=== PATIENT | male | born 1970 | race Caucasian/White ===

== ENCOUNTER → 2020-01-05 15:07 | Outpatient (BNVA) | payer OTHER, SELFPAY | PROVIDERS: Visit Provider Internal Medicine Cardiovascular Disease | DX: Z76.89 Persons encountering health services in other specified circumstances (principal) ==

== ENCOUNTER → 2020-04-05 14:52 | Outpatient (BNVA) | payer OTHER, SELFPAY | PROVIDERS: Visit Provider Internal Medicine Cardiovascular Disease ==

== ENCOUNTER 2020-08-04 11:20 | Outpatient (REF) | payer OTHER, SELFPAY ==
[2020-08-04 12:35] LABS: MANUAL DIFF FLAG NO
[2020-08-04 12:43] LABS: Basophils Absolute Auto 0.1 X10*3/uL (0.0-0.2); Eosinophils Absolute Auto 0.5 X10*3/uL (0.0-0.4); Eosinophils Percent Auto 12.9 % (0-4); Hematocrit 32.2 % (42-52); Hemoglobin 10.8 g/dl (14.0-18.0); Lymphocytes Absolute Auto 1.6 X10*3/uL (1.2-4.9); Lymphocytes Percent Auto 39.2 % (20-40); Mean Corpuscular HGB Conc 33.5 g/dl (31.0-36.0); Mean Corpuscular Hemoglobin 34.2 pg (27.0-33.0); Mean Corpuscular Volume 101.9 fL (80-98); Mean Platelet Volume 11.3 fL (9.4-12.4); Monocytes Absolute Auto 0.3 X10*3/uL (0.1-1.2); Monocytes Percent Auto 8.4 % (2-11); Neutrophils Absolute Auto 1.5 X10*3/uL (2.0-8.3); Neutrophils Percent Auto 37.5 % (45-73); Platelet Count 188 X10*3/uL (160-400); Red Blood Count 3.16 X10*6/uL (4.60-5.80); Red Cell Distribution Width 15.3 % (11.0-16.0)
[2020-08-04 12:51] LABS: Estimated Average Glucose 108 mg/dL; Hemoglobin A1c % 5.4 %
[2020-08-04 13:10] LABS: B Type Natriuretic Peptide 196 pg/mL (<100)
[2020-08-04 13:15] LABS: Anion Gap 15 (12-20); Blood Urea Nitrogen 12 mg/dL (9-16); Calcium 8.3 mg/dL (8.4-10.2); Carbon Dioxide 26 mmol/L (22-29); Chloride 106 mmol/L (96-108); Estimated Glomerular Filt Rate > 60; Glucose Random 131 mg/dL (60-115); Potassium 4.1 mmol/L (3.3-5.1); Sodium 143 mmol/L (135-145)
[2020-08-04 13:17] LABS: Alanine Aminotransferase 14 U/L (0-40); Albumin Level 3.6 g/dL (3.5-5.0); Alkaline Phosphatase 59 U/L (39-117); Anion Gap 14 (12-20); Aspartate Amino Transferase 23 U/L (5-37); Bilirubin Total 0.6 mg/dL (0.0-1.0); Blood Urea Nitrogen 13 mg/dL (9-16); Calcium 8.2 mg/dL (8.4-10.2); Carbon Dioxide 26 mmol/L (22-29); Chloride 107 mmol/L (96-108); Cholesterol 207 mg/dL; Estimated Glomerular Filt Rate > 60; Glucose Random 127 mg/dL (60-115); HDL Cholesterol 87 mg/dL; LDL Cholesterol Calculated 96 mg/dl; Potassium 4.2 mmol/L (3.3-5.1); Sodium 143 mmol/L (135-145); Total Protein 6.2 g/dL (6.5-8.0); Triglycerides 122 mg/dL
[2020-08-04 13:36] LABS: Free T4 (Free Thyroxine) 1.11 ng/dL (0.71-1.85); Thyroid Stimulating Hormone 0.66 uIU/mL (0.32-4.0)
[2020-08-04 13:39] LABS: Folate 4.8 ng/mL (> or = 4.0); Vitamin B12 1200 pg/mL (200-900)
== END 2020-08-04 11:21 | disposition home or self-care (01) ==
LOC: HO.LAB 11:20
PROVIDERS: PCP Internal Medicine; Referring Provider Internal Medicine Cardiovascular Disease; Visit Provider Internal Medicine
DX: E11.65 Type 2 diabetes mellitus with hyperglycemia (principal); I50.42 Chronic combined systolic (congestive) and diastolic (congestive) heart failure; E78.00 Pure hypercholesterolemia, unspecified; I42.8 Other cardiomyopathies
CPT/HCPCS: 36415; 80048; 80053; 80061; 82607; 82746; 83036; 83880; 84439; 84443; 85025

== ENCOUNTER → 2020-08-25 10:21 | Outpatient (REF) | payer OTHER, SELFPAY ==
--- NOTE | 2020-08-25 10:24 | CA_ITS ---
Transthoracic Echocardiogram Patient (Last, First, Middle): To Hagen, Gender: Male Date of : 1970 Age: 50 Procedure Date: 08/25/2020 Procedure Type: Transthoracic Echocardiogram Location: OP Height: 175.26 cm Weight: 68.04 kg BSA: 1.83 m2 Heart Rate: bpm BP: 112 / 62 mmHg Vine Pruner: Referring MD: Ari Krishnamurthy MD Symptoms: I42.8 - Other cardiomyopathies Study Quality: Good ECG Rhythm: Sinus Conclusions: - The left ventricular systolic function is normal. The calculated ejection fraction is 58% by biplane method. - No obvious valvular pathology seen on this study. Findings Left Ventricle Normal left ventricular cavity size. There is normal left ventricular wall thickness. The left ventricular systolic function is normal. The calculated ejection fraction is 58% by biplane method. There is no evidence of regional wall motion abnormalities. Diastolic function is normal for age. Right Ventricle Normal right ventricular cavity size and systolic function. Atria Both atria are normal in size. Aortic Valve There is a normal trileaflet aortic valve. There is no aortic valve stenosis. There is no aortic valve regurgitation. Mitral Valve The mitral valve appears normal. There is trace mitral valve regurgitation. There is no mitral valve stenosis. Pulmonic Valve The pulmonic valve was not well visualized. Tricuspid Valve Normal tricuspid valve structure. There is trace tricuspid valve regurgitation. The pulmonary artery systolic pressure is normal. Great Vessels The aortic annulus, sinuses of valsalva, asc aorta, and aortic arch are normal in size. Venous The inferior vena cava is normal in size and collapses greater than 50% with inspiration. Pericardium/Pleural There is no evidence of pericardial effusion. Prior Study Comparison Changes noted compared to prior study dated: 07/20/2019. Improved LVEF. Recommendations, Care & Conclusions No obvious valvular pathology seen on this study. Measurements 2D Linear Measurements RVIDd: 3.28 RVIDd Index: 1.79 IVSd: 0.75 0.6-0.9/0.6-1.0 cm LVIDd: 5.21 3.9-5.3/4.2-5.9 cm LVIDd Index: 2.85 2.4-3.2/2.2-3.1 cm/m2 LVIDs: 3.33 2.0-3.6 cm LVPWd: 0.90 0.7-1.1 cm Ao Root: 3.20 2.1-3.5 cm LA Diam: 3.30 2.7-3.8/3.0-4.0 cm LAIDs Index: 1.80 1.5-2.3 cm/m2 LV Mass: 187.64 67-162/88-224 g LV Mass Index: 102.53 43-95/49-115 g/m2 LVOT Diam: 2.10 3.0+(-)1.3 cm 2D Systolic Function EF 4C: 50.00 >55% EF 2C: 64.40 >55% EF BiP: 58.30 >55% Mitral Valve MV Pk E: 0.53 MV PK A: 0.42 MV Decel Time: 330.00 E/A: 1.30 E'Lateral: 7.07 E'Medial: 7.51 E/E' Med: 7.10 E/E' Lat: 7.50 Aortic Valve AoV Pk Marcellus: 1.22 AoV Mn Marcellus: 0.82 AoV VTI: 0.22 AoV Pk Grad: 6.00 Aov Mn Grad: 3.00 GREGORIA Cont.VTI: 3.20 LVOT LVOT Pk Marcellus: 0.98 LVOT Mn Marcellus: 0.73 LVOT VTI: 0.21 LVOT Pk Grad: 4.00 LVOT Mn Grad: 2.00 LVOT Diam: 2.10 LVOT Area: 3.46 Diastolic Function MV Pk E: 0.53 MV Pk A: 0.42 E/A: 1.30 E'Medial: 7.51 E/E' Med: 7.10 E' Laterial: 7.07 E/E' Lat: 7.50 Tricuspid Valve TR Pk Marcellus: 2.18 TR Pk Grad: 19.00 RA Press: 3.00 RVSP: 22.00 Great Vessels Aorta Ao Root-2D: 3.20 2.0-3.7 cm Ao Asc: 3.20 2.1-3.4 cm Ao Arch: 2.60 Updated in Other Vendor System with Status of Final Glenn Enciso MD electronically signed on 08/27/2020 12:39:00 PM with status of Final
[2020-08-25 12:50] LABS: MANUAL DIFF FLAG NO
[2020-08-25 12:58] LABS: Basophils Absolute Auto 0.1 X10*3/uL (0.0-0.2); Eosinophils Absolute Auto 0.2 X10*3/uL (0.0-0.4); Eosinophils Percent Auto 5.7 % (0-4); Hematocrit 33.1 % (42-52); Hemoglobin 11.2 g/dl (14.0-18.0); Imm Gran Abs Auto 0.01 X10*3/uL (0.00-0.03); Imm Gran Pct Auto 0.3 % (0.0-0.4); Lymphocytes Absolute Auto 1.7 X10*3/uL (1.2-4.9); Lymphocytes Percent Auto 49.7 % (20-40); Mean Corpuscular HGB Conc 33.8 g/dl (31.0-36.0); Mean Corpuscular Hemoglobin 34.6 pg (27.0-33.0); Mean Corpuscular Volume 102.2 fL (80-98); Mean Platelet Volume 11.8 fL (9.4-12.4); Monocytes Absolute Auto 0.4 X10*3/uL (0.1-1.2); Monocytes Percent Auto 11.2 % (2-11); Neutrophils Absolute Auto 1.1 X10*3/uL (2.0-8.3); Neutrophils Percent Auto 31.1 % (45-73); Platelet Count 177 X10*3/uL (160-400); Red Blood Count 3.24 X10*6/uL (4.60-5.80); Retic HGB Equivalent 37.4 pg (30.0-35.0); Reticulocyte Percent 1.4 % (0.5-1.8); Reticulocytes Absolute 0.044 X10*6/uL (0.026-0.095); White Blood Count 3.5 X10*3/uL (4.8-10.8)
[2020-08-25 13:29] LABS: Iron 83 mcg/dL (45-160); Percent Iron Saturation 38 % (15-50); Total Iron Binding Capacity 218 mcg/dL (228-428); Unsaturated Iron Binding 135 ug/dL
[2020-08-25 13:36] LABS: Microalbum/Creatinine Ratio Ur 4.5 ug/mg cr
[2020-08-25 13:50] LABS: Ferritin 468 ng/mL (20-250)
== END ==
LOC: HO.CARD 10:21
PROVIDERS: PCP Internal Medicine; Visit Provider Internal Medicine Cardiovascular Disease
DX: I42.8 Other cardiomyopathies (principal); I50.42 Chronic combined systolic (congestive) and diastolic (congestive) heart failure; D64.9 Anemia, unspecified; E11.65 Type 2 diabetes mellitus with hyperglycemia
CPT/HCPCS: 36415; 82043; 82728; 83540; 85025; 85045; 93306

== ENCOUNTER → 2020-12-12 14:57 | Outpatient (BNVA) | payer OTHER, SELFPAY | PROVIDERS: PCP Internal Medicine; Referring Provider Internal Medicine; Visit Provider Internal Medicine Cardiovascular Disease | DX: I50.42 Chronic combined systolic (congestive) and diastolic (congestive) heart failure (principal); I42.8 Other cardiomyopathies | CPT/HCPCS: 93005 ==

== ENCOUNTER → 2021-03-13 14:37 | Outpatient (BNVA) | payer OTHER, SELFPAY | PROVIDERS: PCP Internal Medicine; Referring Provider Internal Medicine; Visit Provider Surgery ==

== ENCOUNTER → 2021-07-20 14:44 | Outpatient (BNVA) | payer OTHER, SELFPAY | PROVIDERS: PCP Internal Medicine; Referring Provider Internal Medicine; Visit Provider Internal Medicine Cardiovascular Disease | DX: Z13.89 Encounter for screening for other disorder (principal) ==

== ENCOUNTER 2021-09-08 07:13 | Inpatient (IN) | payer OTHER, SELFPAY ==
[2021-09-08] VITALS (32 sets, daily range): BP systolic 66–125; BP diastolic 38–92; PULSE 87–108; RESP 11–21; TEMP 35.6–37.2; O2SAT 96–100; BMI 23.6
--- NOTE | 2021-09-08 | ECG_ITS ---
Test Reason : hypotensive Blood Pressure : / mmHG Vent. Rate : 090 BPM Atrial Rate : 000 BPM P-R Int : 000 ms QRS Dur : 090 ms QT Int : 408 ms P-R-T Axes : 000 047 062 degrees QTc Int : [address] & T wave abnormality, consider anterolateral ischemia Prolonged QT Abnormal ECG When compared with ECG of 30-MAR-2019 23:57, Atrial fibrillation has replaced Sinus rhythm ST now depressed in Anterior leads T wave inversion more evident in Anterior leads Referred By: Generic ED Physician Electronically Signed By:Juan Jose Britton
--- NOTE | ~2021-09-08 | XR_ITS ---
EXAMINATION: XR CHEST CLINICAL INFORMATION: Chest pain, weakness, cough. COMPARISON: 03/31/2019 chest radiograph. TECHNIQUE: Frontal view of the chest was obtained. FINDINGS: No significant abnormality is noted involving the heart, lungs, mediastinum, bony thorax or soft tissues. XR/XR chest 1V IMPRESSION: No acute cardiopulmonary process.
--- NOTE | ~2021-09-08 | CT_ITS ---
EXAMINATION: CT HEAD WITHOUT CONTRAST CLINICAL INFORMATION: Frontal headache, rule out bleed COMPARISON: None TECHNIQUE: Contiguous axial imaging was performed from the skull base to vertex without intravenous administration of contrast. This CT examination was performed using dose optimization techniques as appropriate, variously including the following: *Automated exposure control *Adjustment of mA and/or kV according to patient size (this includes techniques or standardized protocols for targeted exams where dose is matched to indication/reason for exam; i.e. extremities or head) *Use of iterative reconstruction technique DLP: 618 mGy-cm FINDINGS: There is no evidence of acute intracranial hemorrhage or territorial infarction. No abnormal mass effect or midline shift is seen. [place] to white matter differentiation is well preserved. No extra-axial fluid collections are identified. The ventricles are normal in size. There is no abnormal attenuation within the brain parenchyma. The osseous structures and soft tissues are normal. The mastoid air cells and visualized portions of the paranasal sinuses are well aerated. CT/CT head/brain wo con IMPRESSION: No acute intracranial pathology.
--- NOTE | ~2021-09-08 | CT_ITS ---
EXAMINATION: CT CHEST, ABDOMEN AND PELVIS WITHOUT IV CONTRAST CLINICAL INFORMATION: Hypotension, elevated WBC rule out infection COMPARISON: Chest x-ray 09/08/2021. CT abdomen pelvis 03/31/2019. TECHNIQUE: Multidetector volumetric imaging was performed from the thoracic inlet through the pubic symphysis following the uneventful administration of: Oral contrast: No Intravenous contrast: None. Sagittal and coronal reformatted images were obtained on the technologist workstation. This CT examination was performed using dose optimization techniques as appropriate, variously including the following: *Automated exposure control *Adjustment of mA and/or kV according to patient size (this includes techniques or standardized protocols for targeted exams where dose is matched to indication/reason for exam; i.e. extremities or head) *Use of iterative reconstruction technique FINDINGS: CHEST: LUNG: Left upper lobe calcified granuloma. No suspicious or concerning pulmonary nodules or masses. No focal consolidation or groundglass opacity. Mild diffuse bronchial wall thickening. MEDIASTINUM: The mediastinum in normal. The central vascular structures are unremarkable. No hilar or mediastinal lymphadenopathy. PLEURA: No significant effusion. No pleural mass or thickening. CHEST WALL/AXILLA: Unremarkable. ABDOMEN/PELVIS: The lack of intravenous contrast limits evaluation of the solid visceral organs including the liver, spleen, pancreas, and kidneys. LIVER, GALLBLADDER, AND BILIARY TREE: Limited non-contrast evaluation is normal. No gross focal hepatic lesion. Normal liver size and contour. No gross biliary ductal dilation. The gallbladder is unremarkable with no evidence of radiopaque gallstones, gallbladder wall thickening, or obvious pericholecystic inflammatory changes. PANCREAS: Limited non-contrast evaluation is normal. No audrey-pancreatic fluid. SPLEEN: Limited non-contrast evaluation is normal. ADRENAL GLANDS: Normal; no adrenal mass. KIDNEYS AND URETERS: Limited non-contrast evaluation is normal. No hydronephrosis, hydroureter, or calculi seen. No perinephric stranding. GASTROINTESTINAL TRACT: Small hiatal hernia. Small bowel nondilated. No evidence of appendicitis. No evidence of colitis or diverticulitis. ABDOMINAL WALL: Fat-containing left inguinal hernia. LYMPH NODES: No pathologically enlarged lymph nodes in the abdomen or pelvis. VASCULAR: Normal caliber abdominal aorta. BLADDER: Bladder is collapsed with circumferential wall irregularity. A Haskins catheter is in place. There is some gas in the bladder presumably from prior instrumentation. PELVIC VISCERA: Unremarkable. OSSEOUS STRUCTURES: Mild degenerative changes of the spine. No acute or suspicious osseous abnormality. CT/CT abdomen pelvis wo con IMPRESSION: No acute CT findings in the chest, abdomen, or pelvis.
[2021-09-08 07:45] LABS: Glucose, Whole Blood 222 mg/dL (60-115)
[2021-09-08 07:48] LABS: MANUAL DIFF FLAG NO
[2021-09-08 07:52] LABS: Basophils Absolute Auto 0.1 X10*3/uL (0.0-0.2); Basophils Percent Auto 0.4 % (0-2); Eosinophils Absolute Auto 0.1 X10*3/uL (0.0-0.4); Eosinophils Percent Auto 0.3 % (0-4); Hematocrit 34.6 % (42.0-52.0); Hemoglobin 12.7 g/dl (14.0-18.0); Imm Gran Pct Auto 0.6 % (0.0-0.4); Lymphocytes Absolute Auto 1.2 X10*3/uL (1.2-4.9); Lymphocytes Percent Auto 7.3 % (20-40); Mean Corpuscular HGB Conc 36.7 g/dl (31.0-36.0); Mean Corpuscular Hemoglobin 33.1 pg (27.0-33.0); Mean Corpuscular Volume 90.1 fL (80.0-98.0); Mean Platelet Volume 9.9 fL (9.4-12.4); Monocytes Absolute Auto 0.7 X10*3/uL (0.1-1.2); Monocytes Percent Auto 4.3 % (2-11); Neutrophils Absolute Auto 14.8 x10*3/uL (2.0-8.3); Neutrophils Percent Auto 87.1 % (45-73); Platelet Count 344 X10*3/uL (160-400); Red Blood Count 3.84 X10*6/uL (4.60-5.80)
[2021-09-08] MEDS: 0.9 % Sodium Chloride 1,000 ML 100 ML IV (08:00)
--- NOTE | 2021-09-08 08:02 | ED.DIZZY ---
HPI - Dizziness General Chief Complaint: Dizziness Stated Complaint: LOW BP,BLURRY VISION WHILE DRIVING PER EMS Time Seen by Provider: 09/08/21 07:41 Source: patient Mode of arrival: EMS Limitations: no limitations History of Present Illness HPI Narrative: 51-year-old male who presents emergency department for evaluation of weakness, dizziness, blurred vision, headache, cough and hypotension. Patient states he got up around 06:00 hours and drove to work. He states that while he was driving he felt dizzy and lightheaded as if he was going to pass out. He states that his vision became very blurred he had difficulty seeing. 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 On presentation to the emergency department the patient was hypotensive with a blood pressure of 76/38. He states that over the past 2-3 days he has been experiencing a frontal headache which he describes as an intermittent pounding sensation which is 8/10 at its worst. He has also had intermittent nausea with no vomiting. States that he has had a persistent cough since being diagnosed with COVID but the cough is nonproductive. He feels short of breath and has dyspnea on exertion but has no orthopnea. He has not noticed any pain or swelling in his lower extremities the patient drinks 6 vodka drinks per day for at least 2 years. He has not noticed any dark tarry stools or bloody stools. States that he has had no appetite is had very little food intake for the past several days, he has been able to drink fluids. The patient had a COVID-19 infection 3 weeks prior with symptoms including nausea, vomiting, dry urea, shortness of breath and nonproductive cough. Patient states that he received 3 Pfizer COVID-19 vaccinations. MD elicited complaint: dizziness and lightheadedness Onset (ago): minute(s) (30 minutes prior to arrival) Timing: sudden onset (Occurred while he was driving to work) Severity: severe Description: lightheadedness History of similar symptoms: No Exacerbating factors: nothing Relieving factors: nothing Associated symptoms: nausea, shortness of breath, weakness and other (Cough x3 weeks) Related Data Previous Rx's Medication Instructions Recorded sacubitril 49 mg-valsartan 51 mg 1 tab PO BID 90 days #180 tabs 09/21/21 tablet (Entresto) naltrexone 50 mg tablet 50 mg PO DAILY #90 tabs 12/05/20 carvedilol 25 mg tablet (Coreg) 25 mg PO Q12H 90 days #180 tabs 02/21/21 triamcinolone acetonide 0.5 % 1 appl topical BID 14 days #45 04/21/21 topical cream grams furosemide 20 mg tablet 20 mg PO .2 times a week 90 days 07/20/21 #20 tabs Allergies Allergy/AdvReac Type Severity Reaction Status Date / Time No Known Allergies Allergy Verified 04/21/21 12:27 [No Known Allergies*] Review of Systems Review of Systems: Yes all other systems are reviewed and are negative [facility] Past Medical History [facility] Narrative: Past medical history: Diabetes mellitus, nonischemic cardiomyopathy with diastolic and systolic dysfunction with an EF of 15-20% by echocardiogram 08/2019 repeat echocardiogram 08/25/2020 revealed improved EF of 58%, peripheral neuropathy, alcohol use disorder, anemia. Social history: He denies tobacco use. The patient drinks 6 vodka drinks per day. He denies drug use. Medical History Chronic heart failure with reduced ejection fraction and diastolic dysfunction Inguinal hernia, left Left inguinal hernia Nonischemic cardiomyopathy Surgical History Hx of cardiac catheterization Family History Family History Father No problems noted. Mother No problems noted. Other Substance abuse Social History Social History Housing: Apartment Alcohol intake: current Alcohol intake frequency: 3 or more drinks per day Patient Tobacco Use Status: Never used Tobacco e-Cigarette/Vaping Use: Never Used Second Hand Smoke Exposure: Yes Use of substances other than those prescribed or required for medical reasons: No Advance Directives: No Advance Directives Information Provided: Yes service: No Current occupational status: employed Physical Exam Vital Signs: Vital Signs: Last Vital Signs Temp 98.4 F 09/08/21 12:27 Pulse 89 09/08/21 12:27 Resp 18 09/08/21 12:27 BP 90/52 L 09/08/21 12:27 Pulse Ox 99 09/08/21 12:27 O2 Del Method 09/08/21 12:27 BMI result Body Mass Index 23.6 Const: Other: Awake, alert, male patient, very pleasant cooperative, the patient is very pale, answers all questions appropriately Orientation/consciousness: oriented to place HEENT: Head: Yes normal to inspection, Yes normocephalic and Yes atraumatic Ears: external ears normal General nose exam: Normal external nose present Face and sinus: Yes normal facial exam Mouth: Normal oral and palatal mucosa present Throat: Yes posterior oropharynx normal Eyes: General: appearance normal, both eyes and all related structures Pupils: Equal, round and reactive pupils present Neck: Neck: Yes normal visual inspection, Yes no lymphadenopathy, Yes trachea midline and Yes supple Chest: Chest palpation & inspection: normal inspection of the chest and normal palpation of entire chest wall Resp: Effort & Inspection: normal respiratory effort and able to speak in complete sentences Auscultation: clear to auscultation bilaterally Cardio: Rate: regular rate Rhythm: regular rhythm Heart sounds: S1 normal heart sound present, S2 normal heart sound present and no murmurs GI: Inspection: Yes normal to inspection Palpation (GI): Soft to palpation, nontender and no guarding Auscultation: normal bowel sounds Rectal Exam - Male: Yes visual inspection normal and Yes heme positive stool (Loose brown stool which was strongly Hemoccult positive) : General: Yes no CVA tenderness Back/Spine/Pelvis: Back: no CVA tenderness Skin: Other: Very pale-appearing the no rashes or lesions Neuro: General: oriented to place Cranial nerves: Yes CN's II-XII intact bilaterally and Yes Equal, round and reactive pupils present Cognition (Neuro): normal cognition Motor exam (neuro): 5/5 motor strength present throughout Extrem: General: Yes normal to inspection Psych: Appearance: grossly normal Speech and movement: Normal speech and movement present Affect: normal affect Attitude: cooperative Thought process: Normal thought process present Thought content: Normal thought content present Course Course Course Narrative: 51-year-old male with nonischemic cardiomyopathy with an EF of 15-20% who presents emergency department for evaluation of lightheadedness, dizziness, blurred vision, persistent cough x3 weeks. Patient continues to drink 6 vodka drinks per day. Physical examination revealed hypotension with a blood pressure of 76/38. He was very pale appearing. His rectal examination revealed loose brown stool which was strongly Hemoccult positive. Patient was ordered to get normal saline IV x2 L, laboratory evaluation was ordered including type and screen. 0859: Laboratory evaluation: WBC elevated 17,000, H&H mild anemia 12.7 and 34.6. Sodium low 128, chloride low 89, CO2 low 16. BUN and creatinine elevated 686.59. Calcium will 8.2. Glucose elevated 264. Lactate elevated 2.3 . High sensitive troponin I less than 3.5. Lactate was elevated 2.3. Radiology evaluation: Chest x-ray revealed no acute cardiopulmonary process as per the radiologist. EKG: Atrial fibrillation with a rate of 90, ST segment depression approximately 1 mm V2 through V6, compared to EKG dated 03/30/[address] segment depression V4 through V6 is old, the ST segment depression V2 through V3 is new. Given the patient's hypotension, I did discuss the case with the covering seal mixer, Dr. Mackenzie any came down to the emergency department evaluated the patient. His bedside echocardiogram revealed a relatively normal appearing ejection fraction. The patient will be treated with normal saline IV x2 L given this finding. He was also started on phenylephrine for his hypotension. Given his renal failure we will insert a Haskins catheter to follow his eyes and nose. I did add a BNP, urine drug screen, urine sodium. The patient will be treated empirically with meropenem 1 g IV and vancomycin 1 g IV. [facility] Lab Data Attestation: I reviewed the patient's lab results. Result diagrams: 09/08/21 07:45 09/08/21 07:45 Labs: Lab Results 09/08/21 09/08/21 09/08/21 Range/Units 07:41 07:45 07:45 WBC 17.0 H (4.8-10.8) X10*3/uL RBC 3.84 L (4.60-5.80) X10*6/uL Hgb 12.7 L (14.0-18.0) g/dl Hct 34.6 L (42.0-52.0) % MCV 90.1 (80.0-98.0) fL MCH 33.1 H (27.0-33.0) pg MCHC 36.7 H (31.0-36.0) g/dl RDW 12.0 (11.0-16.0) % Plt Count 344 (160-400) X10*3/uL MPV 9.9 (9.4-12.4) fL Immature Gran % (Auto) 0.6 H (0.0-0.4) % Neut % (Auto) 87.1 H (45-73) % Lymph % (Auto) 7.3 L (20-40) % [place] % (Auto) 4.3 (2-11) % Eos % (Auto) 0.3 (0-4) % Baso % (Auto) 0.4 (0-2) % Lymph # (Auto) 1.2 (1.2-4.9) X10*3/uL [place] # (Auto) 0.7 (0.1-1.2) X10*3/uL Eos # (Auto) 0.1 (0.0-0.4) X10*3/uL Baso # (Auto) 0.1 (0.0-0.2) X10*3/uL Abs Immat Gran (auto) 0.10 H (0.00-0.03) X10*3/uL Absolute Neuts (auto) 14.8 H (2.0-8.3) x10*3/uL Absolute Nucleated RBC 0.000 (0.0-0.012) X10*3/uL Nucleated RBC % (auto) 0.0 (0.0-0.2) /100WBC ESR (0-15) MM/HR PT (10.0-13.1) SEC INR (0.9-1.1) APTT (24.1-38.0) SEC D-Dimer High Sensitivty NG/ML Sodium 126 L (135-145) mmol/L Potassium 4.6 (3.3-5.1) mmol/L Chloride 89 L (96-108) mmol/L Carbon Dioxide 16 L (22-29) mmol/L Anion Gap 26 H (12-20) BUN 68 H (9-16) mg/dL Creatinine 6.59 H* (0.5-1.4) mg/dL Estim Creat Clear Calc 12.9 Estimated GFR 9 POC Glucose 222 H (60-115) mg/dL Random Glucose 264 H D (60-115) mg/dL Lactic Acid (0.5-2.0) mmol/L Lactic Acid F/U @ 2Hr (0.5-2.0) mmol/L Calcium 8.2 L (8.4-10.2) mg/dL Total Bilirubin 0.7 (0.0-1.0) mg/dL Direct Bilirubin 0.2 (0.0-0.5) mg/dL AST 26 (5-37) U/L ALT 34 (0-40) U/L Alkaline Phosphatase 60 (39-117) U/L Troponin I High Sens (<3.5-35.0) ng/L B-Natriuretic Peptide (<100) pg/mL Total Protein 6.6 (6.5-8.0) g/dL Albumin 3.5 (3.5-5.0) g/dL Lipase 122 H (8-78) U/L Urine Color Urine Appearance Urine pH (5.0-8.0) Ur Specific [place] (1.005-1.025) Urine Protein (NEG-TRACE) MG/DL Urine Glucose (UA) (NEG) MG/DL Urine Ketones (NEG) MG/DL Urine Blood (NEG) Urine Nitrite (NEG) Ur Leukocyte Esterase (NEG) Urine RBC (0) /HPF Urine WBC (0-4) /HPF Ur Squamous Epith Cells /LPF Urine Bacteria /LPF Urine Mucus /LPF Ur Random Sodium mmol/L Urine Opiates Screen (Not Detect) Urine Fentanyl Screen (Not Detect) Ur Barbiturates Screen (Not Detect) Ur Phencyclidine Scrn (Not Detect) Ur Amphetamines Screen (Not Detect) U Benzodiazepines Scrn (Not Detect) Urine Cocaine Screen (Not Detect) U Marijuana (THC) Screen (Not Detect) Ethyl Alcohol mg/dL Rheumatoid Factor (<15.0) IU/mL COVID-19 (JEROMY) (Negative) COVID-19 Clin Com Blood Type Antibody Screen 09/08/21 09/08/21 09/08/21 Range/Units 07:45 08:01 08:15 WBC (4.8-10.8) X10*3/uL RBC (4.60-5.80) X10*6/uL Hgb (14.0-18.0) g/dl Hct (42.0-52.0) % MCV (80.0-98.0) fL MCH (27.0-33.0) pg MCHC (31.0-36.0) g/dl RDW (11.0-16.0) % Plt Count (160-400) X10*3/uL MPV (9.4-12.4) fL Immature Gran % (Auto) (0.0-0.4) % Neut % (Auto) (45-73) % Lymph % (Auto) (20-40) % [place] % (Auto) (2-11) % Eos % (Auto) (0-4) % Baso % (Auto) (0-2) % Lymph # (Auto) (1.2-4.9) X10*3/uL [place] # (Auto) (0.1-1.2) X10*3/uL Eos # (Auto) (0.0-0.4) X10*3/uL Baso # (Auto) (0.0-0.2) X10*3/uL Abs Immat Gran (auto) (0.00-0.03) X10*3/uL Absolute Neuts (auto) (2.0-8.3) x10*3/uL Absolute Nucleated RBC (0.0-0.012) X10*3/uL Nucleated RBC % (auto) (0.0-0.2) /100WBC ESR (0-15) MM/HR PT (10.0-13.1) SEC INR (0.9-1.1) APTT (24.1-38.0) SEC D-Dimer High Sensitivty NG/ML Sodium (135-145) mmol/L Potassium (3.3-5.1) mmol/L Chloride (96-108) mmol/L Carbon Dioxide (22-29) mmol/L Anion Gap (12-20) BUN (9-16) mg/dL Creatinine (0.5-1.4) mg/dL Estim Creat Clear Calc Estimated GFR POC Glucose (60-115) mg/dL Random Glucose (60-115) mg/dL Lactic Acid 2.3 H* (0.5-2.0) mmol/L Lactic Acid F/U @ 2Hr (0.5-2.0) mmol/L Calcium (8.4-10.2) mg/dL Total Bilirubin (0.0-1.0) mg/dL Direct Bilirubin (0.0-0.5) mg/dL AST (5-37) U/L ALT (0-40) U/L Alkaline Phosphatase (39-117) U/L Troponin I High Sens < 3.5 (<3.5-35.0) ng/L B-Natriuretic Peptide 1110 H (<100) pg/mL Total Protein (6.5-8.0) g/dL Albumin (3.5-5.0) g/dL Lipase (8-78) U/L Urine Color Urine Appearance Urine pH (5.0-8.0) Ur Specific [place] (1.005-1.025) Urine Protein (NEG-TRACE) MG/DL Urine Glucose (UA) (NEG) MG/DL Urine Ketones (NEG) MG/DL Urine Blood (NEG) Urine Nitrite (NEG) Ur Leukocyte Esterase (NEG) Urine RBC (0) /HPF Urine WBC (0-4) /HPF Ur Squamous Epith Cells /LPF Urine Bacteria /LPF Urine Mucus /LPF Ur Random Sodium mmol/L Urine Opiates Screen (Not Detect) Urine Fentanyl Screen (Not Detect) Ur Barbiturates Screen (Not Detect) Ur Phencyclidine Scrn (Not Detect) Ur Amphetamines Screen (Not Detect) U Benzodiazepines Scrn (Not Detect) Urine Cocaine Screen (Not Detect) U Marijuana (THC) Screen (Not Detect) Ethyl Alcohol mg/dL Rheumatoid Factor (<15.0) IU/mL COVID-19 (JEROMY) (Negative) COVID-19 Clin Com Blood Type O Positive Antibody Screen NEGATIVE 09/08/21 09/08/21 09/08/21 Range/Units 08:16 08:16 08:24 WBC (4.8-10.8) X10*3/uL RBC (4.60-5.80) X10*6/uL Hgb (14.0-18.0) g/dl Hct (42.0-52.0) % MCV (80.0-98.0) fL MCH (27.0-33.0) pg MCHC (31.0-36.0) g/dl RDW (11.0-16.0) % Plt Count (160-400) X10*3/uL MPV (9.4-12.4) fL Immature Gran % (Auto) (0.0-0.4) % Neut % (Auto) (45-73) % Lymph % (Auto) (20-40) % [place] % (Auto) (2-11) % Eos % (Auto) (0-4) % Baso % (Auto) (0-2) % Lymph # (Auto) (1.2-4.9) X10*3/uL [place] # (Auto) (0.1-1.2) X10*3/uL Eos # (Auto) (0.0-0.4) X10*3/uL Baso # (Auto) (0.0-0.2) X10*3/uL Abs Immat Gran (auto) (0.00-0.03) X10*3/uL Absolute Neuts (auto) (2.0-8.3) x10*3/uL Absolute Nucleated RBC (0.0-0.012) X10*3/uL Nucleated RBC % (auto) (0.0-0.2) /100WBC ESR (0-15) MM/HR PT 10.7 (10.0-13.1) SEC INR 0.9 (0.9-1.1) APTT 24.4 (24.1-38.0) SEC D-Dimer High Sensitivty NG/ML Sodium (135-145) mmol/L Potassium (3.3-5.1) mmol/L Chloride (96-108) mmol/L Carbon Dioxide (22-29) mmol/L Anion Gap (12-20) BUN (9-16) mg/dL Creatinine (0.5-1.4) mg/dL Estim Creat Clear Calc Estimated GFR POC Glucose (60-115) mg/dL Random Glucose (60-115) mg/dL Lactic Acid (0.5-2.0) mmol/L Lactic Acid F/U @ 2Hr (0.5-2.0) mmol/L Calcium (8.4-10.2) mg/dL Total Bilirubin (0.0-1.0) mg/dL Direct Bilirubin (0.0-0.5) mg/dL AST (5-37) U/L ALT (0-40) U/L Alkaline Phosphatase (39-117) U/L Troponin I High Sens (<3.5-35.0) ng/L B-Natriuretic Peptide (<100) pg/mL Total Protein (6.5-8.0) g/dL Albumin (3.5-5.0) g/dL Lipase (8-78) U/L Urine Color Urine Appearance Urine pH (5.0-8.0) Ur Specific [place] (1.005-1.025) Urine Protein (NEG-TRACE) MG/DL Urine Glucose (UA) (NEG) MG/DL Urine Ketones (NEG) MG/DL Urine Blood (NEG) Urine Nitrite (NEG) Ur Leukocyte Esterase (NEG) Urine RBC (0) /HPF Urine WBC (0-4) /HPF Ur Squamous Epith Cells /LPF Urine Bacteria /LPF Urine Mucus /LPF Ur Random Sodium mmol/L Urine Opiates Screen (Not Detect) Urine Fentanyl Screen (Not Detect) Ur Barbiturates Screen (Not Detect) Ur Phencyclidine Scrn (Not Detect) Ur Amphetamines Screen (Not Detect) U Benzodiazepines Scrn (Not Detect) Urine Cocaine Screen (Not Detect) U Marijuana (THC) Screen (Not Detect) Ethyl Alcohol < 10 mg/dL Rheumatoid Factor (<15.0) IU/mL COVID-19 (JEROMY) Negative (Negative) COVID-19 Clin Com See Note Blood Type Antibody Screen 09/08/21 09/08/21 09/08/21 Range/Units 08:51 09:22 09:22 WBC (4.8-10.8) X10*3/uL RBC (4.60-5.80) X10*6/uL Hgb (14.0-18.0) g/dl Hct (42.0-52.0) % MCV (80.0-98.0) fL MCH (27.0-33.0) pg MCHC (31.0-36.0) g/dl RDW (11.0-16.0) % Plt Count (160-400) X10*3/uL MPV (9.4-12.4) fL Immature Gran % (Auto) (0.0-0.4) % Neut % (Auto) (45-73) % Lymph % (Auto) (20-40) % [place] % (Auto) (2-11) % Eos % (Auto) (0-4) % Baso % (Auto) (0-2) % Lymph # (Auto) (1.2-4.9) X10*3/uL [place] # (Auto) (0.1-1.2) X10*3/uL Eos # (Auto) (0.0-0.4) X10*3/uL Baso # (Auto) (0.0-0.2) X10*3/uL Abs Immat Gran (auto) (0.00-0.03) X10*3/uL Absolute Neuts (auto) (2.0-8.3) x10*3/uL Absolute Nucleated RBC (0.0-0.012) X10*3/uL Nucleated RBC % (auto) (0.0-0.2) /100WBC ESR (0-15) MM/HR PT (10.0-13.1) SEC INR (0.9-1.1) APTT (24.1-38.0) SEC D-Dimer High Sensitivty NG/ML Sodium (135-145) mmol/L Potassium (3.3-5.1) mmol/L Chloride (96-108) mmol/L Carbon Dioxide (22-29) mmol/L Anion Gap (12-20) BUN (9-16) mg/dL Creatinine (0.5-1.4) mg/dL Estim Creat Clear Calc Estimated GFR POC Glucose (60-115) mg/dL Random Glucose (60-115) mg/dL Lactic Acid (0.5-2.0) mmol/L Lactic Acid F/U @ 2Hr (0.5-2.0) mmol/L Calcium (8.4-10.2) mg/dL Total Bilirubin (0.0-1.0) mg/dL Direct Bilirubin (0.0-0.5) mg/dL AST (5-37) U/L ALT (0-40) U/L Alkaline Phosphatase (39-117) U/L Troponin I High Sens (<3.5-35.0) ng/L B-Natriuretic Peptide (<100) pg/mL Total Protein (6.5-8.0) g/dL Albumin (3.5-5.0) g/dL Lipase (8-78) U/L Urine Color YELLOW Urine Appearance HAZY Urine pH 5.5 (5.0-8.0) Ur Specific [place] 1.020 (1.005-1.025) Urine Protein 1+ H (NEG-TRACE) MG/DL Urine Glucose (UA) 500 H (NEG) MG/DL Urine Ketones 5 (NEG) MG/DL Urine Blood 1+ H (NEG) Urine Nitrite NEG (NEG) Ur Leukocyte Esterase NEG (NEG) Urine RBC 1-4 (0) /HPF Urine WBC 0 (0-4) /HPF Ur Squamous Epith Cells NONE /LPF Urine Bacteria 1+ /LPF Urine Mucus 2+ /LPF Ur Random Sodium 45.0 mmol/L Urine Opiates Screen Not Detected (Not Detect) Urine Fentanyl Screen Not Detected (Not Detect) Ur Barbiturates Screen Not Detected (Not Detect) Ur Phencyclidine Scrn Not Detected (Not Detect) Ur Amphetamines Screen Not Detected (Not Detect) U Benzodiazepines Scrn Not Detected (Not Detect) Urine Cocaine Screen Not Detected (Not Detect) U Marijuana (THC) Screen Not Detected (Not Detect) Ethyl Alcohol mg/dL Rheumatoid Factor (<15.0) IU/mL COVID-19 (JEROMY) (Negative) COVID-19 Clin Com Blood Type Antibody Screen 09/08/21 09/08/21 09/08/21 Range/Units 11:52 11:52 11:52 WBC (4.8-10.8) X10*3/uL RBC (4.60-5.80) X10*6/uL Hgb (14.0-18.0) g/dl Hct (42.0-52.0) % MCV (80.0-98.0) fL MCH (27.0-33.0) pg MCHC (31.0-36.0) g/dl RDW (11.0-16.0) % Plt Count (160-400) X10*3/uL MPV (9.4-12.4) fL Immature Gran % (Auto) (0.0-0.4) % Neut % (Auto) (45-73) % Lymph % (Auto) (20-40) % [place] % (Auto) (2-11) % Eos % (Auto) (0-4) % Baso % (Auto) (0-2) % Lymph # (Auto) (1.2-4.9) X10*3/uL [place] # (Auto) (0.1-1.2) X10*3/uL Eos # (Auto) (0.0-0.4) X10*3/uL Baso # (Auto) (0.0-0.2) X10*3/uL Abs Immat Gran (auto) (0.00-0.03) X10*3/uL Absolute Neuts (auto) (2.0-8.3) x10*3/uL Absolute Nucleated RBC (0.0-0.012) X10*3/uL Nucleated RBC % (auto) (0.0-0.2) /100WBC ESR 12 (0-15) MM/HR PT (10.0-13.1) SEC INR (0.9-1.1) APTT (24.1-38.0) SEC D-Dimer High Sensitivty NG/ML Sodium (135-145) mmol/L Potassium (3.3-5.1) mmol/L Chloride (96-108) mmol/L Carbon Dioxide (22-29) mmol/L Anion Gap (12-20) BUN (9-16) mg/dL Creatinine (0.5-1.4) mg/dL Estim Creat Clear Calc Estimated GFR POC Glucose (60-115) mg/dL Random Glucose (60-115) mg/dL Lactic Acid (0.5-2.0) mmol/L Lactic Acid F/U @ 2Hr 1.3 (0.5-2.0) mmol/L Calcium (8.4-10.2) mg/dL Total Bilirubin (0.0-1.0) mg/dL Direct Bilirubin (0.0-0.5) mg/dL AST (5-37) U/L ALT (0-40) U/L Alkaline Phosphatase (39-117) U/L Troponin I High Sens < 3.5 (<3.5-35.0) ng/L B-Natriuretic Peptide (<100) pg/mL Total Protein (6.5-8.0) g/dL Albumin (3.5-5.0) g/dL Lipase (8-78) U/L Urine Color Urine Appearance Urine pH (5.0-8.0) Ur Specific [place] (1.005-1.025) Urine Protein (NEG-TRACE) MG/DL Urine Glucose (UA) (NEG) MG/DL Urine Ketones (NEG) MG/DL Urine Blood (NEG) Urine Nitrite (NEG) Ur Leukocyte Esterase (NEG) Urine RBC (0) /HPF Urine WBC (0-4) /HPF Ur Squamous Epith Cells /LPF Urine Bacteria /LPF Urine Mucus /LPF Ur Random Sodium mmol/L Urine Opiates Screen (Not Detect) Urine Fentanyl Screen (Not Detect) Ur Barbiturates Screen (Not Detect) Ur Phencyclidine Scrn (Not Detect) Ur Amphetamines Screen (Not Detect) U Benzodiazepines Scrn (Not Detect) Urine Cocaine Screen (Not Detect) U Marijuana (THC) Screen (Not Detect) Ethyl Alcohol mg/dL Rheumatoid Factor (<15.0) IU/mL COVID-19 (JEROMY) (Negative) COVID-19 Clin Com Blood Type Antibody Screen 09/08/21 09/08/21 Range/Units 11:52 11:52 WBC (4.8-10.8) X10*3/uL RBC (4.60-5.80) X10*6/uL Hgb (14.0-18.0) g/dl Hct (42.0-52.0) % MCV (80.0-98.0) fL MCH (27.0-33.0) pg MCHC (31.0-36.0) g/dl RDW (11.0-16.0) % Plt Count (160-400) X10*3/uL MPV (9.4-12.4) fL Immature Gran % (Auto) (0.0-0.4) % Neut % (Auto) (45-73) % Lymph % (Auto) (20-40) % [place] % (Auto) (2-11) % Eos % (Auto) (0-4) % Baso % (Auto) (0-2) % Lymph # (Auto) (1.2-4.9) X10*3/uL [place] # (Auto) (0.1-1.2) X10*3/uL Eos # (Auto) (0.0-0.4) X10*3/uL Baso # (Auto) (0.0-0.2) X10*3/uL Abs Immat Gran (auto) (0.00-0.03) X10*3/uL Absolute Neuts (auto) (2.0-8.3) x10*3/uL Absolute Nucleated RBC (0.0-0.012) X10*3/uL Nucleated RBC % (auto) (0.0-0.2) /100WBC ESR (0-15) MM/HR PT (10.0-13.1) SEC INR (0.9-1.1) APTT (24.1-38.0) SEC D-Dimer High Sensitivty 167 NG/ML Sodium (135-145) mmol/L Potassium (3.3-5.1) mmol/L Chloride (96-108) mmol/L Carbon Dioxide (22-29) mmol/L Anion Gap (12-20) BUN (9-16) mg/dL Creatinine (0.5-1.4) mg/dL Estim Creat Clear Calc Estimated GFR POC Glucose (60-115) mg/dL Random Glucose (60-115) mg/dL Lactic Acid (0.5-2.0) mmol/L Lactic Acid F/U @ 2Hr (0.5-2.0) mmol/L Calcium (8.4-10.2) mg/dL Total Bilirubin (0.0-1.0) mg/dL Direct Bilirubin (0.0-0.5) mg/dL AST (5-37) U/L ALT (0-40) U/L Alkaline Phosphatase (39-117) U/L Troponin I High Sens (<3.5-35.0) ng/L B-Natriuretic Peptide (<100) pg/mL Total Protein (6.5-8.0) g/dL Albumin (3.5-5.0) g/dL Lipase (8-78) U/L Urine Color Urine Appearance Urine pH (5.0-8.0) Ur Specific [place] (1.005-1.025) Urine Protein (NEG-TRACE) MG/DL Urine Glucose (UA) (NEG) MG/DL Urine Ketones (NEG) MG/DL Urine Blood (NEG) Urine Nitrite (NEG) Ur Leukocyte Esterase (NEG) Urine RBC (0) /HPF Urine WBC (0-4) /HPF Ur Squamous Epith Cells /LPF Urine Bacteria /LPF Urine Mucus /LPF Ur Random Sodium mmol/L Urine Opiates Screen (Not Detect) Urine Fentanyl Screen (Not Detect) Ur Barbiturates Screen (Not Detect) Ur Phencyclidine Scrn (Not Detect) Ur Amphetamines Screen (Not Detect) U Benzodiazepines Scrn (Not Detect) Urine Cocaine Screen (Not Detect) U Marijuana (THC) Screen (Not Detect) Ethyl Alcohol mg/dL Rheumatoid Factor < 15.0 (<15.0) IU/mL COVID-19 ([facility]) (Negative) COVID-19 Clin Com Blood Type Antibody Screen ECG Data Attestation: I personally reviewed and interpreted this ECG as follows: Interpretation: 0746: Atrial fibrillation with a rate of 90, normal QRS interval but prolonged QTC interval of 499 milliseconds, no ST segment elevation, [address] segment depression V2 through V6, no PVCs, compared to EKG dated 03/30/[address] segment depression V4 through V6 is old, ST segment depression V2 through V3 is new. Critical Care Time Critical Care Time Critical Care Time: Yes Total Critical Care Time: 80 Attestation: Critical Care: The patient was critically ill with a high probability of imminent or life threatening deterioration. I spent greater than 30 minutes of discontinuous time evaluating the patient,delivering critical care at the bedside, discussing and evaluating pertinent data with consultants. Critical care time does not include time spent performing separately billable procedures or teaching. Total time spent performing critical care was 80 minutes. Discharge Plan Discharge Patient Disposition: Admitted As Inpatient Prescriptions: No Action Entresto 49-51 mg tablet 1 tab PO BID 90 Days Qty: 180 3RF carvedilol [Coreg] 25 mg tablet 25 mg PO Q12H 90 Days Qty: 180 2RF Rx Instructions: must administer with a meal/food naltrexone 50 mg tablet 50 mg PO DAILY Qty: 90 0RF triamcinolone acetonide 0.5 % cream 1 appl topical BID 14 Days Qty: 45 0RF furosemide 20 mg tablet 20 mg PO .2 times a week 90 Days Qty: 20 3RF
[2021-09-08 08:11] LABS: Alanine Aminotransferase 34 U/L (0-40); Albumin Level 3.5 g/dL (3.5-5.0); Alkaline Phosphatase 60 U/L (39-117); Anion Gap 26 (12-20); Aspartate Amino Transferase 26 U/L (5-37); Bilirubin Direct 0.2 mg/dL (0.0-0.5); Bilirubin Total 0.7 mg/dL (0.0-1.0); Blood Urea Nitrogen 68 mg/dL (9-16); Calcium 8.2 mg/dL (8.4-10.2); Carbon Dioxide 16 mmol/L (22-29); Chloride 89 mmol/L (96-108); Creatinine Clr Calc Pharmacy 12.9; Estimated Glomerular Filt Rate 9; Glucose Random 264 mg/dL (60-115); Lipase 122 U/L (8-78); Potassium 4.6 mmol/L (3.3-5.1); Sodium 126 mmol/L (135-145); Total Protein 6.6 g/dL (6.5-8.0)
--- NOTE | 2021-09-08 08:15 | PC.NURSE ---
Critical result received: Creatinine 6.59. Result received at 08:11am. Lab reported to & documented in worklist on EMR.
--- NOTE | 2021-09-08 08:15 | PC.NURSE ---
pt alert and oriented, skin extremely pale in color, hands pale/bluish in color but pt states its been like sine he had covid, had covid about 3 weeks ago, pt is reporting having a frontal headache/dizziness spinning in circles/blurry vision and just feeling fatigued, reprots not being to keep any food down since his covid lots dry heaving, pt reports drinking 6 vodka drinks per day no neuro deficits, no facial droop, hand grasp strong and equal, moving all extremities a-fib on the monitor, positive bedside guiac occult
[2021-09-08 08:17] LABS: Troponin-I High Sensitivity < 3.5 ng/L (<3.5-35.0)
[2021-09-08 08:32] LABS: INTERNATIONAL NORM RATIO 0.9 (0.9-1.1); Prothrombin Time 10.7 SEC (10.0-13.1)
[2021-09-08 08:33] LABS: Lactic Acid 2.3 mmol/L (0.5-2.0)
[2021-09-08 08:35] LABS: Partial Thromboplastin Time 24.4 SEC (24.1-38.0)
[2021-09-08 08:47] LABS: Ethanol < 10 mg/dL
[2021-09-08 08:53] LABS: COVID-19 Test Negative (Negative); IDNOW Serial# 16C4AD1C
--- NOTE | 2021-09-08 08:57 | PC.NURSE ---
dr tong at bedside performing us of the heart
[2021-09-08 09:00] LABS: Appearance Urine HAZY; Color Urine YELLOW; Glucose Urine UA 500 MG/DL (NEG); Leukocyte Esterase Urine NEG (NEG); Nitrite Urine NEG (NEG); PH 5.5 (5.0-8.0); UACC Culture Trigger NO; Urine Blood 1+ (NEG); Urine Ketones 5 MG/DL (NEG); Urine Protein 1+ MG/DL (NEG-TRACE)
[2021-09-08 09:12] LABS: Bacteria Urine 1+ /LPF; Mucus Urine 2+ /LPF; WBC Urine 0 /HPF (0-4)
[2021-09-08] MEDS: Phenylephrine HCL 20 MG in 0.9 % Sodium Chloride 250 ML 26.61 MG IVCONT (09:23)
--- NOTE | 2021-09-08 09:26 | PC.NURSE ---
pt back from ct, denies headache at this time, states his vision is back to normal not blurry any more and denies dizziness
[2021-09-08 09:34] LABS: B Type Natriuretic Peptide 1110 pg/mL (<100)
[2021-09-08] MEDS: vancomycin HCL 1,000 MG in 0.9 % Sodium Chloride 250 ML 270 MG IV (09:35)
--- NOTE | 2021-09-08 09:45 | PC.NURSE ---
only 45ml of yellow urine currently present in the [facility] bag
[2021-09-08 09:46] LABS: Amphetamine Screen Urine Not Detected (Not Detect); Barbiturates, Urine Not Detected (Not Detect); Benzodiazepines Screen Urine Not Detected (Not Detect); Cannabinoid Screen Urine Not Detected (Not Detect); Cocaine Screen Urine Not Detected (Not Detect); Fentanyl, urine Not Detected (Not Detect); Opiate Screen Urine Not Detected (Not Detect); Phencyclidine Screen Urine Not Detected (Not Detect)
[2021-09-08 10:04] LABS: Reflex Lactate? Lactic Acid Added
[2021-09-08] MEDS: 0.9 % Sodium Chloride 1,000 ML 999 ML IV (11:05)
--- NOTE | 2021-09-08 12:04 | P.HPCC_ITS ---
History of Present Illness Date of Service: 09/08/21 Attending physician on admission: Yuni Mackenzie Chief Complaint: Syncope/weakness 51-year-old male being treated on Entresto for a cardiomyopathy last seen by Cardiology several months ago never told about presence of atrial fibrillation but did have his Lasix stopped well over 6 months ago and wound up COVID positive 3 weeks ago and since then has had persistent nausea and vomiting unable to hold down food or volume but does take his medication and when he became near syncopal he he had a bilateral visual loss preceding kept enough control to pull off the road brought in by ambulance with a pressure in the 60s at a after 2 L of fluid he is responding with increased urinary output blood pressure is 100 but that is with addition of 2 micrograms/kilogram per minute of IV phenylephrine and he is awake and alert nonfocal neurologically improved urine output and my bedside echo demonstrates a normal left in right ventricle w ith normal ejection fraction and no wall motion abnormality no pulmonary hypertension normal inferior vena cava and no primary valve or pericardial disease but atrial fibrillation with controlled rate in the 90s but this might be because of the presence of 25 mg of carvedilol Review of Systems Review of Systems: Yes all other systems are reviewed and are negative PMFSH Past Medical History Medical History Chronic heart failure with reduced ejection fraction and diastolic dysfunction Inguinal hernia, left Left inguinal hernia Nonischemic cardiomyopathy Family History Family History Father No problems noted. Mother No problems noted. Other Substance abuse Surgical History Surgical History Hx of cardiac catheterization Social History Social History Housing: Apartment Alcohol intake: current Alcohol intake frequency: 3 or more drinks per day Patient Tobacco Use Status: Never used Tobacco e-Cigarette/Vaping Use: Never Used Second Hand Smoke Exposure: Yes Use of substances other than those prescribed or required for medical reasons: No Advance Directives: No Advance Directives Information Provided: Yes service: No Current occupational status: employed Meds Allergies Allergy/AdvReac Type Severity Reaction Status Date / Time No Known Allergies Allergy Verified 04/21/21 12:27 [No Known Allergies*] Active Medications: Current Medications Phenylephrine HCl 20 mg/ (Sodium Chloride) 252 mls @ 0 mls/hr IVCONT .Q0M [facility]; Protocol Last Titration: 09/08/21 10:36 Dose: 2 mcg/kg/min, 106.45 mls/hr Sodium Chloride (Ns) 1,000 mls @ 999 mls/hr IV .Q1H1M STA Stop: 09/08/21 12:40 Sodium Chloride (Ns) 1,000 mls @ 100 mls/hr IVCONT .Q10H [facility] Physical Exam Vital Signs: Vital Signs: Last Vital Signs Temp 97.7 F 09/08/21 10:37 Pulse 88 09/08/21 11:34 Resp 18 09/08/21 09:46 BP 101/65 09/08/21 11:34 Pulse Ox 97 09/08/21 09:46 O2 Del Method 09/08/21 09:46 BMI result Body Mass Index 23.6 Awake and alert and nonfocal neurologically Cardiac exam is class 1 by bedside echo Chest is clear by exam and by chest x-ray and CT scan of the chest is completely normal Abdomen soft with no tenderness no organomegaly Skin is intact he has good peripheral pulses adequate bilateral carotid upstrokes Urinalysis there is very mild microscopic hematuria and proteinuria and his urine sodium was 45 so certainly not purely consistent with dehydration the might be some intrinsic renal disease issue Results Labs CBC and Chem 7: 09/08/21 07:45 09/08/21 07:45 Labs: Laboratory Results - last 24 hr 09/08/21 09/08/21 09/08/21 07:41 07:45 07:45 MCV 90.1 MCH 33.1 H MCHC 36.7 H RDW 12.0 Plt Count 344 MPV 9.9 Immature Gran % (Auto) 0.6 H Neut % (Auto) 87.1 H Lymph % (Auto) 7.3 L [place] % (Auto) 4.3 Eos % (Auto) 0.3 Baso % (Auto) 0.4 Lymph # (Auto) 1.2 [place] # (Auto) 0.7 Eos # (Auto) 0.1 Baso # (Auto) 0.1 Abs Immat Gran (auto) 0.10 H Absolute Neuts (auto) 14.8 H Absolute Nucleated RBC 0.000 Nucleated RBC % (auto) 0.0 PT INR APTT Anion Gap 26 H Estim Creat Clear Calc 12.9 Estimated GFR 9 POC Glucose 222 H Random Glucose 264 H D Lactic Acid Calcium 8.2 L Total Bilirubin 0.7 Direct Bilirubin 0.2 AST 26 ALT 34 Alkaline Phosphatase 60 Troponin I High Sens B-Natriuretic Peptide Total Protein 6.6 Albumin 3.5 Lipase 122 H Urine Color Urine Appearance Urine pH Ur Specific [place] Urine Protein Urine Glucose (UA) Urine Ketones Urine Blood Urine Nitrite Ur Leukocyte Esterase Urine RBC Urine WBC Ur Squamous Epith Cells Urine Bacteria Urine Mucus Ur Random Sodium Urine Opiates Screen Urine Fentanyl Screen Ur Barbiturates Screen Ur Phencyclidine Scrn Ur Amphetamines Screen U Benzodiazepines Scrn Urine Cocaine Screen U Marijuana (THC) Screen Ethyl Alcohol COVID-19 (JEROMY) COVID-19 [employer] Blood Type Antibody Screen 09/08/21 09/08/21 09/08/21 07:45 08:01 08:15 MCV MCH MCHC RDW Plt Count MPV Immature Gran % (Auto) Neut % (Auto) Lymph % (Auto) [place] % (Auto) Eos % (Auto) Baso % (Auto) Lymph # (Auto) [place] # (Auto) Eos # (Auto) Baso # (Auto) Abs Immat Gran (auto) Absolute Neuts (auto) Absolute Nucleated RBC Nucleated RBC % (auto) PT INR APTT Anion Gap Estim Creat Clear Calc Estimated GFR POC Glucose Random Glucose Lactic Acid 2.3 H* Calcium Total Bilirubin Direct Bilirubin AST ALT Alkaline Phosphatase Troponin I High Sens < 3.5 B-Natriuretic Peptide 1110 H Total Protein Albumin Lipase Urine Color Urine Appearance Urine pH Ur Specific [place] Urine Protein Urine Glucose (UA) Urine Ketones Urine Blood Urine Nitrite Ur Leukocyte Esterase Urine RBC Urine WBC Ur Squamous Epith Cells Urine Bacteria Urine Mucus Ur Random Sodium Urine Opiates Screen Urine Fentanyl Screen Ur Barbiturates Screen Ur Phencyclidine Scrn Ur Amphetamines Screen U Benzodiazepines Scrn Urine Cocaine Screen U Marijuana (THC) Screen Ethyl Alcohol COVID-19 (JEROMY) COVID-19 [employer] Blood Type O Positive Antibody Screen NEGATIVE 09/08/21 09/08/21 09/08/21 08:16 08:16 08:24 MCV MCH MCHC RDW Plt Count MPV Immature Gran % (Auto) Neut % (Auto) Lymph % (Auto) [place] % (Auto) Eos % (Auto) Baso % (Auto) Lymph # (Auto) [place] # (Auto) Eos # (Auto) Baso # (Auto) Abs Immat Gran (auto) Absolute Neuts (auto) Absolute Nucleated RBC Nucleated RBC % (auto) PT 10.7 INR 0.9 APTT 24.4 Anion Gap Estim Creat Clear Calc Estimated GFR POC Glucose Random Glucose Lactic Acid Calcium Total Bilirubin Direct Bilirubin AST ALT Alkaline Phosphatase Troponin I High Sens B-Natriuretic Peptide Total Protein Albumin Lipase Urine Color Urine Appearance Urine pH Ur Specific [place] Urine Protein Urine Glucose (UA) Urine Ketones Urine Blood Urine Nitrite Ur Leukocyte Esterase Urine RBC Urine WBC Ur Squamous Epith Cells Urine Bacteria Urine Mucus Ur Random Sodium Urine Opiates Screen Urine Fentanyl Screen Ur Barbiturates Screen Ur Phencyclidine Scrn Ur Amphetamines Screen U Benzodiazepines Scrn Urine Cocaine Screen U Marijuana (THC) Screen Ethyl Alcohol < 10 COVID-19 (JEROMY) Negative COVID-19 Clin Com See Note Blood Type Antibody Screen 09/08/21 09/08/21 09/08/21 08:51 09:22 09:22 MCV MCH MCHC RDW Plt Count MPV Immature Gran % (Auto) Neut % (Auto) Lymph % (Auto) [place] % (Auto) Eos % (Auto) Baso % (Auto) Lymph # (Auto) [place] # (Auto) Eos # (Auto) Baso # (Auto) Abs Immat Gran (auto) Absolute Neuts (auto) Absolute Nucleated RBC Nucleated RBC % (auto) PT INR APTT Anion Gap Estim Creat Clear Calc Estimated GFR POC Glucose Random Glucose Lactic Acid Calcium Total Bilirubin Direct Bilirubin AST ALT Alkaline Phosphatase Troponin I High Sens B-Natriuretic Peptide Total Protein Albumin Lipase Urine Color YELLOW Urine Appearance HAZY Urine pH 5.5 Ur Specific [place] 1.020 Urine Protein 1+ H Urine Glucose (UA) 500 H Urine Ketones 5 Urine Blood 1+ H Urine Nitrite NEG Ur Leukocyte Esterase NEG Urine RBC 1-4 Urine WBC 0 Ur Squamous Epith Cells NONE Urine Bacteria 1+ Urine Mucus 2+ Ur Random Sodium 45.0 Urine Opiates Screen Not Detected Urine Fentanyl Screen Not Detected Ur Barbiturates Screen Not Detected Ur Phencyclidine Scrn Not Detected Ur Amphetamines Screen Not Detected U Benzodiazepines Scrn Not Detected Urine Cocaine Screen Not Detected U Marijuana (THC) Screen Not Detected Ethyl Alcohol COVID-19 (JEROMY) COVID-19 Clin Com Blood Type Antibody Screen Imaging Radiologist's Impressions: Impressions Chest X-Ray 09/08/21 08:05 IMPRESSION: No acute cardiopulmonary process. Abdomen/Pelvis CT 09/08/21 09:31 IMPRESSION: No acute CT findings in the chest, abdomen, or pelvis. Chest CT 09/08/21 09:31 IMPRESSION: No acute CT findings in the chest, abdomen, or pelvis. Head CT 09/08/21 09:31 IMPRESSION: No acute intracranial pathology. Assessment and Plan (1) Acute hypotension: Status: Acute (2) Leukocytosis: Status: Acute (3) Acute kidney injury: Status: Acute (4) New onset a-fib: Status: Acute (5) Fecal occult blood test positive: Status: Acute (6) Alcohol use disorder, severe, dependence: Status: Acute (7) Left inguinal hernia: Status: Acute (8) Eczema: Status: Acute (9) Peripheral neuropathy: Status: Acute (10) Anemia: Status: Acute (11) Type 2 diabetes mellitus with hyperglycemia: Qualifiers: Diabetes mellitus group home insulin use: without group home use Qualified Code(s): E11.65 - Type 2 diabetes mellitus with hyperglycemia Status: Acute (12) Hyponatremia: Status: Acute (13) Syncope and collapse: Status: Acute Plan For now we need to maintain phenylephrine as we restore volume and then document normalization of the mild lactate elevation in which case this was purely circulatory and is not a septic related issue so no further antibiotics at this point document resolution of renal function numbers and for persistent need of phenylephrine especially with a low chads score might consider cardioversion so we will keep him NPO
[2021-09-08 12:09] LABS: D Dimer High Sensitivity 167 NG/ML
[2021-09-08 12:14] LABS: Rheumatoid Factor < 15.0 IU/mL (<15.0); ~Lactic Acid-LAB USE ONLY 1.3 mmol/L (0.5-2.0)
[2021-09-08] MEDS: 0.9 % Sodium Chloride 1,000 ML 100 ML IVCONT ×2 (12:14→22:33)
[2021-09-08 12:23] LABS: Troponin-I High Sensitivity < 3.5 ng/L (<3.5-35.0)
[2021-09-08] MEDS: Phenylephrine HCL 20 MG in 0.9 % Sodium Chloride 250 ML 106.45 MG IVCONT ×2 (12:27→19:53)
[2021-09-08 12:40] LABS: Erythrocyte Sedimentation Rate 12 MM/HR (0-15)
[2021-09-08 14:29] LABS: VBG HCO3 19 mmol/L (22-26); VBG pCO2 37 mmHg; VBG pH 7.31 (7.32-7.43); VBG pO2 39 mmHg
[2021-09-08 14:29] LABS: Venous Blood Gas Refer to POC result
[2021-09-08 14:55] LABS: Anion Gap 18 (12-20); Blood Urea Nitrogen 62 mg/dL (9-16); Calcium 7.3 mg/dL (8.4-10.2); Carbon Dioxide 20 mmol/L (22-29); Chloride 98 mmol/L (96-108); Creatinine Clr Calc Pharmacy 16.3; Estimated Glomerular Filt Rate 12; Glucose Random 135 mg/dL (60-115); Potassium 3.7 mmol/L (3.3-5.1); Sodium 132 mmol/L (135-145)
--- NOTE | 2021-09-08 15:06 | PHA.MEDREC ---
Pharmacy Consult ? Medication Reconciliation Pharmacy has completed the medication reconciliation.
--- NOTE | 2021-09-08 15:35 | P.CONCA_ITS ---
History of Present Illness History of Present Illness Date of Service: 09/08/21 Requesting physician: Yuni Mackenzie Chief complaint: syncope hypotension afib Narrative: 51-year-old gentleman with known history of cardiomyopathy in the past with recovery who is presenting for syncope. He said he was driving a car when you started noticing visual changes and fell that is going to pass out. He was able to sample puller and eventually was brought into the emergency department. Was noted to have hypotension and acute renal failure. He has been on Entresto and has been using furosemide few times a week. It appears he had COVID-19 infection recently and had significant GI issues after that. He was having nausea and vomiting and was not eating much. He was started on IV fluids and is improving. His urine output is quite good right now. Denying any chest discomfort or shortness of breath. He has been noticed to be in atrial fibrillation. This is a new diagnosis for him. He is denying palpitations. Difficult to know when he actually went into atrial fibrillation currently. [facility] Past Medical History Medical History Chronic heart failure with reduced ejection fraction and diastolic dysfunction Inguinal hernia, left Left inguinal hernia Nonischemic cardiomyopathy Family History Family History Father No problems noted. Mother No problems noted. Other Substance abuse Surgical History Surgical History Hx of cardiac catheterization Social History Social History Household Members: None Housing: Apartment Do you presently have visiting nurse or other home services: No Alcohol intake: current Alcohol intake frequency: 3 or more drinks per day Patient Tobacco Use Status: Never used Tobacco e-Cigarette/Vaping Use: Never Used Second Hand Smoke Exposure: Yes Use of substances other than those prescribed or required for medical reasons: No Have you been hit, kicked, punched, or otherwise hurt by someone within the past year? If so, by whom?: No Do you feel safe in your current relationship?: No Current Relationship Is there a partner from a previous relationship who is making you feel unsafe now?: No Are you made to feel afraid or neglected: No Spiritual Healthcare Practices: none per patient Gnosticist Healthcare Practices: none per patient Cultural Healthcare Practices: none per patient Advance Directives: No Advance Directives Information Provided: Yes Do you have thoughts of harming others: None Do you have a plan to hurt others: No Plan Recently lost weight without trying: Yes How much weight loss: 14-23 pounds Eating poorly because of decreased appetite: Yes Nutrition screen score: 5 Nutrition Risks: Poor intake 0-25% >4 days Poor oral hygiene: No service: No Current occupational status: employed Meds Allergies Allergy/AdvReac Type Severity Reaction Status Date / Time No Known Allergies Allergy Verified 04/21/21 12:27 [No Known Allergies*] Active Medications: Current Medications Famotidine (Famotidine/Pf 20 Mg/2 Ml Vial) 10 mg IVPUSH BID MICHELLE Sodium Chloride (Ns) 1,000 mls @ 100 mls/hr IVCONT .Q10H MICHELLE Last Admin: 09/08/21 12:14 Dose: 100 mls/hr Sodium Chloride (Ns) 1,000 mls @ 100 mls/hr IVCONT .Q10H MICHELLE Last Admin: 09/08/21 14:59 Dose: Not Given Phenylephrine HCl 20 mg/ (Sodium Chloride) 252 mls @ 0 mls/hr IVCONT .Q0M MICHELLE; Protocol Last Titration: 09/08/21 14:58 Dose: Infused Home Medications Medication Instructions Recorded Confirmed Last Taken Type naltrexone 50 mg tablet 1 tab PO DAILY 09/08/21 09/08/21 Unknown History Physical Exam Vital Signs: Vital Signs: Last Vital Signs Temp 99.0 F 09/08/21 14:57 Pulse 101 H 09/08/21 14:58 Resp 16 09/08/21 14:57 BP 98/72 09/08/21 14:58 Pulse Ox 99 09/08/21 12:27 O2 Del Method 09/08/21 14:02 BMI result Body Mass Index 23.6 GENERAL APPEARANCE: in no acute distress, pleasant. NECK: no carotid bruit, no jugular venous distention. SKIN: no suspicious lesions, warm and dry. HEART: no murmurs, irregularly irregular rhythm. LUNGS: clear to auscultation bilaterally. ABDOMEN: soft, nontender. EXTREMITIES: no edema. PERIPHERAL PULSES: equal. NEUROLOGIC: No gross deficits, AAO X 3 Objective Labs and Meds Result diagrams: 09/08/21 07:45 09/08/21 14:18 Lab results: Laboratory Results - last 24 hr 09/08/21 09/08/21 09/08/21 07:41 07:45 07:45 WBC 17.0 H RBC 3.84 L Hgb 12.7 L Hct 34.6 L MCV 90.1 MCH 33.1 H MCHC 36.7 H RDW 12.0 Plt Count 344 MPV 9.9 Immature Gran % (Auto) 0.6 H Neut % (Auto) 87.1 H Lymph % (Auto) 7.3 L [place] % (Auto) 4.3 Eos % (Auto) 0.3 Baso % (Auto) 0.4 Lymph # (Auto) 1.2 [place] # (Auto) 0.7 Eos # (Auto) 0.1 Baso # (Auto) 0.1 Abs Immat Gran (auto) 0.10 H Absolute Neuts (auto) 14.8 H Absolute Nucleated RBC 0.000 Nucleated RBC % (auto) 0.0 ESR PT INR APTT D-Dimer High Sensitivty VBG pH VBG pCO2 VBG pO2 VBG HCO3 VBG O2 Saturation VBG Base Excess Sodium 126 L Potassium 4.6 Chloride 89 L Carbon Dioxide 16 L Anion Gap 26 H BUN 68 H Creatinine 6.59 H* Estim Creat Clear Calc 12.9 Estimated GFR 9 POC Glucose 222 H Random Glucose 264 H D Lactic Acid Lactic Acid F/U @ 2Hr Calcium 8.2 L Total Bilirubin 0.7 Direct Bilirubin 0.2 AST 26 ALT 34 Alkaline Phosphatase 60 Troponin I High Sens B-Natriuretic Peptide Total Protein 6.6 Albumin 3.5 Lipase 122 H Urine Color Urine Appearance Urine pH Ur Specific [place] Urine Protein Urine Glucose (UA) Urine Ketones Urine Blood Urine Nitrite Ur Leukocyte Esterase Urine RBC Urine WBC Ur Squamous Epith Cells Urine Bacteria Urine Mucus Ur Random Sodium Urine Opiates Screen Urine Fentanyl Screen Ur Barbiturates Screen Ur Phencyclidine Scrn Ur Amphetamines Screen U Benzodiazepines Scrn Urine Cocaine Screen U Marijuana (THC) Screen Ethyl Alcohol Rheumatoid Factor COVID-19 (JEROMY) COVID-19 Clin Com Blood Type Antibody Screen 09/08/21 09/08/21 09/08/21 07:45 08:01 08:15 WBC RBC Hgb Hct MCV MCH MCHC RDW Plt Count MPV Immature Gran % (Auto) Neut % (Auto) Lymph % (Auto) [place] % (Auto) Eos % (Auto) Baso % (Auto) Lymph # (Auto) [place] # (Auto) Eos # (Auto) Baso # (Auto) Abs Immat Gran (auto) Absolute Neuts (auto) Absolute Nucleated RBC Nucleated RBC % (auto) ESR PT INR APTT D-Dimer High Sensitivty VBG pH VBG pCO2 VBG pO2 VBG HCO3 VBG O2 Saturation VBG Base Excess Sodium Potassium Chloride Carbon Dioxide Anion Gap BUN Creatinine Estim Creat Clear Calc Estimated GFR POC Glucose Random Glucose Lactic Acid 2.3 H* Lactic Acid F/U @ 2Hr Calcium Total Bilirubin Direct Bilirubin AST ALT Alkaline Phosphatase Troponin I High Sens < 3.5 B-Natriuretic Peptide 1110 H Total Protein Albumin Lipase Urine Color Urine Appearance Urine pH Ur Specific [place] Urine Protein Urine Glucose (UA) Urine Ketones Urine Blood Urine Nitrite Ur Leukocyte Esterase Urine RBC Urine WBC Ur Squamous Epith Cells Urine Bacteria Urine Mucus Ur Random Sodium Urine Opiates Screen Urine Fentanyl Screen Ur Barbiturates Screen Ur Phencyclidine Scrn Ur Amphetamines Screen U Benzodiazepines Scrn Urine Cocaine Screen U Marijuana (THC) Screen Ethyl Alcohol Rheumatoid Factor COVID-19 (JEROMY) COVID-19 Clin Com Blood Type O Positive Antibody Screen NEGATIVE 09/08/21 09/08/21 09/08/21 08:16 08:16 08:24 WBC RBC Hgb Hct MCV MCH MCHC RDW Plt Count MPV Immature Gran % (Auto) Neut % (Auto) Lymph % (Auto) [place] % (Auto) Eos % (Auto) Baso % (Auto) Lymph # (Auto) [place] # (Auto) Eos # (Auto) Baso # (Auto) Abs Immat Gran (auto) Absolute Neuts (auto) Absolute Nucleated RBC Nucleated RBC % (auto) ESR PT 10.7 INR 0.9 APTT 24.4 D-Dimer High Sensitivty VBG pH VBG pCO2 VBG pO2 VBG HCO3 VBG O2 Saturation VBG Base Excess Sodium Potassium Chloride Carbon Dioxide Anion Gap BUN Creatinine Estim Creat Clear Calc Estimated GFR POC Glucose Random Glucose Lactic Acid Lactic Acid F/U @ 2Hr Calcium Total Bilirubin Direct Bilirubin AST ALT Alkaline Phosphatase Troponin I High Sens B-Natriuretic Peptide Total Protein Albumin Lipase Urine Color Urine Appearance Urine pH Ur Specific [place] Urine Protein Urine Glucose (UA) Urine Ketones Urine Blood Urine Nitrite Ur Leukocyte Esterase Urine RBC Urine WBC Ur Squamous Epith Cells Urine Bacteria Urine Mucus Ur Random Sodium Urine Opiates Screen Urine Fentanyl Screen Ur Barbiturates Screen Ur Phencyclidine Scrn Ur Amphetamines Screen U Benzodiazepines Scrn Urine Cocaine Screen U Marijuana (THC) Screen Ethyl Alcohol < 10 Rheumatoid Factor COVID-19 (JEROMY) Negative COVID-19 Clin Com See Note Blood Type Antibody Screen 09/08/21 09/08/21 09/08/21 08:51 09:22 09:22 WBC RBC Hgb Hct MCV MCH MCHC RDW Plt Count MPV Immature Gran % (Auto) Neut % (Auto) Lymph % (Auto) [place] % (Auto) Eos % (Auto) Baso % (Auto) Lymph # (Auto) [place] # (Auto) Eos # (Auto) Baso # (Auto) Abs Immat Gran (auto) Absolute Neuts (auto) Absolute Nucleated RBC Nucleated RBC % (auto) ESR PT INR APTT D-Dimer High Sensitivty VBG pH VBG pCO2 VBG pO2 VBG HCO3 VBG O2 Saturation VBG Base Excess Sodium Potassium Chloride Carbon Dioxide Anion Gap BUN Creatinine Estim Creat Clear Calc Estimated GFR POC Glucose Random Glucose Lactic Acid Lactic Acid F/U @ 2Hr Calcium Total Bilirubin Direct Bilirubin AST ALT Alkaline Phosphatase Troponin I High Sens B-Natriuretic Peptide Total Protein Albumin Lipase Urine Color YELLOW Urine Appearance HAZY Urine pH 5.5 Ur Specific [place] 1.020 Urine Protein 1+ H Urine Glucose (UA) 500 H Urine Ketones 5 Urine Blood 1+ H Urine Nitrite NEG Ur Leukocyte Esterase NEG Urine RBC 1-4 Urine WBC 0 Ur Squamous Epith Cells NONE Urine Bacteria 1+ Urine Mucus 2+ Ur Random Sodium 45.0 Urine Opiates Screen Not Detected Urine Fentanyl Screen Not Detected Ur Barbiturates Screen Not Detected Ur Phencyclidine Scrn Not Detected Ur Amphetamines Screen Not Detected U Benzodiazepines Scrn Not Detected Urine Cocaine Screen Not Detected U Marijuana (THC) Screen Not Detected Ethyl Alcohol Rheumatoid Factor COVID-19 (JEROMY) COVID-19 Clin Com Blood Type Antibody Screen 09/08/21 09/08/21 09/08/21 11:52 11:52 11:52 WBC RBC Hgb Hct MCV MCH MCHC RDW Plt Count MPV Immature Gran % (Auto) Neut % (Auto) Lymph % (Auto) [place] % (Auto) Eos % (Auto) Baso % (Auto) Lymph # (Auto) [place] # (Auto) Eos # (Auto) Baso # (Auto) Abs Immat Gran (auto) Absolute Neuts (auto) Absolute Nucleated RBC Nucleated RBC % (auto) ESR 12 PT INR APTT D-Dimer High Sensitivty VBG pH VBG pCO2 VBG pO2 VBG HCO3 VBG O2 Saturation VBG Base Excess Sodium Potassium Chloride Carbon Dioxide Anion Gap BUN Creatinine Estim Creat Clear Calc Estimated GFR POC Glucose Random Glucose Lactic Acid Lactic Acid F/U @ 2Hr 1.3 Calcium Total Bilirubin Direct Bilirubin AST ALT Alkaline Phosphatase Troponin I High Sens < 3.5 B-Natriuretic Peptide Total Protein Albumin Lipase Urine Color Urine Appearance Urine pH Ur Specific [place] Urine Protein Urine Glucose (UA) Urine Ketones Urine Blood Urine Nitrite Ur Leukocyte Esterase Urine RBC Urine WBC Ur Squamous Epith Cells Urine Bacteria Urine Mucus Ur Random Sodium Urine Opiates Screen Urine Fentanyl Screen Ur Barbiturates Screen Ur Phencyclidine Scrn Ur Amphetamines Screen U Benzodiazepines Scrn Urine Cocaine Screen U Marijuana (THC) Screen Ethyl Alcohol Rheumatoid Factor COVID-19 (JEROMY) COVID-19 Clin Com Blood Type Antibody Screen 09/08/21 09/08/21 09/08/21 11:52 11:52 14:18 WBC RBC Hgb Hct MCV MCH MCHC RDW Plt Count MPV Immature Gran % (Auto) Neut % (Auto) Lymph % (Auto) [place] % (Auto) Eos % (Auto) Baso % (Auto) Lymph # (Auto) [place] # (Auto) Eos # (Auto) Baso # (Auto) Abs Immat Gran (auto) Absolute Neuts (auto) Absolute Nucleated RBC Nucleated RBC % (auto) ESR PT INR APTT D-Dimer High Sensitivty 167 VBG pH VBG pCO2 VBG pO2 VBG HCO3 VBG O2 Saturation VBG Base Excess Sodium 132 L Potassium 3.7 Chloride 98 Carbon Dioxide 20 L Anion Gap 18 BUN 62 H Creatinine 5.22 H* Estim Creat Clear Calc 16.3 Estimated GFR 12 POC Glucose Random Glucose 135 H D Lactic Acid Lactic Acid F/U @ 2Hr Calcium 7.3 L D Total Bilirubin Direct Bilirubin AST ALT Alkaline Phosphatase Troponin I High Sens B-Natriuretic Peptide Total Protein Albumin Lipase Urine Color Urine Appearance Urine pH Ur Specific [place] Urine Protein Urine Glucose (UA) Urine Ketones Urine Blood Urine Nitrite Ur Leukocyte Esterase Urine RBC Urine WBC Ur Squamous Epith Cells Urine Bacteria Urine Mucus Ur Random Sodium Urine Opiates Screen Urine Fentanyl Screen Ur Barbiturates Screen Ur Phencyclidine Scrn Ur Amphetamines Screen U Benzodiazepines Scrn Urine Cocaine Screen U Marijuana (THC) Screen Ethyl Alcohol Rheumatoid Factor < 15.0 COVID-19 (JEROMY) COVID-19 Clin Com Blood Type Antibody Screen 09/08/21 14:25 WBC RBC Hgb Hct MCV MCH MCHC RDW Plt Count MPV Immature Gran % (Auto) Neut % (Auto) Lymph % (Auto) [place] % (Auto) Eos % (Auto) Baso % (Auto) Lymph # (Auto) [place] # (Auto) Eos # (Auto) Baso # (Auto) Abs Immat Gran (auto) Absolute Neuts (auto) Absolute Nucleated RBC Nucleated RBC % (auto) ESR PT INR APTT D-Dimer High Sensitivty VBG pH 7.31 L VBG pCO2 37 VBG pO2 39 VBG HCO3 19 L VBG O2 Saturation 57.0 VBG Base Excess -6.0 Sodium Potassium Chloride Carbon Dioxide Anion Gap BUN Creatinine Estim Creat Clear Calc Estimated GFR POC Glucose Random Glucose Lactic Acid Lactic Acid F/U @ 2Hr Calcium Total Bilirubin Direct Bilirubin AST ALT Alkaline Phosphatase Troponin I High Sens B-Natriuretic Peptide Total Protein Albumin Lipase Urine Color Urine Appearance Urine pH Ur Specific [place] Urine Protein Urine Glucose (UA) Urine Ketones Urine Blood Urine Nitrite Ur Leukocyte Esterase Urine RBC Urine WBC Ur Squamous Epith Cells Urine Bacteria Urine Mucus Ur Random Sodium Urine Opiates Screen Urine Fentanyl Screen Ur Barbiturates Screen Ur Phencyclidine Scrn Ur Amphetamines Screen U Benzodiazepines Scrn Urine Cocaine Screen U Marijuana (THC) Screen Ethyl Alcohol Rheumatoid Factor COVID-19 (JEROMY) COVID-19 Clin Com Blood Type Antibody Screen Imaging Radiologist's impression: Impressions Chest X-Ray 09/08/21 08:05 IMPRESSION: No acute cardiopulmonary process. Abdomen/Pelvis CT 09/08/21 09:31 IMPRESSION: No acute CT findings in the chest, abdomen, or pelvis. Chest CT 09/08/21 09:31 IMPRESSION: No acute CT findings in the chest, abdomen, or pelvis. Head CT 09/08/21 09:31 IMPRESSION: No acute intracranial pathology. Assessment and Plan (1) Syncope and collapse: Status: Acute (2) Acute kidney injury: Status: Acute (3) New onset a-fib: Status: Acute Plan 51-year-old gentleman with background history of nonischemic cardiomyopathy felt to be secondary to alcohol use who had complete recovery in ejection fraction based on echocardiography recently. He was on carvedilol and Entresto. Apparently developed COVID-19 infection with significant GI issues and was not eating and drinking and developed acute kidney injury and hypotension. He is receiving IV fluids. Monitor kidney function closely. Entresto should be held. He has new onset atrial fibrillation. His chads Vasc score is low. He probably does not need long-term anticoagulation. It is difficult to say when he developed atrial fibrillation currently. Monitor closely and if he continues to be in Afib by tomorrow then I think it would be reasonable to start him on heparin drip. He would probably need SHARON cardioversion if it is difficult to control atrial fibrillation. In that case he will require anticoagulation for 4-6 weeks. Thank you for allowing me to participate in the care of your patient. Please feel free to contact me if you have any questions. Procedures Date of Service Date of Service: 09/08/21
--- NOTE | 2021-09-08 16:00 | CA_ITS ---
Transthoracic Echocardiogram Patient (Last, First, Middle): To Hagen, Gender: Male Date of : 1970 Age: 51 Procedure Date: 09/08/2021 Procedure Type: Transthoracic Echocardiogram Location: ER Height: 172.72 cm Weight: 77.11 kg BSA: 1.91 m2 Heart Rate: bpm BP: 95 / 68 mmHg Pediatric Oncology Nurse: Referring MD: Yuni Mackenzie MD Symptoms: history cardiomyopathy-new a. fib Study Quality: Fair ECG Rhythm: Atrial Fibrillation Conclusions: - Normal left ventricular size, thickness, and systolic function. The visually estimated ejection fraction is between 60-65%. - Normal right ventricular cavity size. There is mildly decreased right ventricular systolic function. Findings Left Ventricle Normal left ventricular size, thickness, and systolic function. The visually estimated ejection fraction is between 60-65%. There is no evidence of regional wall motion abnormalities. Diastolic function is indeterminate on the basis of available data. Right Ventricle Normal right ventricular cavity size. There is mildly decreased right ventricular systolic function. Atria The left atrium is normal in size. Aortic Valve The aortic valve structure and function is likely normal. There is no aortic valve stenosis. There is no aortic valve regurgitation. Mitral Valve The mitral valve appears normal. There is no mitral valve regurgitation. There is no mitral valve stenosis. Pulmonic Valve The pulmonic valve is likely normal. Tricuspid Valve Normal tricuspid valve structure and function. There is no tricuspid valve regurgitation. Tricuspid regurgitation envelope is inadequate for calculation of right ventricular systolic pressure. Great Vessels The pulmonary artery was not well visualized. There is mild dilatation of the ascending aorta measuring 3.40 cm. Venous The inferior vena cava is normal in size and collapses greater than 50% with inspiration. Pericardium/Pleural There is no evidence of pericardial effusion. Measurements 2D Linear Measurements IVSd: 1.08 0.6-0.9/0.6-1.0 cm LVIDd: 3.58 3.9-5.3/4.2-5.9 cm LVIDd Index: 1.87 2.4-3.2/2.2-3.1 cm/m2 LVIDs: 2.25 2.0-3.6 cm LVPWd: 1.05 0.7-1.1 cm Ao Root: 3.60 2.1-3.5 cm LA Diam: 2.80 2.7-3.8/3.0-4.0 cm LAIDs Index: 1.47 1.5-2.3 cm/m2 LV Mass: 145.90 67-162/88-224 g LV Mass Index: 76.39 43-95/49-115 g/m2 LVOT Diam: 2.30 3.0+(-)1.3 cm Mitral Valve MV Pk E: 0.40 MV Decel Time: 221.00 E'Lateral: 15.00 E'Medial: 12.10 E/E' Med: 3.30 E/E' Lat: 2.60 PHT: 65.00 MVA PHT: 3.38 Decel [place]: 3.02 Aortic Valve AoV Pk Marcell[place]: 0.98 AoV Mn Marcellus: 0.63 AoV VTI: 0.16 AoV Pk Grad: 4.00 Aov Mn Grad: 2.00 GREGORIA Cont.VTI: 3.60 LVOT LVOT Pk Marcellus: 0.84 LVOT Mn [place]cell[place]: 0.60 LVOT VTI: 0.14 LVOT Pk Grad: 3.00 LVOT Mn Grad: 2.00 LVOT Diam: 2.30 LVOT Area: 4.15 Diastolic Function MV Pk E: 0.40 E'Medial: 12.10 E/E' Med: 3.30 E' Laterial: 15.00 E/E' Lat: 2.60 Tricuspid Valve TR Pk [place]cell[place]: 1.64 TR Pk Grad: 11.00 Great Vessels Aorta Ao Root-2D: 3.60 2.0-3.7 cm Ao Asc: 3.40 2.1-3.4 cm Pulmonary Valve PV Pk Marcellus: 0.75 Peak PV Grad: 2.00 Updated in Other Vendor System with Status of Final Juan Jose Britton MD electronically signed on 09/09/2021 12:32:12 AM with status of Final
[2021-09-08] MEDS: Phenylephrine HCL 20 MG in 0.9 % Sodium Chloride 250 ML 133.06 MG IVCONT (17:07)
[2021-09-08] MEDS: Famotidine/PF 20 MG/2 ML VIAL 10 MG IVPUSH (19:57)
[2021-09-08] MEDS: Heparin Sodium,Porcine 5,000 UNIT/ML VIAL 5000 UNIT IVPUSH (19:58)
[2021-09-08] MEDS: Naltrexone HCl 50 MG TABLET PO (20:39)
[2021-09-08] MEDS: Phenylephrine HCL 20 MG in 0.9 % Sodium Chloride 250 ML 79.83 MG IVCONT (22:34)
[2021-09-09] VITALS (29 sets, daily range): BP systolic 83–131; BP diastolic 56–97; PULSE 67–110; RESP 10–21; TEMP 36.2–36.9; O2SAT 92–100; BMI 23.0
[2021-09-09] MEDS: Phenylephrine HCL 20 MG in 0.9 % Sodium Chloride 250 ML 53.22 MG IVCONT (02:47)
[2021-09-09] MEDS: Heparin Sodium,Porcine 5,000 UNIT/ML VIAL 5000 UNIT IVPUSH ×3 (02:48→20:16)
[2021-09-09 05:59] LABS: MANUAL DIFF FLAG NO
[2021-09-09 06:03] LABS: Basophils Absolute Auto 0.1 X10*3/uL (0.0-0.2); Eosinophils Absolute Auto 0.1 X10*3/uL (0.0-0.4); Eosinophils Percent Auto 0.8 % (0-4); Hematocrit 31.6 % (42.0-52.0); Hemoglobin 11.2 g/dl (14.0-18.0); Imm Gran Abs Auto 0.06 X10*3/uL (0.00-0.03); Imm Gran Pct Auto 0.5 % (0.0-0.4); Lymphocytes Absolute Auto 1.7 X10*3/uL (1.2-4.9); Lymphocytes Percent Auto 13.8 % (20-40); Mean Corpuscular HGB Conc 35.4 g/dl (31.0-36.0); Mean Corpuscular Hemoglobin 33.2 pg (27.0-33.0); Mean Corpuscular Volume 93.8 fL (80.0-98.0); Mean Platelet Volume 10.2 fL (9.4-12.4); Monocytes Percent Auto 7.6 % (2-11); Neutrophils Absolute Auto 9.5 x10*3/uL (2.0-8.3); Neutrophils Percent Auto 76.3 % (45-73); Platelet Count 303 X10*3/uL (160-400); Red Blood Count 3.37 X10*6/uL (4.60-5.80); Red Cell Distribution Width 12.3 % (11.0-16.0); White Blood Count 12.4 X10*3/uL (4.8-10.8)
[2021-09-09 06:20] LABS: Anion Gap 16 (12-20); Blood Urea Nitrogen 49 mg/dL (9-16); Carbon Dioxide 17 mmol/L (22-29); Chloride 105 mmol/L (96-108); Estimated Glomerular Filt Rate 21; Glucose Random 132 mg/dL (60-115); Lipase 128 U/L (8-78); Phosphorus 3.2 mg/dL (2.7-4.5); Potassium 3.7 mmol/L (3.3-5.1); Sodium 134 mmol/L (135-145)
[2021-09-09 06:21] LABS: B Type Natriuretic Peptide 1539 pg/mL (<100)
[2021-09-09] MEDS: Magnesium Sulfate/H2O 2 GM/50 ML PIGGYBACK IV (07:01)
[2021-09-09] MEDS: Phenylephrine HCL 20 MG in 0.9 % Sodium Chloride 250 ML 26.61 MG IVCONT (08:02)
--- NOTE | 2021-09-09 09:44 | P.PNCC_ITS ---
Subjective Subjective Date of Service: 09/09/21 Interval History: 51-year-old male alcoholic who 2 years ago had a congestive cardiomyopathy with 15% ejection fraction and as of 1 year ago left ventricle size and function really normalized with 55% ejection fraction and still remains that way today with greater than 60% ejection fraction no primary valve or pericardial disease but presented with near-syncope and what may very well be new onset of atrial fibrillation controlled rate because of the presence of the beta-rd His Lasix was stopped months ago but he was still on Entresto for an unknown reason despite the normalization of his ejection fraction but when he presented with near syncope his blood pressure while in AFib at in the 90s remained only in the mid 60s requiring phenylephrine at 2 micrograms/kilogram per minute along with the about 2.5 L of IV fluid loading and then of course continued IV fluids lactate rapidly corrected so I believe was all hemodynamic not septic issue and there was no source of sepsis Troponins negative but BNP elevated this might reflect the diastolic dysfunction in the face of the AFib and he had complained of persistent epigastric pain with nausea and vomiting and blames his inability to hold things down and his poor p.o. intake for his low blood pressure and he has had a low-grade lipase level and even though his pancreas looks normal on CT scan he might have set a form of chronic pancreatitis Also when he presented the had at positive anion gap metabolic acidosis acute renal failure with BUN 68 creatinine 6.5 and just with IV fluids and blood pressure support he is now down to BUN of 45 and creatinine of 2.5 Critical Care Time (minutes): 45 Physical Exam Vital Signs: Vital Signs: Last Vital Signs Temp 98.4 F 09/09/21 09:00 Pulse 87 09/09/21 09:00 Resp 12 09/09/21 09:00 BP 113/83 09/09/21 09:00 Pulse Ox 96 09/09/21 09:00 O2 Del Method 09/09/21 09:00 BMI result Body Mass Index 23.0 Awake and alert and neurologically intact Bedside echo defines class 1 LV function Chest clear with no adventitious sounds Abdomen benign no organomegaly Skin is intact Objective Data Labs CBC & Chem 7: 09/09/21 05:42 09/09/21 11:11 Labs: Laboratory Results - last 24 hr 09/08/21 09/08/21 09/08/21 09:22 11:52 11:52 WBC RBC Hgb Hct MCV MCH MCHC RDW Plt Count MPV Immature Gran % (Auto) Neut % (Auto) Lymph % (Auto) [place] % (Auto) Eos % (Auto) Baso % (Auto) Lymph # (Auto) [place] # (Auto) Eos # (Auto) Baso # (Auto) Abs Immat Gran (auto) Absolute Neuts (auto) Absolute Nucleated RBC Nucleated RBC % (auto) ESR D-Dimer High Sensitivty VBG pH VBG pCO2 VBG pO2 VBG HCO3 VBG O2 Saturation VBG Base Excess Sodium Potassium Chloride Carbon Dioxide Anion Gap BUN Creatinine Estim Creat Clear Calc Estimated GFR Random Glucose Lactic Acid F/U @ 2Hr 1.3 Calcium Phosphorus Magnesium Troponin I High Sens < 3.5 B-Natriuretic Peptide Lipase Urine Opiates Screen Not Detected Urine Fentanyl Screen Not Detected Ur Barbiturates Screen Not Detected Ur Phencyclidine Scrn Not Detected Ur Amphetamines Screen Not Detected U Benzodiazepines Scrn Not Detected Urine Cocaine Screen Not Detected U Marijuana (THC) Screen Not Detected Rheumatoid Factor 09/08/21 09/08/21 09/08/21 11:52 11:52 11:52 WBC RBC Hgb Hct MCV MCH MCHC RDW Plt Count MPV Immature Gran % (Auto) Neut % (Auto) Lymph % (Auto) [place] % (Auto) Eos % (Auto) Baso % (Auto) Lymph # (Auto) [place] # (Auto) Eos # (Auto) Baso # (Auto) Abs Immat Gran (auto) Absolute Neuts (auto) Absolute Nucleated RBC Nucleated RBC % (auto) ESR 12 D-Dimer High Sensitivty 167 VBG pH VBG pCO2 VBG pO2 VBG HCO3 VBG O2 Saturation VBG Base Excess Sodium Potassium Chloride Carbon Dioxide Anion Gap BUN Creatinine Estim Creat Clear Calc Estimated GFR Random Glucose Lactic Acid F/U @ 2Hr Calcium Phosphorus Magnesium Troponin I High Sens B-Natriuretic Peptide Lipase Urine Opiates Screen Urine Fentanyl Screen Ur Barbiturates Screen Ur Phencyclidine Scrn Ur Amphetamines Screen U Benzodiazepines Scrn Urine Cocaine Screen U Marijuana (THC) Screen Rheumatoid Factor < 15.0 09/08/21 09/08/21 09/09/21 14:18 14:25 05:42 WBC 12.4 H RBC 3.37 L Hgb 11.2 L Hct 31.6 L MCV 93.8 MCH 33.2 H MCHC 35.4 RDW 12.3 Plt Count 303 MPV 10.2 Immature Gran % (Auto) 0.5 H Neut % (Auto) 76.3 H Lymph % (Auto) 13.8 L [place] % (Auto) 7.6 Eos % (Auto) 0.8 Baso % (Auto) 1.0 Lymph # (Auto) 1.7 [place] # (Auto) 1.0 Eos # (Auto) 0.1 Baso # (Auto) 0.1 Abs Immat Gran (auto) 0.06 H Absolute Neuts (auto) 9.5 H Absolute Nucleated RBC 0.000 Nucleated RBC % (auto) 0.0 ESR D-Dimer High Sensitivty VBG pH 7.31 L VBG pCO2 37 VBG pO2 39 VBG HCO3 19 L VBG O2 Saturation 57.0 VBG Base Excess -6.0 Sodium 132 L Potassium 3.7 Chloride 98 Carbon Dioxide 20 L Anion Gap 18 BUN 62 H Creatinine 5.22 H* Estim Creat Clear Calc 16.3 Estimated GFR 12 Random Glucose 135 H D Lactic Acid F/U @ 2Hr Calcium 7.3 L D Phosphorus Magnesium Troponin I High Sens B-Natriuretic Peptide Lipase Urine Opiates Screen Urine Fentanyl Screen Ur Barbiturates Screen Ur Phencyclidine Scrn Ur Amphetamines Screen U Benzodiazepines Scrn Urine Cocaine Screen U Marijuana (THC) Screen Rheumatoid Factor 09/09/21 09/09/21 05:42 05:42 WBC RBC Hgb Hct MCV MCH MCHC RDW Plt Count MPV Immature Gran % (Auto) Neut % (Auto) Lymph % (Auto) [place] % (Auto) Eos % (Auto) Baso % (Auto) Lymph # (Auto) [place] # (Auto) Eos # (Auto) Baso # (Auto) Abs Immat Gran (auto) Absolute Neuts (auto) Absolute Nucleated RBC Nucleated RBC % (auto) ESR D-Dimer High Sensitivty VBG pH VBG pCO2 VBG pO2 VBG HCO3 VBG O2 Saturation VBG Base Excess Sodium 134 L Potassium 3.7 Chloride 105 Carbon Dioxide 17 L Anion Gap 16 BUN 49 H Creatinine 3.16 H Estim Creat Clear Calc 27.0 Estimated GFR 21 Random Glucose 132 H Lactic Acid F/U @ 2Hr Calcium 7.0 L Phosphorus 3.2 Magnesium 1.0 L* Troponin I High Sens B-Natriuretic Peptide 1539 H Lipase 128 H Urine Opiates Screen Urine Fentanyl Screen Ur Barbiturates Screen Ur Phencyclidine Scrn Ur Amphetamines Screen U Benzodiazepines Scrn Urine Cocaine Screen U Marijuana (THC) Screen Rheumatoid Factor Progress Note: A&P Assessment and plan (1) Syncope and collapse: Status: Acute (2) Hyponatremia: Status: Acute (3) Acute hypotension: Status: Acute (4) Leukocytosis: Status: Acute (5) Acute kidney injury: Status: Acute (6) New onset a-fib: Status: Acute (7) Fecal occult blood test positive: Status: Acute (8) Alcohol use disorder, severe, dependence: Status: Acute (9) Left inguinal hernia: Status: Acute (10) Anemia: Status: Acute (11) Type 2 diabetes mellitus with hyperglycemia: Status: Acute (12) Alcohol abuse: Status: Acute (13) Nonischemic cardiomyopathy: Status: Acute (14) Hypomagnesemia: Status: Acute Plan Despite repeat resolution of acidosis and the resolution of the hypovolemia and acute renal failure he has not yet spontaneously converted to sinus rhythm but we did anticoagulated in preparation for possible cardioversion We can however discontinue Haskins catheter and begin to mobilize No signs yet of withdrawal and he is 48 hours since his last drink Quality Stroke Does the patient have a stroke diagnosis?: No VTE Prior VTE?: No VTE Risk Level:: Medical - low VTE Device Contraindication: N/A - Device Ordered VTE Drug Contraindication: Treatment Not Indicated
--- NOTE | 2021-09-09 09:48 | PM.PNCARD ---
Subjective Subjective Date of Service: 09/09/21 Interval history: Seen and examined at bedside. On low-dose phenylephrine. Receiving IV fluids. Creatinine improving. Continues to be in atrial fibrillation. He has been drinking vodka approximately 5 drinks a day Physical Exam Vital Signs: Last Vital Signs Temp 98.4 F 09/09/21 09:00 Pulse 87 09/09/21 09:00 Resp 12 09/09/21 09:00 BP 113/83 09/09/21 09:00 Pulse Ox 96 09/09/21 09:00 O2 Del Method 09/09/21 09:00 BMI result Body Mass Index 23.0 GENERAL APPEARANCE: in no acute distress, pleasant. NECK: no carotid bruit, no jugular venous distention. SKIN: no suspicious lesions, warm and dry. HEART: no murmurs, irregularly irregular rhythm. LUNGS: clear to auscultation bilaterally. ABDOMEN: soft, nontender. EXTREMITIES: no edema. PERIPHERAL PULSES: equal. NEUROLOGIC: No gross deficits, AAO X 3 Objective Labs and Meds Result diagrams: 09/09/21 05:42 09/09/21 11:11 Lab results: Laboratory Results - last 24 hr 09/08/21 09/08/21 09/08/21 11:52 11:52 11:52 WBC RBC Hgb Hct MCV MCH MCHC RDW Plt Count MPV Immature Gran % (Auto) Neut % (Auto) Lymph % (Auto) [place] % (Auto) Eos % (Auto) Baso % (Auto) Lymph # (Auto) [place] # (Auto) Eos # (Auto) Baso # (Auto) Abs Immat Gran (auto) Absolute Neuts (auto) Absolute Nucleated RBC Nucleated RBC % (auto) ESR 12 D-Dimer High Sensitivty VBG pH VBG pCO2 VBG pO2 VBG HCO3 VBG O2 Saturation VBG Base Excess Sodium Potassium Chloride Carbon Dioxide Anion Gap BUN Creatinine Estim Creat Clear Calc Estimated GFR Random Glucose Lactic Acid F/U @ 2Hr 1.3 Calcium Phosphorus Magnesium Troponin I High Sens < 3.5 B-Natriuretic Peptide Lipase Rheumatoid Factor 09/08/21 09/08/21 09/08/21 11:52 11:52 14:18 WBC RBC Hgb Hct MCV MCH MCHC RDW Plt Count MPV Immature Gran % (Auto) Neut % (Auto) Lymph % (Auto) [place] % (Auto) Eos % (Auto) Baso % (Auto) Lymph # (Auto) [place] # (Auto) Eos # (Auto) Baso # (Auto) Abs Immat Gran (auto) Absolute Neuts (auto) Absolute Nucleated RBC Nucleated RBC % (auto) ESR D-Dimer High Sensitivty 167 VBG pH VBG pCO2 VBG pO2 VBG HCO3 VBG O2 Saturation VBG Base Excess Sodium 132 L Potassium 3.7 Chloride 98 Carbon Dioxide 20 L Anion Gap 18 BUN 62 H Creatinine 5.22 H* Estim Creat Clear Calc 16.3 Estimated GFR 12 Random Glucose 135 H D Lactic Acid F/U @ 2Hr Calcium 7.3 L D Phosphorus Magnesium Troponin I High Sens B-Natriuretic Peptide Lipase Rheumatoid Factor < 15.0 09/08/21 09/09/21 09/09/21 14:25 05:42 05:42 WBC 12.4 H RBC 3.37 L Hgb 11.2 L Hct 31.6 L MCV 93.8 MCH 33.2 H MCHC 35.4 RDW 12.3 Plt Count 303 MPV 10.2 Immature Gran % (Auto) 0.5 H Neut % (Auto) 76.3 H Lymph % (Auto) 13.8 L [place] % (Auto) 7.6 Eos % (Auto) 0.8 Baso % (Auto) 1.0 Lymph # (Auto) 1.7 [place] # (Auto) 1.0 Eos # (Auto) 0.1 Baso # (Auto) 0.1 Abs Immat Gran (auto) 0.06 H Absolute Neuts (auto) 9.5 H Absolute Nucleated RBC 0.000 Nucleated RBC % (auto) 0.0 ESR D-Dimer High Sensitivty VBG pH 7.31 L VBG pCO2 37 VBG pO2 39 VBG HCO3 19 L VBG O2 Saturation 57.0 VBG Base Excess -6.0 Sodium 134 L Potassium 3.7 Chloride 105 Carbon Dioxide 17 L Anion Gap 16 BUN 49 H Creatinine 3.16 H Estim Creat Clear Calc 27.0 Estimated GFR 21 Random Glucose 132 H Lactic Acid F/U @ 2Hr Calcium 7.0 L Phosphorus 3.2 Magnesium 1.0 L* Troponin I High Sens B-Natriuretic Peptide Lipase 128 H Rheumatoid Factor 09/09/21 05:42 WBC RBC Hgb Hct MCV MCH MCHC RDW Plt Count MPV Immature Gran % (Auto) Neut % (Auto) Lymph % (Auto) [place] % (Auto) Eos % (Auto) Baso % (Auto) Lymph # (Auto) [place] # (Auto) Eos # (Auto) Baso # (Auto) Abs Immat Gran (auto) Absolute Neuts (auto) Absolute Nucleated RBC Nucleated RBC % (auto) ESR D-Dimer High Sensitivty VBG pH VBG pCO2 VBG pO2 VBG HCO3 VBG O2 Saturation VBG Base Excess Sodium Potassium Chloride Carbon Dioxide Anion Gap BUN Creatinine Estim Creat Clear Calc Estimated GFR Random Glucose Lactic Acid F/U @ 2Hr Calcium Phosphorus Magnesium Troponin I High Sens B-Natriuretic Peptide 1539 H Lipase Rheumatoid Factor Imaging Radiologist's impression: Impressions Abdomen/Pelvis CT 09/08/21 09:31 IMPRESSION: No acute CT findings in the chest, abdomen, or pelvis. Chest CT 09/08/21 09:31 IMPRESSION: No acute CT findings in the chest, abdomen, or pelvis. Head CT 09/08/21 09:31 IMPRESSION: No acute intracranial pathology. Progress Note: A&P Assessment and plan (1) Syncope and collapse: Status: Acute (2) New onset a-fib: Status: Acute (3) Acute kidney injury: Status: Acute Plan 51-year-old gentleman who is presenting with syncope in the setting of acute kidney injury hypertension. He was fluid resuscitated with improvement in blood pressure as well as creatinine. Still on IV fluids appropriately. Requiring low-dose phenylephrine which I think can be stopped. New onset atrial fibrillation. Duration unknown. Cannot get cardioversion without SHARON. If no concerns for bleeding then consider anticoagulation because he will need anticoagulation after cardioversion, if required. Other option is to medically treat him for now with rate control strategy as he is asymptomatic from AFib. Mild RV dilation on the echocardiogram. He had recent COVID infection and syncope. There is an explanation for syncope that this was due to dehydration due to poor p.o. intake in the setting of diuretics and medications but pulmonary embolism can be a possibility too. Will discuss with ICU team. Thank you for allowing me to participate in the care of your patient. Please feel free to contact me if you have any questions. Time Spent With Patient Time: Total time spent is greater than 50% in coordination of care (as documented) at patient's floor/unit and/or counseling patient: Procedures Date of Service Date of Service: 09/09/21
[2021-09-09 10:21] LABS: Venous Blood Gas Refer to POC result
[2021-09-09] MEDS: Famotidine/PF 20 MG/2 ML VIAL 10 MG IVPUSH ×2 (10:23→20:16)
[2021-09-09] MEDS: 0.9 % Sodium Chloride 1,000 ML 100 ML IVCONT ×2 (10:23→20:17)
[2021-09-09] MEDS: Naltrexone HCl 50 MG TABLET PO ×2 (10:24→20:16)
[2021-09-09 11:49] LABS: Anion Gap 16 (12-20); Blood Urea Nitrogen 45 mg/dL (9-16); Calcium 6.8 mg/dL (8.4-10.2); Carbon Dioxide 18 mmol/L (22-29); Chloride 107 mmol/L (96-108); Estimated Glomerular Filt Rate 26; Glucose Random 134 mg/dL (60-115); Magnesium 1.8 mg/dL (1.6-2.6); Potassium 4.2 mmol/L (3.3-5.1); Sodium 137 mmol/L (135-145)
[2021-09-09 12:02] LABS: Glucose, Whole Blood 121 mg/dL (60-115)
[2021-09-09] MEDS: Metoprolol Tartrate 5 MG/5 ML VIAL 2.5 MG IVPUSH (13:06)
[2021-09-09 17:29] LABS: Glucose, Whole Blood 149 mg/dL (60-115)
[2021-09-09] MEDS: Amiodarone/Dextrose 150 MG/100 ML PLAST..BAG 300 MG IV (17:44)
[2021-09-09] MEDS: Amiodarone HCL 900 MG in 0.9 % Sodium Chloride 500 ML 34.53 MG IVCONT (18:06)
[2021-09-09] MEDS: Phenylephrine HCL 20 MG in 0.9 % Sodium Chloride 250 ML 42.58 MG IVCONT (18:10)
--- NOTE | 2021-09-09 19:58 | PC.NURSE ---
Alert, drowsy, oriented x4. Rings responsibly. Was initially NPO in prep for possible cardioversion, Social Work Nurse came to see patient, and determined no cardioversion today, and ok to start diet today. Discussion with Dr. Mackenzie and patient to be NPO at 00:00 tonight in prep for cardioversion tomorrow. Patient has been in afib all day with rate mostly controlled, and nonsustained runs above 100, max 130 BPM and not sustained, but one time metoprolol IV 2.5 mg was given per MD. Patient also had been on Neosynephrine, at 0.4 mcg/min, and this had been titrated off, but patient soon needed this again, and after the metoprolol, required increased dosrate, now at 1 mcg/kg/min. Started amiodarone this evening, IV gtt, and loading dose and second dose started. On room air, breathing easily. Ate well today. Got permission to get OOB, but then patient did not require commode, and also refused to get OOB to recliner today, continuing to monitor. Urine output was sufficient and Cre improved today, discussed with MD and ok to remove oconnor, removed at 13:00, and was due to void at 19:00, and voided 18:00 75 ccs yellow urine, denies dysuria. Skin intact, history of eczema on arms, no active rash. Reports neuropathy to feet.
[2021-09-09] MEDS: LORazepam 0.5 MG TABLET PO (20:55)
[2021-09-09 21:06] LABS: Glucose, Whole Blood 177 mg/dL (60-115)
[2021-09-09] MEDS: Phenylephrine HCL 20 MG in 0.9 % Sodium Chloride 250 ML 79.83 MG IVCONT (22:29)
[2021-09-10] VITALS (23 sets, daily range): BP systolic 82–137; BP diastolic 58–100; PULSE 60–110; RESP 8–20; TEMP 36.3–36.9; O2SAT 89–100; BMI 23.4
[2021-09-10] MEDS: Phenylephrine HCL 20 MG in 0.9 % Sodium Chloride 250 ML 79.83 MG IVCONT (01:37)
[2021-09-10 05:24] LABS: VBG Base Excess -4.7 mmol/L; VBG HCO3 19 mmol/L (22-26); VBG pCO2 32 mmHg; VBG pH 7.38 (7.32-7.43); VBG pO2 35 mmHg
[2021-09-10 05:32] LABS: MANUAL DIFF FLAG NO
[2021-09-10 05:36] LABS: Basophils Absolute Auto 0.1 X10*3/uL (0.0-0.2); Basophils Percent Auto 1.9 % (0-2); Eosinophils Absolute Auto 0.1 X10*3/uL (0.0-0.4); Eosinophils Percent Auto 1.5 % (0-4); Hemoglobin 9.8 g/dl (14.0-18.0); Imm Gran Abs Auto 0.02 X10*3/uL (0.00-0.03); Imm Gran Pct Auto 0.3 % (0.0-0.4); Lymphocytes Absolute Auto 1.9 X10*3/uL (1.2-4.9); Lymphocytes Percent Auto 24.7 % (20-40); Mean Corpuscular Hemoglobin 33.3 pg (27.0-33.0); Mean Corpuscular Volume 95.2 fL (80.0-98.0); Mean Platelet Volume 10.4 fL (9.4-12.4); Monocytes Absolute Auto 0.8 X10*3/uL (0.1-1.2); Neutrophils Absolute Auto 4.6 x10*3/uL (2.0-8.3); Neutrophils Percent Auto 60.6 % (45-73); Platelet Count 235 X10*3/uL (160-400); Red Blood Count 2.94 X10*6/uL (4.60-5.80); Red Cell Distribution Width 12.6 % (11.0-16.0); White Blood Count 7.5 X10*3/uL (4.8-10.8)
[2021-09-10 05:58] LABS: B Type Natriuretic Peptide 1195 pg/mL (<100)
[2021-09-10] MEDS: Phenylephrine HCL 20 MG in 0.9 % Sodium Chloride 250 ML 26.61 MG IVCONT ×2 (06:08→21:02)
[2021-09-10] MEDS: 0.9 % Sodium Chloride 1,000 ML 100 ML IVCONT (06:09)
[2021-09-10 06:20] LABS: Anion Gap 12 (12-20); Blood Urea Nitrogen 34 mg/dL (9-16); Calcium 6.6 mg/dL (8.4-10.2); Carbon Dioxide 18 mmol/L (22-29); Chloride 110 mmol/L (96-108); Estimated Glomerular Filt Rate 43; Glucose Random 142 mg/dL (60-115); Lipase 172 U/L (8-78); Magnesium 1.3 mg/dL (1.6-2.6); Potassium 3.5 mmol/L (3.3-5.1); Sodium 136 mmol/L (135-145)
[2021-09-10 06:23] LABS: Venous Blood Gas Refer to POC result
--- NOTE | 2021-09-10 06:24 | PC.NURSE ---
Patient stated at 1999 assessment last night that I feel like I might be starting to withdrawal . When asked by this RN to elaborate the patient said, it feels like the booze is leaving my body . Patient further stated that his last drink was actually on night at 8pm. He says on both Saturday and he was on a booze crouch and drank 12-14 vodka cranberry drinks. Margarita PEREYRA notified of this update. Pt ordered PRN ativan and this RN administered a dose around 2044. Patient's CIWA has been a 1 all night due to tremmors.
[2021-09-10] MEDS: LORazepam 0.5 MG TABLET PO ×3 (06:38→17:17)
[2021-09-10] MEDS: Magnesium Sulfate/H2O 2 GM/50 ML PIGGYBACK IV (06:38)
[2021-09-10 07:15] LABS: Glucose, Whole Blood 103 mg/dL (60-115)
--- NOTE | 2021-09-10 08:56 | P.PNCC_ITS ---
Subjective Subjective Date of Service: 09/10/21 Interval History: 51-year-old male who obviously is a persistent alcoholic is his story changes every day and he binged right up until he presented to the hospital is the final truth on this and he is just being secretive with his family around but had a myopathy which resolved the year ago and heart muscle function remains looking excellent with greater than 60% ejection fraction but he went into a new onset of AFib but at least new onset defined by the last 3 months we do not know if this was the final event before his near-syncope but he had also had epigastric discomfort with nausea vomiting for 3 for 3 weeks not holding anything down but taking his Entresto continuously exacerbating the hypotension when he came in and he has since been volume repleted but while in AFib he still requires the phenylephrine so I still have concerns that the AFib was brand new and that was still within the window enabling us to cardiovert and now his metabolic disarray is resolving creatinine is down there is no further anion gap metabolic acidosis all that has resolved his hypo magnesemia has resolved and so I started in that direction loading him with amiodarone as of last night and he has been anticoagulated on heparin probably to switch to a an oral agent that I will have to keep for a month after an actual cardioversion takes place chemically electrically are otherwise and right now he has thus far not demonstrated any withdrawal issues tachycardia is very hard to analyze in the face of the atrial fibrillation but since the amiodarone his heart rates have been more consistently in the 60s at this point This is not a clinical picture of either ischemia nor of a thrombotic event Critical Care Time (minutes): 45 Physical Exam Vital Signs: Vital Signs: Last Vital Signs Temp 98.5 F 09/10/21 08:00 Pulse 74 09/10/21 08:00 Resp 20 09/10/21 08:00 BP 107/86 09/10/21 08:00 Pulse Ox 98 09/10/21 08:00 O2 Del Method 09/10/21 08:00 BMI result Body Mass Index 23.4 Asleep quiet no tremors no diaphoresis no fever no confusion nonfocal neurologically Cardiac function by bedside echo class 1 Lungs clear bilaterally no adventitious sounds Abdomen soft no organomegaly Skin intact Objective Data Labs CBC & Chem 7: 09/10/21 05:17 09/10/21 05:17 Labs: Laboratory Results - last 24 hr 09/09/21 09/09/21 09/09/21 11:11 11:58 17:26 WBC RBC Hgb Hct MCV MCH MCHC RDW Plt Count MPV Immature Gran % (Auto) Neut % (Auto) Lymph % (Auto) [place] % (Auto) Eos % (Auto) Baso % (Auto) Lymph # (Auto) [place] # (Auto) Eos # (Auto) Baso # (Auto) Abs Immat Gran (auto) Absolute Neuts (auto) Absolute Nucleated RBC Nucleated RBC % (auto) VBG pH VBG pCO2 VBG pO2 VBG HCO3 VBG O2 Saturation VBG Base Excess Sodium 137 Potassium 4.2 Chloride 107 Carbon Dioxide 18 L Anion Gap 16 BUN 45 H Creatinine 2.59 H Estim Creat Clear Calc 33.0 Estimated GFR 26 POC Glucose 121 H 149 H Random Glucose 134 H Calcium 6.8 L Phosphorus Magnesium 1.8 B-Natriuretic Peptide Lipase 09/09/21 09/10/21 09/10/21 21:02 05:17 05:17 WBC 7.5 RBC 2.94 L Hgb 9.8 L Hct 28.0 L MCV 95.2 MCH 33.3 H MCHC 35.0 RDW 12.6 Plt Count 235 MPV 10.4 Immature Gran % (Auto) 0.3 Neut % (Auto) 60.6 Lymph % (Auto) 24.7 [place] % (Auto) 11.0 Eos % (Auto) 1.5 Baso % (Auto) 1.9 Lymph # (Auto) 1.9 [place] # (Auto) 0.8 Eos # (Auto) 0.1 Baso # (Auto) 0.1 Abs Immat Gran (auto) 0.02 Absolute Neuts (auto) 4.6 Absolute Nucleated RBC 0.000 Nucleated RBC % (auto) 0.0 VBG pH VBG pCO2 VBG pO2 VBG HCO3 VBG O2 Saturation VBG Base Excess Sodium 136 Potassium 3.5 Chloride 110 H Carbon Dioxide 18 L Anion Gap 12 BUN 34 H Creatinine 1.71 H Estim Creat Clear Calc 50.0 Estimated GFR 43 POC Glucose 177 H Random Glucose 142 H Calcium 6.6 L Phosphorus 2.0 L Magnesium 1.3 L* B-Natriuretic Peptide Lipase 172 H 09/10/21 09/10/21 09/10/21 05:17 05:18 07:11 WBC RBC Hgb Hct MCV MCH MCHC RDW Plt Count MPV Immature Gran % (Auto) Neut % (Auto) Lymph % (Auto) [place] % (Auto) Eos % (Auto) Baso % (Auto) Lymph # (Auto) [place] # (Auto) Eos # (Auto) Baso # (Auto) Abs Immat Gran (auto) Absolute Neuts (auto) Absolute Nucleated RBC Nucleated RBC % (auto) VBG pH 7.38 VBG pCO2 32 VBG pO2 35 VBG HCO3 19 L VBG O2 Saturation 58.0 VBG Base Excess -4.7 Sodium Potassium Chloride Carbon Dioxide Anion Gap BUN Creatinine Estim Creat Clear Calc Estimated GFR POC Glucose 103 Random Glucose Calcium Phosphorus Magnesium B-Natriuretic Peptide 1195 H Lipase Microbiology Microbiology Results: Microbiology 09/08/21 08:24 Blood - Venous Blood Culture - Preliminary No growth after 24 hours. 09/08/21 08:01 Blood - Venous Blood Culture - Preliminary No growth after 24 hours. Progress Note: A&P Assessment and plan (1) Hypomagnesemia: Status: Acute (2) Syncope and collapse: Status: Acute (3) Hyponatremia: Status: Acute (4) Acute hypotension: Status: Acute (5) Leukocytosis: Status: Acute (6) Acute kidney injury: Status: Acute (7) New onset a-fib: Status: Acute (8) Fecal occult blood test positive: Status: Acute (9) Alcohol use disorder, severe, dependence: Status: Acute (10) Left inguinal hernia: Status: Acute (11) Eczema: Status: Acute (12) Peripheral neuropathy: Status: Acute (13) Anemia: Status: Acute Assessment and Plan: With the anemia specifically I believe it is his ongoing alcoholism that is causing marrow suppression He has a mild positive fecal occult so I can not rule out the possibility of an alcohol related esophagus 0 gastritis (14) Type 2 diabetes mellitus with hyperglycemia: Status: Acute (15) Alcohol abuse: Status: Acute Plan I am starting him on prophylactic small dose Ativan and the IV amiodarone will continue but I think we should consider sooner than later cardioversion which will immediately allow us to come off the phenylephrine dependence and follow his cbc if he remains abstinent from alcohol and the other issue in terms of persistent epigastric discomfort and nausea is whether not he has got a low- grade pancreatitis Quality Stroke Does the patient have a stroke diagnosis?: No VTE Prior VTE?: No VTE Risk Level:: Medical - low VTE Device Contraindication: N/A - Device Ordered VTE Drug Contraindication: Treatment Not Indicated
[2021-09-10] MEDS: Naltrexone HCl 50 MG TABLET PO ×2 (10:26→21:02)
[2021-09-10] MEDS: Famotidine/PF 20 MG/2 ML VIAL 10 MG IVPUSH ×2 (10:26→21:02)
[2021-09-10] MEDS: Heparin Sodium,Porcine 5,000 UNIT/ML VIAL 5000 UNIT SUBCUT ×2 (10:26→17:17)
--- NOTE | 2021-09-10 11:48 | PM.PNCARD ---
Subjective Subjective Date of Service: 09/10/21 Interval history: Feeling better. Continues to be in atrial fibrillation and low-dose phenylephrine. Has also been started on amiodarone by the ICU team. Physical Exam Vital Signs: Last Vital Signs Temp 98.5 F 09/10/21 08:00 Pulse 82 09/10/21 11:00 Resp 18 09/10/21 11:00 BP 94/66 09/10/21 11:00 Pulse Ox 89 L 09/10/21 11:00 O2 Del Method 09/10/21 11:00 BMI result Body Mass Index 23.4 GENERAL APPEARANCE: in no acute distress, pleasant. NECK: no carotid bruit, no jugular venous distention. SKIN: no suspicious lesions, warm and dry. HEART: no murmurs, irregularly irregular rhythm. LUNGS: clear to auscultation bilaterally. ABDOMEN: soft, nontender. EXTREMITIES: no edema. PERIPHERAL PULSES: equal. NEUROLOGIC: No gross deficits, AAO X 3 Objective Labs and Meds Result diagrams: 09/10/21 05:17 09/10/21 05:17 Lab results: Laboratory Results - last 24 hr 09/09/21 09/09/21 09/09/21 11:11 11:58 17:26 WBC RBC Hgb Hct MCV MCH MCHC RDW Plt Count MPV Immature Gran % (Auto) Neut % (Auto) Lymph % (Auto) [place] % (Auto) Eos % (Auto) Baso % (Auto) Lymph # (Auto) [place] # (Auto) Eos # (Auto) Baso # (Auto) Abs Immat Gran (auto) Absolute Neuts (auto) Absolute Nucleated RBC Nucleated RBC % (auto) VBG pH VBG pCO2 VBG pO2 VBG HCO3 VBG O2 Saturation VBG Base Excess Sodium 137 Potassium 4.2 Chloride 107 Carbon Dioxide 18 L Anion Gap 16 BUN 45 H Creatinine 2.59 H Estim Creat Clear Calc 33.0 Estimated GFR 26 POC Glucose 121 H 149 H Random Glucose 134 H Calcium 6.8 L Phosphorus Magnesium 1.8 B-Natriuretic Peptide Lipase 09/09/21 09/10/21 09/10/21 21:02 05:17 05:17 WBC 7.5 RBC 2.94 L Hgb 9.8 L Hct 28.0 L MCV 95.2 MCH 33.3 H MCHC 35.0 RDW 12.6 Plt Count 235 MPV 10.4 Immature Gran % (Auto) 0.3 Neut % (Auto) 60.6 Lymph % (Auto) 24.7 [place] % (Auto) 11.0 Eos % (Auto) 1.5 Baso % (Auto) 1.9 Lymph # (Auto) 1.9 [place] # (Auto) 0.8 Eos # (Auto) 0.1 Baso # (Auto) 0.1 Abs Immat Gran (auto) 0.02 Absolute Neuts (auto) 4.6 Absolute Nucleated RBC 0.000 Nucleated RBC % (auto) 0.0 VBG pH VBG pCO2 VBG pO2 VBG HCO3 VBG O2 Saturation VBG Base Excess Sodium 136 Potassium 3.5 Chloride 110 H Carbon Dioxide 18 L Anion Gap 12 BUN 34 H Creatinine 1.71 H Estim Creat Clear Calc 50.0 Estimated GFR 43 POC Glucose 177 H Random Glucose 142 H Calcium 6.6 L Phosphorus 2.0 L Magnesium 1.3 L* B-Natriuretic Peptide Lipase 172 H 09/10/21 09/10/21 09/10/21 05:17 05:18 07:11 WBC RBC Hgb Hct MCV MCH MCHC RDW Plt Count MPV Immature Gran % (Auto) Neut % (Auto) Lymph % (Auto) [place] % (Auto) Eos % (Auto) Baso % (Auto) Lymph # (Auto) [place] # (Auto) Eos # (Auto) Baso # (Auto) Abs Immat Gran (auto) Absolute Neuts (auto) Absolute Nucleated RBC Nucleated RBC % (auto) VBG pH 7.38 VBG pCO2 32 VBG pO2 35 VBG HCO3 19 L VBG O2 Saturation 58.0 VBG Base Excess -4.7 Sodium Potassium Chloride Carbon Dioxide Anion Gap BUN Creatinine Estim Creat Clear Calc Estimated GFR POC Glucose 103 Random Glucose Calcium Phosphorus Magnesium B-Natriuretic Peptide 1195 H Lipase Progress Note: A&P Assessment and plan (1) Syncope and collapse: Status: Acute (2) New onset a-fib: Status: Acute Plan [age] year gentleman with alcoholism and previous cardiomyopathy presenting with syncope in the setting of renal failure as well as dehydration from COVID-19 infection. IV hydration with improvement kidney function. From atrial fibrillation point of view he is currently asymptomatic. He has been started on amiodarone by the ICU team. Difficult to know when AFib started and I think he will need anticoagulation before any cardioversion attempt. Titrate the phenylephrine down and see if he can be stopped. Recommend anticoagulation for now if plan is cardioversion. Thank you for allowing me to participate in the care of your patient. Please feel free to contact me if you have any questions. Time Spent With Patient Time: Total time spent is greater than 50% in coordination of care (as documented) at patient's floor/unit and/or counseling patient: Progress Note: Quality Stroke Does the patient have a stroke diagnosis?: No Procedures Date of Service Date of Service: 09/10/21
[2021-09-10 12:37] LABS: Glucose, Whole Blood 128 mg/dL (60-115)
--- NOTE | 2021-09-10 15:02 | MHC.CM.PN ---
Met with patient in regards to discharge planning. Patient lives alone, ambulates independently and had no services prior to coming to the hospital. No service anticipated to be needed because patient is not homebound. PCP verified. Patient received 3 Moderna vaccines. HCP completed, signed and witnessed. Original given to patient. Copy placed in chart. Patient's father will transport patient home when medically stable. Continue to monitor for d/c needs.
[2021-09-10 16:41] LABS: Glucose, Whole Blood 164 mg/dL (60-115)
[2021-09-10] MEDS: Amiodarone HCL 900 MG in 0.9 % Sodium Chloride 500 ML 17.27 MG IVCONT (21:00)
[2021-09-10 21:14] LABS: Glucose, Whole Blood 136 mg/dL (60-115)
[2021-09-11] VITALS (20 sets, daily range): BP systolic 104–141; BP diastolic 73–102; PULSE 72–114; RESP 10–19; TEMP 36.3–37.9; O2SAT 94–100; BMI 25.2
[2021-09-11] MEDS: Heparin Sodium,Porcine 5,000 UNIT/ML VIAL 5000 UNIT SUBCUT ×2 (00:10→07:59)
[2021-09-11] MEDS: LORazepam 0.5 MG TABLET PO ×5 (00:10→23:56)
[2021-09-11 05:16] LABS: MANUAL DIFF FLAG NO
[2021-09-11 05:18] LABS: Basophils Absolute Auto 0.1 X10*3/uL (0.0-0.2); Basophils Percent Auto 1.8 % (0-2); Eosinophils Absolute Auto 0.1 X10*3/uL (0.0-0.4); Eosinophils Percent Auto 1.6 % (0-4); Hematocrit 25.7 % (42.0-52.0); Hemoglobin 8.9 g/dl (14.0-18.0); Imm Gran Abs Auto 0.02 X10*3/uL (0.00-0.03); Imm Gran Pct Auto 0.4 % (0.0-0.4); Lymphocytes Absolute Auto 1.8 X10*3/uL (1.2-4.9); Lymphocytes Percent Auto 32.1 % (20-40); Mean Corpuscular HGB Conc 34.6 g/dl (31.0-36.0); Mean Corpuscular Hemoglobin 33.1 pg (27.0-33.0); Mean Corpuscular Volume 95.5 fL (80.0-98.0); Mean Platelet Volume 10.1 fL (9.4-12.4); Monocytes Absolute Auto 0.5 X10*3/uL (0.1-1.2); Monocytes Percent Auto 9.7 % (2-11); Neutrophils Percent Auto 54.4 % (45-73); Platelet Count 173 X10*3/uL (160-400); Red Blood Count 2.69 X10*6/uL (4.60-5.80); Red Cell Distribution Width 12.6 % (11.0-16.0); White Blood Count 5.6 X10*3/uL (4.8-10.8)
[2021-09-11 05:40] LABS: B Type Natriuretic Peptide 1152 pg/mL (<100)
[2021-09-11 05:44] LABS: Alanine Aminotransferase 16 U/L (0-40); Albumin Level 2.7 g/dL (3.5-5.0); Alkaline Phosphatase 45 U/L (39-117); Anion Gap 10 (12-20); Aspartate Amino Transferase 12 U/L (5-37); Bilirubin Total < 0.2 mg/dL (0.0-1.0); Blood Urea Nitrogen 23 mg/dL (9-16); Calcium 6.6 mg/dL (8.4-10.2); Carbon Dioxide 21 mmol/L (22-29); Chloride 110 mmol/L (96-108); Estimated Glomerular Filt Rate 54; Glucose Random 142 mg/dL (60-115); Magnesium 1.3 mg/dL (1.6-2.6); Potassium 3.2 mmol/L (3.3-5.1); Sodium 138 mmol/L (135-145); Total Protein 4.6 g/dL (6.5-8.0)
[2021-09-11] MEDS: Magnesium Sulfate/D5W 1 GM/100 ML PIGGYBACK IV ×2 (06:44→09:17)
[2021-09-11 07:09] LABS: Glucose, Whole Blood 139 mg/dL (60-115)
[2021-09-11 07:50] LABS: VBG Base Excess -6.6 mmol/L; VBG HCO3 17 mmol/L (22-26); VBG pCO2 30 mmHg; VBG pH 7.36 (7.32-7.43); VBG pO2 30 mmHg
[2021-09-11] MEDS: Naltrexone HCl 50 MG TABLET PO ×2 (07:58→19:32)
[2021-09-11] MEDS: Famotidine/PF 20 MG/2 ML VIAL 10 MG IVPUSH (07:59)
--- NOTE | 2021-09-11 08:36 | PM.EVENT ---
Event Note Date of Service: 09/11/21 Event Note: 51M pmh of etoh cardiomyopathy, admitted for afib rvr, to icu for hypotension, now s/p cardioversion, bp stable, on po amio, downgraded to medical floor
--- NOTE | 2021-09-11 08:51 | MHC.CLN ---
PT WITH 14-23@# WT LOSS ON NURSING ADMISSION ASSESSMENT PREVIOUS WT HX REVEALS: CURRENT WT 75.2KG (09/11/21) 71.8KG (03/13/21) PT DOES NOT TRIGGER FOR SIGNIFICANT WT LOSS AT THIS TIME PO 100% X 2 MEALS MONITOR PO INTAKE CLOSELY
[2021-09-11] MEDS: Amiodarone HCL 200 MG TABLET 400 MG PO (09:14)
[2021-09-11] MEDS: Potassium Chloride Packet 20 MEQ PACKET 60 MEQ PO (09:16)
[2021-09-11] MEDS: Thiamine HCL 100 MG TABLET 300 MG PO (09:17)
[2021-09-11] MEDS: Folic Acid 1 MG TABLET 2 MG PO (09:20)
[2021-09-11 09:46] LABS: Iron 65 mcg/dL (45-160); Percent Iron Saturation 44 % (15-50); Total Iron Binding Capacity 149 mcg/dL (228-428); Unsaturated Iron Binding 84 ug/dL
[2021-09-11 10:08] LABS: Ferritin 864 ng/mL (20-250)
--- NOTE | 2021-09-11 10:47 | PM.CCPN ---
Subjective Subjective Date of Service: 09/11/21 Interval History: 51-year-old gentleman with underlying history of cardiomyopathy , likely alcohol-related, admitted on 09/08/2021 with dyspnea syncopal event and noted to have a new onset of AFib with RVR requiring initiation of amiodarone drip. Patient was planned, but never had and electric cardioversion. He converted to sinus rhythm overnight on amiodarone drip. He was transition to p.o. amiodarone. No events overnight. Critical Care Time (minutes): 0 Physical Exam Vital Signs: Vital Signs: Last Vital Signs Temp 97.4 F 09/11/21 09:00 Pulse 84 09/11/21 10:00 Resp 14 09/11/21 10:00 BP 119/102 H 09/11/21 10:00 Pulse Ox 100 09/11/21 10:00 O2 Del Method 09/11/21 10:00 O2 Flow Rate 3 09/11/21 01:00 BMI result Body Mass Index 25.2 Const: General: no acute distress, alert and awake Eyes: Sclerae: sclerae normal EOM: EOMs intact bilaterally Neck: Neck: Yes no lymphadenopathy, Yes trachea midline and Yes supple Resp: Effort & Inspection: normal respiratory effort and no respiratory distress Auscultation: clear to auscultation bilaterally Cardio: Rate: regular rate Rhythm: regular rhythm Heart sounds: no gallops, no murmurs and no rubs GI: Palpation (GI): Soft to palpation and Other GI palpation findings present ( Nontender) Auscultation: normal bowel sounds Extrem: General: Yes no pedal edema, No clubbing and No cyanosis Objective Data Labs CBC & Chem 7: 09/11/21 05:07 09/11/21 05:07 Labs: Laboratory Results - last 24 hr 09/09/21 09/10/21 09/10/21 05:43 12:34 16:37 WBC RBC Hgb Hct MCV MCH MCHC RDW Plt Count MPV Immature Gran % (Auto) Neut % (Auto) Lymph % (Auto) [place] % (Auto) Eos % (Auto) Baso % (Auto) Lymph # (Auto) [place] # (Auto) Eos # (Auto) Baso # (Auto) Abs Immat Gran (auto) Absolute Neuts (auto) Absolute Nucleated RBC Nucleated RBC % (auto) VBG pH 7.36 VBG pCO2 30 VBG pO2 30 VBG HCO3 17 L VBG O2 Saturation 46.0 VBG Base Excess -6.6 Sodium Potassium Chloride Carbon Dioxide Anion Gap BUN Creatinine Estim Creat Clear Calc Estimated GFR POC Glucose 128 H 164 H Random Glucose Calcium Phosphorus Magnesium Iron TIBC % Saturation Unsat Iron Binding Ferritin Total Bilirubin AST ALT Alkaline Phosphatase B-Natriuretic Peptide Total Protein Albumin 09/10/21 09/11/21 09/11/21 21:10 05:07 05:07 WBC 5.6 RBC 2.69 L Hgb 8.9 L Hct 25.7 L MCV 95.5 MCH 33.1 H MCHC 34.6 RDW 12.6 Plt Count 173 D MPV 10.1 Immature Gran % (Auto) 0.4 Neut % (Auto) 54.4 Lymph % (Auto) 32.1 [place] % (Auto) 9.7 Eos % (Auto) 1.6 Baso % (Auto) 1.8 Lymph # (Auto) 1.8 [place] # (Auto) 0.5 Eos # (Auto) 0.1 Baso # (Auto) 0.1 Abs Immat Gran (auto) 0.02 Absolute Neuts (auto) 3.0 Absolute Nucleated RBC 0.000 Nucleated RBC % (auto) 0.0 VBG pH VBG pCO2 VBG pO2 VBG HCO3 VBG O2 Saturation VBG Base Excess Sodium 138 Potassium 3.2 L Chloride 110 H Carbon Dioxide 21 L Anion Gap 10 L BUN 23 H Creatinine 1.40 Estim Creat Clear Calc 61.0 Estimated GFR 54 POC Glucose 136 H Random Glucose 142 H Calcium 6.6 L Phosphorus 2.0 L Magnesium 1.3 L* Iron 65 TIBC 149 L % Saturation 44 Unsat Iron Binding 84 Ferritin 864 H Total Bilirubin < 0.2 AST 12 D ALT 16 Alkaline Phosphatase 45 D B-Natriuretic Peptide Total Protein 4.6 L D Albumin 2.7 L D 09/11/21 09/11/21 05:07 07:06 WBC RBC Hgb Hct MCV MCH MCHC RDW Plt Count MPV Immature Gran % (Auto) Neut % (Auto) Lymph % (Auto) [place] % (Auto) Eos % (Auto) Baso % (Auto) Lymph # (Auto) [place] # (Auto) Eos # (Auto) Baso # (Auto) Abs Immat Gran (auto) Absolute Neuts (auto) Absolute Nucleated RBC Nucleated RBC % (auto) VBG pH VBG pCO2 VBG pO2 VBG HCO3 VBG O2 Saturation VBG Base Excess Sodium Potassium Chloride Carbon Dioxide Anion Gap BUN Creatinine Estim Creat Clear Calc Estimated GFR POC Glucose 139 H Random Glucose Calcium Phosphorus Magnesium Iron TIBC % Saturation Unsat Iron Binding Ferritin Total Bilirubin AST ALT Alkaline Phosphatase B-Natriuretic Peptide 1152 H Total Protein Albumin Microbiology Microbiology Results: Microbiology 09/08/21 08:24 Blood - Venous Blood Culture - Preliminary No growth after 48 hours. 09/08/21 08:01 Blood - Venous Blood Culture - Preliminary No growth after 48 hours. Progress Note: A&P Assessment and plan (1) Atrial fibrillation: Status: Acute (2) Type 2 diabetes mellitus with hyperglycemia: Status: Acute (3) Chronic heart failure with reduced ejection fraction and diastolic dysfunction: Status: Acute Plan Assessment: 51-year-old gentleman with underlying cardiomyopathy, likely alcohol related, admitted with near-syncope, likely secondary to new onset of AFib, initially with rapid ventricular response requiring IV amiodarone, now transition to p.o. amiodarone Plan: Neuro: No acute issues. Cardiac: AFib with RVR, converted to sinus overnight on IV amiodarone. Continue on p.o. amiodarone and anticoagulation. Cardiology evaluation requested. Pulmonary: No acute issues. Renal: No acute issues. Endo: No acute issues. GI: No acute issues. ID: No acute issues Heme/Onc: No acute issues. Psych: No acute issues. Miscellaneous: No acute issues. Prophylaxis: Lovenox Diet: Regular Quality Stroke Does the patient have a stroke diagnosis?: No VTE Prior VTE?: No VTE Risk Level:: Medical - low VTE Device Contraindication: N/A - Device Ordered VTE Drug Contraindication: Treatment Not Indicated
--- NOTE | 2021-09-11 11:03 | PM.PNCARD ---
Subjective Subjective Date of Service: 09/11/21 Interval history: He states that he feels well. No specific cardiac complaints. Sitting in chair and seems comfortable. Review of Systems Review of Systems Yes all other systems are reviewed and are negative Constitutional: Reports as per HPI Eyes: Reports as per HPI Reports as per HPI Cardiovascular: Reports as per HPI, Denies acrocyanosis, Denies cool extremities, Denies chest pain, Denies leg edema, Denies lightheadedness, Denies palpitations and Denies dyspnea Respiratory: Reports as per HPI, Reports no additional respiratory complaints and Denies dyspnea Gastrointestinal: Reports as per HPI and Reports no additional gastrointestinal complaints Genitourinary: Reports no additional male genitourinary complaints and Reports as per HPI Musculoskeletal: Reports no additional musculoskeletal complaints and Reports as per HPI Skin/Breast: Reports system reviewed and no additional complaints, except as docu Reports system reviewed and no additional complaints, except as documented and Reports as per HPI Psychiatric: Reports no additional psychiatric complaints and Reports as per HPI Endocrine: Reports no additional endocrine complaints, Reports as per HPI and Denies palpitations Hematologic/Lymphatic: Reports no additional hematologic/lymphatic complaints and Reports as per HPI Allergic/Immunologic: Reports no additional allergic/immunologic complaints and Reports as per HPI Physical Exam Vital Signs: Last Vital Signs Temp 97.4 F 09/11/21 09:00 Pulse 84 09/11/21 10:00 Resp 14 09/11/21 10:00 BP 119/102 H 09/11/21 10:00 Pulse Ox 100 09/11/21 10:00 O2 Del Method 09/11/21 10:00 O2 Flow Rate 3 09/11/21 01:00 BMI result Body Mass Index 25.2 Const General: comfortable and no acute distress Orientation/consciousness: patient oriented x3 HEENT Other: Unremarkable Head: Yes normal to inspection Neck Neck: Yes normal visual inspection Chest Chest palpation & inspection: normal inspection of the chest Resp Auscultation: clear to auscultation bilaterally Cardio Palpation: normal PMI Heart sounds: S1 normal heart sound present, S2 normal heart sound present, no gallops, no murmurs and no rubs GI Palpation (GI): Soft to palpation Back/Spine/Pelvis Other: unremarkable Skin General skin exam: no rashes or lesions noted Neuro General: patient oriented x3 Extrem General: Yes normal to inspection Psych Mental Status: mental status grossly normal Objective Labs and Meds Result diagrams: 09/11/21 05:07 09/11/21 05:07 Lab results: Laboratory Results - last 24 hr 09/09/21 09/10/21 09/10/21 05:43 12:34 16:37 WBC RBC Hgb Hct MCV MCH MCHC RDW Plt Count MPV Immature Gran % (Auto) Neut % (Auto) Lymph % (Auto) [place] % (Auto) Eos % (Auto) Baso % (Auto) Lymph # (Auto) [place] # (Auto) Eos # (Auto) Baso # (Auto) Abs Immat Gran (auto) Absolute Neuts (auto) Absolute Nucleated RBC Nucleated RBC % (auto) VBG pH 7.36 VBG pCO2 30 VBG pO2 30 VBG HCO3 17 L VBG O2 Saturation 46.0 VBG Base Excess -6.6 Sodium Potassium Chloride Carbon Dioxide Anion Gap BUN Creatinine Estim Creat Clear Calc Estimated GFR POC Glucose 128 H 164 H Random Glucose Calcium Phosphorus Magnesium Iron TIBC % Saturation Unsat Iron Binding Ferritin Total Bilirubin AST ALT Alkaline Phosphatase B-Natriuretic Peptide Total Protein Albumin 09/10/21 09/11/21 09/11/21 21:10 05:07 05:07 WBC 5.6 RBC 2.69 L Hgb 8.9 L Hct 25.7 L MCV 95.5 MCH 33.1 H MCHC 34.6 RDW 12.6 Plt Count 173 D MPV 10.1 Immature Gran % (Auto) 0.4 Neut % (Auto) 54.4 Lymph % (Auto) 32.1 [place] % (Auto) 9.7 Eos % (Auto) 1.6 Baso % (Auto) 1.8 Lymph # (Auto) 1.8 [place] # (Auto) 0.5 Eos # (Auto) 0.1 Baso # (Auto) 0.1 Abs Immat Gran (auto) 0.02 Absolute Neuts (auto) 3.0 Absolute Nucleated RBC 0.000 Nucleated RBC % (auto) 0.0 VBG pH VBG pCO2 VBG pO2 VBG HCO3 VBG O2 Saturation VBG Base Excess Sodium 138 Potassium 3.2 L Chloride 110 H Carbon Dioxide 21 L Anion Gap 10 L BUN 23 H Creatinine 1.40 Estim Creat Clear Calc 61.0 Estimated GFR 54 POC Glucose 136 H Random Glucose 142 H Calcium 6.6 L Phosphorus 2.0 L Magnesium 1.3 L* Iron 65 TIBC 149 L % Saturation 44 Unsat Iron Binding 84 Ferritin 864 H Total Bilirubin < 0.2 AST 12 D ALT 16 Alkaline Phosphatase 45 D B-Natriuretic Peptide Total Protein 4.6 L D Albumin 2.7 L D 09/11/21 09/11/21 05:07 07:06 WBC RBC Hgb Hct MCV MCH MCHC RDW Plt Count MPV Immature Gran % (Auto) Neut % (Auto) Lymph % (Auto) [place] % (Auto) Eos % (Auto) Baso % (Auto) Lymph # (Auto) [place] # (Auto) Eos # (Auto) Baso # (Auto) Abs Immat Gran (auto) Absolute Neuts (auto) Absolute Nucleated RBC Nucleated RBC % (auto) VBG pH VBG pCO2 VBG pO2 VBG HCO3 VBG O2 Saturation VBG Base Excess Sodium Potassium Chloride Carbon Dioxide Anion Gap BUN Creatinine Estim Creat Clear Calc Estimated GFR POC Glucose 139 H Random Glucose Calcium Phosphorus Magnesium Iron TIBC % Saturation Unsat Iron Binding Ferritin Total Bilirubin AST ALT Alkaline Phosphatase B-Natriuretic Peptide 1152 H Total Protein Albumin Progress Note: A&P Assessment and plan (1) New onset a-fib: Status: Acute (2) Syncope and collapse: Status: Acute (3) Nonischemic cardiomyopathy: Status: Acute (4) Chronic heart failure with reduced ejection fraction and diastolic dysfunction: Status: Acute (5) Alcohol abuse: Status: Acute (6) Anemia: Status: Acute Plan Upon review of telemetry, he is back to normal sinus rhythm in the last few hours. Otherwise, he seems to be quite comfortable without any clear cardiac symptoms. Echocardiogram from last week with LVEF of 60-65%. He is on amiodarone 400 mg daily. Can be continued for more days. Otherwise, we can slowly resume his home regimen of Coreg/Entresto. Alcohol cessation reinforced again today. Ideally, he needs anticoagulation as well but also has anemia and that will need to be evaluated as well. Discussed with Dr. Fields. Time Spent With Patient Time: Total time spent is greater than 50% in coordination of care (as documented) at patient's floor/unit and/or counseling patient: 35min. Progress Note: Quality Stroke Does the patient have a stroke diagnosis?: No Procedures Date of Service Date of Service: 09/11/21
--- NOTE | 2021-09-11 11:19 | ECG_ITS ---
Test Reason : AFIB Blood Pressure : / mmHG Vent. Rate : 077 BPM Atrial Rate : 077 BPM P-R Int : 190 ms QRS Dur : 084 ms QT Int : 434 ms P-R-T Axes : 054 012 018 degrees QTc Int : 491 ms Normal sinus rhythm Nonspecific ST and T wave abnormality Prolonged QT Abnormal ECG When compared with ECG of 08-SEP-2021 07:46, Sinus rhythm has replaced Atrial fibrillation T wave inversion no longer evident in Lateral leads Referred By: Gianfranco Fields Electronically Signed By:MARLENI CAAL
[2021-09-11 11:53] LABS: Partial Thromboplastin Time 26.3 SEC (24.1-38.0)
[2021-09-11 15:02] LABS: Anti Nuclear Antibody Screen NEGATIVE (NEGATIVE)
--- NOTE | 2021-09-11 15:52 | PC.NURSE ---
Converted to NSR while on IV amiodarone and then med route changed to PO. Remains sinus. EKG done---> NSR with prolonged QTi. Vital signs stable. Denies chest pain or pressure, dizziness, shortness of breath. Out of bed to chair. Tolerating PO. CIWA indicates slight tremors of upper extremities, otherwise patient remains free of sxs ETOH withdrawal. Report given to [facility] nurse and patient en route at this time.
[2021-09-11] MEDS: carvediloL 3.125 MG TABLET PO (19:32)
[2021-09-11] MEDS: Enoxaparin Sodium 80 MG/0.8 ML SYRINGE 70 MG SUBCUT (23:55)
[2021-09-12 03:44] VITALS: BP 118/79; PULSE 75; RESP 20; TEMP 37; O2SAT 100
[2021-09-12] MEDS: LORazepam 0.5 MG TABLET PO ×3 (05:35→18:21)
[2021-09-12 05:47] LABS: Hematocrit 23.9 % (42.0-52.0); Hemoglobin 8.3 g/dl (14.0-18.0); Mean Corpuscular HGB Conc 34.7 g/dl (31.0-36.0); Mean Corpuscular Hemoglobin 32.4 pg (27.0-33.0); Mean Corpuscular Volume 93.4 fL (80.0-98.0); Mean Platelet Volume 10.3 fL (9.4-12.4); Platelet Count 195 X10*3/uL (160-400); Red Blood Count 2.56 X10*6/uL (4.60-5.80); Red Cell Distribution Width 12.6 % (11.0-16.0); White Blood Count 4.9 X10*3/uL (4.8-10.8)
[2021-09-12 06:00] VITALS: BMI 25.1
[2021-09-12 06:28] LABS: Anion Gap 9 (12-20); Blood Urea Nitrogen 15 mg/dL (9-16); Carbon Dioxide 23 mmol/L (22-29); Chloride 113 mmol/L (96-108); Creatinine Clr Calc Pharmacy 86.3; Estimated Glomerular Filt Rate > 60; Glucose Fasting 119 mg/dL (60-99); Magnesium 1.1 mg/dL (1.6-2.6); Potassium 3.4 mmol/L (3.3-5.1); Sodium 142 mmol/L (135-145)
[2021-09-12 07:22] VITALS: BP 148/98; PULSE 76; RESP 17; TEMP 37.3; O2SAT 99
[2021-09-12] MEDS: Magnesium Sulfate/H2O 2 GM/50 ML PIGGYBACK IV ×2 (08:09→11:37)
[2021-09-12] MEDS: Thiamine HCL 100 MG TABLET 300 MG PO (08:10)
[2021-09-12] MEDS: carvediloL 3.125 MG TABLET PO (08:11)
[2021-09-12] MEDS: Amiodarone HCL 200 MG TABLET 400 MG PO (08:11)
[2021-09-12] MEDS: Folic Acid 1 MG TABLET 2 MG PO (08:11)
[2021-09-12] MEDS: Naltrexone HCl 50 MG TABLET PO ×2 (08:12→20:11)
[2021-09-12 10:18] LABS: Folate 2.2 ng/mL (> or = 4.0); Vitamin B12 336 pg/mL (200-900)
--- NOTE | 2021-09-12 10:20 | P.PNCA_ITS ---
Subjective Subjective Date of Service: 09/12/21 Interval history: He states that he feels okay. Denies any cardiac symptoms like angina or shortness of breath or palpitations or in fact anything cardiac related. Review of Systems Review of Systems Yes all other systems are reviewed and are negative Constitutional: Reports as per HPI Eyes: Reports as per HPI Reports as per HPI Cardiovascular: Reports as per HPI, Denies acrocyanosis, Denies cool extre mities, Denies chest pain, Denies leg edema, Denies lightheadedness, Denies palpitations and Denies dyspnea Respiratory: Reports as per HPI, Reports no additional respiratory complaints and Denies dyspnea Gastrointestinal: Reports as per HPI and Reports no additional gastrointestinal complaints Genitourinary: Reports no additional male genitourinary complaints and Reports as per HPI Musculoskeletal: Reports no additional musculoskeletal complaints and Reports as per HPI Skin/Breast: Reports system reviewed and no additional complaints, except as docu Reports system reviewed and no additional complaints, except as documented and Reports as per HPI Psychiatric: Reports no additional psychiatric complaints and Reports as per HPI Endocrine: Reports no additional endocrine complaints, Reports as per HPI and Denies palpitations Hematologic/Lymphatic: Reports no additional hematologic/lymphatic complaints and Reports as per HPI Allergic/Immunologic: Reports no additional allergic/immunologic complaints and Reports as per HPI Physical Exam Vital Signs: Last Vital Signs Temp 99.1 F 09/12/21 07:22 Pulse 76 09/12/21 07:22 Resp 17 09/12/21 07:22 BP 148/98 H 09/12/21 07:22 Pulse Ox 99 09/12/21 07:22 O2 Del Method 09/12/21 07:22 O2 Flow Rate 3 09/11/21 01:00 BMI result Body Mass Index 25.1 Const General: comfortable and no acute distress Orientation/consciousness: patient oriented x3 HEENT Other: Unremarkable Head: Yes normal to inspection Neck Neck: Yes normal visual inspection Chest Chest palpation & inspection: normal inspection of the chest Resp Auscultation: clear to auscultation bilaterally Cardio Palpation: normal PMI Heart sounds: S1 normal heart sound present, S2 normal heart sound present, no gallops, no murmurs and no rubs GI Palpation (GI): Soft to palpation Back/Spine/Pelvis Other: unremarkable Skin General skin exam: no rashes or lesions noted Neuro General: patient oriented x3 Extrem General: Yes normal to inspection Psych Mental Status: mental status grossly normal Objective Labs and Meds Result diagrams: 09/12/21 05:34 09/12/21 05:34 Lab results: Laboratory Results - last 24 hr 09/08/21 09/11/21 09/12/21 11:52 11:26 05:34 WBC 4.9 RBC 2.56 L Hgb 8.3 L Hct 23.9 L MCV 93.4 MCH 32.4 MCHC 34.7 RDW 12.6 Plt Count 195 MPV 10.3 Absolute Nucleated RBC 0.000 Nucleated RBC % (auto) 0.0 APTT 26.3 Sodium Potassium Chloride Carbon Dioxide Anion Gap BUN Creatinine Estim Creat Clear Calc Estimated GFR Fasting Glucose Calcium Magnesium Vitamin B12 Folate CINDY Screen NEGATIVE CINDY Titer TNP CINDY Titer 2 TNP CINDY Titer 3 TNP CINDY Pattern TNP CINDY Pattern 2 TNP CINDY Pattern 3 TNP 09/12/21 09/12/21 05:34 05:34 WBC RBC Hgb Hct MCV MCH MCHC RDW Plt Count MPV Absolute Nucleated RBC Nucleated RBC % (auto) APTT Sodium 142 Potassium 3.4 Chloride 113 H Carbon Dioxide 23 Anion Gap 9 L BUN 15 Creatinine 0.99 Estim Creat Clear Calc 86.3 Estimated GFR > 60 Fasting Glucose 119 H Calcium 7.0 L D Magnesium 1.1 L* Vitamin B12 336 Folate 2.2 L CINDY Screen CINDY Titer CINDY Titer 2 CINDY Titer 3 CINDY Pattern CINDY Pattern 2 CINDY Pattern 3 Progress Note: A&P Assessment and plan (1) New onset a-fib: Status: Acute (2) Syncope and collapse: Status: Acute (3) Nonischemic cardiomyopathy: Status: Acute (4) Chronic heart failure with reduced ejection fraction and diastolic dysfuncti on: Status: Acute (5) Alcohol abuse: Status: Acute (6) Anemia: Status: Acute (7) Hypomagnesemia: Status: Acute (8) Hypokalemia: Status: Acute (9) Hypocalcemia: Status: Acute (10) Hypophosphatemia: Status: Acute Plan He continues to be normal sinus rhythm. Clinically otherwise he has no symptoms at this time. Recent echocardiogram with preserved LVEF. We can keep him on amiodarone for the time being but may not need long-term. Otherwise, may go up on the Coreg dose. Resume Entresto and then we can slowly up titrate the doses back to his usual baseline. With regard to low potassium, magnesium, phosphorus and calcium probably all from alcohol excess and these need to be repleted appropriately. Extensively counseled with patient regarding dangers of alcohol use and he states he understands. Ideally should abstain completely. Follow-up will be arranged. Time Spent With Patient Time: Total time spent is greater than 50% in coordination of care (as documented) at patient's floor/unit and/or counseling patient: 35min. Progress Note: Quality Stroke Does the patient have a stroke diagnosis?: No Procedures Date of Service Date of Service: 09/12/21
[2021-09-12 11:10] LABS: Glucose, Whole Blood 106 mg/dL (60-115)
[2021-09-12 11:35] VITALS: BP 125/89; PULSE 82; RESP 16; TEMP 36.1; O2SAT 99
[2021-09-12] MEDS: Enoxaparin Sodium 80 MG/0.8 ML SYRINGE 70 MG SUBCUT (11:36)
[2021-09-12 11:45] LABS: Glucose, Whole Blood 92 mg/dL (60-115)
--- NOTE | 2021-09-12 14:26 | MHC.CM.PN ---
Per Rounds discusssion, patient not yet ready for discharge r/t electrolytes being off, cardio consult ordered.
--- NOTE | 2021-09-12 15:00 | P.PNIM_ITS ---
Subjective Subjective Date of Service: 09/13/21 Interval History: Sitting comfortably on bed, offers no acute complaints of chest pain, no palpitation, no lightheadedness, no dizziness, denies nausea, vomiting, abdominal pain, no diarrhea. Review of Systems [employer]ING no headache no dizziness CVS no chest pain, no palpitation no urinary urgency, no frequency Review of Systems: Yes all other systems are reviewed and are negative Physical Exam Vital Signs: Vital Signs: Last Vital Signs Temp 97.0 F 09/12/21 11:35 Pulse 82 09/12/21 11:35 Resp 16 09/12/21 11:35 BP 125/89 09/12/21 11:35 Pulse Ox 99 09/12/21 11:35 O2 Del Method 09/12/21 11:35 O2 Flow Rate 3 09/11/21 01:00 BMI result Body Mass Index 25.1 Const: Other: General awake alert x3, no acute distress. Neck supple no JVD. CVS regular rate rhythm, Respiratory lungs clear to auscultation, no respiratory distress, no wheeze, no rhonchi. Gastrointestinal abdomen soft, nontender, bowel sounds audible, no guarding , no rigidity. Extremities no edema. Neuro nonfocal Skin no rash Psych appropriate affect Objective Data Active Medications Amiodarone HCl (Amiodarone Hcl 200 Mg Tablet) 400 mg PO DAILY [facility] Last Admin: 09/12/21 08:11 Dose: 400 mg Documented By: JERRI Carvedilol (Carvedilol 3.125 Mg Tablet) 3.125 mg PO BID [facility]; Protocol Last Admin: 09/12/21 08:11 Dose: 3.125 mg Documented By: JERRI Enoxaparin Sodium (Enoxaparin Sodium 80 Mg/0.8 Ml Syringe) 70 mg SUBCUT Q12H [facility] Last Admin: 09/12/21 11:36 Dose: 70 mg Documented By: JERRI Folic Acid (Folic Acid 1 Mg Tablet) 2 mg PO DAILY [facility] Last Admin: 09/12/21 08:11 Dose: 2 mg Documented By: JERRI Lorazepam (Lorazepam 0.5 Mg Tablet) 0.5 mg PO Q4H PRN PRN Reason: Alcohol Withdrawal Last Admin: 09/09/21 20:55 Dose: 0.5 mg Documented By: HO.ANDERM Lorazepam (Lorazepam 0.5 Mg Tablet) 0.5 mg PO Q6H [facility] Last Admin: 09/12/21 13:32 Dose: 0.5 mg Documented By: JERRI Metoprolol Tartrate (Metoprolol Tartrate 5 Mg/5 Ml Vial) 2.5 mg IVPUSH Q4H PRN PRN Reason: HR>105 Last Admin: 09/09/21 13:06 Dose: 2.5 mg Documented By: ROSALINA Naltrexone HCl (Naltrexone Hcl 50 Mg Tablet) 50 mg PO DAILY@1999 [facility] Last Admin: 09/11/21 19:32 Dose: 50 mg Documented By: BROVitor Naltrexone HCl (Naltrexone Hcl 50 Mg Tablet) 50 mg PO DAILY [facility] Last Admin: 09/12/21 08:12 Dose: 50 mg Documented By: JERRI Thiamine HCl (Thiamine Hcl 100 Mg Tablet) 300 mg PO DAILY [facility] Last Admin: 09/12/21 08:10 Dose: 300 mg Documented By: JERRI Labs CBC & Chem 7: 09/12/21 05:34 09/13/21 06:16 Labs: Laboratory Results - last 24 hr 09/08/21 09/12/21 09/12/21 11:52 05:34 05:34 MCV 93.4 MCH 32.4 MCHC 34.7 RDW 12.6 Plt Count 195 MPV 10.3 Absolute Nucleated RBC 0.000 Nucleated RBC % (auto) 0.0 Anion Gap 9 L Estim Creat Clear Calc 86.3 Estimated GFR > 60 POC Glucose Fasting Glucose 119 H Calcium 7.0 L D Magnesium 1.1 L* Vitamin B12 Folate CINDY Screen NEGATIVE CINDY Titer TNP CINDY Titer 2 TNP CINDY Titer 3 TNP CINDY Pattern TNP CINDY Pattern 2 TNP CINDY Pattern 3 TNP 09/12/21 09/12/21 09/12/21 05:34 07:25 11:37 MCV MCH MCHC RDW Plt Count MPV Absolute Nucleated RBC Nucleated RBC % (auto) Anion Gap Estim Creat Clear Calc Estimated GFR POC Glucose 106 92 Fasting Glucose Calcium Magnesium Vitamin B12 336 Folate 2.2 L CINDY Screen CINDY Titer CINDY Titer 2 CINDY Titer 3 CINDY Pattern CINDY Pattern 2 CINDY Pattern 3 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, 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, on arrival noted to have hypotension , atrial fibrillation with RVR and acute renal failure with anion gap metabolic acidosis, he denied chest pain, no palpitation, due to significantly low blood pressure patient was treated with thin eye Afrin at 2 microgram/kg and was admitted to intensive care unit endoscopic treated with IV fluids, patient troponins were negative Acute renal failure with an anion gap metabolic acidosis likely due to dehydration and GI loss renal function returned to normal with IV fluid Hypotension resolved with IV fluid now blood pressure trending up all antihypertensives were held, will gradually increase dose of Coreg and resume Entresto as tolerated Type 2 diabetes mellitus blood sugars stable Atrial fibrillation with RVR converted to sinus rhythm continue amiodarone dose reduced to 200 mg by mouth daily continue Coreg Alcohol use disorder no wd symptoms ,will consult care team. On thiamine folic acid and Ativan scheduled, will gradually wean Ativan Chronic heart failure with recovered EF now 60-65% with diastolic dysfunction , blood pressure improved, was on Entresto, Lasix and Coreg at home will resume Entresto low-dose and Coreg if BP tolerate will resume Lasix Hypo magnesemia magnesium 1.1 likely due to GI loss and alcohol use will actively replace magnesium and follow labs Hypokalemia potassium improved to 3.4 likely due to diuretics Hypocalcemia calcium of 7 with an albumin of 2.7 corrected calcium is 8 Hypophosphatemia phosphorus [address] on Neutra-Phos and follow labs Acute on chronic anemia likely due to folic acid deficiency B12 and iron studies are unremarkable replace folate and follow CBC. Patient denies hematemesis melena, drop in hematocrit likely due to infection and IV fluid Low folic acid will replace folate and follow labs likely due to poor by mouth intake with alcohol abuse DVT prophylaxis on Lovenox subQ b.i.d. will discuss continued anticoagulation with Cardiology Patient will need continued inpatient hospitalization due to multiple electrolyte abnormalities requiring IV magnesium, also management for atrial fibrillation with RVR. Quality Stroke Does the patient have a stroke diagnosis?: No VTE Prior VTE?: No VTE Risk Level:: Medical - low VTE Device Contraindication: N/A - Device Ordered VTE Drug Contraindication: Treatment Not Indicated
[2021-09-12 16:00] VITALS: BP 126/80; PULSE 88; RESP 16; TEMP 36.6; O2SAT 99
[2021-09-12] MEDS: Magnesium Oxide 400 MG TABLET PO (18:21)
[2021-09-12 20:00] VITALS: BP 129/79; PULSE 89; RESP 18; TEMP 36.8; O2SAT 99
[2021-09-12] MEDS: carvediloL 6.25 MG TABLET PO (20:10)
[2021-09-12] MEDS: Sodium,Potassium Phosphates POWD.PACK 2 PACKET PO (20:11)
[2021-09-12] MEDS: Sacubitril/Valsartan 24/26 1 TAB TABLET PO (20:11)
[2021-09-12 23:09] VITALS: BP 135/91; PULSE 86; RESP 17; TEMP 36.4; O2SAT 97
[2021-09-13] MEDS: LORazepam 0.5 MG TABLET PO ×4 (01:58→20:17)
[2021-09-13] MEDS: Enoxaparin Sodium 80 MG/0.8 ML SYRINGE 70 MG SUBCUT ×3 (01:59→20:17)
[2021-09-13 03:12] VITALS: BP 140/96; PULSE 86; RESP 20; TEMP 37.1; O2SAT 94
[2021-09-13 06:00] VITALS: BMI 25.2
[2021-09-13 07:25] LABS: Anion Gap 11 (12-20); Blood Urea Nitrogen 11 mg/dL (9-16); Calcium 7.2 mg/dL (8.4-10.2); Carbon Dioxide 24 mmol/L (22-29); Chloride 111 mmol/L (96-108); Creatinine Clr Calc Pharmacy 91.9; Estimated Glomerular Filt Rate > 60; Glucose Random 113 mg/dL (60-115); Magnesium 1.3 mg/dL (1.6-2.6); Potassium 3.6 mmol/L (3.3-5.1); Sodium 142 mmol/L (135-145)
[2021-09-13 07:34] VITALS: BP 160/104; PULSE 76; RESP 18; TEMP 36.4; O2SAT 99
[2021-09-13] MEDS: Folic Acid 1 MG TABLET 2 MG PO (07:41)
[2021-09-13] MEDS: Amiodarone HCL 200 MG TABLET PO (07:41)
[2021-09-13] MEDS: Thiamine HCL 100 MG TABLET 300 MG PO (07:42)
[2021-09-13] MEDS: Magnesium Oxide 400 MG TABLET PO ×2 (07:42→15:37)
[2021-09-13] MEDS: Sacubitril/Valsartan 24/26 1 TAB TABLET PO (07:42)
[2021-09-13] MEDS: carvediloL 6.25 MG TABLET PO (07:42)
[2021-09-13] MEDS: Sodium,Potassium Phosphates POWD.PACK 2 PACKET PO ×3 (07:43→20:17)
[2021-09-13] MEDS: Naltrexone HCl 50 MG TABLET PO ×2 (07:43→20:17)
[2021-09-13 07:50] LABS: Glucose, Whole Blood 100 mg/dL (60-115)
[2021-09-13] MEDS: Magnesium Sulfate/H2O 2 GM/50 ML PIGGYBACK IV ×2 (10:36→16:31)
[2021-09-13 11:12] VITALS: BP 138/95; PULSE 89; RESP 18; TEMP 36.1; O2SAT 99
--- NOTE | 2021-09-13 11:46 | PC.NURSE ---
Patient on CIWA, appears steady on feet. Fall risk changed to low per Dr Hutchison request.
[2021-09-13 11:56] LABS: Glucose, Whole Blood 102 mg/dL (60-115)
--- NOTE | 2021-09-13 14:23 | MHC.CM.PN ---
Per ROUNDS discussion, patient not yet medically cleared for discharge r/t multiple electrolyte abnormalities requiring IV magnesium and AFIB with RVR management. CM will continue to follow for D/C needs.
[2021-09-13 15:26] VITALS: BP 144/95; PULSE 92; RESP 14; TEMP 37.3; O2SAT 98
--- NOTE | 2021-09-13 15:26 | P.PNIM_ITS ---
Subjective Subjective Date of Service: 09/13/21 Interval History: offers no complaints of chest pain or palpitation, but concern that he is not allowed to ambulate in the room and not getting food on time did not get dinner till 19:30, denies nausea, vomiting, diarrhea, denies withdrawal symptoms no tremors, Review of Systems Review of Systems: Yes all other systems are reviewed and are negative Physical Exam Vital Signs: Vital Signs: Last Vital Signs Temp 97 F 09/13/21 11:12 Pulse 89 09/13/21 11:12 Resp 18 09/13/21 11:12 BP 138/95 H 09/13/21 11:12 Pulse Ox 99 09/13/21 11:12 O2 Del Method 09/13/21 11:12 O2 Flow Rate 3 09/11/21 01:00 BMI result Body Mass Index 25.2 Const: Other: General awake alert x3, no acute distress.? Neck? supple no JVD. CVS? regular rate rhythm, Respiratory lungs clear to auscultation, no respiratory distress, no wheeze, no rhonchi. Gastrointestinal abdomen soft, nontender, bowel sounds audible, no guarding , no rigidity. Extremities no? edema. Neuro nonfocal Skin no rash Psych appropriate affect Objective Data Active Medications Amiodarone HCl (Amiodarone Hcl 200 Mg Tablet) 200 mg PO DAILY [facility] Last Admin: 09/13/21 07:41 Dose: 200 mg Documented By: ANGEL Carvedilol (Carvedilol 12.5 Mg Tablet) 12.5 mg PO BID [facility]; Protocol Enoxaparin Sodium (Enoxaparin Sodium 80 Mg/0.8 Ml Syringe) 70 mg SUBCUT Q12H [facility] Last Admin: 09/13/21 13:10 Dose: 70 mg Documented By: ANGEL Folic Acid (Folic Acid 1 Mg Tablet) 2 mg PO DAILY [facility] Last Admin: 09/13/21 07:41 Dose: 2 mg Documented By: ANGEL Lorazepam (Lorazepam 0.5 Mg Tablet) 0.5 mg PO Q4H PRN PRN Reason: Alcohol Withdrawal Last Admin: 09/09/21 20:55 Dose: 0.5 mg Documented By: AMAN Lorazepam (Lorazepam 0.5 Mg Tablet) 0.5 mg PO Q6H [facility] Last Admin: 09/13/21 13:11 Dose: 0.5 mg Documented By: ANGEL Magnesium Oxide (Magnesium Oxide 400 Mg Tablet) 400 mg PO BIDPC [facility] Last Admin: 09/13/21 07:42 Dose: 400 mg Documented By: ANGEL Naltrexone HCl (Naltrexone Hcl 50 Mg Tablet) 50 mg PO DAILY@1999 [facility] Last Admin: 09/12/21 20:11 Dose: 50 mg Documented By: HAYLEETEKR Naltrexone HCl (Naltrexone Hcl 50 Mg Tablet) 50 mg PO DAILY [facility] Last Admin: 09/13/21 07:43 Dose: 50 mg Documented By: ANGEL Potassium Phos/Sodium Phos (Sodium,Potassium Phosphates Powd.Pack) 2 packet PO TID [facility] Last Admin: 09/13/21 07:43 Dose: 2 packet Documented By: ANGEL Sacubitril/Valsartan (Sacubitril/Valsartan 49/51 1 Tab Tablet) 1 tab PO BID [facility]; Protocol Thiamine HCl (Thiamine Hcl 100 Mg Tablet) 300 mg PO DAILY [facility] Last Admin: 09/13/21 07:42 Dose: 300 mg Documented By: ANGEL Labs CBC & Chem 7: 09/12/21 05:34 09/13/21 06:16 Labs: Laboratory Results - last 24 hr 09/13/21 09/13/21 09/13/21 06:16 07:46 11:39 Anion Gap 11 L Estim Creat Clear Calc 91.9 Estimated GFR > 60 POC Glucose 100 102 Random Glucose 113 Calcium 7.2 L Phosphorus 3.0 Magnesium 1.3 L* Microbiology Microbiology Results: Microbiology 09/08/21 08:24 Blood Culture - Final Blood - Venous No growth after 5 days. 09/08/21 08:01 Blood Culture - Final Blood - Venous No growth after 5 days. 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, on arrival noted to have hypotension , atrial fibrillation with RVR and acute renal failure with anion gap metabolic acidosis, he denied chest pain, no palpitation, due to significantly low blood pressure patient was treated with thin eye Afrin at 2 microgram/kg and was admitted to intensive care unit endoscopic treated with IV fluids, patient troponins were negative Acute renal failure with an anion gap metabolic acidosis likely due to dehydration and GI loss renal function returned to normal with IV fluid Hypotension resolved with IV fluid now blood pressure trending up all anti hypertensives were held, will increase dose of Coreg to 25 b.i.d., continue low-dose Entresto and placed back on home dose of blood pressure allows. Type 2 diabetes mellitus blood sugars stable Not on medications. Atrial fibrillation with RVR converted to sinus rhythm continue amiodarone dose reduced to 200 mg by mouth daily continue Coreg placed back on home dose of 25 b.i.d. Alcohol use disorder no wd symptoms ,will consult care team. On thiamine folic acid and Ativan scheduled, will gradually wean Ativan, steady gait will DC high risk fall. Chronic heart failure with recovered EF now 60-65% with diastolic dysfunction , blood pressure improved, was on Entresto, and Coreg at home will resume Entresto low-dose and Coreg if BP tolerate increase entresto Lasix was held by Dr. Alvarado recently, increased BNP but clinically patient not in heart failure has no pitting edema will hold Lasix. Hypomagnesemia magnesium 1.3 likely due to GI loss and alcohol use will actively replace magnesium and follow labs Hypokalemia potassium improved to 3.6 likely due to for nutrition Hypocalcemia calcium of 7 with an albumin of 2.7 corrected calcium is 8 Hypophosphatemia phosphorus improving continue Neutra-Phos and follow labs Acute on chronic anemia likely due to folic acid deficiency B12 and iron studies are unremarkable replace folate and follow CBC. Patient denies hematemesis m pastora, drop in hematocrit likely due to infection and IV fluid follow CBC check stool guaiac Low folic acid will replace folate and follow labs likely due to poor by mouth intake with alcohol abuse DVT prophylaxis on Lovenox subQ b.i.d. will discuss continued anticoagulation with Cardiology. Patient will need continued inpatient hospitalization due to multiple electrolyte abnormalities requiring IV magnesium, also management for atrial fibrillation with RVR. Quality Stroke Does the patient have a stroke diagnosis?: No VTE Prior VTE?: No VTE Risk Level:: Medical - low VTE Device Contraindication: N/A - Device Ordered VTE Drug Contraindication: Treatment Not Indicated
[2021-09-13 16:05] LABS: Glucose, Whole Blood 115 mg/dL (60-115)
[2021-09-13] MEDS: Acetaminophen 325 MG TABLET 650 MG PO (17:37)
[2021-09-13 19:02] VITALS: BP 138/90; PULSE 92; RESP 14; TEMP 36.4; O2SAT 96
[2021-09-13 19:41] LABS: Glucose, Whole Blood 139 mg/dL (60-115)
[2021-09-13] MEDS: Sacubitril/Valsartan 49/51 1 TAB TABLET PO (20:16)
[2021-09-13] MEDS: carvediloL 25 MG TABLET PO (20:17)
[2021-09-14] VITALS (7 sets, daily range): BP systolic 118–136; BP diastolic 78–96; PULSE 80–96; RESP 14–17; TEMP 36.3–37.4; O2SAT 93–98; BMI 28.2
[2021-09-14 06:05] LABS: Hemoglobin 7.8 g/dl (14.0-18.0); Mean Corpuscular HGB Conc 35.5 g/dl (31.0-36.0); Mean Corpuscular Hemoglobin 33.6 pg (27.0-33.0); Mean Corpuscular Volume 94.8 fL (80.0-98.0); Mean Platelet Volume 9.7 fL (9.4-12.4); Platelet Count 246 X10*3/uL (160-400); Red Blood Count 2.32 X10*6/uL (4.60-5.80); Red Cell Distribution Width 13.2 % (11.0-16.0); White Blood Count 4.4 X10*3/uL (4.8-10.8)
[2021-09-14 07:05] LABS: Blood Urea Nitrogen 11 mg/dL (9-16); Calcium 7.5 mg/dL (8.4-10.2); Creatinine Clr Calc Pharmacy 109.8; Estimated Glomerular Filt Rate > 60; Glucose Random 128 mg/dL (60-115); Magnesium 1.6 mg/dL (1.6-2.6)
[2021-09-14 07:19] LABS: Anion Gap 11 (12-20); Carbon Dioxide 25 mmol/L (22-29); Chloride 107 mmol/L (96-108); Potassium 3.8 mmol/L (3.3-5.1); Sodium 139 mmol/L (135-145)
[2021-09-14 07:21] LABS: Glucose, Whole Blood 112 mg/dL (60-115)
[2021-09-14] MEDS: Sacubitril/Valsartan 49/51 1 TAB TABLET PO ×2 (09:16→19:46)
[2021-09-14] MEDS: Amiodarone HCL 200 MG TABLET PO (09:17)
[2021-09-14] MEDS: carvediloL 25 MG TABLET PO ×2 (09:17→19:46)
[2021-09-14] MEDS: Folic Acid 1 MG TABLET 2 MG PO (09:18)
[2021-09-14] MEDS: Thiamine HCL 100 MG TABLET 300 MG PO (09:18)
[2021-09-14] MEDS: Magnesium Oxide 400 MG TABLET PO ×2 (09:18→16:26)
[2021-09-14] MEDS: LORazepam 0.5 MG TABLET PO ×2 (09:19→19:47)
[2021-09-14] MEDS: Naltrexone HCl 50 MG TABLET PO ×2 (09:19→19:47)
[2021-09-14] MEDS: Sodium,Potassium Phosphates POWD.PACK 2 PACKET PO ×3 (09:20→19:49)
--- NOTE | 2021-09-14 11:21 | P.PNCA_ITS ---
Subjective Subjective Date of Service: 09/14/21 Interval history: He states that he feels well. No specific cardiac complaints like angina or shortness of breath or in fact anything cardiac related. Review of Systems Review of Systems Yes all other systems are reviewed and are negative Constitutional: Reports as per HPI Eyes: Reports as per HPI Reports as per HPI Cardiovascular: Reports as per HPI, Denies acrocyanosis, Denies cool extremities, Denies chest pain, Denies leg edema, Denies lightheadedness, Denies palpitations and Denies dyspnea Respiratory: Reports as per HPI, Reports no additional respiratory complaints and Denies dyspnea Gastrointestinal: Reports as per HPI and Reports no additional gastrointestinal complaints Genitourinary: Reports no additional male genitourinary complaints and Reports as per HPI Musculoskeletal: Reports no additional musculoskeletal complaints and Reports as per HPI Skin/Breast: Reports system reviewed and no additional complaints, except as docu Reports system reviewed and no additional complaints, except as documented and Reports as per HPI Psychiatric: Reports no additional psychiatric complaints and Reports as per HPI Endocrine: Reports no additional endocrine complaints, Reports as per HPI and Denies palpitations Hematologic/Lymphatic: Reports no additional hematologic/lymphatic complaints and Reports as per HPI Allergic/Immunologic: Reports no additional allergic/immunologic complaints and Reports as per HPI Physical Exam Vital Signs: Last Vital Signs Temp 97.3 F 09/14/21 11:18 Pulse 81 09/14/21 11:18 Resp 16 09/14/21 11:18 BP 133/93 H 09/14/21 11:18 Pulse Ox 96 09/14/21 11:18 O2 Del Method 09/14/21 11:18 O2 Flow Rate 3 09/11/21 01:00 BMI result Body Mass Index 28.2 Const General: comfortable and no acute distress Orientation/consciousness: patient oriented x3 HEENT Other: Unremarkable Head: Yes normal to inspection Neck Neck: Yes normal visual inspection Chest Chest palpation & inspection: normal inspection of the chest Resp Auscultation: clear to auscultation bilaterally Cardio Palpation: normal PMI Heart sounds: S1 normal heart sound present, S2 normal heart sound present, no gallops, no murmurs and no rubs GI Palpation (GI): Soft to palpation Back/Spine/Pelvis Other: unremarkable Skin General skin exam: no rashes or lesions noted Neuro General: patient oriented x3 Extrem General: Yes normal to inspection Psych Mental Status: mental status grossly normal Objective Labs and Meds Result diagrams: 09/14/21 05:54 09/14/21 05:54 Lab results: Laboratory Results - last 24 hr 09/13/21 09/13/21 09/13/21 11:39 16:02 19:04 WBC RBC Hgb Hct MCV MCH MCHC RDW Plt Count MPV Absolute Nucleated RBC Nucleated RBC % (auto) Sodium Potassium Chloride Carbon Dioxide Anion Gap BUN Creatinine Estim Creat Clear Calc Estimated GFR POC Glucose 102 115 139 H Random Glucose Calcium Magnesium 09/14/21 09/14/21 09/14/21 05:54 05:54 07:18 WBC 4.4 L RBC 2.32 L Hgb 7.8 L Hct 22.0 L MCV 94.8 MCH 33.6 H MCHC 35.5 RDW 13.2 Plt Count 246 D MPV 9.7 Absolute Nucleated RBC 0.000 Nucleated RBC % (auto) 0.0 Sodium 139 Potassium 3.8 Chloride 107 Carbon Dioxide 25 Anion Gap 11 L BUN 11 Creatinine 0.85 Estim Creat Clear Calc 109.8 Estimated GFR > 60 POC Glucose 112 Random Glucose 128 H Calcium 7.5 L Magnesium 1.6 Progress Note: A&P Assessment and plan (1) New onset a-fib: Status: Acute (2) Syncope and collapse: Status: Acute (3) Nonischemic cardiomyopathy: Status: Acute (4) Chronic heart failure with reduced ejection fraction and diastolic dysfunction: Status: Acute (5) Alcohol abuse: Status: Acute (6) Anemia: Status: Acute (7) Hypomagnesemia: Status: Acute (8) Hypokalemia: Status: Acute (9) Hypocalcemia: Status: Acute (10) Hypophosphatemia: Status: Acute Plan Maintaining normal sinus rhythm. Clinically no active cardiovascular symptoms. Most recent echocardiogram with preserved LVEF. Okay for short-term amiodarone but may not need this in the long run especially considering his young age. He is back on his usual dose of Coreg. He is also on Entresto. He is on Lovenox for anticoagulation. Blood count seems to be going down. Initial hemoglobin was 12.7 but has been slowly decreasing and today's hemoglobin is 7.8. Ideally will need Eliquis for long-term anticoagulation but will need to sort out anemia. Could be related to folic acid deficiency. May need to check with Hematology as well. Continue to correct potassium, magnesium and other tried issues. Likely all rel ated to alcohol excess. Discussed in detail with patient about abstention alcohol but not sure how much he will respond once he gets discharged. Discussed with Arlene Cueva. Time Spent With Patient Time: Total time spent is greater than 50% in coordination of care (as documented) at patient's floor/unit and/or counseling patient: 35min. Progress Note: Quality Stroke Does the patient have a stroke diagnosis?: No Procedures Date of Service Date of Service: 09/14/21
[2021-09-14 11:36] LABS: Glucose, Whole Blood 127 mg/dL (60-115)
--- NOTE | 2021-09-14 12:50 | MHC.RECOVSUP ---
? Reason for consult:Recovery Support o Current location:[facility] o Identified substance use concern:ETOH - Withdrawal - Support ? Intervention: o MAT started or to be started o Community resources provided o Harm reduction discussion ? Plan: o Referral to CCC o Patient to follow up with [facility] after discharge ? 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 Patient current lt taking Naltrexone but spoke of Vivitrol and referred him to the [facility].
--- NOTE | 2021-09-14 13:24 | MHC.RECOVRN ---
This expert medical writer met w/ pt, alert and oriented upon entering room. Pt states has been drinking since age 16, 6-15 shots per day, no otther substances used. Pt states longest period of recovery was about 2.5 years ago, had 2 months of recovery, engaged in therapy for 5 weeks, paid by through pts job of 27 years at [employer]. Pt states 2.5 years ago, started Naltrexone at [facility] [employer] [facility], due to cost, PCP Dr Elizabeth started prescribing Naltrexone. Pt reports on and off adherence to Naltrexone medication. Pt states no history of inpatient treatment for AUD. Pt reports no hospitialzations realted to alcohol use, until most recent hospitalization. Pt states parents and job are supportive of recovery. This expert medical writer and patient discussed treatment options including inpatient and outpatient. Pt states interested in outpatient, this expert medical writer made appt for patient at [facility] 09/20/21 @1:00pm. This expert medical writer and patient discussed Vivitrol, pt states not interested at this time, has concerns. Pt made aware of [facility] flow of appointments. Opportunity for questions, pt verbalized understanding. Pt request to meet w/ Bible Reader, Bible Reader notified to f/u w/ pt. This expert medical writer will drop off resource packet and check in w/ pts RN.
--- NOTE | 2021-09-14 14:47 | MHC.CM.PN ---
Per ROUNDS discussion, Patient not yet medically cleared for discharge today r/t Care Team consultation. CM will continue to follow for D/C needs.
[2021-09-14 14:49] LABS: OBS1 NEGATIVE (NEGATIVE)
[2021-09-14 14:50] LABS: OBS Int Ctl Valid YES
[2021-09-14 15:31] LABS: Glucose, Whole Blood 130 mg/dL (60-115)
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
[2021-09-14] MEDS: Enoxaparin Sodium 80 MG/0.8 ML SYRINGE 70 MG SUBCUT ×2 (16:25→22:24)
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
[2021-09-14 19:31] LABS: Glucose, Whole Blood 160 mg/dL (60-115)
--- NOTE | 2021-09-15 | ECG_ITS ---
Test Reason : check qtc Blood Pressure : / mmHG Vent. Rate : 077 BPM Atrial Rate : 077 BPM P-R Int : 188 ms QRS Dur : 076 ms QT Int : 394 ms P-R-T Axes : 048 007 003 degrees QTc Int : 445 ms Normal sinus rhythm Cannot rule out Anterior infarct , age undetermined Nonspecific ST and T wave abnormality Abnormal ECG When compared with ECG of 11-SEP-2021 11:28, No significant change was found Referred By: Arlene Cueva Electronically Signed By:MARLENI CAAL
[2021-09-15 04:00] VITALS: BP 125/84; PULSE 90; RESP 16; O2SAT 94
[2021-09-15 07:02] LABS: MANUAL DIFF FLAG NO
[2021-09-15 07:05] LABS: Basophils Absolute Auto 0.1 X10*3/uL (0.0-0.2); Basophils Percent Auto 2.2 % (0-2); Eosinophils Absolute Auto 0.1 X10*3/uL (0.0-0.4); Eosinophils Percent Auto 2.4 % (0-4); Hematocrit 23.9 % (42.0-52.0); Hemoglobin 8.3 g/dl (14.0-18.0); Imm Gran Abs Auto 0.03 X10*3/uL (0.00-0.03); Imm Gran Pct Auto 0.6 % (0.0-0.4); Immature Retic Fraction 36.5 % (2.3-13.4); Lymphocytes Absolute Auto 1.8 X10*3/uL (1.2-4.9); Lymphocytes Percent Auto 38.2 % (20-40); Mean Corpuscular HGB Conc 34.7 g/dl (31.0-36.0); Mean Corpuscular Hemoglobin 33.5 pg (27.0-33.0); Mean Corpuscular Volume 96.4 fL (80.0-98.0); Monocytes Absolute Auto 0.8 X10*3/uL (0.1-1.2); Monocytes Percent Auto 16.4 % (2-11); Neutrophils Absolute Auto 1.9 x10*3/uL (2.0-8.3); Neutrophils Percent Auto 40.2 % (45-73); Platelet Count 331 X10*3/uL (160-400); Red Blood Count 2.48 X10*6/uL (4.60-5.80); Red Cell Distribution Width 13.4 % (11.0-16.0); Reticulocyte Percent 2.4 % (0.5-1.8); Reticulocytes Absolute 0.059 X10*6/uL (0.026-0.095); White Blood Count 4.6 X10*3/uL (4.8-10.8)
[2021-09-15 07:29] LABS: Alanine Aminotransferase 14 U/L (0-40); Albumin Level 2.8 g/dL (3.5-5.0); Alkaline Phosphatase 48 U/L (39-117); Anion Gap 11 (12-20); Aspartate Amino Transferase 16 U/L (5-37); Bilirubin Direct < 0.2 mg/dL (0.0-0.5); Bilirubin Total 0.2 mg/dL (0.0-1.0); Blood Urea Nitrogen 9 mg/dL (9-16); Calcium 7.7 mg/dL (8.4-10.2); Carbon Dioxide 27 mmol/L (22-29); Chloride 105 mmol/L (96-108); Creatinine Clr Calc Pharmacy 112.5; Estimated Glomerular Filt Rate > 60; Glucose Random 127 mg/dL (60-115); Potassium 4.4 mmol/L (3.3-5.1); Sodium 139 mmol/L (135-145); Total Protein 4.9 g/dL (6.5-8.0)
[2021-09-15 07:50] LABS: Lactate Dehydrogenase 144 U/L (118-273)
[2021-09-15 08:00] VITALS: BP 140/98; PULSE 70; RESP 16; TEMP 36.9; O2SAT 95
[2021-09-15 08:16] LABS: Glucose, Whole Blood 130 mg/dL (60-115)
[2021-09-15] MEDS: Thiamine HCL 100 MG TABLET 300 MG PO (10:13)
[2021-09-15] MEDS: Folic Acid 1 MG TABLET 2 MG PO (10:14)
[2021-09-15] MEDS: Sodium,Potassium Phosphates POWD.PACK 2 PACKET PO ×2 (10:14→16:01)
[2021-09-15] MEDS: Amiodarone HCL 200 MG TABLET PO (10:14)
[2021-09-15] MEDS: Enoxaparin Sodium 80 MG/0.8 ML SYRINGE 70 MG SUBCUT (10:15)
[2021-09-15] MEDS: LORazepam 0.5 MG TABLET PO (10:15)
[2021-09-15] MEDS: carvediloL 25 MG TABLET PO (10:16)
[2021-09-15] MEDS: Sacubitril/Valsartan 49/51 1 TAB TABLET PO (10:16)
[2021-09-15] MEDS: Cyanocobalamin (Vitamin B-12) 500 MCG TABLET PO (10:16)
[2021-09-15] MEDS: Magnesium Oxide 400 MG TABLET PO ×2 (10:16→16:03)
[2021-09-15] MEDS: Naltrexone HCl 50 MG TABLET PO (10:17)
[2021-09-15] MEDS: Acetaminophen 325 MG TABLET 650 MG PO (10:39)
[2021-09-15 11:05] VITALS: BP 133/98; PULSE 82; RESP 16; TEMP 36.4; O2SAT 98
[2021-09-15 11:26] LABS: Glucose, Whole Blood 108 mg/dL (60-115)
--- NOTE | 2021-09-15 12:56 | PM.DS ---
DS: Providers Provider Date of Service: 09/15/21 Date of admission: 09/08/21 11:59 Date of discharge: 09/15/21 Primary care physician: Wendie Maria MD Consults: 09/08/21 14:16 Consult to Cardiology Routine Consulting Provider: Juan Jose Britton Reason for consultation: new onset a. 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 Has provider been notified: No Attending physician on discharge: Chris Victoria Discharging clinician: Arlene Cueva DS: Diagnosis Discharge Diagnosis (1) Normochromic normocytic anemia: Status: Acute (2) Hypophosphatemia: Status: Acute (3) Hypokalemia: Status: Acute (4) Atrial fibrillation: Status: Acute (5) Hypomagnesemia: Status: Acute DS: Summary Hospital Course Hospital Course: From H&P on day of admission 51-year-old male being treated on Entresto for a cardiomyopathy last seen by Cardiology several months ago never told about presence of atrial fibrillation but did have his Lasix stopped well over 6 months ago and wound up COVID positive 3 weeks ago and since then has had persistent nausea and vomiting unable to hold down food or volume but does take his medication and when he became near syncopal he he had a bilateral visual loss preceding kept enough control to pull off the road brought in by ambulance with a pressure in the 60s at a after 2 L of fluid he is responding with increased urinary output blood pressure is 100 but that is with addition of 2 micrograms/kilogram per minute of IV phenylephrine and he is awake and alert nonfocal neurologically improved urine output and my bedside echo demonstrates a normal left in right ventricle with normal ejection fraction and no wall motion abnormality no pulmonary hypertension normal inferior vena cava and no primary valve or pericardial disease but atrial fibrillation with controlled rate in the 90s but this might be because of the presence of 25 mg of carvedilol Atrial fibrillation with rapid ventricular response-new onset. Initially admitted to the ICU due to hypotension. Was placed on amiodarone drip. Initially planned for cardioversion but spontaneously converted back to normal sinus rhythm. He was downgraded to the medical floor. He was started on anticoagulation with therapeutic Lovenox. He was seen in consultation by Cardiology. 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 He was transition to oral amiodarone. He will be transitioned to oral Eliquis for anticoagulation on discharge. He was counseled about monitoring for bleeding and risks of anticoagulation with concurrent alcohol use. He was resumed on his home dose of Coreg and Entresto. EKG was repeated on the day of discharge, QTC less than 450. He should call to schedule follow-up appointment with Cardiology. Hypotension. Likely secondary to AFib with RVR as well as hypovolemia. Blood pressure improved with IV fluids. Initially Coreg and Entresto were placed on hold. These have been resumed and blood pressure has remained stable Acute on chronic normocytic anemia. Likely secondary to folic acid deficiency. B12 and iron studies are unremarkable. Patient was started on folate acid and B12 supplementation. There was no evidence of acute bleeding, guaiac negative. H/H has remained stable for the past several days. He should repeat CBC in the next 1 week. He should call to schedule follow-up appointment with Hematology. Alcohol dependence. Patient was initially started on Ativan. He has no evidence of alcohol withdrawal at this time. Ativan has been weaned. He was continued on naltrexone. He was seen by care team and provided resources. At this time he is motivated to remain sober. Multiple electrolyte abnormalities including hypokalemia, hypophosphatemia, hypomagnesemia. Likely all secondary to alcohol use. These were supplemented and numbers have improved. He will be discharged home with magnesium supplementation as well as folic acid. Repeat BMP recommended in the next 1 week to monitor potassium and magnesium levels. Chronic heart failure with recovered EF. Entresto and Coreg both resumed as above. Outpatient follow-up with Cardiology Time Spent with Patient Time attestation: Total time spent providing and/or coordinating discharge services: Discharge coordination time: Greater than 30 minutes Quality: Safe Use of Opioids Does Pt have an Active Cancer Diagnosis on the Problem List?: No Quality: Stroke Does the patient have a stroke diagnosis?: No Physical Exam Vital Signs: Vital Signs: Last Vital Signs Temp 97.6 F 09/15/21 11:05 Pulse 82 09/15/21 11:05 Resp 16 09/15/21 11:05 BP 133/98 H 09/15/21 11:05 Pulse Ox 98 09/15/21 11:05 O2 Del Method 09/15/21 11:05 O2 Flow Rate 3 09/11/21 01:00 BMI result Body Mass Index 28.2 Const: General: cooperative, comfortable, alert and awake Nutritional Appearance: average body habitus Orientation/consciousness: patient oriented x3 Resp: Effort & Inspection: normal respiratory effort and able to speak in complete sentences Auscultation: clear to auscultation bilaterally Cardio: Rate: regular rate Heart sounds: S1 normal heart sound present and S2 normal heart sound present GI: Inspection: No distended Palpation (GI): Soft to palpation and nontender Neuro: General: patient oriented x3 Extrem: General: Yes no pedal edema DS: Data Data Completed and Pending Labs on day of discharge: Laboratory Results - last 24 hr 09/14/21 09/14/21 09/14/21 14:03 15:18 18:35 WBC RBC Hgb Hct MCV MCH MCHC RDW Plt Count MPV Immature Gran % (Auto) Neut % (Auto) Lymph % (Auto) [place] % (Auto) Eos % (Auto) Baso % (Auto) Lymph # (Auto) [place] # (Auto) Eos # (Auto) Baso # (Auto) Abs Immat Gran (auto) Absolute Neuts (auto) Absolute Nucleated RBC Nucleated RBC % (auto) Absolute Retic Percent Retic Immature Retic Fraction Retic Hgb Equivalent Sodium Potassium Chloride Carbon Dioxide Anion Gap BUN Creatinine Estim Creat Clear Calc Estimated GFR POC Glucose 130 H Random Glucose Calcium Total Bilirubin Direct Bilirubin AST ALT Alkaline Phosphatase Lactate Dehydrogenase Total Protein Albumin Stool Occult Blood NEGATIVE Blood Type Cancelled Rho(D) Type Cancelled Antibody Screen Cancelled 09/14/21 09/14/21 09/15/21 18:59 19:21 06:45 WBC 4.6 L RBC 2.48 L Hgb 8.3 L Hct 23.9 L MCV 96.4 MCH 33.5 H MCHC 34.7 RDW 13.4 Plt Count 331 D MPV 10.0 Immature Gran % (Auto) 0.6 H Neut % (Auto) 40.2 L Lymph % (Auto) 38.2 [place] % (Auto) 16.4 H Eos % (Auto) 2.4 Baso % (Auto) 2.2 H Lymph # (Auto) 1.8 [place] # (Auto) 0.8 Eos # (Auto) 0.1 Baso # (Auto) 0.1 Abs Immat Gran (auto) 0.03 Absolute Neuts (auto) 1.9 L Absolute Nucleated RBC 0.000 Nucleated RBC % (auto) 0.0 Absolute Retic 0.059 Percent Retic 2.4 H Immature Retic Fraction 36.5 H Retic Hgb Equivalent 37.0 H Sodium Potassium Chloride Carbon Dioxide Anion Gap BUN Creatinine Estim Creat Clear Calc Estimated GFR POC Glucose 160 H Random Glucose Calcium Total Bilirubin Direct Bilirubin AST ALT Alkaline Phosphatase Lactate Dehydrogenase Total Protein Albumin Stool Occult Blood Blood Type O Positive Rho(D) Type Antibody Screen NEGATIVE 09/15/21 09/15/21 09/15/21 06:45 07:50 11:09 WBC RBC Hgb Hct MCV MCH MCHC RDW Plt Count MPV Immature Gran % (Auto) Neut % (Auto) Lymph % (Auto) [place] % (Auto) Eos % (Auto) Baso % (Auto) Lymph # (Auto) [place] # (Auto) Eos # (Auto) Baso # (Auto) Abs Immat Gran (auto) Absolute Neuts (auto) Absolute Nucleated RBC Nucleated RBC % (auto) Absolute Retic Percent Retic Immature Retic Fraction Retic Hgb Equivalent Sodium 139 Potassium 4.4 Chloride 105 Carbon Dioxide 27 Anion Gap 11 L BUN 9 Creatinine 0.83 Estim Creat Clear Calc 112.5 Estimated GFR > 60 POC Glucose 130 H 108 Random Glucose 127 H Calcium 7.7 L Total Bilirubin 0.2 Direct Bilirubin < 0.2 AST 16 ALT 14 Alkaline Phosphatase 48 Lactate Dehydrogenase 144 Total Protein 4.9 L Albumin 2.8 L Stool Occult Blood Blood Type Rho(D) Type Antibody Screen Discharge Plan Discharge Patient Disposition: Home, Self-Care Discharge Diagnosis: Atrial fibrillation Hypotension Anemia Alcohol dependence Referrals: Valentina Kline MD [Physician] - 1 Week Po,Wendie Jose MD [Primary Care Provider] - 1 Week Glenn Enciso MD [Physician] - 1 Week Discharge Medications: New Eliquis 5 mg Tablet 5 mg PO BID 30 Days Qty: 60 0RF amiodarone 200 mg Tablet 200 mg PO DAILY 30 Days Qty: 30 0RF magnesium oxide 400 mg (241.3 mg magnesium) Tablet 400 mg PO BIDPC 14 Days Qty: 28 0RF folic acid 1 mg Tablet 2 mg PO DAILY 30 Days Qty: 60 0RF thiamine mononitrate (vit B1) 100 mg Tablet 100 mg PO DAILY 30 Days Qty: 30 0RF cyanocobalamin (vitamin B-12) 500 mcg Tablet 500 mcg PO DAILY 30 Days Qty: 30 0RF Continued Entresto 49-51 mg tablet 1 tab PO BID 90 Days Qty: 180 3RF carvedilol [Coreg] 25 mg tablet 25 mg PO Q12H 90 Days Qty: 180 2RF Rx Instructions: must administer with a meal/food naltrexone 50 mg tablet 1 tab PO DAILY Discharge Orders: Discharge Order (Routine); Ordered 09/15/21 Ordered By: Arlene Cueva Activity on Discharge: As tolerated Stand Alone Forms: Patient Portal Discharge page, Work/School Release Other Ambulatory Orders: Basic Metabolic Panel (Routine) Timeframe: 1 Week Facility: [facility] - Location: Laboratory Ordered By: Arlene Cueva Complete Blood Count no Diff (Routine) Timeframe: 1 Week Facility: [facility] - Location: Laboratory Ordered By: Arlene Cueva Magnesium (Routine) Timeframe: 1 Week Facility: [facility] - Location: Laboratory Ordered By: Arlene Cueva Care Plan Goals: See below Health Concerns: Alcohol use disorder Multiple electrolyte abnormalities Atrial fibrillation Plan of Treatment: Call to schedule follow-up with PCP Call to schedule follow-up with Hematology/Oncology Call to schedule follow-up with Cardiology Do not drink alcohol Repeat labs within the next 1 week Start taking Eliquis around 9-10 pm this evening. Monitor for signs of bleeding You have been started on multiple vitamins, take as prescribed Assessment: See discharge summary
--- NOTE | 2021-09-15 14:37 | MHC.CM.PN ---
Patient has been medically cleared for discharge today, Home (self-care).
[2021-09-19 14:33] LABS: Haptoglobin 203 mg/dL (43-212)
[2021-09-19 14:33] LABS: IgA 289 mg/dL (47-310); IgG 785 mg/dL (600-1640); IgM 97 mg/dL (50-300)
== END 2021-09-15 16:50 | disposition home or self-care (01) | DRG 309 ==
LOC: HO.ED 13:12 → HO.EDOVER 14:05 → HO.ICU 15:43 → HO.IMC 09-11 15:01
PROVIDERS: Hospitalist; Internal Medicine; Internal Medicine Medical Oncology; Internal Medicine Pulmonary Disease; Physician Assistant; Admitting Provider Internal Medicine Cardiovascular Disease; Emergency Provider Emergency Medicine Emergency Medical Services; PCP Internal Medicine; Visit Provider Physician Assistant Medical
DX: I48.91 Unspecified atrial fibrillation (principal); E87.1 Hypo-osmolality and hyponatremia; N17.9 Acute kidney failure, unspecified; E87.2 Acidosis; I50.22 Chronic systolic (congestive) heart failure; I95.9 Hypotension, unspecified; I42.6 Alcoholic cardiomyopathy; F10.20 Alcohol dependence, uncomplicated; D63.8 Anemia in other chronic diseases classified elsewhere; E11.65 Type 2 diabetes mellitus with hyperglycemia; E83.42 Hypomagnesemia; E83.51 Hypocalcemia; E83.39 Other disorders of phosphorus metabolism; L30.9 Dermatitis, unspecified; E11.42 Type 2 diabetes mellitus with diabetic polyneuropathy; E86.0 Dehydration; D72.829 Elevated white blood cell count, unspecified; I11.0 Hypertensive heart disease with heart failure; D52.9 Folate deficiency anemia, unspecified; E87.6 Hypokalemia; Z20.822 Contact with and (suspected) exposure to COVID-19; Z86.16 Personal history of COVID-19; Z79.01 Long term (current) use of anticoagulants; Z79.899 Other long term (current) drug therapy
CPT/HCPCS: 36415; 70450; 71045; 71250; 74176; 80048; 80053; 80076; 80307; 81001; 81003; 82077; 82272; 82607; 82728; 82746; 82784; 82803; 82947; 83010; 83540; 83605; 83615; 83690; 83735; 83880; 84100; 84300; 84484; 85025; 85027; 85045; 85379; 85610; 85652; 85730; 86038; 86039; 86334; 86431; 86850; 86900; 86901; 87040; 87635; 92950; 93005; 93306; 96365; 96366; 96367; 96375; 99285; C1758; J0282; J1650; J2185; J2370; J3370; J3475

== ENCOUNTER 2021-09-22 07:23 | Outpatient (REF) | payer OTHER, SELFPAY ==
[2021-09-22 07:35] LABS: MANUAL DIFF FLAG NO
[2021-09-22 07:56] LABS: Basophils Absolute Auto 0.1 X10*3/uL (0.0-0.2); Basophils Percent Auto 2.8 % (0-2); Eosinophils Absolute Auto 0.4 X10*3/uL (0.0-0.4); Eosinophils Percent Auto 7.5 % (0-4); Imm Gran Abs Auto 0.01 X10*3/uL (0.00-0.03); Imm Gran Pct Auto 0.2 % (0.0-0.4); Lymphocytes Percent Auto 42.7 % (20-40); Mean Corpuscular HGB Conc 33.3 g/dl (31.0-36.0); Mean Corpuscular Hemoglobin 32.8 pg (27.0-33.0); Mean Corpuscular Volume 98.4 fL (80.0-98.0); Mean Platelet Volume 9.2 fL (9.4-12.4); Monocytes Absolute Auto 0.4 X10*3/uL (0.1-1.2); Monocytes Percent Auto 9.2 % (2-11); Neutrophils Absolute Auto 1.8 x10*3/uL (2.0-8.3); Neutrophils Percent Auto 37.6 % (45-73); Platelet Count 397 X10*3/uL (160-400); Red Blood Count 3.05 X10*6/uL (4.60-5.80); Red Cell Distribution Width 14.3 % (11.0-16.0); White Blood Count 4.7 X10*3/uL (4.8-10.8)
[2021-09-22 08:08] LABS: Estimated Average Glucose 123 mg/dL; Hemoglobin A1c % 5.9 %
[2021-09-22 08:14] LABS: B Type Natriuretic Peptide 104 pg/mL (<100)
[2021-09-22 08:20] LABS: Alanine Aminotransferase 18 U/L (0-40); Albumin Level 3.9 g/dL (3.5-5.0); Alkaline Phosphatase 45 U/L (39-117); Anion Gap 17 (12-20); Aspartate Amino Transferase 18 U/L (5-37); Bilirubin Total 0.5 mg/dL (0.0-1.0); Blood Urea Nitrogen 12 mg/dL (9-16); Calcium 9.2 mg/dL (8.4-10.2); Carbon Dioxide 23 mmol/L (22-29); Chloride 107 mmol/L (96-108); Cholesterol 274 mg/dL; Estimated Glomerular Filt Rate > 60; Glucose Random 118 mg/dL (60-115); HDL Cholesterol 65 mg/dL; LDL Cholesterol Calculated 176 mg/dl; Magnesium 1.8 mg/dL (1.6-2.6); Potassium 4.5 mmol/L (3.3-5.1); Sodium 142 mmol/L (135-145); Total Protein 6.6 g/dL (6.5-8.0); Triglycerides 166 mg/dL
[2021-09-22 08:42] LABS: Thyroid Stimulating Hormone 3.81 uIU/mL (0.32-4.0)
[2021-09-22 08:43] LABS: Free T4 (Free Thyroxine) 1.08 ng/dL (0.71-1.85)
[2021-09-22 08:54] LABS: Folate 13.3 ng/mL (> or = 4.0); Vitamin B12 441 pg/mL (200-900)
[2021-09-22 11:03] LABS: Creatinine Urine 143.16 mg/dL; Microalbum/Creatinine Ratio Ur 10.4 ug/mg cr
== END 2021-09-22 07:24 | disposition home or self-care (01) ==
LOC: HO.LAB 07:23
PROVIDERS: Absent Provider Internal Medicine; PCP Internal Medicine; Visit Provider Physician Assistant Medical
DX: E83.42 Hypomagnesemia (principal); I50.42 Chronic combined systolic (congestive) and diastolic (congestive) heart failure; E78.00 Pure hypercholesterolemia, unspecified; E11.65 Type 2 diabetes mellitus with hyperglycemia
CPT/HCPCS: 36415; 80053; 80061; 82043; 82607; 82746; 83036; 83735; 83880; 84439; 84443; 85025

== ENCOUNTER 2022-03-19 23:30 | Emergency (ER) | payer OTHER, SELFPAY ==
--- NOTE | ~2022-03-19 | CT_ITS ---
EXAMINATION: CT ABDOMEN AND PELVIS WITHOUT CONTRAST CLINICAL INFORMATION: Bilateral flank pain COMPARISON: 09/08/2021 TECHNIQUE: Multidetector volumetric imaging was performed from the superior aspect of the liver through the pubic symphysis. Sagittal and coronal reformatted images were obtained on the technologist's workstation. This CT examination was performed using dose optimization techniques as appropriate, variously including the following: *Automated exposure control *Adjustment of mA and/or kV according to patient size (this includes techniques or standardized protocols for targeted exams where dose is matched to indication/reason for exam; i.e. extremities or head) *Use of iterative reconstruction technique DLP: 482 mGy-cm FINDINGS: LUNG BASES: The visualized lung bases are unremarkable. LIVER, GALLBLADDER, AND BILIARY TREE: The liver demonstrates hypoattenuation consistent with steatosis. No biliary ductal dilatation is present. There is hyperdensity throughout the gallbladder, which may reflect gallstones or sludge. No appreciable gallbladder wall thickening or surrounding inflammation. PANCREAS: Unremarkable. SPLEEN: Unremarkable. ADRENAL GLANDS: Unremarkable. KIDNEYS AND URETERS: The kidneys are normal in size, shape, and attenuation. No hydronephrosis, hydroureter, or calculi seen. BLADDER: Mildly distended and grossly unremarkable. GASTROINTESTINAL TRACT: Small hiatal hernia. No evidence of bowel obstruction or significant wall thickening. Appendix appears collapsed. No free fluid or free air is seen. ABDOMINAL WALL: Fat-containing left inguinal hernia. LYMPH NODES: Normal. VASCULAR: Scattered atherosclerotic calcifications. PELVIC VISCERA: Unremarkable. OSSEOUS STRUCTURES: Scattered degenerative endplate changes in the spine. CT/CT abdomen pelvis wo IV con IMPRESSION: 1. No hydronephrosis or calculus identified. 2. Hyperdensity throughout the gallbladder, which may reflect gallstones or sludge. If there is clinical concern for cholecystitis, this would be better assessed with ultrasound. 3. Hepatic steatosis. 4. Small hiatal hernia.
[2022-03-19 23:30] VITALS: BP 152/105; PULSE 81; RESP 18; TEMP 36.1; O2SAT 97; BMI 22.1
[2022-03-20 00:07] LABS: MANUAL DIFF FLAG NO
[2022-03-20 00:23] LABS: Basophils Percent Auto 0.9 % (0-2); Eosinophils Percent Auto 0.9 % (0-4); Hematocrit 37.9 % (42.0-52.0); Hemoglobin 13.3 g/dl (14.0-18.0); Imm Gran Abs Auto 0.01 X10*3/uL (0.00-0.03); Imm Gran Pct Auto 0.3 % (0.0-0.4); Lymphocytes Absolute Auto 0.7 X10*3/uL (1.2-4.9); Mean Corpuscular HGB Conc 35.1 g/dl (31.0-36.0); Mean Corpuscular Hemoglobin 33.1 pg (27.0-33.0); Mean Corpuscular Volume 94.3 fL (80.0-98.0); Mean Platelet Volume 11.4 fL (9.4-12.4); Monocytes Absolute Auto 0.2 X10*3/uL (0.1-1.2); Monocytes Percent Auto 4.5 % (2-11); Neutrophils Absolute Auto 2.4 x10*3/uL (2.0-8.3); Neutrophils Percent Auto 72.4 % (45-73); Platelet Count 100 X10*3/uL (160-400); Red Blood Count 4.02 X10*6/uL (4.60-5.80); Red Cell Distribution Width 13.2 % (11.0-16.0); White Blood Count 3.3 X10*3/uL (4.8-10.8)
[2022-03-20 00:32] LABS: Anion Gap 21 (12-20); Blood Urea Nitrogen 22 mg/dL (9-16); Carbon Dioxide 25 mmol/L (22-29); Chloride 97 mmol/L (96-108); Creatinine Clr Calc Pharmacy 51.5; Estimated Glomerular Filt Rate 44; Glucose Random 198 mg/dL (60-115); Potassium 4.6 mmol/L (3.3-5.1); Sodium 138 mmol/L (135-145)
[2022-03-20 00:45] LABS: Influenza A PCR NEGATIVE (Negative); Influenza B PCR NEGATIVE (Negative); Resp Syncy Virus RNA Qual PCR NEGATIVE (Negative); SARS COV2 PCR INHOUSE NEGATIVE (Negative)
[2022-03-20 00:46] LABS: Appearance Urine Cloudy; Color Urine Dark Yellow; Glucose Urine UA 500 mg/dL (Negative); Leukocyte Esterase Urine Small (1+) (Negative); Nitrite Urine Positive (Negative); Specific Gravity - Urine >= 1.030 (1.005-1.025); UMIC TRIGGER UACC YES; Urine Blood Trace (Negative); Urine Ketones 40 mg/dL (Negative); Urine Protein 300 (3+) mg/dL (Neg-Trace)
[2022-03-20 01:05] LABS: Bacteria Urine None Seen (None Seen); Hyaline Casts Urine 0-2 /LPF (0-2); UACC Culture Trigger YES; WBC Urine 0-5 /HPF (0-5)
--- NOTE | 2022-03-20 02:41 | ED.ABDPAIN ---
HPI - Abdominal Pain General Chief Complaint: Abdominal Pain Stated Complaint: abdominal pain Time Seen by Provider: 03/20/22 02:25 Source: patient Mode of arrival: ambulatory Limitations: no limitations History of Present Illness HPI narrative: Patient comes to the emergency room complaining of bilateral flank pain since this morning. Patient reports nausea and vomiting. Patient denies hematuria or dysuria, fever chills. Patient states that the last time he drank alcohol was approximately 24 hours ago. Patient admits to drink alcohol have heavy. Patient requesting medication for the shakiness Related Data Previous Rx's Medication Instructions Recorded magnesium oxide 400 mg (241.3 mg 400 mg PO BIDPC 14 days #28 tabs 09/15/21 magnesium) tablet thiamine mononitrate (vit B1) 100 100 mg PO DAILY 30 days #30 tabs 09/15/21 mg tablet naltrexone 50 mg tablet 100 mg PO DAILY #120 tabs 09/21/21 cyanocobalamin (vitamin B-12) 500 500 mcg PO DAILY 30 days #30 tabs 10/13/21 mcg tablet folic acid 1 mg tablet 2 mg PO DAILY 30 days #60 tabs 10/13/21 apixaban 5 mg tablet (Eliquis) 5 mg PO BID 30 days #60 tabs 11/29/21 amiodarone 200 mg tablet 200 mg PO DAILY #60 tabs 12/05/21 sacubitril 49 mg-valsartan 51 mg 1 tab PO BID #180 tabs 12/05/21 tablet (Entresto) carvedilol 25 mg tablet 25 mg PO Q12H #180 tabs 12/12/21 triamcinolone acetonide 0.5 % 1 appl topical BID #15 grams 02/24/22 topical cream levofloxacin 500 mg tablet 500 mg PO DAILY #9 tabs 03/20/22 phenazopyridine 100 mg tablet 100 mg PO TID 6 doses #6 tabs 03/20/22 Allergies Allergy/AdvReac Type Severity Reaction Status Date / Time No Known Allergies Allergy Verified 10/13/21 11:39 [No Known Allergies*] Review of Systems Review of Systems Constitutional : No Weight loss, No Fever, No Chills, No Night Sweats, No Fatigue, No Malaise ENT/Mouth : No Hearing loss, No Ear Pain, No Nasal Congestion, No Sinus Pain, No Hoarseness, No sore throat, No Rhinorrhea, No Swallowing Difficulty Eyes: No Eye Pain, No Swelling, No Redness, No Foreign Body, No Discharge, No Vision Changes Cardiovascular : No Chest Pain, No SOB, No Dyspnea on Exertion, No Orthopnea, No Edema, No Palpitations Respiratory : No Cough, No Sputum, No Wheezing, No Smoke Exposure, No Dyspnea Gastrointestinal : Complaining of nausea and vomiting,, No Diarrhea, No Constipation, No abdominal Pain, No Hematochezia, No Melena Genitourinary : no irregular bleeding, No Dysuria, No Urinary Frequency, No Hematuria, No Urinary Incontinence, No Urgency, complaining of bilateral Flank Pain, No Urinary Flow Changes, No Hesitancy Musculoskeletal : No joint pain, No Myalgias, No Joint Swelling Skin : No Skin Lesions, No rash Neuro : No Weakness, No Numbness, No Paresthesias, No Loss of Consciousness, No Dizziness, No Headache Psych : No Anxiety/Panic, No Depression, No SI/HI/AH/VH, No Social Issues, Heme/Lymph: No Bruising, No Bleeding,No Lymphadenopathy Endocrine : No Polyuria, No Polydipsia, No Temperature Intolerance [facility] Past Medical History Medical History (Updated 03/20/22 @ 03:46 by Ashlee Ordoñez MD) Alcohol dependence, uncomplicated Anemia Atrial fibrillation Chronic heart failure with reduced ejection fraction and diastolic dysfunction Eczema Inguinal hernia, left Left inguinal hernia Nonischemic cardiomyopathy Peripheral neuropathy Type 2 diabetes mellitus with hyperglycemia Surgical History Hx of cardiac catheterization Family History Family History (Updated 10/13/21 @ 11:38 by Gillian Joshi CMA) Father No problems noted. Mother No problems noted. Other No family history of cancer Substance abuse Social History Social History (Updated 10/13/21 @ 11:39 by Gillian Joshi CMA) Household Members: None Housing: Apartment Are you a primary personal care aide to a significant other at home: No Do you presently have visiting nurse or other home services: No Alcohol intake: current Alcohol intake frequency: a few times a month Alcohol type: hard liquor Patient Tobacco Use Status: Never used Tobacco Smoked in Last 30 Days: No e-Cigarette/Vaping Use: Never Used Second Hand Smoke Exposure: Yes Advance Directives: Yes Advance Directives on File: Yes Advance Directives Date on File: 09/10/21 service: No Current occupational status: employed Cognitive needs: No Hearing needs: No Vision needs: Yes (Glasses and contacts) Physical Exam ED Vital Signs: Vital Signs - 24 hr 03/19/22 23:30 03/20/22 02:45 Temperature 96.9 F 98.8 F Pulse Rate 81 68 Respiratory Rate 18 16 Blood Pressure 152/105 H 152/99 H Pulse Oximetry 97 97 Oxygen Delivery Method Room Air Room Air BMI result Body Mass Index 22.1 Const Other: Appearance: Alert. Oriented X3. No acute distress. Eyes: Pupils equal, round and reactive to light. ENT: Pharynx normal. Neck: Normal inspection. Neck supple. No lymph nodes noted. No crepitus CVS: Normal heart rate and rhythm. Pulses normal. Normal S1 and S2 Respiratory: No respiratory distress. Breath sounds normal. No Wheezing. No rales Abdomen: Soft and nontender. Mild bilateral flank pain No rigidity. No distention. Skin: Skin warm and dry. Normal skin color. Normal skin turgor. Extremities: No lower extremity edema. No Lacerations. No Rash Neuro: Oriented X 3. No motor deficit. No sensory deficit. Moving all extremities. No slurred speech. CN 2 through 12 grossly intact Psych: calm, cooperative, normal affect Course Course Course Narrative: -patient does have a UTI. Patient receiving IV levofloxacin. -patient has bilateral flank pain, unclear if he has kidney stones versus pyelonephritis. CT scan pending. -blood pressure stable, not tachycardic, no fever, sepsis not suspected Medical Decision Making Medical Decision Making MDM Narrative: -patient has a UTI, given levofloxacin -CT scan does not show a kidney stone. -patient has UTI, flank pain, clinically patient has pyelonephritis. Patient about blood cell count 10.7, no fever, no tachycardia, good blood pressure, sepsis not suspected Lab Data 03/20/22 00:01 03/20/22 00:01 Labs: Lab Results 03/19/22 03/20/22 03/20/22 Range/Units 23:58 00:01 00:01 WBC 3.3 L (4.8-10.8) X10*3/uL RBC 4.02 L D (4.60-5.80) X10*6/uL Hgb 13.3 L D (14.0-18.0) g/dl Hct 37.9 L (42.0-52.0) % MCV 94.3 (80.0-98.0) fL MCH 33.1 H (27.0-33.0) pg MCHC 35.1 (31.0-36.0) g/dl RDW 13.2 (11.0-16.0) % Plt Count 100 L D (160-400) X10*3/uL MPV 11.4 (9.4-12.4) fL Immature Gran % (Auto) 0.3 (0.0-0.4) % Neut % (Auto) 72.4 (45-73) % Lymph % (Auto) 21.0 (20-40) % [place] % (Auto) 4.5 (2-11) % Eos % (Auto) 0.9 (0-4) % Baso % (Auto) 0.9 (0-2) % Lymph # (Auto) 0.7 L (1.2-4.9) X10*3/uL [place] # (Auto) 0.2 (0.1-1.2) X10*3/uL Eos # (Auto) 0.0 (0.0-0.4) X10*3/uL Baso # (Auto) 0.0 (0.0-0.2) X10*3/uL Abs Immat Gran (auto) 0.01 (0.00-0.03) X10*3/uL Absolute Neuts (auto) 2.4 (2.0-8.3) x10*3/uL Absolute Nucleated RBC 0.000 (0.0-0.012) X10*3/uL Nucleated RBC % (auto) 0.0 (0.0-0.2) /100WBC Sodium 138 (135-145) mmol/L Potassium 4.6 D (3.3-5.1) mmol/L Chloride 97 (96-108) mmol/L Carbon Dioxide 25 (22-29) mmol/L Anion Gap 21 H (12-20) BUN 22 H (9-16) mg/dL Creatinine 1.65 H (0.5-1.4) mg/dL Estim Creat Clear Calc 51.5 Estimated GFR 44 Random Glucose 198 H (60-115) mg/dL Calcium 9.0 (8.4-10.2) mg/dL Urine Color Urine Appearance Urine pH (5.0-9.0) Ur Specific [place] (1.005-1.025) Urine Protein (Neg-Trace) mg/dL Urine Glucose (UA) (Negative) mg/dL Urine Ketones (Negative) mg/dL Urine Blood (Negative) Urine Nitrite (Negative) Ur Leukocyte Esterase (Negative) Urine RBC (0-2) /HPF Urine WBC (0-5) /HPF Ur Squamous Epith Cells (0-2) /HPF Urine Bacteria (None Seen) Hyaline Casts (0-2) /LPF Influenza Type A (PCR) NEGATIVE (Negative) Influenza Type B (PCR) NEGATIVE (Negative) RSV RNA Qual (PCR) NEGATIVE (Negative) SARS-CoV-2 RNA (RT-PCR) NEGATIVE (Negative) 03/20/22 Range/Units 00:37 WBC (4.8-10.8) X10*3/uL RBC (4.60-5.80) X10*6/uL Hgb (14.0-18.0) g/dl Hct (42.0-52.0) % MCV (80.0-98.0) fL MCH (27.0-33.0) pg MCHC (31.0-36.0) g/dl RDW (11.0-16.0) % Plt Count (160-400) X10*3/uL MPV (9.4-12.4) fL Immature Gran % (Auto) (0.0-0.4) % Neut % (Auto) (45-73) % Lymph % (Auto) (20-40) % [place] % (Auto) (2-11) % Eos % (Auto) (0-4) % Baso % (Auto) (0-2) % Lymph # (Auto) (1.2-4.9) X10*3/uL [place] # (Auto) (0.1-1.2) X10*3/uL Eos # (Auto) (0.0-0.4) X10*3/uL Baso # (Auto) (0.0-0.2) X10*3/uL Abs Immat Gran (auto) (0.00-0.03) X10*3/uL Absolute Neuts (auto) (2.0-8.3) x10*3/uL Absolute Nucleated RBC (0.0-0.012) X10*3/uL Nucleated RBC % (auto) (0.0-0.2) /100WBC Sodium (135-145) mmol/L Potassium (3.3-5.1) mmol/L Chloride (96-108) mmol/L Carbon Dioxide (22-29) mmol/L Anion Gap (12-20) BUN (9-16) mg/dL Creatinine (0.5-1.4) mg/dL Estim Creat Clear Calc Estimated GFR Random Glucose (60-115) mg/dL Calcium (8.4-10.2) mg/dL Urine Color Dark Yellow Urine Appearance Cloudy Urine pH 6.0 (5.0-9.0) Ur Specific [place] >= 1.030 H (1.005-1.025) Urine Protein 300 (3+) H (Neg-Trace) mg/dL Urine Glucose (UA) 500 H (Negative) mg/dL Urine Ketones 40 (Negative) mg/dL Urine Blood Trace H (Negative) Urine Nitrite Positive H (Negative) Ur Leukocyte Esterase Small (1+) H (Negative) Urine RBC 6-10 H (0-2) /HPF Urine WBC 0-5 (0-5) /HPF Ur Squamous Epith Cells 3-5 (0-2) /HPF Urine Bacteria None Seen (None Seen) Hyaline Casts 0-2 (0-2) /LPF Influenza Type A (PCR) (Negative) Influenza Type B (PCR) (Negative) RSV RNA Qual (PCR) (Negative) SARS-CoV-2 RNA (RT-PCR) (Negative) Medications Administered Discontinued Medications Generic Name Dose Route Start Last Admin Trade Name Freq PRN Reason Stop Dose Admin Levofloxacin 500 mg in 100 mls @ 100 mls/hr 03/20/22 02:38 03/20/22 03:27 Levaquin IV 03/20/22 03:37 100 mls/hr ONCE ONE Administration Sodium Chloride 1,000 mls @ 999 mls/hr 03/20/22 02:38 03/20/22 03:19 Ns IVCONT 03/20/22 03:38 999 mls/hr .Q1H1M ONE Administration Lorazepam 2 mg 03/20/22 02:40 03/20/22 03:19 Lorazepam 2 Mg/Ml Vial IVPUSH 03/20/22 02:41 2 mg ONCE ONE Administration Ondansetron HCl 4 mg 03/20/22 02:38 03/20/22 03:19 Ondansetron Hcl 4 Mg/2 Ml Vial IVPUSH 03/20/22 02:39 4 mg ONCE ONE Administration Discharge Plan Discharge Clinical Impression: Pyelonephritis Patient Disposition: Home, Self-Care Instructions: Kidney Infection (ED) Additional Instructions: Please follow-up with your primary care physician tomorrow. If you have any worsening or new symptoms, please return to the emergency room or call 911 Prescriptions: New levofloxacin 500 mg tablet 500 mg PO DAILY Qty: 9 0RF phenazopyridine 100 mg tablet 100 mg PO TID Qty: 6 0RF No Action Eliquis 5 mg tablet 5 mg PO BID 30 Days Qty: 60 0RF Rx Instructions: Last refill. Please call and schedule cardiology for overdue follow-up appointment; [phone]. amiodarone 200 mg tablet 200 mg PO DAILY Qty: 60 1RF Rx Instructions: Keep your appt for in December. Entresto 49-51 mg tablet 1 tab PO BID Qty: 180 2RF carvedilol 25 mg tablet 25 mg PO Q12H Qty: 180 3RF triamcinolone acetonide 0.5 % cream 1 appl topical BID Qty: 15 0RF magnesium oxide 400 mg (241.3 mg magnesium) Tablet 400 mg PO BIDPC 14 Days Qty: 28 0RF thiamine mononitrate (vit B1) 100 mg Tablet 100 mg PO DAILY 30 Days Qty: 30 0RF cyanocobalamin (vitamin B-12) 500 mcg Tablet 500 mcg PO DAILY 30 Days Qty: 30 0RF folic acid 1 mg Tablet 2 mg PO DAILY 30 Days Qty: 60 0RF naltrexone 50 mg tablet 100 mg PO DAILY Qty: 120 0RF
[2022-03-20 02:45] VITALS: BP 152/99; PULSE 68; RESP 16; TEMP 37.1; O2SAT 97
[2022-03-20] MEDS: ondansetron HCL 4 MG/2 ML VIAL IVPUSH (03:19)
[2022-03-20] MEDS: LORazepam 2 MG/ML VIAL IVPUSH (03:19)
[2022-03-20] MEDS: 0.9 % Sodium Chloride 1,000 ML 999 ML IVCONT (03:19)
[2022-03-20] MEDS: levoFLOXacin/D5W 500 MG/100 ML PIGGYBACK 100 MG IV (03:27)
--- NOTE | 2022-03-20 03:45 | PC.NURSE ---
Pt. lying in bed with dad at bedside. Medicated pt. per APR. YANNICK frias. Did not draw blood cultures... okayed as sepsis is not suspected.
== END 2022-03-20 06:06 | disposition home or self-care (01) ==
PROVIDERS: Emergency Provider Emergency Medicine; PCP Internal Medicine
DX: N12 Tubulo-interstitial nephritis, not specified as acute or chronic (principal); R10.9 Unspecified abdominal pain; R11.2 Nausea with vomiting, unspecified; Z20.822 Contact with and (suspected) exposure to COVID-19; Z20.828 Contact with and (suspected) exposure to other viral communicable diseases; E11.9 Type 2 diabetes mellitus without complications; I48.91 Unspecified atrial fibrillation; Z79.01 Long term (current) use of anticoagulants; Z79.899 Other long term (current) drug therapy
CPT/HCPCS: 0241U; 36415; 74176; 80048; 81001; 85025; 87086; 96361; 96374; 96375; 99284; J1956; J2060; J2405

== ENCOUNTER → 2022-03-22 14:33 | Outpatient (BNVA) | payer OTHER, SELFPAY | PROVIDERS: PCP Internal Medicine; Referring Provider Internal Medicine; Visit Provider Nurse Practitioner Family | DX: I48.91 Unspecified atrial fibrillation (principal); I42.8 Other cardiomyopathies; I50.42 Chronic combined systolic (congestive) and diastolic (congestive) heart failure; I95.9 Hypotension, unspecified; N17.9 Acute kidney failure, unspecified | CPT/HCPCS: 93005 ==

== ENCOUNTER 2022-09-13 14:20 | Outpatient (AMB) | payer OTHER, SELFPAY ==
[2022-09-13 14:23] VITALS: BP 122/74; PULSE 96; BMI 21.5
--- NOTE | 2022-09-13 14:23 | MHC.OFFVIS ---
Intake Vital Signs 09/13/22 14:23 Height 5 ft 8 in Weight 141 lb 1.533 oz BMI 21.5 BP 122/74 Blood Pressure Location Lt brachial Position Sitting Pulse 96 Intake Visit Reasons: 3 mth follow up Intake Note: 3 month follow-up feeling ok Allergies No Known Allergies [No Known Allergies*] Allergy (Verified 08/24/22 14:41) Medication List - Last Reconciled 09/13/22 by Ari Krishnamurthy MD apixaban (Eliquis) 5 mg PO BID 90 days carvedilol 25 mg PO Q12H cholecalciferol (vitamin D3) 50 mcg PO DAILY cyanocobalamin (vitamin B-12) 500 mcg PO DAILY 30 days folic acid 1 mg PO DAILY gabapentin 100 mg PO BEDTIME naltrexone 100 mg (2 x 50 mg) PO DAILY sacubitril-valsartan 49-51 mg (Entresto) 1 tab PO BID sertraline 50 mg PO DAILY 30 days thiamine mononitrate (vit B1) 100 mg PO DAILY 30 days triamcinolone acetonide 0.5% 1 appl topical BID HPI HPI Comments History of Present Illness Details To comes for follow-up. Valeriano is seen Alejandra in March this year. At that time he was admitted to ICU and atrial fibrillation. He is currently on Eliquis therapy. He is taking all his medications regularly. He is noted to be anemic with up and down hematocrit. Currently seeing Dr. Kline who is advised him to undergo colonoscopy. He is taking all his medications. He has not noticed any overt GI bleeding. Unfortunately continues to intermittently have shots of vodka. He denies any heart failure symptoms. No lightheadedness, syncope. [facility] Medical History (Updated 09/13/22 @ 14:56 by Ari Krishnamurthy MD) Alcohol dependence, uncomplicated Anemia Atrial fibrillation Chronic heart failure with reduced ejection fraction and diastolic dysfunction Eczema Hypomagnesemia Inguinal hernia, left Left inguinal hernia Nonischemic cardiomyopathy Paroxysmal atrial fibrillation Peripheral neuropathy Screening for prostate cancer Type 2 diabetes mellitus with hyperglycemia Surgical History Hx of cardiac catheterization Family History Father No problems noted. Mother No problems noted. Other No family history of cancer Substance abuse Social History Household Members: None Housing: Apartment Are you a primary human services care specialist to a significant other at home: No Do you presently have visiting nurse or other home services: No Alcohol intake: current Alcohol intake frequency: 0-2 drinks per day Alcohol type: hard liquor Patient Tobacco Use Status: Never used Tobacco e-Cigarette/Vaping Use: Never Used Second Hand Smoke Exposure: Yes Advance Directives Date on File: 09/10/21 service: No Current occupational status: employed Cognitive needs: No Hearing needs: No Vision needs: Yes (Glasses and contacts) Review of Systems Const Denies chills, Denies fatigue, Denies fever(s), Denies frequent falls, Denies weakness, Denies weight gain and Denies weight loss ENT Denies dizziness Card Denies chest pain, Denies leg edema, Denies lightheadedness, Denies palpitations, Denies dyspnea, Denies dyspnea on exertion, Denies orthopnea and Denies other (loss of consciousness) Resp Denies cough, Denies dyspnea and Denies dyspnea on exertion GI Denies hematochezia and Denies change in stool character Musc Denies abnormal gait, Denies muscle weakness, Denies numbness, Denies radiating pain into limb and Denies tingling Neuro Denies abnormal gait, Denies dizziness, Denies frequent falls, Denies numbness, Denies tingling and Denies weakness Endo Denies fatigue and Denies palpitations Physical Exam Vital Signs: Last Vital Signs Pulse 96 09/13/22 14:23 BP 122/74 09/13/22 14:23 BMI result Body Mass Index 21.5 Const General: cooperative, healthy appearing, comfortable and no acute distress Orientation/consciousness: patient oriented x3 Neck Neck: Yes normal visual inspection and Yes no JVD Resp Effort & Inspection: normal respiratory effort Auscultation: clear to auscultation bilaterally, no crackles, no rales, no rhonchi and no wheezes Cardio Jugular venous distension: no JVD Rate: regular rate Rhythm: regular rhythm Heart sounds: S1 normal heart sound present, S2 normal heart sound present, no murmurs and no rubs Skin General skin exam: no rashes or lesions noted Neuro General: patient oriented x3 Extrem General: Yes normal to inspection, No no pedal edema and No calf tenderness Psych Appearance: grossly normal Mental Status: mental status grossly normal Speech and movement: Normal speech and movement present Assessment & Plan Assessment & Plan (1) Paroxysmal atrial fibrillation: Code(s): I48.0 - Paroxysmal atrial fibrillation Plan: Paroxysmal atrial fibrillation most likely again related to his underlying cardiomyopathy process and alcohol use and acute medical illness. No clinical recurrence since then. Continue carvedilol therapy. Importance of avoiding alcohol was discussed especially with use of Eliquis therapy. Continue full oral anticoagulation, currently on Eliquis unless he has recurrent issues that are suggestive of blood loss anemia. May need to consider Watchman device at that point time. Continue pursue rhythm control approach. (2) Nonischemic cardiomyopathy: Comment: echocardiogram in July 2019 showing LVEF of 15-20% August 2020he left ventricular systolic function is normal. The calculated ejection fraction is 58% by biplane method. - No obvious valvular pathology seen on this study. Code(s): I42.8 - Other cardiomyopathies Plan: Severe LV systolic dysfunction with heart failure with reduced ejection fraction. This has now normalized with for him pharmacotherapy and neurohormonal modulation. Complete cessation of alcohol use was discussed which is most likely cause for his nonischemic cardiomyopathy. Continue neurohormonal modulation with carvedilol and Entresto. Semi annual renal function test should be pursued. Signs and symptoms of heart failure were discussed. There is no indication for diuretic therapy at this point time. Follow up in the clinic in 6 months time, sooner p.r.n.. Thank you for allowing me to partake in his care Coding Level of Care Code Est Pt Level 4 (86244) Diagnoses Paroxysmal atrial fibrillation I48.0 Nonischemic cardiomyopathy I42.8
== END 2022-09-13 15:11 | disposition home or self-care (01) ==
PROVIDERS: PCP Internal Medicine; Referring Provider Internal Medicine; Visit Provider Internal Medicine Cardiovascular Disease
DX: I48.0 Paroxysmal atrial fibrillation (principal); I42.8 Other cardiomyopathies
CPT/HCPCS: 99214

== ENCOUNTER → 2022-09-13 14:20 | Outpatient (BNVA) | payer OTHER, SELFPAY | PROVIDERS: PCP Internal Medicine; Referring Provider Internal Medicine; Visit Provider Internal Medicine Cardiovascular Disease ==

== ENCOUNTER → 2022-11-29 08:10 | Outpatient (REF) | payer OTHER, SELFPAY ==
--- NOTE | 2022-11-29 08:13 | HM_ITS ---
Conclusion: 1. Patient was monitored for total period of 2 days and 23 hours 2. Baseline was normal sinus with average heart of 93 beats per minute 3. No significant pauses or arrhythmias noted 4. 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 MTDD
--- NOTE | 2022-11-29 08:13 | CA_ITS ---
Transthoracic Echocardiogram Patient (Last, First, Middle): To Hagen, Gender: Male Date of : 1970 Age: 52 Procedure Date: 11/29/2022 Procedure Type: Transthoracic Echocardiogram Location: OP Height: 167.64 cm Weight: 70.31 kg BSA: 1.79 m2 Heart Rate: bpm BP: 130 / 78 mmHg Melt House Drag Operator: SHONNA Referring MD: Ari Krishnamurthy MD Symptoms: I42.8 - Other cardiomyopathies Study Quality: Fair Conclusions: - The left ventricular systolic function is normal. The calculated ejection fraction is 63% by biplane method. - No obvious valvular pathology seen on this study. Findings Left Ventricle Normal left ventricular cavity size. There is normal left ventricular wall thickness. The left ventricular systolic function is normal. The calculated ejection fraction is 63% by biplane method. There is no evidence of regional wall motion abnormalities. Evidence suggests grade I (mild) diastolic dysfunction. There is mild septal and mild basal asymmetric hypertrophy. Right Ventricle Normal right ventricular cavity size. There is mildly decreased right ventricular systolic function. Atria Both atria are normal in size. Aortic Valve There is a normal trileaflet aortic valve. There is no aortic valve stenosis. There is no aortic valve regurgitation. Mitral Valve The mitral valve appears normal. There is no mitral valve regurgitation. There is no mitral valve stenosis. Pulmonic Valve The pulmonic valve is likely normal. Tricuspid Valve Normal tricuspid valve structure. There is trace tricuspid valve regurgitation. There is no evidence of pulmonary hypertension. Great Vessels The asc aorta is normal in size. Venous The inferior vena cava is normal in size and collapses greater than 50% with inspiration. Pericardium/Pleural There is a small loculated pericardial effusion overlying the left ventricle. Prior Study Comparison No significant change compared to prior study dated: 09/08/2021. Recommendations, Care & Conclusions No obvious valvular pathology seen on this study. Measurements 2D Linear Measurements IVSd: 1.06 0.6-0.9/0.6-1.0 cm LVIDd: 4.44 3.9-5.3/4.2-5.9 cm LVIDd Index: 2.48 2.4-3.2/2.2-3.1 cm/m2 LVIDs: 3.23 2.0-3.6 cm LVPWd: 0.99 0.7-1.1 cm LA Diam: 2.00 2.7-3.8/3.0-4.0 cm LAIDs Index: 1.12 1.5-2.3 cm/m2 LV Mass: 192.87 67-162/88-224 g LV Mass Index: 107.75 43-95/49-115 g/m2 LVOT Diam: 2.10 3.0+(-)1.3 cm 2D Systolic Function EF 4C: 58.50 >55% EF 2C: 66.90 >55% EF BiP: 62.80 >55% Mitral Valve MV Pk E: 0.50 MV PK A: 0.67 MV Decel Time: 193.00 E/A: 0.70 E'Lateral: 5.22 E'Medial: 6.42 E/E' Med: 7.70 E/E' Lat: 9.50 PHT: 56.00 MVA PHT: 3.93 Decel Charlton: 2.57 Aortic Valve AoV Pk Marcellus: 0.99 AoV Mn Marcellus: 0.72 AoV VTI: 0.19 AoV Pk Grad: 4.00 Aov Mn Grad: 2.00 GREGORIA Cont.VTI: 2.67 LVOT LVOT Pk Marcellus: 0.94 LVOT Mn Marcellus: 0.60 LVOT VTI: 0.15 LVOT Pk Grad: 4.00 LVOT Mn Grad: 2.00 LVOT Diam: 2.10 LVOT Area: 3.46 Diastolic Function MV Pk E: 0.50 MV Pk A: 0.67 E/A: 0.70 E'Medial: 6.42 E/E' Med: 7.70 E' Laterial: 5.22 E/E' Lat: 9.50 Right Ventricle TAPSE (mm): 15.20 TVS' Marcellus: 8.70 Tricuspid Valve RA Press: 3.00 Great Vessels Aorta Sinus of Valsalva: 3.55 2.0-3.[address] [place]: 2.59 1.7-3.4 cm Ao Asc: 3.20 2.1-3.4 cm Updated in Other Vendor System with Status of Final Glenn Enciso MD electronically signed on 11/29/2022 4:25:04 PM with status of Final
== END ==
LOC: HO.CARD 08:10
PROVIDERS: PCP Internal Medicine; Visit Provider Internal Medicine Cardiovascular Disease
DX: I42.8 Other cardiomyopathies (principal); I48.91 Unspecified atrial fibrillation
CPT/HCPCS: 93242; 93306

== ENCOUNTER → 2022-11-29 08:13 | Outpatient (BNV) | payer OTHER, SELFPAY | PROVIDERS: PCP Internal Medicine; Visit Provider Internal Medicine | DX: I48.91 Unspecified atrial fibrillation (principal) | CPT/HCPCS: 93244; 93306 ==

== ENCOUNTER 2022-12-04 15:25 | Outpatient (AMB) | payer OTHER, SELFPAY ==
[2022-12-04 15:28] VITALS: BP 102/62; PULSE 82; O2SAT 98; BMI 22.0
--- NOTE | 2022-12-04 15:28 | MHC.PC.OV ---
Vital Signs 12/04/22 15:28 Height 5 ft 8 in Weight 145 lb BMI 22.0 BP 102/62 Blood Pressure Location Lt brachial Position Sitting Pulse 82 Pulse Source Pulse Oximeter Pulse Oximetry (%) 98 Oxygen Delivery Method Room Air Intake Visit Reasons: depression m, anemia Allergies No Known Allergies [No Known Allergies*] Allergy (Verified 12/04/22 15:29) Tobacco use date assessed: 07/09/22 Dental Screening Dental Screen Date: 12/04/22 Did you have a dental visit in the last 12 months?: No Did you have a dental problem in the last 6 months where you did not have access to dental care?: No Was dental information given to patient?: Patient has dentist HPI depression m, anemia HPI Details 52-year-old male with a history of controlled diabetes mellitus nonischemic cardiomyopathy atrial fibrillation history of alcohol abuse macrocytic anemia with major depression coming in for follow-up. Last seen in August 2022. Patient has seen Cardiology in August 2022 as a follow-up . On anti coagulation Eliquis patient still intermittently drinks alcohol so far for atrial fibrillation no recurrence continue carvedilol cardiomyopathy has normalized Last echocardiogram done in 2020 showing ejection fraction 15 20%. Patient is here for follow-up patient did have an echocardiogram November 2022 The left ventricular systolic function is normal. The calculated ejection fraction is 63% by biplane method. - No obvious valvular pathology seen on this study. complains of feet numbness, - 2 year [facility] Medical History (Updated 12/04/22 @ 16:22 by Wendie Maria MD) Colon cancer screening Paroxysmal atrial fibrillation Screening for prostate cancer Alcohol dependence, uncomplicated Atrial fibrillation Hypomagnesemia Left inguinal hernia Eczema Peripheral neuropathy Inguinal hernia, left Anemia Type 2 diabetes mellitus with hyperglycemia Nonischemic cardiomyopathy Chronic heart failure with reduced ejection fraction and diastolic dysfunction Surgical History Hx of cardiac catheterization Family History Father No problems noted. Mother No problems noted. Other No family history of cancer Substance abuse Social History Household Members: None Housing: Apartment Are you a primary daycare worker to a significant other at home: No Do you presently have visiting nurse or other home services: No Alcohol intake: current Alcohol intake frequency: 0-2 drinks per day Alcohol type: hard liquor Patient Tobacco Use Status: Never used Tobacco e-Cigarette/Vaping Use: Never Used Second Hand Smoke Exposure: Yes Advance Directives Date on File: 09/10/21 service: No Current occupational status: employed Cognitive needs: No Hearing needs: No Vision needs: Yes (Glasses and contacts) Questionnaire PHQ-9 Over the last 2 weeks, how often have you been bothered by any of the following problems? 1. Little interest or pleasure in doing things: not at all 2. Feeling down, depressed, or hopeless: not at all 3. Trouble falling or staying asleep, or sleeping too much: not at all 4. Feeling tired or having little energy: not at all 5. Poor appetite or overeating: not at all 6. Feeling bad about yourself - or that you are a failure or have let yourself or your family down: not at all 7. Trouble concentrating on things, such as reading the newspaper or watching television: not at all 8. Moving or speaking so slowly that other people could have noticed. Or the opposite - being so fidgety or restless that you have been moving around a lot more than usual: not at all 9. Thoughts that you would be better off or of hurting yourself in some way: not at all Total score: 0 Depression Screening Interpretation: Negative Depression Screening Done: Yes 78056 - PHQ-9 Billing: Yes Source: Developed by Drs. Louis Khan, Luis Enrique Lew and colleagues, with an educational danelle from [email or web address]. Thrive Questionnaire Date Thrive assessed: 04/05/22 AUDIT C Alcohol Use Questionnaire (AUDIT-C) 1. How often do you have a drink containing alcohol?: 4 or more times a week 2. How many drinks containing alcohol do you have on a typical day when you are drinking?: 1 or 2 Total Score: 4 Score Reviewed/Action Taken: Yes MARYANA-7 AMB Questionnaire MARYANA-7 Date MARYANA - 7 assessed: 04/05/22 Source: Developed by Qi Patel Kurt Kroenke and colleagues, with an educational danelle from [email or web address]. Physical exam (Primary Care) Vital Signs: Last Vital Signs Pulse 82 12/04/22 15:28 BP 102/62 12/04/22 15:28 Pulse Ox 98 12/04/22 15:28 Oxygen Delivery Method Room Air 12/04/22 15:28 BMI result Body Mass Index 22.0 Tobacco/Smoking Status: Tobacco use Status Tobacco use date assessed 07/09/22 12/04/22 15:29 Patient Tobacco Use Status Never used Tobacco 12/04/22 15:29 e-Cigarette/Vaping Use Never Used 12/04/22 15:29 PHQ-9: PHQ-9 Score PHQ-9: Total score 0 12/04/22 16:16 Depression Screening Interpretation: Negative Thrive Assessment: Date of Thrive Assessment Date Thrive assessed 04/05/22 12/04/22 15:29 Const General: alert; No acute distress Eyes Conjunctivae: conjunctivae normal Resp Auscultation: clear to auscultation bilaterally Cardio Rate: regular rate Rhythm: regular rhythm GI Inspection: Yes normal to inspection Extrem General: Yes normal to inspection and No edema Office Procedures Flu Questionnaire Does the patient have a severe egg allergy?: No Does the patient have severe life threatening allergies?: No Does the patient have a fever or illness today?: No Has the patient ever had Guillain-[place] Syndrome?: No Has the patient ever had any past reaction to a flu shot?: No Immunizations flu vacc [id number] 6mos up(PF) 60 mcg(15 mcgx4)/0.5 mL IM syringe Performing Provider: Wendie Maria MD Performing Location: [facility] Administered by: TRELL Wallis on 12/04/22 16:33 Dose Route Admin Location Dispensed Lot Number Expiration Date NDC Machine Biller 0.5 mL IM Right Deltoid 0.5 mL [id number] 08/18/23 06951-195-51 [employer] VIS Given Date VIS Provided VIS Publication Date 12/04/22 Single Vaccine 20 Eligibility Eligibility Date Funding Source Not [facility] Eligible 12/04/22 Private Assessment and Plan Assessment & Plan (1) Type 2 diabetes mellitus with hyperglycemia: Code(s): E11.65 - Type 2 diabetes mellitus with hyperglycemia Qualifiers: Diabetes mellitus prison insulin use: without termite treater use Qualified Code(s): E11.65 - Type 2 diabetes mellitus with hyperglycemia Plan: Decrease the amount of carbohydrate intake, pasta, bread, rice and potatoes are all sugar and that is aside from all the sweet stuff, remember that fruits are good but they are Sweet also. Hemoglobin A1c goal of less than 6.5 patient has been controlled (2) Paroxysmal atrial fibrillation: Code(s): I48.0 - Paroxysmal atrial fibrillation Plan: No recurrence but on full anticoagulation (3) Nonischemic cardiomyopathy: Comment: echocardiogram in July 2019 showing LVEF of 15-20% August 2020he left ventricular systolic function is normal. The calculated ejection fraction is 58% by biplane method. - No obvious valvular pathology seen on this study. Code(s): I42.8 - Other cardiomyopathies Plan: Patient follows up with Cardiology echocardiogram done October 2022 has normalized (4) Alcohol dependence, uncomplicated: Code(s): F10.20 - Alcohol dependence, uncomplicated Plan: Patient has been advised to stop! (5) Major depression: Comment: decline referral to counselling Code(s): F32.9 - Major depressive disorder, single episode, unspecified Plan: Continue with antidepressants medication (6) Macrocytic anemia: Code(s): D53.9 - Nutritional anemia, unspecified Plan: Patient follows up with hematology oncology advise colonoscopy (7) Colon cancer screening: Code(s): Z12.11 - Encounter for screening for malignant neoplasm of colon Plan: Reminded about colonoscopy- next month (8) Numbness in feet: Code(s): R20.0 - Anesthesia of skin Orders: Orders NE electromyogram (EMG) Today R20.0 - Anesthesia of skin AMB Hemoglobin A1c Today E11.65 - Type 2 diabetes mellitus with hyperglycemia NE nerve conduction velocity Today R20.0 - Anesthesia of skin Influenza [id number] Immunization Today Z23 - Encounter for immunization Coding Level of Care Code Est Pt Level 4 (51873) Diagnoses Type 2 diabetes mellitus with hyperglycemia, without long-term current use of insulin E11.65 Diabetes mellitus prison insulin use: without termite treater use Paroxysmal atrial fibrillation I48.0 Nonischemic cardiomyopathy I42.8 Alcohol dependence, uncomplicated F10.20 Major depression F32.9 Macrocytic anemia D53.9 Colon cancer screening Z12.11 Numbness in feet R20.0
== END 2022-12-04 16:35 | disposition home or self-care (01) ==
PROVIDERS: PCP Internal Medicine; Visit Provider Internal Medicine
DX: E11.65 Type 2 diabetes mellitus with hyperglycemia (principal); I48.0 Paroxysmal atrial fibrillation; I42.8 Other cardiomyopathies; F10.20 Alcohol dependence, uncomplicated; Z23 Encounter for immunization; F32.9 Major depressive disorder, single episode, unspecified; D53.9 Nutritional anemia, unspecified; Z12.11 Encounter for screening for malignant neoplasm of colon; R20.0 Anesthesia of skin
CPT/HCPCS: 90471; 90686; 99214

== ENCOUNTER 2023-04-25 04:34 | Inpatient (IN) | payer OTHER, SELFPAY ==
[2023-04-25] VITALS (10 sets, daily range): BP systolic 104–162; BP diastolic 71–92; PULSE 78–110; RESP 13–21; TEMP 36–37.3; O2SAT 96–100; BMI 22.1
--- NOTE | ~2023-04-25 | CT_ITS ---
EXAMINATION: CT HEAD WITHOUT CONTRAST CLINICAL INFORMATION: Multiple falls. Chronic anticoagulation COMPARISON: 09/08/2021 TECHNIQUE: Contiguous axial imaging was performed from the skull base to vertex without intravenous administration of contrast. This CT examination was performed using dose optimization techniques as appropriate, variously including the following: *Automated exposure control *Adjustment of mA and/or kV according to patient size (this includes techniques or standardized protocols for targeted exams where dose is matched to indication/reason for exam; i.e. extremities or head) *Use of iterative reconstruction technique DLP: 633 mGy-cm FINDINGS: No intra-axial or extra-axial hemorrhage. No acute territorial infarct. Ventricles and sulci appear normal. Preservation of taylor-white matter differentiation. No mass, mass effect, or midline shift. No fracture. The mastoid air cells and visualized paranasal sinuses are clear. CT/CT head/brain wo IV con IMPRESSION: No acute intracranial pathology.
--- NOTE | 2023-04-25 04:49 | ECG_ITS ---
Test Reason : PSYCH MEDS Blood Pressure : / mmHG Vent. Rate : 086 BPM Atrial Rate : 086 BPM P-R Int : 170 ms QRS Dur : 084 ms QT Int : 396 ms P-R-T Axes : 026 006 018 degrees QTc Int : 473 ms Sinus rhythm with Fusion complexes Nonspecific ST abnormality Abnormal ECG When compared with ECG of 15-SEP-2021 12:16, Fusion complexes are now Present Nonspecific T wave abnormality no longer evident in Anterior leads Referred By: Brandy Schaffer Electronically Signed By:Juan Jose Britton
[2023-04-25 05:37] LABS: Basophils Percent Auto 0.4 % (0-2); Eosinophils Absolute Auto 0.1 X10*3/uL (0.0-0.4); Eosinophils Percent Auto 1.1 % (0-4); Hematocrit 25.9 % (42.0-52.0); Hemoglobin 8.8 g/dl (14.0-18.0); Imm Gran Abs Auto 0.02 X10*3/uL (0.00-0.03); Imm Gran Pct Auto 0.4 % (0.0-0.4); Lymphocytes Absolute Auto 1.3 X10*3/uL (1.2-4.9); Lymphocytes Percent Auto 29.4 % (20-40); MANUAL DIFF FLAG NO; Mean Corpuscular Hemoglobin 32.4 pg (27.0-33.0); Mean Corpuscular Volume 95.2 fL (80.0-98.0); Mean Platelet Volume 10.7 fL (9.4-12.4); Monocytes Absolute Auto 0.4 X10*3/uL (0.1-1.2); Monocytes Percent Auto 8.2 % (2-11); Neutrophils Absolute Auto 2.7 x10*3/uL (2.0-8.3); Neutrophils Percent Auto 60.5 % (45-73); Platelet Count 126 X10*3/uL (160-400); Red Blood Count 2.72 X10*6/uL (4.60-5.80); White Blood Count 4.5 X10*3/uL (4.8-10.8)
[2023-04-25 05:42] LABS: INTERNATIONAL NORM RATIO 1.4 (0.9-1.1); Prothrombin Time 16.7 SEC (11.1-13.3)
[2023-04-25 05:44] LABS: Ammonia 16 umol/L (13-55)
--- NOTE | 2023-04-25 05:51 | ED_ITS ---
HPI - General Adult General Chief complaint: Psychiatric Symptoms Stated complaint: Psych Time Seen by Provider: 04/25/23 05:23 Source: patient Mode of arrival: EMS History of Present Illness HPI narrative: 52-year-old male who is brought in by EMS when he called with complaints of visual and auditory hallucinations that just began a few days ago, on further questioning of the patient he states that he no longer drinks alcohol and that he quit cold turkey on Saturday. Patient states that he has had multiple falls and his landed on his butt and at this time denies any head strikes. Patient denies SI/HI and has baseline difficulty with walking due to neuropathy and ambulates with a walker. According to EMS patient had told them that he was seeing little girls in his closet and when they went in there to show him that there was nothing there patient was surprised. Patient reported to them that he was having conversations with these people. Related Data Previous Rx's Medication Instructions Recorded thiamine mononitrate (vit B1) 100 100 mg PO DAILY 30 days #30 tabs 09/15/21 mg tablet cyanocobalamin (vitamin B-12) 500 500 mcg PO DAILY 30 days #30 tabs 10/13/21 mcg tablet apixaban 5 mg tablet (Eliquis) 5 mg PO BID 90 days #180 tabs 04/02/22 folic acid 1 mg tablet 1 mg PO DAILY #90 tabs 04/06/22 cholecalciferol (vitamin D3) 50 50 mcg PO DAILY #90 tabs 04/13/22 mcg (2,000 unit) tablet gabapentin 100 mg capsule 100 mg PO BEDTIME #90 caps 11/05/22 sacubitril 49 mg-valsartan 51 mg 1 tab PO BID #180 tabs 11/22/22 tablet (Entresto) sertraline 50 mg tablet 50 mg PO DAILY 30 days #90 tabs 12/05/22 naltrexone 50 mg tablet 100 mg (2 x 50 mg) PO DAILY #120 01/30/23 tabs triamcinolone acetonide 0.5 % 1 appl topical BID #15 grams 02/08/23 topical cream carvedilol 25 mg tablet 25 mg PO Q12H #180 tabs 02/13/23 Allergies Allergy/AdvReac Type Severity Reaction Status Date / Time No Known Allergies Allergy Verified 04/25/23 04:51 [No Known Allergies*] Review of Systems 2 Review of Systems: Pertinent positives and negatives as stated in [facility] Past Medical History Source: nursing notes reviewed Medical History Colon cancer screening Paroxysmal atrial fibrillation Screening for prostate cancer Alcohol dependence, uncomplicated Atrial fibrillation Hypomagnesemia Left inguinal hernia Eczema Peripheral neuropathy Inguinal hernia, left Anemia Type 2 diabetes mellitus with hyperglycemia Nonischemic cardiomyopathy Chronic heart failure with reduced ejection fraction and diastolic dysfunction Surgical History Hx of cardiac catheterization Family History Family History Father No problems noted. Mother No problems noted. Other No family history of cancer Substance abuse Social History Social History Household Members: None Housing: Apartment Are you a primary memory care program resident to a significant other at home: No Do you presently have visiting nurse or other home services: No Alcohol intake: former Patient Tobacco Use Status: Never used Tobacco Smoked in Last 30 Days: No e-Cigarette/Vaping Use: Never Used Second Hand Smoke Exposure: Yes Use of substances other than those prescribed or required for medical reasons: No Advance Directives: Yes Advance Directives on File: Yes Advance Directives Date on File: 09/10/21 service: No Current occupational status: employed Cognitive needs: No Hearing needs: No Vision needs: Yes (Glasses and contacts) Physical Exam ED Vital Signs: Vital Signs - 24 hr 04/25/23 06:05 04/25/23 06:53 Temperature 98.1 F 99.1 F Pulse Rate 78 83 Respiratory Rate 16 19 Blood Pressure 104/71 112/82 Pulse Oximetry 98 96 Oxygen Delivery Method Room Air Room Air BMI result Body Mass Index 22.1 VITAL SIGNS: Reviewed. GENERAL: Well developed, well nourished, in no acute distress. HEAD: Normocephalic/atraumatic EYES: PERRLA, EOMI EARS: Ext canals without abnormality NOSE: Nares patent bilateral OROPHARYNX: no oral lesions noted, posterior pharynx clear NECK: Supple, no adenopathy LUNGS: Normal breath sounds. No adventitious sounds or accessory muscle use. CARDIOVASCULAR: Regular rate and rhythm without noted murmurs, no JVD or lower extremity edema. ABDOMEN: Soft, non-tender, non-distended with bowel sounds. ANORECTAL: Soft brown stool that is not melena and no evidence of gross blood, good rectal tone BACK: There is significant excoriation of patient's gluteus that extends cephalad to the approximate L4-L5 area and not consistent with a sacral coccyx pressure wound, there is mild excoriation of the base of the scrotum without evidence of cellulitis or crepitus MUSCULOSKELETAL: No tenderness, deformities, or effusions noted on gross inspection. EXTREMITIES: No cyanosis, clubbing or edema. SKIN: Inspection of the skin reveals no rashes NEUROLOGIC: Alert and oriented x 3. Strength and sensation to light touch were grossly intact x 4, patient has bilateral lower extremity neuropathy at baseline. Medications Administered Generic Name Dose Route Start Last Admin Trade Name Freq PRN Reason Stop Dose Admin Sodium Chloride 1,000 mls @ 999 mls/hr 04/25/23 06:15 04/25/23 06:49 Ns IV 04/25/23 07:15 999 mls/hr .Q1H1M MIHCELLE Administration Discontinued Medications Generic Name Dose Route Start Last Admin Trade Name Freq PRN Reason Stop Dose Admin Magnesium Sulfate 2 gm in 50 mls @ 150 mls/hr 04/25/23 06:37 04/25/23 06:49 Magnesium Sulfate/H2o IV 04/25/23 06:56 150 mls/hr ONCE ONE Administration Magnesium Sulfate/Dextrose 1 gm in 100 mls @ 300 mls/hr 04/25/23 06:37 04/25/23 06:48 Magnesium Sulfate/D5w IV 04/25/23 06:56 300 mls/hr ONCE ONE Administration Phenobarbital Sodium 408 mg 04/25/23 07:00 04/25/23 06:49 Phenobarbital Sodium 130 Mg/Ml Im Once IM 04/25/23 07:01 408 mg ONCE ONE Administration Protocol Medical Decision Making Medical Decision Making MDM Narrative: 52-year-old male with history and clinical presentation, DDX: Alcohol withdrawal with auditory/visual hallucinations, noted to be anemic and will evaluate for stool guaiac positivity, reported multiple falls and is currently on chronic anticoagulation so will proceed with CT of the head but otherwise patient is nonfocal and has baseline lower extremity neuropathy likely secondary to possible B12 deficiency. Patient placed on a CIWA and phenobarb protocol. A review investigations and hematologic indices demonstrate a chronically stable leukopenia but a mildly worsening normocytic anemia and thrombocytopenia without left shift. Coagulation studies elevated likely consistent with the use of chronic anticoagulation but may be contributed from chronic alcohol use. Chemistry indices demonstrate a mild hypokalemia within WILFREDO but no liver enzyme derangements and high sensitivity troponin is undetectable. Stool negative for occult blood. ETOH undetectable and viral testing negative for influenza/RSV/COVID-19. 0515: I discussed the case with inpatient hospitalist who accepts admission but states that may go to Day inpatient team for finalization. Signed out to Dr Jaimes - f/u CT head - Admission Differential Diagnosis Differential Diagnoses: The differential diagnosis associated with the presentation includes Please see the discussion above Admission/Observation Consideration of admission/observation: Escalation of care including admission/observation considered Please see the discussion above Consult Healthcare Provider Management of the patient was discussed with: Hospitalist Please see the discussion above Lab Data MDM Lab Attestation statement: I reviewed the patient's lab results. Please see the discussion above 04/25/23 05:32 04/25/23 05:32 Labs: Lab Results 04/25/23 04/25/23 04/25/23 Range/Units 05:32 05:36 05:47 WBC 4.5 L (4.8-10.8) X10*3/uL RBC 2.72 L (4.60-5.80) X10*6/uL Hgb 8.8 L (14.0-18.0) g/dl Hct 25.9 L (42.0-52.0) % MCV 95.2 (80.0-98.0) fL MCH 32.4 (27.0-33.0) pg MCHC 34.0 (31.0-36.0) g/dl RDW 14.0 (11.0-16.0) % Plt Count 126 L D (160-400) X10*3/uL MPV 10.7 (9.4-12.4) fL Immature Gran % (Auto) 0.4 (0.0-0.4) % Neut % (Auto) 60.5 (45-73) % Lymph % (Auto) 29.4 (20-40) % [place] % (Auto) 8.2 (2-11) % Eos % (Auto) 1.1 (0-4) % Baso % (Auto) 0.4 (0-2) % Lymph # (Auto) 1.3 (1.2-4.9) X10*3/uL [place] # (Auto) 0.4 (0.1-1.2) X10*3/uL Eos # (Auto) 0.1 (0.0-0.4) X10*3/uL Baso # (Auto) 0.0 (0.0-0.2) X10*3/uL Abs Immat Gran (auto) 0.02 (0.00-0.03) X10*3/uL Absolute Neuts (auto) 2.7 (2.0-8.3) x10*3/uL Absolute Nucleated RBC 0.000 (0.0-0.012) X10*3/uL Nucleated RBC % (auto) 0.0 (0.0-0.2) /100WBC PT 16.7 H (11.1-13.3) SEC INR 1.4 H (0.9-1.1) Sodium 138 (135-145) mmol/L Potassium 3.2 L (3.3-5.1) mmol/L Chloride 101 (96-108) mmol/L Carbon Dioxide 26 (22-29) mmol/L Anion Gap 14 (12-20) BUN 23 H (9-16) mg/dL Creatinine 1.93 H (0.5-1.4) mg/dL Estim Creat Clear Calc 43.5 Estimated GFR 37 Random Glucose 127 H (60-115) mg/dL Calcium 8.0 L (8.4-10.2) mg/dL Magnesium 0.7 L* (1.6-2.6) mg/dL Total Bilirubin 0.6 (0.0-1.0) mg/dL AST 22 (5-37) U/L ALT 17 (0-40) U/L Alkaline Phosphatase 79 (39-117) U/L Ammonia 16 (13-55) umol/L Troponin I High Sens < 2.7 (<3.5-35.0) ng/L Total Protein 5.7 L (6.5-8.0) g/dL Albumin 3.0 L (3.5-5.0) g/dL Stool Occult Blood NEGATIVE (NEGATIVE) Ethyl Alcohol < 10 mg/dL Influenza Type A (PCR) NEGATIVE (Negative) Influenza Type B (PCR) NEGATIVE (Negative) RSV RNA Qual (PCR) NEGATIVE (Negative) SARS-CoV-2 RNA (RT-PCR) NEGATIVE (Negative) Independent Interpretation I performed an independent interpretation of an: EKG Interpretation: Sinus rhythm, HR-86, no STEMI, TX/QRS/QTC is within normal limits Radiology Impression Discussion of test interpretation with radiology: I have reviewed the radiologist's reading. Radiologist Impression: Please see the discussion above External Record Review External record reviewed: Outpatient record, Prior outpatient labs and Prior outpatient radiology Chronic Conditions Patient?s care impacted by: Diabetes and Hypertension Social Determinants Patient?s care significantly limited by Social Determinants of Health including: Alcoholism and drug addiction in family Critical Care Time Critical Care Time Critical Care Time: Yes Total Critical Care Time: 60 Attestation: I personally attest to this time spent taking care of the patient. Discharge Plan Discharge Clinical Impression: Difficulty walking, Alcohol withdrawal, Alcohol use disorder, Anemia, Chronic anticoagulation, WILFREDO (acute kidney injury), Hypomagnesemia Patient Disposition: Admitted As Inpatient Interventions: [place]-Suicide Risk Severity Scale Last Done: 04/25/23 06:20
[2023-04-25 05:52] LABS: Alanine Aminotransferase 17 U/L (0-40); Alkaline Phosphatase 79 U/L (39-117); Anion Gap 14 (12-20); Aspartate Amino Transferase 22 U/L (5-37); Bilirubin Total 0.6 mg/dL (0.0-1.0); Blood Urea Nitrogen 23 mg/dL (9-16); Carbon Dioxide 26 mmol/L (22-29); Chloride 101 mmol/L (96-108); Creatinine Clr Calc Pharmacy 43.5; Estimated Glomerular Filt Rate 37; Ethanol < 10 mg/dL; Glucose Random 127 mg/dL (60-115); Potassium 3.2 mmol/L (3.3-5.1); Sodium 138 mmol/L (135-145); Total Protein 5.7 g/dL (6.5-8.0)
[2023-04-25 05:57] LABS: Troponin-I High Sensitivity < 2.7 ng/L (<3.5-35.0)
[2023-04-25 05:59] LABS: OBS Int Ctl Valid YES; OBS1 NEGATIVE (NEGATIVE)
[2023-04-25 06:17] LABS: Influenza A PCR NEGATIVE (Negative); Influenza B PCR NEGATIVE (Negative); Resp Syncy Virus RNA Qual PCR NEGATIVE (Negative); SARS COV2 PCR INHOUSE NEGATIVE (Negative)
[2023-04-25 06:37] LABS: Magnesium 0.7 mg/dL (1.6-2.6)
[2023-04-25] MEDS: Magnesium Sulfate/D5W 1 GM/100 ML PIGGYBACK IV (06:48)
[2023-04-25] MEDS: PHENobarbitaL sodium 130 MG/ML IM ONCE 408 MG IM (06:49)
[2023-04-25] MEDS: Magnesium Sulfate/H2O 2 GM/50 ML PIGGYBACK IV (06:49)
[2023-04-25] MEDS: 0.9 % Sodium Chloride 1,000 ML 999 ML IV (06:49)
--- NOTE | 2023-04-25 06:54 | PC.NURSE ---
phenobarb dose split half and half between right and left deltoid administration.
--- NOTE | 2023-04-25 08:29 | PHA.MEDREC ---
Pharmacy Consult ? Medication Reconciliation Pharmacy has completed the medication reconciliation. Confirmed medication with patient and through claim history. Dose of Naltrexone is unconfirmed and needs more research.
--- NOTE | 2023-04-25 08:52 | PM.IMHP ---
History of Present Illness Date of Service: 04/25/23 Chief Complaint: visual hallucinations The patient is a 52 year old male with a PMH as outlined below who presents to [facility] after he called paramedics for visual hallucinations. The patient states that he is a heavy drinker, however, over the last 6 months he has been decreasing his intake slowly. He states over the last several weeks, he has been drinking about 3-4 drinks daily and he decided to stop cold turkey on Saturday (4 days prior to admission). He says that since then, he has had visual/auditory and tactile hallucinations. He felt that people were in his closet, things around his house was being moved and on the day admission, he heard 2 little girls in his closet. He also reports a mechanical fall 2 days prior to admission. He denies prior such hallucinations. In the ED, the patient was noted to have WILFREDO with SCr nearly 2; His Mag is 0.7, K 3.2; Platelets 125; He has been given 3g of IV mag, IVF and has been initiated on IVF. He will now be admitted for further work up and treatment. Review of Systems Review of Systems: Negative except HPI/interval history. [facility] Medical History Colon cancer screening Paroxysmal atrial fibrillation Screening for prostate cancer Alcohol dependence, uncomplicated Atrial fibrillation Hypomagnesemia Left inguinal hernia Eczema Peripheral neuropathy Inguinal hernia, left Anemia Type 2 diabetes mellitus with hyperglycemia Nonischemic cardiomyopathy Chronic heart failure with reduced ejection fraction and diastolic dysfunction Family History Father No problems noted. Mother No problems noted. Other No family history of cancer Substance abuse Surgical History Hx of cardiac catheterization Social History Household Members: None Housing: Apartment Are you a primary patient care assistant to a significant other at home: No Do you presently have visiting nurse or other home services: No Alcohol intake: former Patient Tobacco Use Status: Never used Tobacco e-Cigarette/Vaping Use: Never Used Second Hand Smoke Exposure: Yes Advance Directives Date on File: 09/10/21 service: No Current occupational status: employed Cognitive needs: No Hearing needs: No Vision needs: Yes (Glasses and contacts) Meds Allergies Allergy/AdvReac Type Severity Reaction Status Date / Time No Known Allergies Allergy Verified 04/25/23 04:51 [No Known Allergies*] Active Medications: Current Medications Pharmacy Consult (Consult Rx Etoh Phenob Im/Po) 1 each MISCELLANE ONCE PRN; Protocol PRN Reason: Consult order Phenobarbital (Phenobarbital 15 Mg Tablet) 45 mg PO BID MICHELLE; Protocol Stop: 04/27/23 09:01 Phenobarbital (Phenobarbital 15 Mg Tablet) 15 mg PO BID MICHELLE; Protocol Stop: 04/29/23 09:01 Phenobarbital (Phenobarbital 15 Mg Tablet) 15 mg PO DAILY MICHELLE; Protocol Stop: 05/01/23 09:01 Phenobarbital Sodium (Phenobarbital Sodium 65 Mg/Ml Vial Q3hx2) 305 mg IM Q3H MICHELLE; Protocol Stop: 04/25/23 13:01 Home Medications Medication Instructions Recorded Confirmed Last Taken Type carvedilol 25 mg tablet 25 mg PO BID 04/25/23 04/25/23 04/24/23 History Physical Exam Vital Signs and Narrative: Vital Signs: Last Vital Signs Temp 99.1 F 04/25/23 06:53 Pulse 79 04/25/23 08:00 Resp 13 04/25/23 08:00 BP 104/75 04/25/23 08:00 Pulse Ox 100 04/25/23 08:00 O2 Del Method Room Air 04/25/23 08:00 BMI result Body Mass Index 22.1 Const: Other: Constitutional - Awake and Alert, No apparent distress Eyes - PERRLA, EOMI Cardiovascular - S1S2, RRR, No edema Respiratory - Normal lung expansion, Normal respiratory effort, No respiratory distress, CTA bilaterally Gastrointestinal - NT / ND; +BS; No rebound or guarding - No CVA tenderness Extremities - no calf tenderness bilaterally, no swelling Musculoskeletal - Normal inspection, normal ROM Skin - see ED pictures -- significant erythema / excoriations - non tender Neurological - oriented to place, time; non-focal exam; disoriented to details, specifically about his medical history; +b/l tremors Psychological - Appropriate affect Results Labs 04/25/23 05:32 04/25/23 05:32 Labs: Laboratory Results - last 24 hr 04/25/23 04/25/23 04/25/23 05:32 05:36 05:47 MCV 95.2 MCH 32.4 MCHC 34.0 RDW 14.0 Plt Count 126 L D MPV 10.7 Immature Gran % (Auto) 0.4 Neut % (Auto) 60.5 Lymph % (Auto) 29.4 [place] % (Auto) 8.2 Eos % (Auto) 1.1 Baso % (Auto) 0.4 Lymph # (Auto) 1.3 [place] # (Auto) 0.4 Eos # (Auto) 0.1 Baso # (Auto) 0.0 Abs Immat Gran (auto) 0.02 Absolute Neuts (auto) 2.7 Absolute Nucleated RBC 0.000 Nucleated RBC % (auto) 0.0 PT 16.7 H INR 1.4 H Anion Gap 14 Estim Creat Clear Calc 43.5 Estimated GFR 37 Random Glucose 127 H Calcium 8.0 L Magnesium 0.7 L* Total Bilirubin 0.6 AST 22 ALT 17 Alkaline Phosphatase 79 Ammonia 16 Troponin I High Sens < 2.7 Total Protein 5.7 L Albumin 3.0 L Stool Occult Blood NEGATIVE Ethyl Alcohol < 10 Influenza Type A (PCR) NEGATIVE Influenza Type B (PCR) NEGATIVE RSV RNA Qual (PCR) NEGATIVE SARS-CoV-2 RNA (RT-PCR) NEGATIVE Imaging Radiologist's Impressions: Impressions Head CT 04/25/23 06:36 IMPRESSION: No acute intracranial pathology. Assessment and Plan (1) Alcohol withdrawal: Qualifiers: Complication of substance-induced condition: with delirium Qualified Code(s): F10.931 - Alcohol use, unspecified with withdrawal delirium Status: Acute (2) WILFREDO (acute kidney injury): Status: Acute (3) Hypomagnesemia: Status: Acute Plan 52 yo M with a PMH of non-ischemic CMP with recovered EF, PAF on Elqiuis (question compliance), alcohol abuse and dependence who presents to the ED with visual/auditory/tactile hallucinations which began about 48 hours after he stopped heavy alcohol consumption (4 days prior to admission). He has concurrent electrolyte imbalances and WILFREDO. He will be admitted for further work up and treatment. 1. Acute alcohol withdrawal syndrome Pt with tactile/visual/auditory hallucinations initiated on phenobarb -- continue per protocol; monitor with CIWA in case uptitration of therapies needed Although pt is oriented to place and self, he appears to be completely unaware of his medical history ( denies being on oral anticoagulation, denies history of CHF) will consult addiction medicine 2. WILFREDO likely secondary to hypovolemia IVF monitor renal function check CPK 3. HypoMg 0.7 on admission; given 3g IV in the ED; will repeat lab and replete IV/PO as needed. 4. Erythema/excoriations of the lower back/gluteal region pt reports fall and prolonged laying on back on Saturday currently denies any pain monitor for now 5. Non-ishcemic CMP with recovered EF on Entresto -- hold for WILFREDO on Coreg -- BP on the softer side, hold for today 5. PAF home meds show Eliquis, but patient states he does not take it (states he only took it around the time he was hosptalized 2 years ago); will have to re-discuss with him once he is less confused 6. Pancytopenia likely due to alcoholic liver disease Full Code DVT pptx - lovenox Quality Stroke Does the patient have a stroke diagnosis?: No VTE Prior VTE?: No VTE Risk Level:: Medical - moderate - high VTE Device Contraindication: Treatment Not Indicated VTE Drug Contraindication: N/A - Med Ordered
--- NOTE | 2023-04-25 09:16 | PC.NURSE ---
this RN resumed care of pt at this time. a&ox4. vss and up to date. nsr on the pvc monitor. pt denies any auditory/visual hallucinations at this time. updated CIWA = 0. pt verbalizing pain in buttocks at this time d/t pressure sore/mechanical fall 2 days [employer]. barrier cream applied by previous RN. pt repositioned to promote comfort. no sob/wob noted. respirations even and unlabored. phlebotomy bedside. pt waiting to be admitted at this time. plan of care ongoing. call christian placed within reach.
[2023-04-25] MEDS: Lactated Ringers 1,000 ML 100 ML IVCONT ×2 (09:24→18:47)
[2023-04-25] MEDS: Enoxaparin Sodium 40 MG/0.4 ML SYRINGE SUBCUT (10:20)
[2023-04-25] MEDS: Thiamine HCL 100 MG TABLET PO (10:21)
[2023-04-25] MEDS: PHENobarbitaL sodium 65 MG/ML VIAL Q3Hx2 305 MG IM ×2 (10:21→14:28)
[2023-04-25] MEDS: Folic Acid 1 MG TABLET PO (10:21)
[2023-04-25 10:31] LABS: Folate 11.1 ng/mL (> or = 4.0)
--- NOTE | 2023-04-25 10:46 | PC.NURSE ---
pt seemingly more altered at this time. pt having auditory hallucinations. pt ripped out IV access at this time. pt states that the little girl in the corner ripped it out as he pointed to the corner where there was nothing present. pt also verbalizes he saw multiple coworkers from [employer] walk out from the office to the left wearing their black table and vine t-shirts. he states that he tried to get out of bed but he was glued to the mattress. as new IV access was being established, he asked this RN if he was being injected with tuna. new 20gIV placed in the right AC - wrapped w/ gauze for safety precautions. pt sitting upright eating breakfast tray at this time. no sob/wob noted. respirations even and unlabored. call christian placed within reach.
[2023-04-25 10:48] LABS: Glucose, Whole Blood 91 mg/dL (60-115)
[2023-04-25 11:27] LABS: Vitamin B12 570 pg/mL (200-900)
[2023-04-25] MEDS: Cyanocobalamin (Vitamin B-12) 500 MCG TABLET PO (11:47)
--- NOTE | 2023-04-25 11:48 | PC.NURSE ---
delay in medication administration d/t not being delivered by pharmacy. medication now administered per provider order. pt remains to having visual/auditory hallucinations at this time. pt thinks that he is at a [employer] reunion - naming off employees names as people are walking by. respirations remain even and unlabored. call christian placed within reach.
[2023-04-25 13:07] LABS: Appearance Urine Turbid; Color Urine Dark Yellow; Glucose Urine UA Negative (Negative); Leukocyte Esterase Urine Negative (Negative); Nitrite Urine Negative (Negative); PH 5.5 (5.0-9.0); Specific Gravity - Urine >= 1.030 (1.005-1.025); Urine Blood Negative (Negative); Urine Ketones 15 mg/dL (Negative); Urine Protein Trace mg/dL (Neg-Trace)
[2023-04-25 13:18] LABS: Amphetamine Screen Urine Not Detected (Not Detect); Barbiturates, Urine POSITIVE (Not Detect); Benzodiazepines Screen Urine Not Detected (Not Detect); Cannabinoid Screen Urine Not Detected (Not Detect); Cocaine Screen Urine Not Detected (Not Detect); Fentanyl, urine Not Detected (Not Detect); Opiate Screen Urine Not Detected (Not Detect); Phencyclidine Screen Urine Not Detected (Not Detect)
--- NOTE | 2023-04-25 15:29 | PC.NURSE ---
pt continuously having visual and auditory hallucinations at this time. pt staring off to the side speaking to his friend juju about the latest [employer] gossip. able to easily redirect/follow commands. pt continues to wait for bed assignment at this time. call christian placed within reach.
[2023-04-25 16:58] LABS: Magnesium 1.5 mg/dL (1.6-2.6)
[2023-04-25] MEDS: PHENobarbitaL 15 MG TABLET 45 MG PO (21:01)
[2023-04-26] VITALS (7 sets, daily range): BP systolic 109–150; BP diastolic 72–96; PULSE 81–93; RESP 15–18; TEMP 36–36.9; O2SAT 98–100
[2023-04-26] MEDS: PHENobarbitaL 30 MG TABLET PO (00:50)
[2023-04-26] MEDS: 0.9 % Sodium Chloride Flush 3 ML SYRINGE IVFLUSH ×3 (00:51→21:22)
[2023-04-26 06:29] LABS: Anion Gap 10 (12-20); Blood Urea Nitrogen 19 mg/dL (9-16); Calcium 7.7 mg/dL (8.4-10.2); Carbon Dioxide 26 mmol/L (22-29); Chloride 105 mmol/L (96-108); Creatinine Clr Calc Pharmacy 83.2; Estimated Glomerular Filt Rate > 60; Glucose Random 102 mg/dL (60-115); Magnesium 1.2 mg/dL (1.6-2.6); Potassium 2.9 mmol/L (3.3-5.1); Sodium 138 mmol/L (135-145)
[2023-04-26] MEDS: Potassium Chloride ER 20 MEQ TAB.ER.PRT 40 MEQ PO ×3 (06:58→21:21)
[2023-04-26] MEDS: Magnesium Sulfate/H2O 2 GM/50 ML PIGGYBACK IV (06:58)
[2023-04-26] MEDS: PHENobarbitaL 15 MG TABLET 45 MG PO ×2 (07:44→21:21)
[2023-04-26] MEDS: Thiamine HCL 100 MG TABLET PO (07:44)
[2023-04-26] MEDS: Enoxaparin Sodium 40 MG/0.4 ML SYRINGE SUBCUT (07:44)
[2023-04-26] MEDS: Folic Acid 1 MG TABLET PO (07:44)
[2023-04-26] MEDS: Cyanocobalamin (Vitamin B-12) 500 MCG TABLET PO (07:44)
--- NOTE | 2023-04-26 08:54 | MHC.CM.PN ---
EMR REVIEWED, PT ADMITTED W/ETOH WITHDRAWAL, CM MET W/PT WHO IS ALERT AND ABLE TO ANSWER CM QUESTIONS HOWEVER AT THE END OF ASSESSMENT PT APPEARED CONFUSED HOWEVER PLEASANT. PER PLUMBING AND HEATING MECHANIC PT ON SITTER D/T CONFUSION AND TRYING TO GET OUT OF BED. PT REPORTS HIS GOAL IS HOME NO SERVICES, PT WILL NEED RECOVERY TEAM PRIOR TO DC. PT VERIFIES PCP IS ANTONIA MILLER, FULLY COVID VAXED (MODERNA) AND HCP ON FILE IS PT'S MOTHER CJ, CONTACT # ON FILE.
[2023-04-26 15:06] LABS: Anion Gap 10 (12-20); Blood Urea Nitrogen 17 mg/dL (9-16); Calcium 7.7 mg/dL (8.4-10.2); Carbon Dioxide 27 mmol/L (22-29); Chloride 106 mmol/L (96-108); Creatinine Clr Calc Pharmacy 92.4; Estimated Glomerular Filt Rate > 60; Glucose Random 104 mg/dL (60-115); Magnesium 1.5 mg/dL (1.6-2.6); Potassium 3.6 mmol/L (3.3-5.1); Sodium 139 mmol/L (135-145)
--- NOTE | 2023-04-26 17:36 | HO.PM.IMPN ---
Subjective Subjective Date of Service: 04/26/23 Interval History: Alcohol withdrawal Review of Systems Patient still has tremulous, denies visual hallucination today No fever or chills Physical Exam Vital Signs: Vital Signs: Last Vital Signs Temp 98.1 F 04/26/23 16:00 Pulse 83 04/26/23 16:00 Resp 17 04/26/23 16:00 BP 134/72 04/26/23 16:00 Pulse Ox 100 04/26/23 16:00 O2 Del Method Room Air 04/26/23 16:00 BMI result Body Mass Index 22.1 Appearance: Alert.? Oriented. cvs: rrr, [id number] . res: clear to auscultation ,no rhonchii or wheezing abd: no rebound or guarding ,nt, bs present. ext pulses present , no cyanosis . neuro: axo3 , nonfocal. Objective Data Active Medications Cyanocobalamin (Cyanocobalamin (Vitamin B-12) 500 Mcg Tablet) 500 mcg PO DAILY [facility] Last Admin: 04/26/23 07:44 Dose: 500 mcg Documented By: SHRUTI Enoxaparin Sodium (Enoxaparin Sodium 40 Mg/0.4 Ml Syringe) 40 mg SUBCUT Q24H [facility] Last Admin: 04/26/23 07:44 Dose: 40 mg Documented By: SHRUTI Folic Acid (Folic Acid 1 Mg Tablet) 1 mg PO DAILY [facility] Last Admin: 04/26/23 07:44 Dose: 1 mg Documented By: SHRUTI Pharmacy Consult (Consult Rx Etoh Phenob Im/Po) 1 each MISCELLANE ONCE PRN; Protocol PRN Reason: Consult order Phenobarbital (Phenobarbital 15 Mg Tablet) 45 mg PO BID [facility]; Protocol Stop: 04/27/23 09:01 Last Admin: 04/26/23 07:44 Dose: 45 mg Documented By: SHRUTI Phenobarbital (Phenobarbital 15 Mg Tablet) 15 mg PO BID [facility]; Protocol Stop: 04/29/23 09:01 Phenobarbital (Phenobarbital 15 Mg Tablet) 15 mg PO DAILY [facility]; Protocol Stop: 05/01/23 09:01 Potassium Chloride (Potassium Chloride Er 20 Meq Tab.Er.Prt) 40 meq PO BID [facility] Last Admin: 04/26/23 07:44 Dose: 40 meq Documented By: SHRUTI Sodium Chloride (0.9 % Sodium Chloride Flush 3 Ml Syringe) 3 ml IVFLUSH QSHIFT [facility] Last Admin: 04/26/23 17:13 Dose: Not Given Documented By: ROLDAN Non-Admin Reason: Patient Asleep Thiamine HCl (Thiamine Hcl 100 Mg Tablet) 100 mg PO DAILY [facility] Last Admin: 04/26/23 07:44 Dose: 100 mg Documented By: SHRUTI Labs 04/25/23 05:32 04/26/23 14:25 Labs: Laboratory Results - last 24 hr 04/26/23 04/26/23 05:51 14:25 Hold Purple Top SEE NOTE Anion Gap 10 L 10 L Estim Creat Clear Calc 83.2 92.4 Estimated GFR > 60 > 60 Random Glucose 102 104 Calcium 7.7 L 7.7 L Magnesium 1.2 L* 1.5 L Assessment and Plan (1) Hypomagnesemia: Status: Acute (2) WILFREDO (acute kidney injury): Status: Acute Plan 52 yo M with a PMH of non-ischemic CMP with recovered EF, PAF on Elqiuis (question compliance), alcohol abuse and dependence who presents after stopped heavy alcohol consumption (4 days prior to admission)-found tohave alcohol withdrawal symptoms and wilfredo. Acute alcohol withdrawal syndrome still tramulous more aox3 tramulousand anxious plan: continue phenobarb protocol, CIWA WILFREDO and electrolyte abnormalities: cpk normal [place] improving with hydration, has hypokalemia and hypomagnesemia-repleted Monitor renal function and electrolytes Erythema/excoriations of the lower back/gluteal region pt reports fall and prolonged laying on back on Saturday currently denies any pain Ct head negative monitor for now,pt eval Non-ishcemic CMP with recovered EF started Entresto ,if bp allows will add back on Coreg . PAF: continue home meds show Eliquis, but patient states he does not take it (states he only took it around the time he was hosptalized 2 years ago). Pancytopenia:likely due to alcoholic liver disease and alcohol use denies any gross bleeding moniter cbc Full Code DVT pptx - lovenox Ongoing hospitalization need for possible 48-72 hour: Alcohol withdrawal, multiple electrolytic abnormalities, WILFREDO: Need IV hydration, phenobarb protocol, electrolyte replacement, renal function electrolyte monitoring as well as Quality Stroke Does the patient have a stroke diagnosis?: No VTE Prior VTE?: No VTE Risk Level:: Medical - moderate - high VTE Device Contraindication: Treatment Not Indicated VTE Drug Contraindication: N/A - Med Ordered
[2023-04-26] MEDS: Sacubitril/Valsartan 49/51 1 TAB TABLET PO (22:36)
[2023-04-27 03:59] VITALS: BP 131/98; PULSE 88; RESP 19; TEMP 36.7; O2SAT 99
[2023-04-27 07:04] VITALS: BP 131/91; PULSE 76; RESP 18; TEMP 36.1; O2SAT 99
[2023-04-27] MEDS: Enoxaparin Sodium 40 MG/0.4 ML SYRINGE SUBCUT (08:59)
[2023-04-27] MEDS: Potassium Chloride ER 20 MEQ TAB.ER.PRT 40 MEQ PO ×2 (08:59→20:23)
[2023-04-27] MEDS: 0.9 % Sodium Chloride Flush 3 ML SYRINGE IVFLUSH ×3 (08:59→20:24)
[2023-04-27] MEDS: Thiamine HCL 200 MG in 0.9 % Sodium Chloride 100 ML 204 MG IV ×2 (08:59→16:59)
[2023-04-27] MEDS: Sacubitril/Valsartan 49/51 1 TAB TABLET PO ×2 (08:59→20:24)
[2023-04-27] MEDS: Cyanocobalamin (Vitamin B-12) 500 MCG TABLET PO (09:00)
[2023-04-27] MEDS: PHENobarbitaL 15 MG TABLET 45 MG PO (09:00)
[2023-04-27] MEDS: Folic Acid 1 MG TABLET PO (09:00)
[2023-04-27 11:01] VITALS: BP 113/84; PULSE 91; RESP 18; TEMP 36.1; O2SAT 97
[2023-04-27 11:24] LABS: Hematocrit 26.7 % (42.0-52.0); Hemoglobin 8.9 g/dl (14.0-18.0); Mean Corpuscular HGB Conc 33.3 g/dl (31.0-36.0); Mean Corpuscular Hemoglobin 32.8 pg (27.0-33.0); Mean Corpuscular Volume 98.5 fL (80.0-98.0); Mean Platelet Volume 11.2 fL (9.4-12.4); Platelet Count 151 X10*3/uL (160-400); Red Blood Count 2.71 X10*6/uL (4.60-5.80); Red Cell Distribution Width 14.6 % (11.0-16.0); White Blood Count 5.2 X10*3/uL (4.8-10.8)
--- NOTE | 2023-04-27 11:42 | MHC.CM.PN ---
NO PLAN FOR DC TODAY PATIENT IS STILL REQUIRING MEDICAL MONITORING AND MANAGEMENT FOR ELECTROLYTE IMBALANCE AND WITHDRAWAL SYMPTOMS.
--- NOTE | 2023-04-27 11:56 | MHC.RECOVRN ---
T/W went to provide [facility] assessment pt. per request. Pt was not feeling up to meeting today. Did take resource folder and requested I come back tomorrow. Report to nurse Tomas and will re visit tomorrow.
[2023-04-27 12:06] LABS: Anion Gap 7 (12-20); Blood Urea Nitrogen 13 mg/dL (9-16); Calcium 8.1 mg/dL (8.4-10.2); Carbon Dioxide 28 mmol/L (22-29); Chloride 108 mmol/L (96-108); Creatinine Clr Calc Pharmacy 100.1; Estimated Glomerular Filt Rate > 60; Glucose Random 145 mg/dL (60-115); Magnesium 1.2 mg/dL (1.6-2.6); Potassium 4.1 mmol/L (3.3-5.1); Sodium 139 mmol/L (135-145)
[2023-04-27] MEDS: Magnesium Sulfate/D5W 1 GM/100 ML PIGGYBACK IV (13:18)
--- NOTE | 2023-04-27 14:54 | HO.PM.IMPN ---
Subjective Subjective Date of Service: 04/27/23 Interval History: Alcohol withdrawal Review of Systems patient seems tremulous, denies visual hallucination ,No fever or chills Physical Exam Vital Signs: Vital Signs: Last Vital Signs Temp 96.9 F 04/27/23 11:01 Pulse 91 04/27/23 11:01 Resp 18 04/27/23 11:01 BP 113/84 04/27/23 11:01 Pulse Ox 97 04/27/23 11:01 O2 Del Method Room Air 04/27/23 11:01 BMI result Body Mass Index 22.1 Appearance: Alert.? Oriented. cvs: rrr, [id number] . res: clear to auscultation ,no rhonchii or wheezing abd: no rebound or guarding ,nt, bs present. ext pulses present , no cyanosis . neuro: axo3 , nonfocal. Objective Data Active Medications Cyanocobalamin (Cyanocobalamin (Vitamin B-12) 500 Mcg Tablet) 500 mcg PO DAILY [facility] Last Admin: 04/27/23 09:00 Dose: 500 mcg Documented By: PRANAY Enoxaparin Sodium (Enoxaparin Sodium 40 Mg/0.4 Ml Syringe) 40 mg SUBCUT Q24H [facility] Last Admin: 04/27/23 08:59 Dose: 40 mg Documented By: PRANAY Folic Acid (Folic Acid 1 Mg Tablet) 1 mg PO DAILY [facility] Last Admin: 04/27/23 09:00 Dose: 1 mg Documented By: PRANAY Thiamine HCl 200 mg/ Sodium (Chloride) 102 mls @ 204 mls/hr IV Q8H [facility] Last Infusion: 04/27/23 09:56 Dose: Infused Documented By: PRANAY Pharmacy Consult (Consult Rx Etoh Phenob Im/Po) 1 each MISCELLANE ONCE PRN; Protocol PRN Reason: Consult order Phenobarbital (Phenobarbital 15 Mg Tablet) 15 mg PO BID [facility]; Protocol Stop: 04/29/23 09:01 Phenobarbital (Phenobarbital 15 Mg Tablet) 15 mg PO DAILY [facility]; Protocol Stop: 05/01/23 09:01 Potassium Chloride (Potassium Chloride Er 20 Meq Tab.Er.Prt) 40 meq PO BID [facility] Last Admin: 04/27/23 08:59 Dose: 40 meq Documented By: PRANAY Sacubitril/Valsartan (Sacubitril/Valsartan 49/51 1 Tab Tablet) 1 tab PO BID [facility]; Protocol Last Admin: 04/27/23 08:59 Dose: 1 tab Documented By: PRANAY Sodium Chloride (0.9 % Sodium Chloride Flush 3 Ml Syringe) 3 ml IVFLUSH QSHIFT [facility] Last Admin: 04/27/23 08:59 Dose: 3 ml Documented By: PRANAY Labs 04/27/23 10:41 04/27/23 10:41 Labs: Laboratory Results - last 24 hr 04/26/23 04/27/23 14:25 10:41 MCV 98.5 H MCH 32.8 MCHC 33.3 RDW 14.6 Plt Count 151 L MPV 11.2 Absolute Nucleated RBC 0.000 Nucleated RBC % (auto) 0.0 Anion Gap 10 L 7 L Estim Creat Clear Calc 92.4 100.1 Estimated GFR > 60 > 60 Random Glucose 104 145 H Calcium 7.7 L 8.1 L Magnesium 1.5 L 1.2 L* Assessment and Plan (1) Hypomagnesemia: Status: Acute (2) Alcohol withdrawal: Status: Acute Plan 52 yo M with a PMH of non-ischemic CMP with recovered EF, PAF on Elqiuis (question compliance), alcohol abuse and dependence who presents after stopped heavy alcohol consumption (4 days prior to admission)-found tohave alcohol withdrawal symptoms and wilfredo. Acute alcohol withdrawal syndrome still tramulous more aox3 tramulousand anxious plan: continue phenobarb protocol, CIWA WILFREDO and electrolyte abnormalities: cpk normal [place] improving with hydration, has hypokalemia and hypomagnesemia-repleted Monitor renal function and electrolytes Erythema/excoriations of the lower back/gluteal region pt reports fall and prolonged laying on back on Saturday currently denies any pain Ct head negative monitor for now,pt eval Non-ishcemic CMP with recovered EF started Entresto ,if bp allows will add back on Coreg . PAF: continue home meds show Eliquis, but patient states he does not take it (states he only took it around the time he was hosptalized 2 years ago). Pancytopenia:likely due to alcoholic liver disease and alcohol use denies any gross bleeding moniter cbc Full Code DVT pptx - lovenox Ongoing hospitalization need for possible 48-72 hour: Alcohol withdrawal, multiple electrolytic abnormalities, WILFREDO: Need IV hydration, phenobarb protocol, electrolyte replacement, renal function electrolyte monitoring as well as Quality Stroke Does the patient have a stroke diagnosis?: No VTE Prior VTE?: No VTE Risk Level:: Medical - moderate - high VTE Device Contraindication: Treatment Not Indicated VTE Drug Contraindication: N/A - Med Ordered
[2023-04-27 16:00] VITALS: BP 102/71; PULSE 86; RESP 15; TEMP 37.1; O2SAT 94
[2023-04-27 20:00] VITALS: BP 120/84; PULSE 93; RESP 18; TEMP 36.7; O2SAT 96
[2023-04-27] MEDS: PHENobarbitaL 15 MG TABLET PO (20:24)
[2023-04-27 23:38] VITALS: BP 121/84; PULSE 85; RESP 18; TEMP 36.7; O2SAT 97
[2023-04-28] MEDS: Thiamine HCL 200 MG in 0.9 % Sodium Chloride 100 ML 204 MG IV ×3 (00:02→17:13)
[2023-04-28 04:00] VITALS: BP 120/80; PULSE 18; RESP 18; TEMP 36.9; O2SAT 97
[2023-04-28 08:00] VITALS: BP 119/85; PULSE 95; RESP 16; TEMP 36.8; O2SAT 97
[2023-04-28] MEDS: Potassium Chloride ER 20 MEQ TAB.ER.PRT 40 MEQ PO ×2 (08:35→22:08)
[2023-04-28] MEDS: PHENobarbitaL 15 MG TABLET PO ×2 (08:36→22:09)
[2023-04-28] MEDS: Sacubitril/Valsartan 49/51 1 TAB TABLET PO ×2 (08:36→22:09)
[2023-04-28] MEDS: Folic Acid 1 MG TABLET PO (08:36)
[2023-04-28] MEDS: Enoxaparin Sodium 40 MG/0.4 ML SYRINGE SUBCUT (08:36)
[2023-04-28] MEDS: 0.9 % Sodium Chloride Flush 3 ML SYRINGE IVFLUSH ×3 (08:37→22:10)
[2023-04-28] MEDS: Cyanocobalamin (Vitamin B-12) 500 MCG TABLET PO (08:48)
[2023-04-28 12:00] VITALS: BP 105/85; PULSE 106; RESP 18; TEMP 36.7; O2SAT 99
[2023-04-28] MEDS: carvediloL 25 MG TABLET PO ×2 (12:39→22:09)
[2023-04-28] MEDS: Sertraline HCL 50 MG TABLET PO (12:39)
[2023-04-28] MEDS: Gabapentin 100 MG CAPSULE PO ×2 (12:40→22:09)
[2023-04-28] MEDS: Apixaban 5 MG TABLET PO ×2 (12:40→22:09)
--- NOTE | 2023-04-28 13:04 | MHC.RECOVRN ---
Met with pt. in 459 after consult placed to Addiction Medicine ETOH use.? ? Chart review completed and received report from floor nurse Miriam. Pt had presented to the ED with A/V hallucinations for a few days.? . Pt was admitted to the floor further work up and treatment r/t Alcohol W/D, WILFREDO and Hypomagnesemia. Upon assessment pt is sitting in bedside recliner and eating lunch.? No W/D sx reported or observed.? Pt?s CIWA this AM was 0.? Pt appears comfortable and A&Ox4.? Pt reports a long history of drinking spanning over ?many years? but increased over the last year due to loss of job.? ?He reports a significant family h/o alcoholism.? ?He currently drinks vodka ? gallon every 4 days.? He drinks daily.? He recently had to cut down due to losing his job and funds.? He reports that his last drink? was 1 week ago (on a Sun) for for the two days following he was experiencing A/V hallucinations.? He then came to the ER.? When I asked pt about seizures with W/D he said no.? Pt reports a period of sobriety for 2 months when he was going to [facility] for ?urine tests only?.? He stated that they would accuse him of drinking but he was not.? He reports he had to stop going as his insurance would not pay and he could not afford it. Pt reports he currently received naltrexone from ?Dr. Elizabeth? Pt is not interested in changing any services at this time and would like to continue with Dr. Elizabeth and his Naltrexone.? He also states his goal is not to stop drinking completely just to stop vodka and be able to drink ?a beer when watching the game?.? T/W reviewed materials and resources with pt. including harm reduction education. Pt is open to return visit tomorrow from [facility] if he is still in the hospital. Report to T[employer] Eradicator Kirsten Pan, MINI, nurse Pineda and ATS team
--- NOTE | 2023-04-28 13:36 | P.PNIM_ITS ---
Subjective Subjective Date of Service: 04/28/23 Interval History: Alcohol withdrawal Review of Systems tremulous, denies visual hallucination ,No fever or chills Physical Exam 2 Vital Signs: Vital Signs: Last Vital Signs Temp 98.0 F 04/28/23 12:00 Pulse 106 H 04/28/23 12:00 Resp 18 04/28/23 12:00 BP 105/85 04/28/23 12:00 Pulse Ox 99 04/28/23 12:00 O2 Del Method Room Air 04/28/23 12:00 BMI result Body Mass Index 22.1 Appearance: Alert.? Oriented. cvs: rrr, [id number] . res: clear to auscultation ,no rhonchii or wheezing abd: no rebound or guarding ,nt, bs present. ext pulses present , no cyanosis . neuro: axo3 , nonfocal. Objective Data Active Medications Apixaban (Apixaban 5 Mg Tablet) 5 mg PO BID [facility] Last Admin: 04/28/23 12:40 Dose: 5 mg Documented By: ANA Carvedilol (Carvedilol 25 Mg Tablet) 25 mg PO BID [facility]; Protocol Last Admin: 04/28/23 12:39 Dose: 25 mg Documented By: ANA Cyanocobalamin (Cyanocobalamin (Vitamin B-12) 500 Mcg Tablet) 500 mcg PO DAILY [facility] Last Admin: 04/28/23 08:48 Dose: 500 mcg Documented By: ANA Folic Acid (Folic Acid 1 Mg Tablet) 1 mg PO DAILY [facility] Last Admin: 04/28/23 08:36 Dose: 1 mg Documented By: ANA Folic Acid (Folic Acid 1 Mg Tablet) 1 mg PO DAILY [facility] Last Admin: 04/28/23 12:06 Dose: Not Given Documented By: ANA Non-Admin Reason: Duplicate Order Gabapentin (Gabapentin 100 Mg Capsule) 100 mg PO BEDTIME [facility] Last Admin: 04/28/23 12:40 Dose: 100 mg Documented By: ANA Thiamine HCl 200 mg/ Sodium (Chloride) 102 mls @ 204 mls/hr IV Q8H [facility] Last Infusion: 04/28/23 09:13 Dose: Infused Documented By: ANA Pharmacy Consult (Consult Rx Etoh Phenob Im/Po) 1 each MISCELLANE ONCE PRN; Protocol PRN Reason: Consult order Phenobarbital (Phenobarbital 15 Mg Tablet) 15 mg PO BID [facility]; Protocol Stop: 04/29/23 09:01 Last Admin: 04/28/23 08:36 Dose: 15 mg Documented By: ANA Phenobarbital (Phenobarbital 15 Mg Tablet) 15 mg PO DAILY [facility]; Protocol Stop: 05/01/23 09:01 Potassium Chloride (Potassium Chloride Er 20 Meq Tab.Er.Prt) 40 meq PO BID [facility] Last Admin: 04/28/23 08:35 Dose: 40 meq Documented By: ANA Sacubitril/Valsartan (Sacubitril/Valsartan 49/51 1 Tab Tablet) 1 tab PO BID [facility]; Protocol Last Admin: 04/28/23 08:36 Dose: 1 tab Documented By: ANA Sertraline HCl (Sertraline Hcl 50 Mg Tablet) 50 mg PO DAILY [facility] Last Admin: 04/28/23 12:39 Dose: 50 mg Documented By: ANA Sodium Chloride (0.9 % Sodium Chloride Flush 3 Ml Syringe) 3 ml IVFLUSH QSHIFT [facility] Last Admin: 04/28/23 08:37 Dose: 3 ml Documented By: ANA Triamcinolone Acetonide (Triamcinolone Acet 0.5 % Cream 15 Gm Tube) 1 appl TOPICAL BID [facility]; Protocol Last Admin: 04/28/23 12:40 Dose: Not Given Documented By: ANA Non-Admin Reason: Med Not Available Labs 04/27/23 10:41 04/27/23 10:41 Assessment and Plan (1) Hypomagnesemia: Status: Acute (2) Alcohol withdrawal: Status: Acute Plan 52 yo M with a PMH of non-ischemic CMP with recovered EF, PAF on Elqiuis (question compliance), alcohol abuse and dependence who presents after stopped heavy alcohol consumption (4 days prior to admission)-found tohave alcohol withdrawal symptoms and wilfredo. Acute alcohol withdrawal syndrome still tramulous more aox3 tramulous and anxious plan: continue phenobarb protocol, CIWA WILFREDO and electrolyte abnormalities: cpk normal Wilfredo improved with hydration hypokalemia and hypomagnesemia-repleted and resolved. Monitor renal function and electrolytes Erythema/excoriations of the lower back/gluteal region pt reports fall and prolonged laying on back on Saturday currently denies any pain Ct head negative monitor for now,pt eval Non-ishcemic CMP with recovered EF on Entresto , Coreg . PAF: continue home meds show Eliac,patient says he takes at home(last time he took this be admission). Pancytopenia:likely due to alcoholic liver disease and alcohol use denies any gross bleeding moniter cbc Full Code DVT pptx - lovenox Ongoing hospitalization need for possible 48-72 hour: Alcohol withdrawal, multiple electrolytic abnormalities, WILFREDO: Need IV hydration, phenobarb protocol, electrolyte replacement, renal function electrolyte monitoring as well as electrolytes. Quality Stroke Does the patient have a stroke diagnosis?: No VTE Prior VTE?: No VTE Risk Level:: Medical - moderate - high VTE Device Contraindication: Treatment Not Indicated VTE Drug Contraindication: N/A - Med Ordered
[2023-04-28 16:00] VITALS: BP 96/65; PULSE 81; RESP 16; TEMP 37; O2SAT 97
[2023-04-28 20:00] VITALS: BP 99/70; PULSE 95; RESP 20; TEMP 36.4; O2SAT 96
[2023-04-28 20:39] LABS: Glucose, Whole Blood 144 mg/dL (60-115)
[2023-04-28] MEDS: Triamcinolone Acet 0.5 % Cream 15 GM TUBE 1 APPL TOPICAL (22:08)
[2023-04-28 23:42] VITALS: BP 115/81; PULSE 73; RESP 20; TEMP 36.6; O2SAT 99
[2023-04-29] MEDS: Thiamine HCL 200 MG in 0.9 % Sodium Chloride 100 ML 204 MG IV ×2 (01:30→08:41)
[2023-04-29 03:36] VITALS: BP 114/74; PULSE 87; RESP 20; TEMP 36.1; O2SAT 93
[2023-04-29 08:00] VITALS: BP 115/75; PULSE 92; RESP 20; TEMP 36.3; O2SAT 99
[2023-04-29] MEDS: Sertraline HCL 50 MG TABLET PO (08:42)
[2023-04-29] MEDS: Sacubitril/Valsartan 49/51 1 TAB TABLET PO (08:42)
[2023-04-29] MEDS: carvediloL 25 MG TABLET PO (08:42)
[2023-04-29] MEDS: Potassium Chloride ER 20 MEQ TAB.ER.PRT 40 MEQ PO (08:42)
[2023-04-29] MEDS: PHENobarbitaL 15 MG TABLET PO (08:43)
[2023-04-29] MEDS: Cyanocobalamin (Vitamin B-12) 500 MCG TABLET PO (08:43)
[2023-04-29] MEDS: Apixaban 5 MG TABLET PO (08:43)
[2023-04-29] MEDS: Folic Acid 1 MG TABLET PO (08:44)
[2023-04-29] MEDS: Triamcinolone Acet 0.5 % Cream 15 GM TUBE 1 APPL TOPICAL (09:02)
[2023-04-29 10:17] LABS: Hematocrit 27.5 % (42.0-52.0); Hemoglobin 9.1 g/dl (14.0-18.0)
[2023-04-29 11:09] VITALS: BP 90/61; PULSE 90; RESP 20; TEMP 36.2; O2SAT 98
[2023-04-29 11:14] LABS: Anion Gap 10 (12-20); Blood Urea Nitrogen 12 mg/dL (9-16); Calcium 9.1 mg/dL (8.4-10.2); Carbon Dioxide 25 mmol/L (22-29); Chloride 108 mmol/L (96-108); Creatinine Clr Calc Pharmacy 81.6; Estimated Glomerular Filt Rate > 60; Glucose Random 114 mg/dL (60-115); Magnesium 1.3 mg/dL (1.6-2.6); Potassium 5.1 mmol/L (3.3-5.1); Sodium 138 mmol/L (135-145)
[2023-04-29] MEDS: Magnesium Oxide 400 MG TABLET 800 MG PO (11:48)
[2023-04-29] MEDS: Magnesium Sulfate/H2O 2 GM/50 ML PIGGYBACK IV (11:49)
--- NOTE | 2023-04-29 11:51 | MHC.CM.PN ---
PER MD ROUNDS, PT MAY BE CLEARED TO DC TODAY PENDING LABS DCP REMAINS HOME WITH NO SERVICES VIA PRIVATE TRANSPORT
--- NOTE | 2023-04-29 14:23 | HO.WOUND ---
Wound Consult: Initial 52yr old M? admitted to [facility] on 04/25/23 09:00 - See progress notes and H&P for detailed history.? Wound consult placed for Back Buttock redness.? Patient agreeable to assessment and photo documentation.? Patient reports he was on a 5 day crouch and was incontinent of urine and stool on several occasions . We discussed the area to his left buttocks is resolving and will benefit from barrier cream and foam dressing. He reports understanding. Left Buttock Etiology: MASD _IAD (Moisture Associated Skin Damage - Incontinence Associated Dermatitis)??No pressure related injury Wound Bed: scattered areas of partial thickness tissue loss - clean pink red moist wound bed - no dressing in place - barrier cream and foam dressing applied - pt reports increased comfort. Drainage / Odor: scant serosang Edges: ? irregular Leydi wound: ?red blanchable throughout No Induration, Fluctuance or Warmth noted - per direct care team improve redness Pain: reports pain and tenderness to open wound bed Goals of Treatment: ? Moist wound healing - barrier cream to protect from moisture and friciton - foam dressing applied. Recommendations: 1. Buttocks and Scrotum - Cleanse with routine bathing, PH balanced cleanser, dry well. Apply barrier cream to open and reddened area. May cover open wound with foam dressing. Apply barrier twice daily and as needed. Re-consult wound care Nurse for wound deterioration or wound changes.
[2023-04-29 14:46] LABS: Magnesium 2.1 mg/dL (1.6-2.6)
[2023-04-29 15:20] VITALS: BP 103/54; PULSE 80; RESP 22; TEMP 36.7; O2SAT 99
--- NOTE | 2023-04-29 16:28 | PM.DS ---
DS: Providers Provider Date of Service: 04/29/23 Date of admission: 04/25/23 09:00 Date of discharge: 04/29/23 Primary care physician: Wendie Maria MD Consults: 04/25/23 08:59 Addiction Medicine Routine Consulting Provider: Addiction Covering Reason for consultation: alcohol withdrawal, stopped cold turkey 04/29/23 13:03 Consult to Wound Care Routine Reason for consultation: back erythema/excoriations Attending physician on discharge: Jaime Gottlieb Discharging clinician: Jaime Gottlieb DS: Diagnosis Discharge Diagnosis (1) Hypomagnesemia: Status: Acute (2) Alcohol withdrawal: Status: Acute DS: Summary Hospital Course Hospital Course: 52 year old male with a PMH as outlined below who presents to [facility] ED after he called paramedics for visual hallucinations. The patient states that he is a heavy drinker, however, over the last 6 months he has been decreasing his intake slowly. He states over the last several weeks, he has been drinking about 3-4 drinks daily and he decided to stop cold turkey on Saturday (4 days prior to admission). He says that since then, he has had visual/auditory and tactile hallucinations. He felt that people were in his closet, things around his house was being moved and on the day admission, he heard 2 little girls in his closet. He also reports a mechanical fall 2 days prior to admission. He denies prior such hallucinations. In the ED, the patient was noted to have WILFREDO with SCr nearly 2; His Mag is 0.7, K 3.2; Platelets 125; He has been given 3g of IV mag, IVF and has been initiated on IVF. He will now be admitted for further work up and treatment. Hospital course: Patient was admitted for alcohol withdrawal, electrolyte abnormalities, also possible toxic metabolic encephalopathy secondary to alcohol use and electrolyte abnormalities as well as dehydration: Patient was started on IV hydration, potassium and magnesium repleted, also started on phenobarb protocol: Patient seems to be improved significantly. Repleted for magnesium and potassium and improved. Erythema/excoriations of the lower back/gluteal region: wound care instructions: Buttocks and Scrotum - Cleanse with routine bathing, PH balanced cleanser, dry well. Apply barrier cream to open and reddened area. May cover open wound with foam dressing. Apply barrier twice daily and as needed. plan: Monitor renal function electrolytes outpatient, further management outpatient. follow up with pcp Above management discussed with the patient detail length he understand in agreement with the above plan, time spent 50 minute. Time Attestation Total time managing care of this patient today: 50 mintues. Discharge Coordination Time (in mins): 50 min Quality: Safe Use of Opioids Does Pt have an Active Cancer Diagnosis on the Problem List?: No Quality: Stroke Does the patient have a stroke diagnosis?: No Physical Exam Vital Signs: Vital Signs: Last Vital Signs Temp 98.0 F 04/29/23 15:20 Pulse 80 04/29/23 15:20 Resp 22 H 04/29/23 15:20 BP 103/54 L 04/29/23 15:20 Pulse Ox 99 04/29/23 15:20 O2 Del Method Room Air 04/29/23 15:20 BMI result Body Mass Index 22.1 Appearance: Alert.? Oriented. cvs: rrr, [id number] . res: clear to auscultation ,no rhonchii or wheezing abd: no rebound or guarding ,nt, bs present. ext pulses present , no cyanosis . neuro: axo3 , nonfocal. DS: Data Data Completed and Pending Labs on day of discharge: Laboratory Results - last 24 hr 04/28/23 04/29/23 04/29/23 20:09 09:54 14:08 Hgb 9.1 L Hct 27.5 L Sodium 138 Potassium 5.1 D Chloride 108 Carbon Dioxide 25 Anion Gap 10 L BUN 12 Creatinine 1.03 Estim Creat Clear Calc 81.6 Estimated GFR > 60 POC Glucose 144 H Random Glucose 114 Calcium 9.1 D Magnesium 1.3 L* 2.1 Imaging Chest x-ray: Radiologist's impression: ITS Impressions Head CT 04/25/23 06:36 IMPRESSION: No acute intracranial pathology. Discharge Plan Discharge Anticipated Discharge Date/Time: 04/29/23 11:10 Patient Disposition: Home, Self-Care Discharge Diagnosis: Alcohol withdrawal, hypokalemia and hypomagnesemia Referrals: Po,Wendie Jose MD [Primary Care Provider] - 1 Week Discharge Medications: New magnesium oxide 400 mg magnesium tablet 400 mg PO BID Qty: 14 0RF thiamine HCl (vitamin B1) 100 mg tablet 100 mg PO DAILY Qty: 30 0RF folic acid 1 mg tablet 1 mg PO DAILY Qty: 30 0RF Continued Eliquis 5 mg tablet 5 mg PO BID 90 Days Qty: 180 3RF gabapentin 100 mg capsule 100 mg PO BEDTIME Qty: 90 3RF Entresto 49-51 mg tablet 1 tab PO BID Qty: 180 3RF sertraline 50 mg tablet 50 mg PO DAILY 30 Days Qty: 90 2RF naltrexone 50 mg tablet 100 mg PO DAILY Qty: 120 0RF triamcinolone acetonide 0.5 % cream 1 appl topical BID Qty: 15 0RF cyanocobalamin (vitamin B-12) 500 mcg Tablet 500 mcg PO DAILY 30 Days Qty: 30 0RF folic acid 1 mg Tablet 1 mg PO DAILY Qty: 90 3RF carvedilol 25 mg tablet 25 mg PO BID Discharge Orders: Discharge Order (Routine); Ordered 04/29/23 Ordered By: Jaime Gottlieb Diet: Advance to usual diet Activity on Discharge: As tolerated Stand Alone Forms: Patient Portal Discharge page Other Ambulatory Orders: Basic Metabolic Panel (Routine) Timeframe: 1 Week Facility: [facility] - Location: Laboratory Ordered By: Jaime Gottlieb Complete Blood Count no Diff (Routine) Timeframe: 1 Week Facility: [facility] - Location: Laboratory Ordered By: Jaime Gottlieb Magnesium (Routine) Timeframe: 1 Week Facility: [facility] - Location: Laboratory Ordered By: Jaime Gottlieb Activity Restrictions/Additional Instructions: Topical Wound Care Instructions: Buttocks and Scrotum - Cleanse with routine bathing, PH balanced cleanser, dry well. Apply barrier cream to open and reddened area. May cover open wound with foam dressing. Apply barrier twice daily and as needed. Care Plan Goals: Patient was admitted for alcohol withdrawal, electrolyte abnormalities, also possible toxic metabolic encephalopathy secondary to alcohol use and electrolyte abnormalities as well as dehydration: Patient was started on IV hydration, potassium and magnesium repleted, also started on phenobarb protocol: Patient seems to be improved significantly. Repleted for magnesium and potassium and improved. Monitor renal function electrolytes outpatient, further management outpatient. follow up with pcp. Health Concerns: As above. Plan of Treatment: As above. Assessment: As above.
== END 2023-04-29 17:00 | disposition home or self-care (01) | DRG 896 ==
LOC: HO.ED 07:02 → HO.EDOVER 09:06 → HO.IMC 17:36
PROVIDERS: Internal Medicine; Student in an Organized Health Care Education/Training Program; Admitting Provider Family Medicine; Emergency Provider Emergency Medicine; PCP Internal Medicine; Visit Provider Internal Medicine
DX: F10.232 Alcohol dependence with withdrawal with perceptual disturbance (principal); G92.8 Other toxic encephalopathy; N17.9 Acute kidney failure, unspecified; I42.8 Other cardiomyopathies; D61.818 Other pancytopenia; E86.0 Dehydration; E83.42 Hypomagnesemia; S30.810A Abrasion of lower back and pelvis, initial encounter; K70.9 Alcoholic liver disease, unspecified; S30.813A Abrasion of scrotum and testes, initial encounter; W19.XXXA Unspecified fall, initial encounter; I48.0 Paroxysmal atrial fibrillation; Z20.822 Contact with and (suspected) exposure to COVID-19; Z79.01 Long term (current) use of anticoagulants; Z79.899 Other long term (current) drug therapy
CPT/HCPCS: 0241U; 36415; 70450; 80048; 80053; 80307; 81003; 82140; 82272; 82550; 82607; 82746; 82947; 83735; 84484; 85014; 85018; 85025; 85027; 85610; 93005; 97161; 99285; J1650; J2560; J3411; J3475; J7120

== ENCOUNTER → 2023-04-25 04:49 | Outpatient (BNV) | payer OTHER, SELFPAY | PROVIDERS: Admitting Provider Family Medicine; Emergency Provider Emergency Medicine; PCP Internal Medicine; Visit Provider Internal Medicine Cardiovascular Disease | DX: R94.31 Abnormal electrocardiogram [ECG] [EKG] (principal) | CPT/HCPCS: 93010 ==

== ENCOUNTER → 2023-04-25 09:00 | Outpatient (BNV) | payer OTHER, SELFPAY | PROVIDERS: Admitting Provider Family Medicine; Emergency Provider Emergency Medicine; PCP Internal Medicine; Visit Provider Family Medicine | DX: E83.42 Hypomagnesemia (principal); F10.931 Alcohol use, unspecified with withdrawal delirium | CPT/HCPCS: 99223; 99231; 99232; 99239 ==

== ENCOUNTER 2023-07-18 20:07 | Emergency (ER) | payer OTHER, MEDICAID, SELFPAY ==
[2023-07-18] VITALS (26 sets, daily range): BP systolic 60–83; BP diastolic 27–54; PULSE 72–93; RESP 12–18; TEMP 36.2–36.6; O2SAT 84–96; BMI 21.3
--- NOTE | ~2023-07-18 | CT_ITS ---
EXAMINATION: CT CHEST, ABDOMEN AND PELVIS withoutCONTRAST CLINICAL INFORMATION: Chest pain. Acute renal failure. COMPARISON: CT chest September 08, 2021. CT abdomen and pelvis March 20, 2022 TECHNIQUE: Multidetector volumetric CT imaging of the chest, abdomen and pelvis was obtained . Coronal, Sagittal reformatted images preformed at the CT scanner. [This CT examination was performed using dose optimization techniques as appropriate, variously including the following: *Automated exposure control *Adjustment of mA and/or kV according to patient size (this includes techniques or standardized protocols for targeted exams where dose is matched to indication/reason for exam; i.e. extremities or head) *Use of iterative reconstruction technique] DLP: 1081 mGy-cm. FINDINGS: CT CHEST: Lungs: Patchy partially consolidated airspace opacity involving the left lower lobe. Small area of subpleural reticulation and patchy airspace opacity in the dependent right lower lobe atelectasis. Mediastinum: Heart size is normal. No pericardial effusion. No mediastinal mass or significant lymphadenopathy. Coronary arteries: No coronary calcification. Pleura: There is no pleural effusion. No pleural mass or thickening. Axilla: No lymphadenopathy. CT ABDOMEN AND PELVIS: Liver, Gallbladder and Biliary Tree: The liver is normal in size, shape, and attenuation. No focal hepatic lesion or biliary ductal dilatation is present. The gallbladder is unremarkable with no evidence of radiopaque gallstones, gallbladder wall thickening, or obvious pericholecystic inflammatory changes. Pancreas: The head of the pancreas is slightly heterogeneous in density and slightly more prominent in size than prior CAT scan of March 31, 2023 and the more recent March 20, 2022 exam. The pancreas measures about 3.5 cm transverse, axial image 271/[id number] series 12.. There is no pancreatic duct dilatation.. Spleen: Spleen normal in size and contour. No focal lesion. Adrenal Glands: Adrenal glands are normal in size. No focal mass. Kidneys and Ureters: The kidneys are normal in size, shape, and attenuation. No hydronephrosis, hydroureter, or calculi seen. No perinephric stranding. Bladder: Unremarkable. Gastrointestinal Tract: The small and large bowel are unremarkable. The appendix is unremarkable. Mesentery: No focal inflammation. No free fluid. No free air. Abdominal Wall: Small fat-containing left inguinal hernia. No ventral wall hernia. Lymph Nodes: Normal. Vascular: Small volume of scattered vascular calcifications of the abdominal aorta. No aneurysm. Pelvic Viscera: Unremarkable. Osseous Structures: Unremarkable. CT/CT abdomen pelvis wo IV con IMPRESSION: 1. Left lower lobe pneumonia. 2. Enlarged head of pancreas without pancreatic duct dilatation. Correlate with serum amylase and lipase. Consider MRI of pancreas with and without contrast for further assessment.
--- NOTE | ~2023-07-18 | XR_ITS ---
EXAMINATION: XR CHEST CLINICAL INFORMATION: Low oxygenation. COMPARISON: Chest radiograph dated 09/08/2021. TECHNIQUE: Frontal view of the chest was obtained. FINDINGS: Heart size is normal. The right lung is clear. There is an opacity at the left lung base. Pneumonia is suspected. There is mild blunting of the left costophrenic angle. A small left pleural effusion is not excluded. No pneumothorax. No acute osseous abnormality. XR/XR chest 1V IMPRESSION: Left lower lobe opacity suspicious for pneumonia. Small left pleural effusion is suspected.
--- NOTE | ~2023-07-18 | XR_ITS ---
EXAMINATION: XR KNEE, RIGHT CLINICAL INFORMATION: Fall unable to bear weight COMPARISON: None available. TECHNIQUE: AP and lateral views of the right knee. FINDINGS: No acute visible fracture or dislocation. Mild narrowing medial femorotibial compartment. A fabella is noted in the posterior compartment. Joint space alignment otherwise maintained. Soft tissues are unremarkable. XR/XR knee RT 2V IMPRESSION: 1. No acute visible fracture or dislocation. 2. Mild narrowing of the medial femorotibial compartment.
--- NOTE | ~2023-07-18 | CT_ITS ---
EXAMINATION: CT HEAD WITHOUT CONTRAST CLINICAL INFORMATION: False COMPARISON: CT head from 04/25/2023 TECHNIQUE: Contiguous axial imaging was performed from the skull base to vertex without intravenous administration of contrast. This CT examination was performed using dose optimization techniques as appropriate, variously including the following: *Automated exposure control *Adjustment of mA and/or kV according to patient size (this includes techniques or standardized protocols for targeted exams where dose is matched to indication/reason for exam; i.e. extremities or head) *Use of iterative reconstruction technique DLP: 681 mGy-cm FINDINGS: There is no evidence of acute intracranial hemorrhage or territorial infarction. No abnormal mass effect or midline shift is seen. Wayne to white matter differentiation is well preserved. No extra-axial fluid collections are identified. The ventricles are normal in size. There is no abnormal attenuation within the brain parenchyma. The osseous structures and soft tissues are normal. The mastoid air cells and visualized portions of the paranasal sinuses are well aerated. Atherosclerotic calcifications. CT/CT head/brain wo IV con IMPRESSION: No acute intracranial pathology.
--- NOTE | 2023-07-18 20:32 | ECG_ITS ---
Test Reason : HYPOTENSION Blood Pressure : / mmHG Vent. Rate : 078 BPM Atrial Rate : 078 BPM P-R Int : 182 ms QRS Dur : 086 ms QT Int : 428 ms P-R-T Axes : 065 020 138 degrees QTc Int : 487 ms Normal sinus rhythm ST & T wave abnormality, consider inferior ischemia ST & T wave abnormality, consider anterolateral ischemia Prolonged QT Abnormal ECG When compared with ECG of 25-APR-2023 05:31, T wave inversion now evident in Anterolateral leads Referred By: Ashlee Ordoñez Electronically Signed By:MARLENI CAAL
--- NOTE | 2023-07-18 21:43 | ED.GENADULT ---
HPI - General Adult General Chief complaint: General Medical Stated complaint: weak vitals, bilateral knee pain Time Seen by Provider: 07/18/23 20:17 History of Present Illness HPI narrative: Patient is a 53-year-old male with a long history of alcohol use. Fell 2 days ago. Complaining of knee pain. Generalized malaise weakness. Baseline does not use oxygen at home. Was noted to have a very low blood pressure as per EMS. He answers questions appropriately. Feels very weak and tired. Patient admits to drinking alcohol. Related Data Previous Rx's ?Medication ?Instructions ?Recorded cyanocobalamin (vitamin B-12) 500 500 mcg PO DAILY 30 days #30 tabs 10/13/21 mcg tablet folic acid 1 mg tablet 1 mg PO DAILY #90 tabs 04/06/22 gabapentin 100 mg capsule 100 mg PO BEDTIME #90 caps 11/05/22 sacubitril 49 mg-valsartan 51 mg 1 tab PO BID #180 tabs 11/22/22 tablet (Entresto) sertraline 50 mg tablet 50 mg PO DAILY 30 days #90 tabs 12/05/22 naltrexone 50 mg tablet 100 mg (2 x 50 mg) PO DAILY #120 01/30/23 tabs triamcinolone acetonide 0.5 % 1 appl topical BID #15 grams 02/08/23 topical cream folic acid 1 mg tablet 1 mg PO DAILY #30 tabs 04/29/23 magnesium oxide 400 mg PO BID #14 tabs 04/29/23 thiamine HCl (vitamin B1) 100 mg 100 mg PO DAILY #30 tabs 04/29/23 tablet apixaban 5 mg tablet (Eliquis) 5 mg PO BID 90 days #180 tabs 05/30/23 carvedilol 25 mg tablet 25 mg PO BID 90 days #180 tabs 05/31/23 Allergies Allergy/AdvReac Type Severity Reaction Status Date / Time No Known Allergies Allergy Verified 07/18/23 20:32 [No Known Allergies*] Review of Systems Review of Systems: Positive generalized malaise weakness No bloody stool noted. Admits to drinking alcohol on a daily basis [facility] Past Medical History Attestation statement: The following information was validated with the patient. [facility] Narrative: History of being on Eliquis for atrial fibrillation History of alcohol abuse Medical History Colon cancer screening Paroxysmal atrial fibrillation Screening for prostate cancer Alcohol dependence, uncomplicated Atrial fibrillation Hypomagnesemia Left inguinal hernia Eczema Peripheral neuropathy Inguinal hernia, left Anemia Type 2 diabetes mellitus with hyperglycemia Nonischemic cardiomyopathy Chronic heart failure with reduced ejection fraction and diastolic dysfunction Surgical History Hx of cardiac catheterization Family History Family History Father No problems noted. Mother No problems noted. Other No family history of cancer Substance abuse Social History Social History Household Members: None Housing: Apartment Are you a primary rn managed care to a significant other at home: No Do you presently have visiting nurse or other home services: No Alcohol intake: current Alcohol intake frequency: 3 or more drinks per day Alcohol type: hard liquor Comment: 1:1 sitter Patient Tobacco Use Status: Never used Tobacco Smoked in Last 30 Days: No e-Cigarette/Vaping Use: Never Used Second Hand Smoke Exposure: Yes Use of substances other than those prescribed or required for medical reasons: No Advance Directives: Yes Advance Directives on File: Yes Advance Directives Date on File: 09/10/21 service: No Current occupational status: employed Cognitive needs: No Hearing needs: No Vision needs: Yes (Glasses and contacts) Physical Exam ED Vital Signs: Vital Signs - 24 hr 07/18/23 20:18 07/18/23 20:21 07/18/23 20:24 Temperature 98 F Pulse Rate 80 82 86 Respiratory Rate 12 15 17 Blood Pressure 71/40 L 72/40 L 67/40 L Pulse Oximetry 88 L 94 96 Oxygen Delivery Method Room Air Room Air Room Air Oxygen Flow Rate 07/18/23 20:32 07/18/23 20:37 07/18/23 20:47 Temperature Pulse Rate 79 77 73 Respiratory Rate 15 12 12 Blood Pressure 70/42 L 70/39 L 71/43 L Pulse Oximetry 93 92 94 Oxygen Delivery Method Room Air Room Air Room Air Oxygen Flow Rate 07/18/23 21:02 07/18/23 21:12 07/18/23 21:23 Temperature Pulse Rate 72 72 88 Respiratory Rate 12 12 15 Blood Pressure 73/45 L 67/42 L 82/27 L Pulse Oximetry 93 94 94 Oxygen Delivery Method Room Air Room Air Room Air Oxygen Flow Rate 07/18/23 21:33 07/18/23 21:37 07/18/23 22:00 Temperature 97.2 F Pulse Rate 80 77 82 Respiratory Rate 18 12 13 Blood Pressure 82/46 L 76/41 L 74/48 L Pulse Oximetry 94 92 92 Oxygen Delivery Method Room Air Room Air Room Air Oxygen Flow Rate 07/18/23 22:01 07/18/23 22:12 07/18/23 22:28 Temperature Pulse Rate 76 76 80 Respiratory Rate 12 14 15 Blood Pressure 70/45 L 81/50 L 83/54 L Pulse Oximetry 93 94 85 L Oxygen Delivery Method Room Air Room Air Room Air Oxygen Flow Rate 07/18/23 22:47 07/18/23 23:25 07/18/23 23:30 Temperature Pulse Rate 84 84 82 Respiratory Rate 13 13 12 Blood Pressure 73/48 L 64/39 L 63/37 L Pulse Oximetry 91 L 89 L Oxygen Delivery Method Nasal Cannula Nasal Cannula Oxygen Flow Rate 2 2 07/18/23 23:34 07/18/23 23:40 07/18/23 23:42 Temperature 97.5 F Pulse Rate 93 89 87 Respiratory Rate 12 14 Blood Pressure 71/39 L 71/40 L 70/40 L Pulse Oximetry 92 88 L Oxygen Delivery Method Room Air Nasal Cannula Oxygen Flow Rate 2 07/18/23 23:47 07/18/23 23:52 07/18/23 23:53 Temperature Pulse Rate 77 90 91 Respiratory Rate 17 Blood Pressure 71/40 L 77/45 L 75/45 L Pulse Oximetry 84 L Oxygen Delivery Method Room Air Oxygen Flow Rate 07/18/23 23:57 07/19/23 00:01 07/19/23 00:06 Temperature Pulse Rate 73 73 81 Respiratory Rate Blood Pressure 82/51 L 82/56 L 90/62 Pulse Oximetry Oxygen Delivery Method Oxygen Flow Rate 07/19/23 00:11 07/19/23 00:17 07/19/23 00:24 Temperature Pulse Rate 68 71 70 Respiratory Rate Blood Pressure 96/69 97/72 106/72 Pulse Oximetry Oxygen Delivery Method Oxygen Flow Rate 07/19/23 00:29 07/19/23 00:33 07/19/23 00:35 Temperature Pulse Rate 82 75 71 Respiratory Rate 17 Blood Pressure 101/74 109/79 101/74 Pulse Oximetry 87 L Oxygen Delivery Method Room Air Oxygen Flow Rate 07/19/23 00:37 07/19/23 00:47 07/19/23 00:55 Temperature Pulse Rate 72 74 69 Respiratory Rate 13 Blood Pressure 101/74 110/82 111/78 Pulse Oximetry 90 L Oxygen Delivery Method Nasal Cannula Oxygen Flow Rate 2 07/19/23 01:03 07/19/23 01:06 07/19/23 01:20 Temperature Pulse Rate 76 78 82 Respiratory Rate 19 Blood Pressure 106/84 109/71 111/81 Pulse Oximetry 81 L Oxygen Delivery Method Room Air Oxygen Flow Rate 07/19/23 01:20 07/19/23 01:38 Temperature 97.6 F 97.6 F Pulse Rate 82 74 Respiratory Rate 17 16 Blood Pressure 111/81 107/78 Pulse Oximetry 94 95 Oxygen Delivery Method Nasal Cannula Nasal Cannula Oxygen Flow Rate 2 2 BMI result Body Mass Index 21.3 Const Other: Appearance: Alert. Oriented X3. Sick appearing Eyes: Pupils equal, round and reactive to light. Conjunctiva extremely pale ENT: Pharynx normal. Neck: Normal inspection. Neck supple. No lymph nodes noted. No crepitus CVS: Normal heart rate and rhythm. Pulses normal. Normal S1 and S2 Respiratory: No respiratory distress. Breath sounds normal. No Wheezing. No rales Abdomen: Soft and nontender. No rigidity. No distention. good BS x4 Rectal exam done by my colleague. The stool was sent for guaiac. Skin: Skin warm and dry. Normal skin color. Normal skin turgor. Extremities: No lower extremity edema. Neurovascular intact to all extremities. No Lacerations. No Rash Neuro: Oriented X 3. No motor deficit. No sensory deficit. Moving all extermities. No slurred speech Medications Administered Generic Name Dose Route Start Last Admin Trade Name Freq PRN Reason Stop Dose Admin Norepinephrine Bitartrate 8 mg in 250 mls @ 0 mls/hr 07/18/23 23:30 07/19/23 01:20 Levophed IV 0.21 mcg/kg/min .Q0M MICHELLE 25.71 mls/hr Titration Protocol Per Protocol Discontinued Medications Generic Name Dose Route Start Last Admin Trade Name Freq PRN Reason Stop Dose Admin Sodium Chloride 1,000 mls @ 999 mls/hr 07/18/23 20:32 07/18/23 22:59 Ns IVCONT 07/18/23 21:32 Infused .Q1H1M ONE Infusion Ceftriaxone Sodium 1 gm/ 50 mls @ 100 mls/hr 07/18/23 21:42 07/18/23 22:38 Sodium Chloride IV 07/18/23 22:11 Infused ONCE ONE Infusion Sodium Chloride 1,000 mls @ 999 mls/hr 07/18/23 22:15 07/19/23 00:35 Ns IV 07/18/23 23:15 Infused .Q1H1M MICHELLE Infusion Potassium Chloride 10 meq in 100 mls @ 100 mls/hr 07/18/23 22:30 07/19/23 01:06 Potassium Chloride/H20 IV 07/19/23 00:29 Infused Q1H MICHELLE Infusion Magnesium Sulfate 2 gm in 50 mls @ 50 mls/hr 07/18/23 22:26 07/18/23 23:56 Magnesium Sulfate/H2o IV 07/18/23 23:25 Infused ONCE ONE Infusion Sodium Chloride 1,000 mls @ 999 mls/hr 07/19/23 00:30 07/19/23 00:58 Ns IV 07/19/23 01:30 999 mls/hr .Q1H1M MICHELLE Administration Sodium Chloride 1,000 mls @ 999 mls/hr 07/19/23 01:15 07/19/23 01:10 Ns IV 07/19/23 02:15 Not Given .Q1H1M MICHELLE Calcium Gluconate 2 gm in 100 mls @ 400 mls/hr 07/19/23 01:37 07/19/23 01:42 Calcium Gluconate IV 07/19/23 01:51 400 mls/hr ONCE ONE Administration Potassium Chloride 40 meq 07/18/23 22:23 07/18/23 22:48 Potassium Chloride Packet 20 Meq Packet PO 07/18/23 22:24 40 meq ONCE ONE Administration Medical Decision Making Medical Decision Making MDM Narrative: Patient presented in extremis with generalized malaise weakness. Not feeling well. May have fallen hit his knee. Looks extremely pale and sick appearing. His labs came back with an elevated BUN and creatinine. His BUN was over 100. His creatinine is proximally 10. There has no history of renal insufficiency. Patient's bladder scan only showed [address] scan showed no overt obstruction. A Haskins catheter is being placed to monitor urine output patient has an extremely low blood pressure of 70/40 on arrival. 2 L of fluid was given immediately. 1/3 L was ordered. Patient's lactate was slightly elevated at 2.9. Blood cultures are obtained. Repeat lactate is pending. Focal repeat exam for sepsis was done at 12:30. Grossly patient blood pressure improving symptomatically improving. After the IV fluids patient's blood pressure is still low at approximately 75/50. He was started on Levophed. After the Levophed was started patient's blood pressure is improving now is approximately 100/50. CT scan of the chest abdomen pelvis is consistent with having a left lower lobe infiltrate. There is no acute pathology in the abdomen. There has no pneumothorax. Patient's CT scan of the head showed no overt bleeding, fracture. A 2nd set of chemistry is being sent. Patient's case discussed with [facility] supervisor publications production. Accepted patient for further evaluation. Of note patient's glucose was extremely elevated at approximately 500. However patient's has an anion gap of 25. He also had a low potassium of 2.9 and a low magnesium of 1.5. Patient given magnesium, potassium for repletion. Did not give insulin as patient had a low potassium. Patient's labs being rechecked at this point after IV fluids Differential Diagnosis Differential Diagnoses: The differential diagnosis associated with the presentation includes Admission/Observation Consideration of admission/observation: Escalation of care including admission/observation considered Consult Healthcare Provider Management of the patient was discussed with: Curator Of Manuscripts (Radiological Defense Officer at [facility]. supervisor publications production at [facility]. Nephrology at [facility]) Lab Data MDM Lab Attestation statement: I reviewed the patient's lab results. 07/18/23 21:42 07/19/23 00:45 Labs: Lab Results 07/18/23 07/18/23 07/18/23 Range/Units 21:36 21:42 21:43 WBC 9.7 (4.8-10.8) X10*3/uL RBC 2.39 L (4.60-5.80) X10*6/uL Hgb 8.0 L (14.0-18.0) g/dl Hct 22.0 L (42.0-52.0) % MCV 92.1 (80.0-98.0) fL MCH 33.5 H (27.0-33.0) pg MCHC 36.4 H (31.0-36.0) g/dl RDW 17.0 H (11.0-16.0) % Plt Count 371 D (160-400) X10*3/uL MPV 11.7 (9.4-12.4) fL Immature Gran % (Auto) 0.6 H (0.0-0.4) % Neut % (Auto) 77.7 H (45-73) % Lymph % (Auto) 11.0 L (20-40) % [place] % (Auto) 10.0 (2-11) % Eos % (Auto) 0.5 (0-4) % Baso % (Auto) 0.2 (0-2) % Lymph # (Auto) 1.1 L (1.2-4.9) X10*3/uL [place] # (Auto) 1.0 (0.1-1.2) X10*3/uL Eos # (Auto) 0.1 (0.0-0.4) X10*3/uL Baso # (Auto) 0.0 (0.0-0.2) X10*3/uL Abs Immat Gran (auto) 0.06 H (0.00-0.03) X10*3/uL Absolute Neuts (auto) 7.5 (2.0-8.3) x10*3/uL Absolute Nucleated RBC 0.000 (0.0-0.012) X10*3/uL Nucleated RBC % (auto) 0.0 (0.0-0.2) /100WBC PT 20.0 H (11.1-13.3) SEC INR 1.6 H (0.9-1.1) VBG pH (7.32-7.43) VBG pCO2 mmHg VBG pO2 mmHg VBG HCO3 (22-26) mmol/L VBG O2 Saturation % VBG Base Excess mmol/L Sodium 132 L (135-145) mmol/L Potassium 2.9 L* D (3.3-5.1) mmol/L Chloride 92 L (96-108) mmol/L Carbon Dioxide 20 L (22-29) mmol/L Anion Gap 23 H (12-20) BUN 134 H (9-16) mg/dL Creatinine 9.94 H* (0.5-1.4) mg/dL Estim Creat Clear Calc 8.0 Estimated GFR 6 Random Glucose 457 H* (60-115) mg/dL Lactic Acid 2.8 H* (0.5-2.0) mmol/L Lactic Acid F/U @ 2Hr (0.5-2.0) mmol/L Calcium 5.8 L* D (8.4-10.2) mg/dL Magnesium 1.1 L* (1.6-2.6) mg/dL Total Bilirubin 0.4 (0.0-1.0) mg/dL Direct Bilirubin 0.2 (0.0-0.5) mg/dL AST 27 (5-37) U/L ALT 71 H (0-40) U/L Alkaline Phosphatase 152 H (39-117) U/L Total Creatine Kinase 236 H (38-174) U/L Troponin I High Sens 31.9 D (<3.5-35.0) ng/L B-Natriuretic Peptide 122 H (<100) pg/mL Total Protein 5.7 L (6.5-8.0) g/dL Albumin 2.5 L (3.5-5.0) g/dL Lipase 106 H (8-78) U/L Beta-Hydroxybutyrate (0.02-0.27) mmol/L TSH 1.12 (0.32-4.0) uIU/mL Urine Color Urine Appearance Urine pH (5.0-9.0) Ur Specific [place] (1.005-1.025) Urine Protein (Neg-Trace) mg/dL Urine Glucose (UA) (Negative) mg/dL Urine Ketones (Negative) mg/dL Urine Blood (Negative) Urine Nitrite (Negative) Ur Leukocyte Esterase (Negative) Urine RBC (0-2) /HPF Urine WBC (0-5) /HPF Ur Squamous Epith Cells (0-2) /HPF Urine Bacteria (None Seen) Hyaline Casts (0-2) /LPF Stool Occult Blood POSITIVE (NEGATIVE) Urine Opiates Screen (Not Detect) Ur Buprenorphine Scrn (Not Detect) ng/mL Ur Oxycodone Screen (Not Detect) ng/mL Urine Methadone Screen (Not Detect) ng/mL Urine Fentanyl Screen (Not Detect) Ur Barbiturates Screen (Not Detect) Ur Phencyclidine Scrn (Not Detect) Ur Amphetamines Screen (Not Detect) U Benzodiazepines Scrn (Not Detect) Urine Cocaine Screen (Not Detect) U Marijuana (THC) Screen (Not Detect) Ethyl Alcohol < 10 mg/dL COVID-19 (JEROYM) Negative (Negative) COVID-19 Clin Com See Note Influenza Type A (NADIRA) Negative (Negative) Influenza Type B (NADIRA) Negative (Negative) Influenza A & B Note See Note Blood Type Antibody Screen 07/18/23 07/18/23 07/19/23 Range/Units 21:48 21:49 00:45 WBC (4.8-10.8) X10*3/uL RBC (4.60-5.80) X10*6/uL Hgb (14.0-18.0) g/dl Hct (42.0-52.0) % MCV (80.0-98.0) fL MCH (27.0-33.0) pg MCHC (31.0-36.0) g/dl RDW (11.0-16.0) % Plt Count (160-400) X10*3/uL MPV (9.4-12.4) fL Immature Gran % (Auto) (0.0-0.4) % Neut % (Auto) (45-73) % Lymph % (Auto) (20-40) % [place] % (Auto) (2-11) % Eos % (Auto) (0-4) % Baso % (Auto) (0-2) % Lymph # (Auto) (1.2-4.9) X10*3/uL [place] # (Auto) (0.1-1.2) X10*3/uL Eos # (Auto) (0.0-0.4) X10*3/uL Baso # (Auto) (0.0-0.2) X10*3/uL Abs Immat Gran (auto) (0.00-0.03) X10*3/uL Absolute Neuts (auto) (2.0-8.3) x10*3/uL Absolute Nucleated RBC (0.0-0.012) X10*3/uL Nucleated RBC % (auto) (0.0-0.2) /100WBC PT (11.1-13.3) SEC INR (0.9-1.1) VBG pH 7.41 (7.32-7.43) VBG pCO2 42 mmHg VBG pO2 35 mmHg VBG HCO3 27 H (22-26) mmol/L VBG O2 Saturation 48.0 % VBG Base Excess 2.7 mmol/L Sodium 135 (135-145) mmol/L Potassium 3.4 (3.3-5.1) mmol/L Chloride 97 (96-108) mmol/L Carbon Dioxide 20 L (22-29) mmol/L Anion Gap 21 H (12-20) BUN 126 H (9-16) mg/dL Creatinine 8.25 H* (0.5-1.4) mg/dL Estim Creat Clear Calc 9.6 Estimated GFR 7 Random Glucose 369 H* (60-115) mg/dL Lactic Acid (0.5-2.0) mmol/L Lactic Acid F/U @ 2Hr 1.5 (0.5-2.0) mmol/L Calcium 5.9 L* (8.4-10.2) mg/dL Magnesium 1.9 (1.6-2.6) mg/dL Total Bilirubin (0.0-1.0) mg/dL Direct Bilirubin (0.0-0.5) mg/dL AST (5-37) U/L ALT (0-40) U/L Alkaline Phosphatase (39-117) U/L Total Creatine Kinase (38-174) U/L Troponin I High Sens (<3.5-35.0) ng/L B-Natriuretic Peptide (<100) pg/mL Total Protein (6.5-8.0) g/dL Albumin (3.5-5.0) g/dL Lipase (8-78) U/L Beta-Hydroxybutyrate 0.79 H (0.02-0.27) mmol/L TSH (0.32-4.0) uIU/mL Urine Color Urine Appearance Urine pH (5.0-9.0) Ur Specific [place] (1.005-1.025) Urine Protein (Neg-Trace) mg/dL Urine Glucose (UA) (Negative) mg/dL Urine Ketones (Negative) mg/dL Urine Blood (Negative) Urine Nitrite (Negative) Ur Leukocyte Esterase (Negative) Urine RBC (0-2) /HPF Urine WBC (0-5) /HPF Ur Squamous Epith Cells (0-2) /HPF Urine Bacteria (None Seen) Hyaline Casts (0-2) /LPF Stool Occult Blood (NEGATIVE) Urine Opiates Screen (Not Detect) Ur Buprenorphine Scrn (Not Detect) ng/mL Ur Oxycodone Screen (Not Detect) ng/mL Urine Methadone Screen (Not Detect) ng/mL Urine Fentanyl Screen (Not Detect) Ur Barbiturates Screen (Not Detect) Ur Phencyclidine Scrn (Not Detect) Ur Amphetamines Screen (Not Detect) U Benzodiazepines Scrn (Not Detect) Urine Cocaine Screen (Not Detect) U Marijuana (THC) Screen (Not Detect) Ethyl Alcohol mg/dL COVID-19 (JEROMY) (Negative) COVID-19 Clin Com Influenza Type A (NADIRA) (Negative) Influenza Type B (NADIRA) (Negative) Influenza A & B Note Blood Type O Positive Antibody Screen NEGATIVE 07/19/23 07/19/23 Range/Units 00:48 01:24 WBC (4.8-10.8) X10*3/uL RBC (4.60-5.80) X10*6/uL Hgb (14.0-18.0) g/dl Hct (42.0-52.0) % MCV (80.0-98.0) fL MCH (27.0-33.0) pg MCHC (31.0-36.0) g/dl RDW (11.0-16.0) % Plt Count (160-400) X10*3/uL MPV (9.4-12.4) fL Immature Gran % (Auto) (0.0-0.4) % Neut % (Auto) (45-73) % Lymph % (Auto) (20-40) % [place] % (Auto) (2-11) % Eos % (Auto) (0-4) % Baso % (Auto) (0-2) % Lymph # (Auto) (1.2-4.9) X10*3/uL [place] # (Auto) (0.1-1.2) X10*3/uL Eos # (Auto) (0.0-0.4) X10*3/uL Baso # (Auto) (0.0-0.2) X10*3/uL Abs Immat Gran (auto) (0.00-0.03) X10*3/uL Absolute Neuts (auto) (2.0-8.3) x10*3/uL Absolute Nucleated RBC (0.0-0.012) X10*3/uL Nucleated RBC % (auto) (0.0-0.2) /100WBC PT (11.1-13.3) SEC INR (0.9-1.1) VBG pH 7.38 (7.32-7.43) VBG pCO2 36 mmHg VBG pO2 36 mmHg VBG HCO3 21 L (22-26) mmol/L VBG O2 Saturation 56.0 % VBG Base Excess -2.5 mmol/L Sodium (135-145) mmol/L Potassium (3.3-5.1) mmol/L Chloride (96-108) mmol/L Carbon Dioxide (22-29) mmol/L Anion Gap (12-20) BUN (9-16) mg/dL Creatinine (0.5-1.4) mg/dL Estim Creat Clear Calc Estimated GFR Random Glucose (60-115) mg/dL Lactic Acid (0.5-2.0) mmol/L Lactic Acid F/U @ 2Hr (0.5-2.0) mmol/L Calcium (8.4-10.2) mg/dL Magnesium (1.6-2.6) mg/dL Total Bilirubin (0.0-1.0) mg/dL Direct Bilirubin (0.0-0.5) mg/dL AST (5-37) U/L ALT (0-40) U/L Alkaline Phosphatase (39-117) U/L Total Creatine Kinase (38-174) U/L Troponin I High Sens (<3.5-35.0) ng/L B-Natriuretic Peptide (<100) pg/mL Total Protein (6.5-8.0) g/dL Albumin (3.5-5.0) g/dL Lipase (8-78) U/L Beta-Hydroxybutyrate (0.02-0.27) mmol/L TSH (0.32-4.0) uIU/mL Urine Color Yellow Urine Appearance Clear Urine pH 5.0 (5.0-9.0) Ur Specific [place] 1.015 (1.005-1.025) Urine Protein 30 (1+) H (Neg-Trace) mg/dL Urine Glucose (UA) 500 H (Negative) mg/dL Urine Ketones Trace (Negative) mg/dL Urine Blood Negative (Negative) Urine Nitrite Negative (Negative) Ur Leukocyte Esterase Negative (Negative) Urine RBC 0-2 (0-2) /HPF Urine WBC 0-5 (0-5) /HPF Ur Squamous Epith Cells 3-5 (0-2) /HPF Urine Bacteria None Seen (None Seen) Hyaline Casts 6-10 (0-2) /LPF Stool Occult Blood (NEGATIVE) Urine Opiates Screen Not Detected (Not Detect) Ur Buprenorphine Scrn Not Detected (Not Detect) ng/mL Ur Oxycodone Screen Not Detected (Not Detect) ng/mL Urine Methadone Screen Not Detected (Not Detect) ng/mL Urine Fentanyl Screen Not Detected (Not Detect) Ur Barbiturates Screen POSITIVE H (Not Detect) Ur Phencyclidine Scrn Not Detected (Not Detect) Ur Amphetamines Screen Not Detected (Not Detect) U Benzodiazepines Scrn Not Detected (Not Detect) Urine Cocaine Screen Not Detected (Not Detect) U Marijuana (THC) Screen Not Detected (Not Detect) Ethyl Alcohol mg/dL COVID-19 (JEROMY) (Negative) COVID-19 Clin Com Influenza Type A (NADIRA) (Negative) Influenza Type B (NADIRA) (Negative) Influenza A & B Note Blood Type Antibody Screen ABG Data Attestation ABG: I personally reviewed and interpreted this ABG as follows: Interpretation: Patient's venous blood gas showed a normal pH a low bicarb consistent with having metabolic acidosis compensated Independent Interpretation I performed an independent interpretation of an: Plain X-Ray (Patient's chest x-ray showed a left lower lobe infiltrate) and CT Scan (CT scan of the head was grossly negative for any acute evidence of bleeding.) Radiology Impression Discussion of test interpretation with radiology: I have reviewed the radiologist's reading. Radiologist Impression: I reviewed radiology's reading of the CT scan head, chest x-ray, CT scan chest abdomen pelvis. External Record Review External record reviewed: Inpatient record Chronic Conditions Patient?s care impacted by: Diabetes and Hypertension Social Determinants Patient?s care significantly limited by Social Determinants of Health including: Alcoholism and drug addiction in family Critical Care Time Critical Care Time Critical Care Time: Yes Total Critical Care Time: 80 Attestation: I have personally provided 80 minutes of critical care time exclusive of time spent on separately billable procedures. ?Time includes review of lab data, radiology results, discussion with consultants, and monitoring for potential decompensation. ?Interventions were performed as documented above Discharge Plan Discharge Clinical Impression: Acute renal failure, Hypomagnesemia, Dehydration, Diabetic ketoacidosis, Acute hypokalemia, Pneumonia Patient Disposition: Xfer [facility] Prescriptions: No Action gabapentin 100 mg capsule 100 mg PO BEDTIME Qty: 90 3RF Entresto 49-51 mg tablet 1 tab PO BID Qty: 180 3RF sertraline 50 mg tablet 50 mg PO DAILY 30 Days Qty: 90 2RF naltrexone 50 mg tablet 100 mg PO DAILY Qty: 120 0RF triamcinolone acetonide 0.5 % cream 1 appl topical BID Qty: 15 0RF Eliquis 5 mg tablet 5 mg PO BID 90 Days Qty: 180 0RF Rx Instructions: MUST MAKE APPT TO RECEIVE FUTURE REFILLS carvedilol 25 mg tablet 25 mg PO BID 90 Days Qty: 180 3RF cyanocobalamin (vitamin B-12) 500 mcg Tablet 500 mcg PO DAILY 30 Days Qty: 30 0RF folic acid 1 mg Tablet 1 mg PO DAILY Qty: 90 3RF magnesium oxide 400 mg magnesium tablet 400 mg PO BID Qty: 14 0RF thiamine HCl (vitamin B1) 100 mg tablet 100 mg PO DAILY Qty: 30 0RF folic acid 1 mg tablet 1 mg PO DAILY Qty: 30 0RF Interventions: Acute Care Transfer Worksheet (ED) Last Done: 07/19/23 01:38 Print Language: [place]
[2023-07-18 21:52] LABS: MANUAL DIFF FLAG NO
[2023-07-18 21:54] LABS: OBS Int Ctl Valid YES; OBS1 POSITIVE (NEGATIVE)
[2023-07-18 21:55] LABS: Venous Blood Gas Refer to POC result
[2023-07-18 21:56] LABS: VBG Base Excess 2.7 mmol/L; VBG HCO3 27 mmol/L (22-26); VBG pCO2 42 mmHg; VBG pH 7.41 (7.32-7.43); VBG pO2 35 mmHg
[2023-07-18] MEDS: 0.9 % Sodium Chloride 1,000 ML 999 ML IVCONT (21:58)
[2023-07-18 22:06] LABS: INTERNATIONAL NORM RATIO 1.6 (0.9-1.1)
[2023-07-18] MEDS: cefTRIAXone sodium 1 GM in 0.9 % Sodium Chloride 50 ML IV (22:08)
[2023-07-18] MEDS: 0.9 % Sodium Chloride 1,000 ML 999 ML IV (22:11)
[2023-07-18 22:13] LABS: B Type Natriuretic Peptide 122 pg/mL (<100); Basophils Percent Auto 0.2 % (0-2); Eosinophils Absolute Auto 0.1 X10*3/uL (0.0-0.4); Eosinophils Percent Auto 0.5 % (0-4); Imm Gran Abs Auto 0.06 X10*3/uL (0.00-0.03); Imm Gran Pct Auto 0.6 % (0.0-0.4); Lymphocytes Absolute Auto 1.1 X10*3/uL (1.2-4.9); Mean Corpuscular HGB Conc 36.4 g/dl (31.0-36.0); Mean Corpuscular Hemoglobin 33.5 pg (27.0-33.0); Mean Corpuscular Volume 92.1 fL (80.0-98.0); Mean Platelet Volume 11.7 fL (9.4-12.4); Neutrophils Absolute Auto 7.5 x10*3/uL (2.0-8.3); Neutrophils Percent Auto 77.7 % (45-73); Platelet Count 371 X10*3/uL (160-400); Red Blood Count 2.39 X10*6/uL (4.60-5.80); White Blood Count 9.7 X10*3/uL (4.8-10.8)
[2023-07-18 22:14] LABS: Ethanol < 10 mg/dL
[2023-07-18 22:15] LABS: Troponin-I High Sensitivity 31.9 ng/L (<3.5-35.0)
[2023-07-18 22:18] LABS: COVID-19 Test Negative (Negative); IDNOW Serial# 58CA691E
[2023-07-18 22:19] LABS: Alanine Aminotransferase 71 U/L (0-40); Albumin Level 2.5 g/dL (3.5-5.0); Alkaline Phosphatase 152 U/L (39-117); Anion Gap 23 (12-20); Aspartate Amino Transferase 27 U/L (5-37); Bilirubin Direct 0.2 mg/dL (0.0-0.5); Bilirubin Total 0.4 mg/dL (0.0-1.0); Calcium 5.8 mg/dL (8.4-10.2); Carbon Dioxide 20 mmol/L (22-29); Chloride 92 mmol/L (96-108); Estimated Glomerular Filt Rate 6; Glucose Random 457 mg/dL (60-115); Lipase 106 U/L (8-78); Magnesium 1.1 mg/dL (1.6-2.6); Potassium 2.9 mmol/L (3.3-5.1); Sodium 132 mmol/L (135-145); Total Protein 5.7 g/dL (6.5-8.0)
[2023-07-18 22:19] LABS: IDNOW Serial# 9DB6401D; Influenza A Negative (Negative); Influenza B2 Negative (Negative); Lactic Acid 2.8 mmol/L (0.5-2.0)
[2023-07-18 22:25] LABS: Blood Urea Nitrogen 134 mg/dL (9-16)
[2023-07-18 22:29] LABS: TSH reflex Free T4 1.12 uIU/mL (0.32-4.0)
[2023-07-18] MEDS: Potassium Chloride Packet 20 MEQ PACKET 40 MEQ PO (22:48)
[2023-07-18] MEDS: Potassium Chloride/H20 10 MEQ/100 ML PIGGYBACK 100 MEQ IV (22:49)
[2023-07-18] MEDS: Magnesium Sulfate/H2O 2 GM/50 ML PIGGYBACK IV (22:49)
[2023-07-18] MEDS: Norepinephrine Bitartrate/D5W 8 MG/250 ML PLAST..BAG 6.12 MG IV (23:40)
[2023-07-18 23:50] LABS: Reflex Lactate? Lactic Acid Added
[2023-07-19] VITALS (15 sets, daily range): BP systolic 82–111; BP diastolic 56–84; PULSE 68–82; RESP 13–19; TEMP 36.4; O2SAT 81–95
[2023-07-19] MEDS: Potassium Chloride/H20 10 MEQ/100 ML PIGGYBACK 100 MEQ IV (00:05)
[2023-07-19 00:56] LABS: VBG Base Excess -2.5 mmol/L; VBG HCO3 21 mmol/L (22-26); VBG pCO2 36 mmHg; VBG pH 7.38 (7.32-7.43); VBG pO2 36 mmHg
[2023-07-19 00:58] LABS: Venous Blood Gas Refer to POC result
[2023-07-19] MEDS: 0.9 % Sodium Chloride 1,000 ML 999 ML IV (00:58)
[2023-07-19 01:02] LABS: ~Lactic Acid-LAB USE ONLY 1.5 mmol/L (0.5-2.0)
--- NOTE | 2023-07-19 01:10 | PC.NURSE ---
this rn assumed care of pt at 0030. pt a&ox4, respirations even and unlabored. pt currently on levophed drip at this time. IV fluid bolus administered. 16F oconnor catheter placed at this time, pt tolerated well, 50cc urine output immediately after placement. 20G placed in left wrist. pt assisted in bed change, pt noted to have large hematoma to the left flank, pt reports falling but is unsure when. aware. pt noted to have redness to bilateral buttox. vss at this time.
--- NOTE | 2023-07-19 01:28 | PC.NURSE ---
report given to ems at bedside.
[2023-07-19 01:38] LABS: Anion Gap 21 (12-20); Beta-Hydroxybutyrate 0.79 mmol/L (0.02-0.27); Blood Urea Nitrogen 126 mg/dL (9-16); Calcium 5.9 mg/dL (8.4-10.2); Carbon Dioxide 20 mmol/L (22-29); Chloride 97 mmol/L (96-108); Creatinine Clr Calc Pharmacy 9.6; Estimated Glomerular Filt Rate 7; Glucose Random 369 mg/dL (60-115); Magnesium 1.9 mg/dL (1.6-2.6); Potassium 3.4 mmol/L (3.3-5.1); Sodium 135 mmol/L (135-145)
[2023-07-19 01:39] LABS: Appearance Urine Clear; Color Urine Yellow; Glucose Urine UA 500 mg/dL (Negative); Leukocyte Esterase Urine Negative (Negative); Nitrite Urine Negative (Negative); Specific Gravity - Urine 1.015 (1.005-1.025); UMIC TRIGGER UACC YES; Urine Blood Negative (Negative); Urine Ketones Trace mg/dL (Negative); Urine Protein 30 (1+) mg/dL (Neg-Trace)
[2023-07-19] MEDS: Calcium Gluconate/NaCl,Iso-Osm 2 GM/100 ML PLAST..BAG IV (01:42)
[2023-07-19 01:44] LABS: Amphetamine Screen Urine Not Detected (Not Detect); Barbiturates, Urine POSITIVE (Not Detect); Benzodiazepines Screen Urine Not Detected (Not Detect); Buprenorphine Scr Not Detected (Not Detect); Cannabinoid Screen Urine Not Detected (Not Detect); Cocaine Screen Urine Not Detected (Not Detect); Fentanyl, urine Not Detected (Not Detect); Methadone Screen, Urine Not Detected (Not Detect); Opiate Screen Urine Not Detected (Not Detect); Oxycodone Screen Urine Not Detected (Not Detect); Phencyclidine Screen Urine Not Detected (Not Detect)
--- NOTE | 2023-07-19 01:44 | PC.NURSE ---
report given to [facility] by previous RN.
[2023-07-19 01:47] LABS: Bacteria Urine None Seen (None Seen); RBC Urine 0-2 /HPF (0-2); WBC Urine 0-5 /HPF (0-5)
== END 2023-07-20 06:19 | disposition short-term general hospital (02) ==
PROVIDERS: Emergency Medicine; Emergency Provider Emergency Medicine Emergency Medical Services; PCP Internal Medicine
DX: N17.9 Acute kidney failure, unspecified (principal); E83.42 Hypomagnesemia; E86.0 Dehydration; E11.10 Type 2 diabetes mellitus with ketoacidosis without coma; E87.6 Hypokalemia; E11.65 Type 2 diabetes mellitus with hyperglycemia; M25.561 Pain in right knee; M25.562 Pain in left knee; I48.0 Paroxysmal atrial fibrillation; Z91.81 History of falling; Z11.52 Encounter for screening for COVID-19
CPT/HCPCS: 36415; 70450; 71045; 71250; 73560; 74176; 80048; 80076; 80307; 81001; 82010; 82272; 82550; 82803; 83605; 83690; 83735; 83880; 84443; 84484; 85025; 85610; 86850; 86900; 86901; 87040; 87502; 87635; 93005; 96361; 96365; 96367; 96375; 99285; J0613; J0696; J3475; J3480

== ENCOUNTER → 2023-07-18 20:32 | Outpatient (BNV) | payer OTHER, MEDICAID, SELFPAY | PROVIDERS: Emergency Provider Emergency Medicine Emergency Medical Services; PCP Internal Medicine; Visit Provider Internal Medicine | DX: I45.81 Long QT syndrome (principal) | CPT/HCPCS: 93010 ==

== ENCOUNTER 2023-09-26 15:02 | Outpatient (AMB) | payer OTHER, MEDICAID, SELFPAY ==
[2023-09-26 15:05] VITALS: BP 130/90; PULSE 114; BMI 21.1
--- NOTE | 2023-09-26 15:05 | MHC.OFFVIS ---
Vital Signs 09/26/23 15:05 Height 5 ft 9 in Weight 142 lb 13.753 oz BMI 21.1 BP 130/90 H Blood Pressure Location Lt brachial Position Sitting Pulse 114 H Pulse Source Pulse Oximeter Intake Visit Reasons: f/up [facility] chgs Engineering Officer Required: No Allergies No Known Allergies [No Known Allergies*] Allergy (Verified 09/26/23 15:07) Medication List - Last Reconciled 09/26/23 by DAWIT Hollingsworth apixaban (Eliquis) 5 mg PO BID 90 days carvedilol 3.125 mg PO BID 90 days cyanocobalamin (vitamin B-12) 500 mcg PO DAILY 30 days folic acid 1 mg PO DAILY gabapentin 100 mg PO BEDTIME magnesium oxide 400 mg PO BID naltrexone 100 mg (2 x 50 mg) PO DAILY sacubitril-valsartan 24-26 mg (Entresto) 1 tab PO BID 90 days sertraline 50 mg PO DAILY 30 days thiamine HCl (vitamin B1) 100 mg PO DAILY triamcinolone acetonide 0.5% 1 appl topical BID HPI HPI f/up [facility] chgs: Details: To is a 53-year-old male with past medical history of alcohol abuse, diabetes, paroxysmal atrial fibrillation, heart failure with reduced EF, nonischemic cardiomyopathy, who was recently admitted to [facility] then transferred to [facility] for hypovolemic shock, WILFREDO, community-acquired pneumonia, DKA. He was felt to have starvation ketosis in the setting of alcohol, poor nutrition and hydration as well as CPAP. He was acutely managed with an improvement in his condition. Today he reports he has been doing well since his hospital discharge. Says he has been eating and drinking liquids as he should. He does admit to drinking alcohol occasionally but denies daily use. He says he will have a twisted tea at times. No chest discomfort at rest or with activity. No shortness of breath, PND, orthopnea or edema. No lightheadedness, presyncope, syncope, falls. He has been taking all his medications. His meds are laid out in the pillbox by his mother. He has been trying to walk more. He is hoping to get a job in the near future. [facility] Medical History Colon cancer screening Paroxysmal atrial fibrillation Screening for prostate cancer Alcohol dependence, uncomplicated Atrial fibrillation Hypomagnesemia Left inguinal hernia Eczema Peripheral neuropathy Inguinal hernia, left Anemia Type 2 diabetes mellitus with hyperglycemia Nonischemic cardiomyopathy Chronic heart failure with reduced ejection fraction and diastolic dysfunction Surgical History Hx of cardiac catheterization Family History Father No problems noted. Mother No problems noted. Other No family history of cancer Substance abuse Social History Household Members: None Housing: Apartment Are you a primary manager career to a significant other at home: No Do you presently have visiting nurse or other home services: No Alcohol intake: current Alcohol intake frequency: 3 or more drinks per day Alcohol type: hard liquor Comment: 1:1 sitter Patient Tobacco Use Status: Never used Tobacco e-Cigarette/Vaping Use: Never Used Second Hand Smoke Exposure: Yes Advance Directives Date on File: 09/10/21 service: No Current occupational status: employed Cognitive needs: No Hearing needs: No Vision needs: Yes (Glasses and contacts) Review of Systems Const All systems reviewed & are unremarkable except as noted in HPI and below ENT Denies dizziness Card Denies chest pain, Denies chest pain at rest, Denies chest pain with activity, Denies rapid heart rate, Denies pedal edema, Denies edema, Denies leg edema, Denies lightheadedness, Denies palpitations, Denies dyspnea, Denies dyspnea on exertion and Denies orthopnea Resp Denies cough, Denies dyspnea and Denies dyspnea on exertion GI Denies hematochezia and Denies change in stool character Musc Denies abnormal gait, Denies limited range of motion, Denies muscle cramps, Denies muscle weakness, Denies numbness, Denies radiating pain into limb, Denies stiffness and Denies tingling Neuro Denies abnormal gait, Denies dizziness, Denies numbness and Denies tingling Endo Denies palpitations Physical Exam Vital Signs: Last Vital Signs Pulse 114 H 09/26/23 15:05 BP 130/90 H 09/26/23 15:05 BMI result Body Mass Index 21.1 Const General: cooperative, comfortable, no acute distress and anxious Orientation/consciousness: patient oriented x3 Neck Neck: Yes normal visual inspection and Yes no JVD Resp Effort & Inspection: normal respiratory effort Auscultation: clear to auscultation bilaterally, no rales, no rhonchi and no wheezes Cardio Jugular venous distension: no JVD Rate: tachycardic Rhythm: regular rhythm Heart sounds: S1 normal heart sound present, S2 normal heart sound present, no murmurs and no rubs Neuro General: patient oriented x3 Extrem General: Yes normal to inspection and No no pedal edema Psych Appearance: grossly normal Mental Status: mental status grossly normal Speech and movement: Normal speech and movement present Office Procedures EKG Details: Today, read by me, normal sinus rhythm with sinus arrhythmia, prolonged QTC, 496 milliseconds, rate 88 [id number], Complete Assessment & Plan Assessment & Plan (1) Paroxysmal atrial fibrillation: Code(s): I48.0 - Paroxysmal atrial fibrillation Category: Medical Plan: History of paroxysmal atrial fibrillation. Currently suppressed. EKG done today shows sinus rhythm with sinus arrhythmia, QTC 496 milliseconds, rate 88. Is on carvedilol for anticoagulation. His dose was reduced while at [facility] due to soft blood pressure readings. At this time will increase carvedilol up to 6.25 mg b.i.d. since his pulse was elevated initially on arrival. He is on Eliquis for anticoagulation. He denies bleeding issues. He is still drinking alcohol all occasionally but denies any bleeding issues or recent falls. He had WILFREDO during last hospital presentation. At this time will have him update labs including BMP, CBC, magnesium. (2) Nonischemic cardiomyopathy: Comment: echocardiogram in July 2019 showing LVEF of 15-20% August 2020he left ventricular systolic function is normal. The calculated ejection fraction is 58% by biplane method. - No obvious valvular pathology seen on this study. Code(s): I42.8 - Other cardiomyopathies Category: Medical Plan: History of ischemic cardiomyopathy, likely related to alcohol abuse. His last echocardiogram was done 11/29/2022 showing EF 63%, no valve abnormalities. He is on Entresto and carvedilol for neurohormonal modulation. His dose of carvedilol will be titrated up. Last labs at [facility] done 07/29/2023 showed creatinine 1.13. Updating labs as above. Signs and symptoms of heart failure reviewed with him. (3) Alcohol dependence, uncomplicated: Code(s): F10.20 - Alcohol dependence, uncomplicated Category: Medical Plan: As above (4) WILFREDO (acute kidney injury): Code(s): N17.9 - Acute kidney failure, unspecified Category: Medical Plan: Creatinine as high as 9 at time of [facility] presentation in July. Last known creatinine 1.13 on 07/29/2023 (5) Hypomagnesemia: Code(s): E83.42 - Hypomagnesemia Category: Medical Plan: History of hypomagnesemia. His med list does include magnesium supplement. Last magnesium level 1.3 on 07/29/2023. His EKG today does show prolonged QTC at 496 milliseconds. Checking magnesium on his labs as above. (6) Long QT interval: Code(s): R94.31 - Abnormal electrocardiogram [ECG] [EKG] Category: Medical Plan: As above (7) Hospital discharge follow-up: Code(s): Z09 - Encounter for follow-up examination after completed treatment for conditions other than malignant neoplasm Category: Medical Plan: As above Plan Time spent on chart review, documentation, interview and assessment Orders: Orders Basic Metabolic Panel Today E83.42 - Hypomagnesemia, N17.9 - Acute kidney failure, unspecified Magnesium Today E83.42 - Hypomagnesemia Complete Blood Count no Diff Today D64.9 - Anemia, unspecified Medications: New carvedilol Dose increased must administer with a meal/food 6.25 mg PO BID 60 tabs 5RF Discontinued carvedilol must administer with a meal/food Discontinued Reason: Doctor's Order 3.125 mg PO BID 90 days 180 tabs 1RF Coding Level of Care Code Est Pt Level 4 (02682) Diagnoses Paroxysmal atrial fibrillation I48.0 Nonischemic cardiomyopathy I42.8 Alcohol dependence, uncomplicated F10.20 WILFREDO (acute kidney injury) N17.9 Hypomagnesemia E83.42 Long QT interval R94.31 Hospital discharge follow-up Z09 CPT Codes EKG - CPT: [id number], Complete ([id number]) Time Spent (min) 30
== END 2023-09-26 16:01 | disposition home or self-care (01) ==
PROVIDERS: PCP Internal Medicine; Visit Provider Nurse Practitioner Family
DX: I48.0 Paroxysmal atrial fibrillation (principal); I42.8 Other cardiomyopathies; F10.20 Alcohol dependence, uncomplicated; N17.9 Acute kidney failure, unspecified; E83.42 Hypomagnesemia; R94.31 Abnormal electrocardiogram [ECG] [EKG]; Z09 Encounter for follow-up examination after completed treatment for conditions other than malignant neoplasm
CPT/HCPCS: 93010; 99214

== ENCOUNTER → 2023-09-26 15:02 | Outpatient (BNVA) | payer OTHER, MEDICAID, SELFPAY | PROVIDERS: PCP Internal Medicine; Visit Provider Nurse Practitioner Family | DX: I48.0 Paroxysmal atrial fibrillation (principal); I42.8 Other cardiomyopathies; N17.9 Acute kidney failure, unspecified; F10.20 Alcohol dependence, uncomplicated; E83.42 Hypomagnesemia; R94.31 Abnormal electrocardiogram [ECG] [EKG]; Z79.01 Long term (current) use of anticoagulants; Z79.899 Other long term (current) drug therapy | CPT/HCPCS: 93005 ==

== ENCOUNTER 2023-10-15 08:48 | Outpatient (AMB) | payer OTHER, SELFPAY ==
[2023-10-15 08:49] VITALS: BP 136/78; PULSE 101; O2SAT 98; BMI 21.0
--- NOTE | 2023-10-15 08:49 | MHC.PC.OV ---
Vital Signs 10/15/23 08:49 Height 5 ft 9 in Weight 142 lb BMI 21.0 BP 136/78 Blood Pressure Location Lt brachial Position Sitting Pulse 101 H Pulse Source Pulse Oximeter Pulse Oximetry (%) 98 Oxygen Delivery Method Room Air Intake Visit Reasons: PE Allergies No Known Allergies [No Known Allergies*] Allergy (Verified 10/15/23 08:49) Medication List - Last Reconciled 10/15/23 by Wendie Maria MD apixaban (Eliquis) 5 mg PO BID 90 days carvedilol 6.25 mg PO BID cyanocobalamin (vitamin B-12) 500 mcg PO DAILY 30 days folic acid 1 mg PO DAILY gabapentin 100 mg PO BEDTIME magnesium oxide 400 mg PO BID multivitamin 1 tab PO DAILY naltrexone 100 mg (2 x 50 mg) PO DAILY sacubitril-valsartan 24-26 mg (Entresto) 1 tab PO BID 90 days sertraline 50 mg PO DAILY 30 days thiamine HCl (vitamin B1) 100 mg PO DAILY triamcinolone acetonide 0.5% 1 appl topical BID Tobacco use date assessed: 10/15/23 Dental Screening Dental Screen Date: 10/15/23 Did you have a dental visit in the last 12 months?: No Did you have a dental problem in the last 6 months where you did not have access to dental care?: No Was dental information given to patient?: Patient has dentist HPI PE HPI Details 53-year-old male with diabetes mellitus atrial fibrillation nonischemic cardiomyopathy with alcohol abuse major depression coming in for physical exam last seen in November 2022. Review of the notes just so Cardiology on the 25 of September recently admitted due to hypovolemic shock community-acquired pneumonia and DKA. Presently on carvedilol placed on 6.25 mg twice a day continue with in with anticoagulation last echocardiogram was November 2022 EF of 63% on Entresto and carvedilol July 2023 creatinine 1.13. Hospitalization was in July 18 having a BUN of 100 with a creatinine of 10 and hypotension and left lower lobe pneumonia low potassium low magnesium. Prior to that was in the hospital also in April for hypomagnesemia and alcohol withdrawal. 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 concern [facility] Medical History (Updated 10/15/23 @ 09:06 by Wendie Maria MD) Colon cancer screening Numbness in feet Difficulty walking Alcohol withdrawal COVID-19 virus infection Numbness of left foot Alcohol abuse Paroxysmal atrial fibrillation Screening for prostate cancer Atrial fibrillation Left inguinal hernia Eczema Peripheral neuropathy Inguinal hernia, left Anemia Type 2 diabetes mellitus with hyperglycemia Nonischemic cardiomyopathy Chronic heart failure with reduced ejection fraction and diastolic dysfunction Surgical History Hx of cardiac catheterization Family History Father No problems noted. Mother No problems noted. Other No family history of cancer Substance abuse Social History Household Members: None Housing: Apartment Are you a primary daytime caregiver to a significant other at home: No Do you presently have visiting nurse or other home services: No Alcohol intake: current Alcohol intake frequency: 3 or more drinks per day Alcohol type: hard liquor Comment: 1:1 sitter Patient Tobacco Use Status: Never used Tobacco Tobacco use type: Cigarette e-Cigarette/Vaping Use: Never Used Second Hand Smoke Exposure: Yes Advance Directives Date on File: 09/10/21 service: No Current occupational status: employed Cognitive needs: No Hearing needs: No Vision needs: Yes (Glasses and contacts) Questionnaire PHQ-9 Over the last 2 weeks, how often have you been bothered by any of the following problems? 1. Little interest or pleasure in doing things: not at all 2. Feeling down, depressed, or hopeless: not at all 3. Trouble falling or staying asleep, or sleeping too much: not at all 4. Feeling tired or having little energy: not at all 5. Poor appetite or overeating: not at all 6. Feeling bad about yourself - or that you are a failure or have let yourself or your family down: not at all 7. Trouble concentrating on things, such as reading the newspaper or watching television: not at all 8. Moving or speaking so slowly that other people could have noticed. Or the opposite - being so fidgety or restless that you have been moving around a lot more than usual: not at all 9. Thoughts that you would be better off or of hurting yourself in some way: not at all Total score: 0 Depression Screening Interpretation: Negative Depression Screening Done: Yes 15318 - PHQ-9 Billing: Yes Source: Developed by Drs. Louis Khan, Qi Waggoner, Luis Enrique Leiva and colleagues, with an educational danelle from [employer]. Thrive Questionnaire Date Thrive assessed: 10/15/23 I am a: Patient What is your living situation today?: I have a steady place to live Within the past 12 months, did the food you bought not last and you didn't have the money to get more?: Never true Within the past 12 months, did you worry whether your food would run out before you got money to buy more?: Never true Do you have trouble paying for medicines?: No Do you have trouble getting transportation to medical appointments?: No Do you have trouble paying your heating and electricity bill?: No Do you have trouble taking care of your child, family member or friend?: No Do you have trouble with day-to-day activities such as bathing, preparing meals, shopping, managing finances, etc.?: No Are you currently unemployed and looking for a job?: No Are you interested in more education?: No Currently or been in a relationship where the following occur: No concerns reported THRIVE Score: 0 AUDIT C Alcohol Use Questionnaire (AUDIT-C) 1. How often do you have a drink containing alcohol?: 4 or more times a week 2. How many drinks containing alcohol do you have on a typical day when you are drinking?: 1 or 2 3. How often do you have six or more drinks on one occasion?: Never Total Score: 4 Score Reviewed/Action Taken: Yes MARYANA-7 AMB Questionnaire MARYANA-7 Date MARYANA - 7 assessed: 10/15/23 Feeling nervous, anxious, or on edge: 0 = Not at all Not being able to stop or control worryin = Not at all Worrying too much about different things: 0 = Not at all Trouble relaxin = Not at all Being so restless that it is hard to sit still: 0 = Not at all Becoming easily annoyed or irritable: 0 = Not at all Feeling afraid as if something awful might happen: 0 = Not at all Total MARYANA-7 score (0-4 normal; 5-9 mild; 10-14 moderate; 15-21 severe): 0 Source: Developed by Drs. Louis Khan, Qi Waggoner, Luis Enrique Leiva and colleagues, with an educational danelle from [employer]. MARYANA-7 Assessment Billing MARYANA-7 Assessment Tool: MARYANA-7 Assessment [id number] Physical exam (Primary Care) Vital Signs: Last Vital Signs Pulse 101 H 10/15/23 08:49 BP 136/78 10/15/23 08:49 Pulse Ox 98 10/15/23 08:49 Oxygen Delivery Method Room Air 10/15/23 08:49 BMI result Body Mass Index 21.0 Tobacco/Smoking Status: Tobacco use Status Tobacco use date assessed 10/15/23 10/15/23 08:57 Patient Tobacco Use Status Never used Tobacco 10/15/23 08:57 Tobacco use type Cigarette 10/15/23 08:57 e-Cigarette/Vaping Use Never Used 10/15/23 08:57 PHQ-9: PHQ-9 Score PHQ-9: Total score 0 10/15/23 08:57 Depression Screening Interpretation: Negative Thrive Assessment: Date of Thrive Assessment Date Thrive assessed 10/15/23 10/15/23 08:57 Currently or been in a relationship where the following occur: No concerns reported Const General: alert; No acute distress Eyes Conjunctivae: conjunctivae normal Resp Auscultation: clear to auscultation bilaterally Cardio Rate: regular rate Rhythm: regular rhythm GI Inspection: Yes normal to inspection Extrem General: Yes normal to inspection and No edema Assessment and Plan Assessment & Plan (1) Hospital discharge follow-up: Code(s): Z09 - Encounter for follow-up examination after completed treatment for conditions other than malignant neoplasm Plan: Patient was admitted in June with sepsis, pneumonia, hypovolemic shock and DKA (2) Hypomagnesemia: Code(s): E83.42 - Hypomagnesemia Plan: Will need retesting (3) WILFREDO (acute kidney injury): Code(s): N17.9 - Acute kidney failure, unspecified Plan: Will need retesting of blood work (4) Anemia: Code(s): D64.9 - Anemia, unspecified Plan: Patient was in the hospital recently and will need retesting of blood work (5) Alcohol use disorder: Code(s): F10.90 - Alcohol use, unspecified, uncomplicated Plan: Patient continues to drink alcohol (6) Paroxysmal atrial fibrillation: Code(s): I48.0 - Paroxysmal atrial fibrillation Plan: Continue with anticoagulation and carvedilol. (7) Pneumonia: Code(s): J18.9 - Pneumonia, unspecified organism Plan: Resolved (8) Type 2 diabetes mellitus with hyperglycemia: Code(s): E11.65 - Type 2 diabetes mellitus with hyperglycemia Qualifiers: Diabetes mellitus wardrobe custodian insulin use: without wardrobe custodian use Qualified Code(s): E11.65 - Type 2 diabetes mellitus with hyperglycemia Plan: Decrease the amount of carbohydrate intake, pasta, bread, rice and potatoes are all sugar and that is aside from all the sweet stuff, remember that fruits are good but they are Sweet also. Last hemoglobin A1c noted to be controlled 6.23 July 2023 (9) Major depression: Comment: decline referral to counselling Code(s): F32.9 - Major depressive disorder, single episode, unspecified Plan: Presently on sertraline. declined any referral for counseling (10) Nonischemic cardiomyopathy: Comment: echocardiogram in July 2019 showing LVEF of 15-20% August 2020he left ventricular systolic function is normal. The calculated ejection fraction is 58% by biplane method. - No obvious valvular pathology seen on this study. Code(s): I42.8 - Other cardiomyopathies Plan: Last echocardiogram has rebounded on Entresto presently and carvedilol Orders: Orders Prostate Specific Antigen Scr Today E11.65 - Type 2 diabetes mellitus with hyperglycemia Microalbumin, Random (w Creat) Today E11.65 - Type 2 diabetes mellitus with hyperglycemia Creatinine Urine Today E11.65 - Type 2 diabetes mellitus with hyperglycemia Ferritin Today D64.9 - Anemia, unspecified Coding Level of Care Code Est Pt Level 4 (57402) Diagnoses Hospital discharge follow-up Z09 Hypomagnesemia E83.42 WILFREDO (acute kidney injury) N17.9 Anemia D64.9 Alcohol use disorder F10.90 Paroxysmal atrial fibrillation I48.0 Pneumonia J18.9 Type 2 diabetes mellitus with hyperglycemia, without long-term current use of insulin E11.65 Diabetes mellitus wardrobe custodian insulin use: without wardrobe custodian use Major depression F32.9 Nonischemic cardiomyopathy I42.8 Additional Codes MARYANA-7 Assessment Billing - MARYANA-7 Assessment Tool: MARYANA-7 Assessment [id number] ([id number])
== END 2023-10-15 09:24 | disposition home or self-care (01) ==
PROVIDERS: PCP Internal Medicine; Visit Provider Internal Medicine
DX: I48.0 Paroxysmal atrial fibrillation (principal); N17.9 Acute kidney failure, unspecified; E11.65 Type 2 diabetes mellitus with hyperglycemia; I42.8 Other cardiomyopathies; Z09 Encounter for follow-up examination after completed treatment for conditions other than malignant neoplasm; E83.42 Hypomagnesemia; D64.9 Anemia, unspecified; F10.90 Alcohol use, unspecified, uncomplicated; J18.9 Pneumonia, unspecified organism; F32.9 Major depressive disorder, single episode, unspecified
CPT/HCPCS: 99214

== ENCOUNTER 2023-10-15 09:30 | Outpatient (REF) | payer OTHER, MEDICAID, SELFPAY ==
[2023-10-15 09:56] LABS: Immature Retic Fraction 14.2 % (2.3-13.4); Retic HGB Equivalent 39.3 pg (30.0-35.0); Reticulocyte Percent 0.8 % (0.5-1.8)
[2023-10-15 10:53] LABS: Cholesterol 198 mg/dL (<200); HDL Cholesterol 67 mg/dL (>40); Iron 120 mcg/dL (45-160); LDL Cholesterol Calculated 83 mg/dL (<100); Magnesium 1.5 mg/dL (1.6-2.6); Percent Iron Saturation 51 % (15-50); Total Iron Binding Capacity 234 mcg/dL (228-428); Triglycerides 241 mg/dL (<150); Unsaturated Iron Binding 114 ug/dL
[2023-10-15 10:58] LABS: Free T4 (Free Thyroxine) 0.69 ng/dL (0.71-1.85)
[2023-10-15 11:18] LABS: Folate > 20.0 ng/mL (> or = 4.0); Prostate Specific Antigen Scr 0.75 ng/mL (<0.05-4.0); Vitamin B12 633 pg/mL (200-900)
[2023-10-18 12:57] LABS: Methylmalonic Acid 127 nmol/L (55-335)
== END 2023-10-15 09:31 | disposition home or self-care (01) ==
LOC: HO.LAB 09:30
PROVIDERS: PCP Internal Medicine; Visit Provider Internal Medicine
DX: E83.42 Hypomagnesemia (principal); E78.00 Pure hypercholesterolemia, unspecified; E11.65 Type 2 diabetes mellitus with hyperglycemia; Z12.5 Encounter for screening for malignant neoplasm of prostate
CPT/HCPCS: 36415; 80061; 82607; 82746; 83540; 83735; 83921; 84153; 84439; 84443; 85045

== ENCOUNTER 2023-10-31 14:29 | Outpatient (REF) | payer OTHER, MEDICAID, SELFPAY | END 2023-10-31 14:30 | disposition home or self-care (01) | LOC: HO.LAB 14:29 | PROVIDERS: PCP Internal Medicine; Visit Provider Internal Medicine | DX: Z13.89 Encounter for screening for other disorder (principal) ==

== ENCOUNTER 2023-11-01 13:07 | Inpatient (IN) | payer OTHER, MEDICAID, SELFPAY ==
[2023-11-01] VITALS (10 sets, daily range): BP systolic 82–126; BP diastolic 49–88; PULSE 79–108; RESP 14–25; TEMP 36.6–37.1; O2SAT 93–100; BMI 21.1
--- NOTE | ~2023-11-01 | CT_ITS ---
EXAMINATION: CT HEAD WITHOUT CONTRAST CT CERVICAL SPINE WITHOUT CONTRAST CLINICAL INFORMATION: Trauma. COMPARISON: CT head 07/18/2023. TECHNIQUE: Contiguous axial imaging was performed from the skull base to vertex without intravenous administration of contrast. Contiguous axial imaging was performed from the upper chest through the skull base without intravenous administration of contrast. Coronal and sagittal reformats were obtained at the acquisition workstation. This CT examination was performed using dose optimization techniques as appropriate, variously including the following: *Automated exposure control *Adjustment of mA and/or kV according to patient size (this includes techniques or standardized protocols for targeted exams where dose is matched to indication/reason for exam; i.e. extremities or head) *Use of iterative reconstruction technique DLP: 1062 mGy-cm FINDINGS: Head: There is no evidence of acute intracranial hemorrhage or edematous territorial infarction. A few foci of hypoattenuation in the periventricular and deep white matter are consistent with mild microangiopathy. Wayne-white matter differentiation is preserved. Proportional prominence of the ventricles and sulcal spaces. No evidence for obstructive hydrocephalus. No abnormal mass effect or midline shift. No extra-axial fluid collections. Small scalp hematoma in the left occipital region. No displaced calvarial fracture. The mastoid air cells and paranasal sinuses are clear. Cervical Spine: The atlantooccipital and atlantoaxial articulations remain well aligned. No evidence of acute compression deformity or subluxation. Stable mild superior endplate deformity of the T3 vertebral body compared to CT chest from 09/08/2021. Moderate multilevel cervical spondylosis with intervertebral disc height loss, marginal osteophytes and uncovertebral/facet arthropathy more prominent at C5-C6. Stable superior endplate Schmorl nodule at T1. There is no prevertebral soft tissue swelling. The thyroid gland and remaining cervical soft tissues are normal in appearance. The lung apices demonstrate no abnormalities. CT/CT cervical spine wo IV con IMPRESSION: 1. Small scalp hematoma in the left occipital region. 2. No acute intracranial pathology. 3. No acute cervical spinal fractures or malalignment. 4. Stable mild superior endplate deformity of the T3 vertebral body compared to CT chest from 09/08/2021. Electronically signed by: Tamar Oates MD 11/01/2023 03:44 PM EDT
--- NOTE | 2023-11-01 13:15 | ECG_ITS ---
Test Reason : WITHDRAWAL Blood Pressure : / mmHG Vent. Rate : 091 BPM Atrial Rate : 091 BPM P-R Int : 168 ms QRS Dur : 090 ms QT Int : 402 ms P-R-T Axes : 067 025 069 degrees QTc Int : 494 ms Normal sinus rhythm Nonspecific ST and T wave abnormality Abnormal ECG When compared with ECG of 18-JUL-2023 20:31, T wave inversion no longer evident in Inferior leads T wave inversion no longer evident in Anterolateral leads Referred By: Ramila Jules Electronically Signed By:ABBEY SCHMITZ
--- NOTE | 2023-11-01 13:16 | ED.GENADULT ---
HPI - General Adult General Chief complaint: Altered Mental Status Stated complaint: AMS, fall x2 today, head strike, + blood thinners Time Seen by Provider: 11/01/23 13:23 Source: patient and EMS Mode of arrival: EMS Limitations: altered mental status History of Present Illness HPI narrative: Patient is a 53-year-old male who presents emergency department via EMS, found on the stairs, altered. He reports the it he has had multiple falls recently yesterday and today, he is unable to provide me a clear history of the etiology of these falls or their occurrences, seems as though at some point he has fallen downstairs but also fallen into a table. Per EMS report there were bystanders at the home who endorsed multiple falls as well as ETOH usage. He states he has not drank in 1 week, he stopped because ?he needs a job?. He reports his mother and father being present here with him pointing to EMS personnel. At times he is answering certain questions seemingly appropriately but at other times it is difficult to follow his thought process. Related Data Home Medications ?Medication ?Instructions ?Recorded ?Confirmed multivitamin 1 tab PO DAILY 10/15/23 11/01/23 apixaban 5 mg tablet (Eliquis) 5 mg PO BID 11/01/23 11/01/23 naltrexone 50 mg tablet 50 mg PO BID 11/01/23 11/01/23 sacubitril 24 mg-valsartan 26 mg 1 tab PO BID 11/01/23 11/01/23 tablet (Entresto) Previous Rx's ?Medication ?Instructions ?Recorded cyanocobalamin (vitamin B-12) 500 500 mcg PO DAILY 30 days #30 tabs 10/13/21 mcg tablet gabapentin 100 mg capsule 100 mg PO BEDTIME #90 caps 11/05/22 folic acid 1 mg tablet 1 mg PO DAILY #30 tabs 04/29/23 thiamine HCl (vitamin B1) 100 mg 100 mg PO DAILY #90 tabs 09/18/23 tablet carvedilol 6.25 mg tablet 6.25 mg PO BID #60 tabs 09/26/23 sertraline 50 mg tablet 50 mg PO DAILY 30 days #90 tabs 10/14/23 magnesium oxide 400 mg PO BID #180 tabs 10/18/23 Allergies Allergy/AdvReac Type Severity Reaction Status Date / Time No Known Allergies Allergy Verified 11/01/23 13:30 [No Known Allergies*] Review of Systems Review of Systems: Yes all other systems are reviewed and are negative [facility] Past Medical History Attestation statement: The following information was validated with the patient. Source: old records reviewed Medical History Colon cancer screening Numbness in feet Difficulty walking Alcohol withdrawal COVID-19 virus infection Numbness of left foot Alcohol abuse Paroxysmal atrial fibrillation Screening for prostate cancer Atrial fibrillation Left inguinal hernia Eczema Peripheral neuropathy Inguinal hernia, left Anemia Type 2 diabetes mellitus with hyperglycemia Nonischemic cardiomyopathy Chronic heart failure with reduced ejection fraction and diastolic dysfunction Surgical History Hx of cardiac catheterization Family History Family History Father No problems noted. Mother No problems noted. Other No family history of cancer Substance abuse Social History Social History Household Members: None Housing: Apartment Are you a primary med care manager to a significant other at home: No Do you presently have visiting nurse or other home services: No Alcohol intake: current Alcohol intake frequency: 3 or more drinks per day Alcohol type: hard liquor Comment: 1:1 sitter Patient Tobacco Use Status: Never used Tobacco Tobacco use type: Cigarette Smoked in Last 30 Days: No e-Cigarette/Vaping Use: Never Used Second Hand Smoke Exposure: Yes Use of substances other than those prescribed or required for medical reasons: Unable to respond Advance Directives: Yes Advance Directives on File: Yes Advance Directives Date on File: 09/10/21 Do you have a plan to hurt others: No Plan service: No Current occupational status: employed Cognitive needs: No Hearing needs: No Vision needs: Yes (Glasses and contacts) Physical Exam ED Vital Signs: Vital Signs - 24 hr 11/01/23 13:28 11/01/23 13:34 11/01/23 13:54 Temperature 98.7 F Pulse Rate 103 H 94 Respiratory Rate 18 16 Blood Pressure 82/59 L 99/71 108/69 Pulse Oximetry 99 99 Oxygen Delivery Method Room Air Room Air 11/01/23 17:04 11/01/23 17:21 11/01/23 17:48 Temperature 98.6 F Pulse Rate 98 99 100 Respiratory Rate 25 H 18 18 Blood Pressure 110/76 110/76 126/88 Pulse Oximetry 100 98 Oxygen Delivery Method Room Air Room Air Room Air 11/01/23 18:54 11/01/23 20:04 11/01/23 20:52 Temperature 97.8 F Pulse Rate 92 79 91 Respiratory Rate 21 H 14 20 Blood Pressure 90/49 L 116/85 113/81 Pulse Oximetry 96 96 Oxygen Delivery Method Room Air Room Air BMI result Body Mass Index 21.1 Appearance: Alert.?Oriented to person and place, disoriented to time and event. Speech is slurred Eyes: Pupils equal, round and reactive to light.? ENT: Pharynx normal.?? Neck: Normal inspection.? Neck supple.?? CVS: Heart sounds normal. Normal heart rate and rhythm.? Pulses normal.?? Respiratory: No respiratory distress.? Lung sounds clear to auscultation bilaterally?? Abdomen: Soft and non-tender. Normoactive bowel sounds. No pulsatile mass.?? Skin: Skin warm and dry.? Normal skin color.? ? Extremities: No lower extremity edema.? No calf ttp. Mild tremors noted to the bilateral upper extremities Neuro: Moves all extremities spontaneously. Sensation intact bilaterally. CN II-XII intact. No focal neuro deficits. NIH Stroke Scale Internal: Initial- Upon Arrival Level of Consciousness: Alert Level of Consciousness Questions: Answers both questions correctly Level of Consciousness Commands: Performs both tasks correctly Best Gaze: Normal Visual: No visual loss Facial Palsy: Normal Motor Arm (Right): No drift Motor Arm (Left): No drift Motor Leg (Right): No drift Motor Leg (Left): No drift Limb Ataxia: Absent Sensory: Normal Best Language: Mild to moderate aphasia Dysarthia: Normal Extinction and Inattention: No abnormality Score: 1 Course Reevaluation(s) Reevaluation #1: Father is currently at bedside. He reports that his presented to his home today, he resides in a basement apartment. He was found to be sitting at the bottom of the stairs holding onto the railing and was very tremulous. He reports that yesterday he was quite delusional, they were debating calling 911 at that time, and he admits that even 2 days ago he was mildly delusional. Father states that he had a similar presentation in March of this year for which she was evaluated at the hospital, he was found to be withdrawing from alcohol. He does appear to be having hallucinations is noted to be tremulous, concern for acute alcohol withdrawal starting phenobarbital protocol Time: 13:36 Reevaluation #2: CBC without leukocytosis, normocytic anemia which actually appears improved when compared to prior levels earlier this year. Mild thrombocytopenia 144,000. WILFREDO with BUN 27 creatinine 3.3 likely hypovolemic, increased anion gap metabolic acidosis likely starvation/alcoholic ketoacidosis. Bicarb 16. Appropriate respiratory compensation, speaking clear full sentences no distress no hypoxia. Pending venous gas. Will treat with thiamine 200 mg IV and fluid resuscitation. High sensitive troponin below detectable limits. BNP not consistent with CHF exacerbation. Alcohol level nondetectable, phenobarbital protocol has been started. Reevaluation #3: Patient still continues to have visual and auditory hallucinations, agitating attempting to get out of bed, disoriented x3. Will order additional dose of phenobarbital 65 mg IV Time: 16:38 Additional Reevaluation(s): 17:10 - adding Haldol 5 mg IV, persistent DTs. Case discussed with ED attending Dr. Avitia and agrees with the plan of care. 20:30 - patient did require an additional phenobarbital 65 mg IV, was then able to rest quietly, no further tremors, resolution of hallucinations for at least 2 hours. At this time felt he was stable for admission to medicine service. Spoke with hospitalist Dr. Han Joshi who accepts patient for admission. Repeat chemistries revealing BUN 23 and creatinine 2.32 downtrending, anion gap has closed at 19, bicarb 17. Medications Administered Discontinued Medications Generic Name Dose Route Start Last Admin Trade Name Freq PRN Reason Stop Dose Admin Haloperidol Lactate 5 mg 11/01/23 17:10 11/01/23 17:22 Haloperidol Lactate 5 Mg/Ml Vial IVPUSH 11/01/23 17:11 5 mg ONCE ONE Administration Sodium Chloride 1,000 mls @ 999 mls/hr 11/01/23 15:00 11/01/23 17:23 Ns IV 11/01/23 16:00 Infused .Q1H1M MICHELLE Infusion Thiamine HCl 200 mg/ Sodium 102 mls @ 204 mls/hr 11/01/23 15:01 11/01/23 17:10 Chloride IV 11/01/23 15:30 Infused ONCE ONE Infusion Sodium Chloride 1,000 mls @ 999 mls/hr 11/01/23 19:45 11/01/23 20:49 Ns IV 11/01/23 20:45 Infused .Q1H1M MICHELLE Infusion Phenobarbital Sodium 311 mg 11/01/23 14:00 11/01/23 14:23 Phenobarbital Sodium 130 Mg/Ml Im Once IM 11/01/23 14:01 311 mg ONCE ONE Administration Protocol Phenobarbital Sodium 233 mg 11/01/23 17:00 11/01/23 20:51 Phenobarbital Sodium 130 Mg/Ml Vial Im Q3hx2 IM 11/01/23 20:01 233 mg Q3H MICHELLE Administration Protocol Phenobarbital Sodium 65 mg 11/01/23 16:42 11/01/23 16:59 Phenobarbital Sodium 65 Mg/Ml Vial IVPUSH 11/01/23 16:43 65 mg ONCE ONE Administration Phenobarbital Sodium 65 mg 11/01/23 17:42 11/01/23 17:47 Phenobarbital Sodium 65 Mg/Ml Vial IVPUSH 11/01/23 17:43 65 mg ONCE ONE Administration Medical Decision Making Medical Decision Making MDM Narrative: Patient is a 53-year-old male with past medical history of paroxysmal atrial fibrillation on Eliquis, alcohol use disorder, hypomagnesemia, atopic dermatitis, peripheral neuropathy, left inguinal hernia, anemia, type 2 diabetes, nonischemic cardiomyopathy, CHF with a reduced EF. He is disoriented to place time and event, having difficulty providing a clear history of events preceding his arrival to the emergency department. Given his history of anticoagulants and recent falls, will obtain CT head cervical spine to exclude SDH, ICH, fracture, subluxation. In addition Will obtain CBC to evaluate for leukocytosis/ anemia, CMP and lipase to evaluate for abnormal electrolytes /abnormal renal function/ abnormal hepatic/biliary function, EKG and troponin to evaluate for ischemia/ACS, RAM & ethanol, Urinalysis. Differential Diagnosis Differential Diagnoses: The differential diagnosis associated with the presentation includes (See narrative above) Admission/Observation Consideration of admission/observation: Escalation of care including admission/observation considered (See narrative above and course narrative for further detail) Lab Data [facility] Lab Attestation statement: I reviewed the patient's lab results. 11/01/23 21:01 09/13/24 21:01 Labs: Lab Results 11/01/23 11/01/23 11/01/23 Range/Units 13:20 13:37 16:01 WBC 8.0 (4.8-10.8) X10*3/uL RBC 3.16 L D (4.60-5.80) X10*6/uL Hgb 10.2 L D (14.0-18.0) g/dl Hct 29.7 L D (42.0-52.0) % MCV 94.0 (80.0-98.0) fL MCH 32.3 (27.0-33.0) pg MCHC 34.3 (31.0-36.0) g/dl RDW 15.2 (11.0-16.0) % Plt Count 144 L D (160-400) X10*3/uL MPV 10.3 (9.4-12.4) fL Immature Gran % (Auto) 0.3 (0.0-0.4) % Neut % (Auto) 59.7 (45-73) % Lymph % (Auto) 25.5 (20-40) % [place] % (Auto) 11.2 H (2-11) % Eos % (Auto) 2.5 (0-4) % Baso % (Auto) 0.8 (0-2) % Lymph # (Auto) 2.0 (1.2-4.9) X10*3/uL [place] # (Auto) 0.9 (0.1-1.2) X10*3/uL Eos # (Auto) 0.2 (0.0-0.4) X10*3/uL Baso # (Auto) 0.1 (0.0-0.2) X10*3/uL Abs Immat Gran (auto) 0.02 (0.00-0.03) X10*3/uL Absolute Neuts (auto) 4.8 (2.0-8.3) x10*3/uL Absolute Nucleated RBC 0.000 (0.0-0.012) X10*3/uL Nucleated RBC % (auto) 0.0 (0.0-0.2) /100WBC PT 15.0 H D (11.1-13.3) SEC INR 1.2 H (0.9-1.1) VBG pH (7.32-7.43) VBG pCO2 mmHg VBG pO2 mmHg VBG HCO3 (22-26) mmol/L VBG O2 Saturation % VBG Base Excess mmol/L Sodium 137 (135-145) mmol/L Potassium 4.4 D (3.3-5.1) mmol/L Chloride 99 (96-108) mmol/L Carbon Dioxide 16 L (22-29) mmol/L Anion Gap 26 H (12-20) BUN 27 H (9-16) mg/dL Creatinine 3.30 H (0.5-1.4) mg/dL Estim Creat Clear Calc 24.0 Estimated GFR 20 POC Glucose 75 (60-115) mg/dL Random Glucose 66 (60-115) mg/dL Osmolality 290 (281-305) mosm/kg Lactic Acid 1.2 (0.5-2.0) mmol/L Calcium 9.2 D (8.4-10.2) mg/dL Magnesium 1.7 (1.6-2.6) mg/dL Total Bilirubin 0.6 (0.0-1.0) mg/dL AST 23 (5-37) U/L ALT 18 (0-40) U/L Alkaline Phosphatase 67 (39-117) U/L Total Creatine Kinase 109 (38-174) U/L Troponin I High Sens < 2.7 D (<3.5-35.0) ng/L B-Natriuretic Peptide 80 (<100) pg/mL Total Protein 6.5 (6.5-8.0) g/dL Albumin 3.7 (3.5-5.0) g/dL Lipase 6 L (8-78) U/L Beta-Hydroxybutyrate 9.39 H (0.02-0.27) mmol/L Urine Color Urine Appearance Urine pH (5.0-9.0) Ur Specific [place] (1.005-1.025) Urine Protein (Neg-Trace) mg/dL Urine Glucose (UA) (Negative) mg/dL Urine Ketones (Negative) mg/dL Urine Blood (Negative) Urine Nitrite (Negative) Ur Leukocyte Esterase (Negative) Urine Opiates Screen (Not Detect) Ur Buprenorphine Scrn (Not Detect) ng/mL Ur Oxycodone Screen (Not Detect) ng/mL Urine Methadone Screen (Not Detect) ng/mL Urine Fentanyl Screen (Not Detect) Ur Barbiturates Screen (Not Detect) Ur Phencyclidine Scrn (Not Detect) Ur Amphetamines Screen (Not Detect) U Benzodiazepines Scrn (Not Detect) Urine Cocaine Screen (Not Detect) U Marijuana (THC) Screen (Not Detect) Ethyl Alcohol < 10 mg/dL Influenza Type A (PCR) NEGATIVE (Negative) Influenza Type B (PCR) NEGATIVE (Negative) RSV RNA Qual (PCR) NEGATIVE (Negative) SARS-CoV-2 RNA (RT-PCR) NEGATIVE (Negative) 11/01/23 11/01/23 Range/Units 16:09 17:25 WBC (4.8-10.8) X10*3/uL RBC (4.60-5.80) X10*6/uL Hgb (14.0-18.0) g/dl Hct (42.0-52.0) % MCV (80.0-98.0) fL MCH (27.0-33.0) pg MCHC (31.0-36.0) g/dl RDW (11.0-16.0) % Plt Count (160-400) X10*3/uL MPV (9.4-12.4) fL Immature Gran % (Auto) (0.0-0.4) % Neut % (Auto) (45-73) % Lymph % (Auto) (20-40) % [place] % (Auto) (2-11) % Eos % (Auto) (0-4) % Baso % (Auto) (0-2) % Lymph # (Auto) (1.2-4.9) X10*3/uL [place] # (Auto) (0.1-1.2) X10*3/uL Eos # (Auto) (0.0-0.4) X10*3/uL Baso # (Auto) (0.0-0.2) X10*3/uL Abs Immat Gran (auto) (0.00-0.03) X10*3/uL Absolute Neuts (auto) (2.0-8.3) x10*3/uL Absolute Nucleated RBC (0.0-0.012) X10*3/uL Nucleated RBC % (auto) (0.0-0.2) /100WBC PT (11.1-13.3) SEC INR (0.9-1.1) VBG pH 7.30 L (7.32-7.43) VBG pCO2 28 mmHg VBG pO2 37 mmHg VBG HCO3 14 L (22-26) mmol/L VBG O2 Saturation 60.0 % VBG Base Excess -10.5 mmol/L Sodium (135-145) mmol/L Potassium (3.3-5.1) mmol/L Chloride (96-108) mmol/L Carbon Dioxide (22-29) mmol/L Anion Gap (12-20) BUN (9-16) mg/dL Creatinine (0.5-1.4) mg/dL Estim Creat Clear Calc Estimated GFR POC Glucose (60-115) mg/dL Random Glucose (60-115) mg/dL Osmolality (281-305) mosm/kg Lactic Acid (0.5-2.0) mmol/L Calcium (8.4-10.2) mg/dL Magnesium (1.6-2.6) mg/dL Total Bilirubin (0.0-1.0) mg/dL AST (5-37) U/L ALT (0-40) U/L Alkaline Phosphatase (39-117) U/L Total Creatine Kinase (38-174) U/L Troponin I High Sens (<3.5-35.0) ng/L B-Natriuretic Peptide (<100) pg/mL Total Protein (6.5-8.0) g/dL Albumin (3.5-5.0) g/dL Lipase (8-78) U/L Beta-Hydroxybutyrate (0.02-0.27) mmol/L Urine Color Yellow Urine Appearance Clear Urine pH 5.5 (5.0-9.0) Ur Specific [place] 1.010 (1.005-1.025) Urine Protein Trace (Neg-Trace) mg/dL Urine Glucose (UA) Negative (Negative) mg/dL Urine Ketones 40 (Negative) mg/dL Urine Blood Negative (Negative) Urine Nitrite Negative (Negative) Ur Leukocyte Esterase Negative (Negative) Urine Opiates Screen Not Detected (Not Detect) Ur Buprenorphine Scrn Not Detected (Not Detect) ng/mL Ur Oxycodone Screen Not Detected (Not Detect) ng/mL Urine Methadone Screen Not Detected (Not Detect) ng/mL Urine Fentanyl Screen Not Detected (Not Detect) Ur Barbiturates Screen POSITIVE H (Not Detect) Ur Phencyclidine Scrn Not Detected (Not Detect) Ur Amphetamines Screen Not Detected (Not Detect) U Benzodiazepines Scrn Not Detected (Not Detect) Urine Cocaine Screen Not Detected (Not Detect) U Marijuana (THC) Screen Not Detected (Not Detect) Ethyl Alcohol mg/dL Influenza Type A (PCR) (Negative) Influenza Type B (PCR) (Negative) RSV RNA Qual (PCR) (Negative) SARS-CoV-2 RNA (RT-PCR) (Negative) Independent Interpretation I performed an independent interpretation of an: EKG Interpretation: Rate: Rhythm:? [place]:? Normal P waves.? Normal GWEN.?? Normal QRS complex.?? ST T wave :?? qTC: prior studies:? The study has been interpreted contemporaneously by me. Radiology Impression Discussion of test interpretation with radiology: I have reviewed the radiologist's reading. Independent Historian Clinical information obtained from an independent historian. History obtained from or confirmed by: EMS External Record Review External record reviewed: Outpatient record Critical Care Time Critical Care Time Critical Care Time: Yes Total Critical Care Time: 80 Attestation: I personally attest to this critical care time spent taking care of the patient exclusive of all other billable procedures was approximately 80 minutes including initial evaluation of patient, ordering tests, x-ray interpretation, CT interpretation, acute alcohol withdrawal/delirium tremens, phenobarbital management,, medical consultation, documentation, re-evaluation. Discharge Plan Discharge Clinical Impression: Metabolic acidosis, Alcohol withdrawal delirium Patient Disposition: Admitted As Inpatient
[2023-11-01 13:24] LABS: Glucose, Whole Blood 75 mg/dL (60-115)
[2023-11-01 13:41] LABS: MANUAL DIFF FLAG NO
[2023-11-01 13:44] LABS: Basophils Absolute Auto 0.1 X10*3/uL (0.0-0.2); Basophils Percent Auto 0.8 % (0-2); Eosinophils Absolute Auto 0.2 X10*3/uL (0.0-0.4); Eosinophils Percent Auto 2.5 % (0-4); Hematocrit 29.7 % (42.0-52.0); Hemoglobin 10.2 g/dl (14.0-18.0); Imm Gran Abs Auto 0.02 X10*3/uL (0.00-0.03); Imm Gran Pct Auto 0.3 % (0.0-0.4); Lymphocytes Percent Auto 25.5 % (20-40); Mean Corpuscular HGB Conc 34.3 g/dl (31.0-36.0); Mean Corpuscular Hemoglobin 32.3 pg (27.0-33.0); Mean Platelet Volume 10.3 fL (9.4-12.4); Monocytes Absolute Auto 0.9 X10*3/uL (0.1-1.2); Monocytes Percent Auto 11.2 % (2-11); Neutrophils Absolute Auto 4.8 x10*3/uL (2.0-8.3); Neutrophils Percent Auto 59.7 % (45-73); Platelet Count 144 X10*3/uL (160-400); Red Blood Count 3.16 X10*6/uL (4.60-5.80); Red Cell Distribution Width 15.2 % (11.0-16.0)
[2023-11-01 13:49] LABS: INTERNATIONAL NORM RATIO 1.2 (0.9-1.1)
--- NOTE | 2023-11-01 13:55 | PC.NURSE ---
back from T without incident. pt is able to answer some questions with accuracy and at times is confused. thinks his birthday is soon. etiennebles speech. father at bedside states this presentation is similar to last time he was withdrawaing. pt states last etoh was . ccollar inplace.
[2023-11-01 14:03] LABS: B Type Natriuretic Peptide 80 pg/mL (<100)
[2023-11-01 14:08] LABS: Alanine Aminotransferase 18 U/L (0-40); Albumin Level 3.7 g/dL (3.5-5.0); Alkaline Phosphatase 67 U/L (39-117); Anion Gap 26 (12-20); Aspartate Amino Transferase 23 U/L (5-37); Bilirubin Total 0.6 mg/dL (0.0-1.0); Blood Urea Nitrogen 27 mg/dL (9-16); Calcium 9.2 mg/dL (8.4-10.2); Carbon Dioxide 16 mmol/L (22-29); Chloride 99 mmol/L (96-108); Estimated Glomerular Filt Rate 20; Ethanol < 10 mg/dL; Glucose Random 66 mg/dL (60-115); Lipase 6 U/L (8-78); Magnesium 1.7 mg/dL (1.6-2.6); Potassium 4.4 mmol/L (3.3-5.1); Sodium 137 mmol/L (135-145); Total Protein 6.5 g/dL (6.5-8.0); Troponin-I High Sensitivity < 2.7 ng/L (<3.5-35.0)
[2023-11-01] MEDS: PHENobarbitaL sodium 130 MG/ML IM ONCE 311 MG IM (14:23)
--- NOTE | 2023-11-01 15:49 | MHC.EDTECH ---
This pct attempted to obtain orthostatic vitals but the patient is very unsteady on feet i will try again later.RN Aware
--- NOTE | 2023-11-01 15:50 | PC.NURSE ---
continues to talk about non sequitor things. reaches for items we can't see. tremor remains in hands and tongue. answers questions with clarity.
[2023-11-01] MEDS: Thiamine HCL 200 MG in 0.9 % Sodium Chloride 100 ML 204 MG IV (15:52)
[2023-11-01] MEDS: 0.9 % Sodium Chloride 1,000 ML 999 ML IV ×2 (15:53→19:40)
[2023-11-01 16:15] LABS: VBG Base Excess -10.5 mmol/L; VBG HCO3 14 mmol/L (22-26); VBG pCO2 28 mmHg; VBG pO2 37 mmHg
[2023-11-01 16:24] LABS: Lactic Acid 1.2 mmol/L (0.5-2.0)
[2023-11-01 16:25] LABS: Venous Blood Gas Refer to POC result
[2023-11-01] MEDS: PHENobarbitaL sodium 130 MG/ML VIAL IM Q3Hx2 233 MG IM ×2 (16:37→20:51)
[2023-11-01 16:47] LABS: Osmolality, Serum 290 mosm/kg (281-305)
[2023-11-01] MEDS: PHENobarbitaL sodium 65 MG/ML VIAL IVPUSH ×2 (16:59→17:47)
[2023-11-01 17:21] LABS: Beta-Hydroxybutyrate 9.39 mmol/L (0.02-0.27)
[2023-11-01] MEDS: Haloperidol Lactate 5 MG/ML VIAL IVPUSH (17:22)
--- NOTE | 2023-11-01 17:23 | PC.NURSE ---
pt has been climbing out of bed, talking continually. needed hands on to get bacl intp bed. is undressed. tremor remains. sitter now assigned
[2023-11-01 17:31] LABS: Influenza A PCR NEGATIVE (Negative); Influenza B PCR NEGATIVE (Negative); Resp Syncy Virus RNA Qual PCR NEGATIVE (Negative); SARS COV2 PCR INHOUSE NEGATIVE (Negative)
[2023-11-01 17:39] LABS: Appearance Urine Clear; Color Urine Yellow; Glucose Urine UA Negative (Negative); Leukocyte Esterase Urine Negative (Negative); Nitrite Urine Negative (Negative); PH 5.5 (5.0-9.0); Urine Blood Negative (Negative); Urine Ketones 40 mg/dL (Negative); Urine Protein Trace mg/dL (Neg-Trace)
[2023-11-01 17:46] LABS: Amphetamine Screen Urine Not Detected (Not Detect); Barbiturates, Urine POSITIVE (Not Detect); Benzodiazepines Screen Urine Not Detected (Not Detect); Buprenorphine Scr Not Detected (Not Detect); Cannabinoid Screen Urine Not Detected (Not Detect); Cocaine Screen Urine Not Detected (Not Detect); Fentanyl, urine Not Detected (Not Detect); Methadone Screen, Urine Not Detected (Not Detect); Opiate Screen Urine Not Detected (Not Detect); Oxycodone Screen Urine Not Detected (Not Detect); Phencyclidine Screen Urine Not Detected (Not Detect)
--- NOTE | 2023-11-01 18:30 | PC.NURSE ---
sleeping. skin pwd. chest rise noted
--- NOTE | 2023-11-01 20:04 | PC.NURSE ---
1914 - assumed care of pt. bp as documented [facility] HEAD TENNIS COACH notified. pt moved over to hospital bed with bed alarm on. seizure precautions in place. pt arousable to verbal stimuli however not oriented and disorganized thoughts. Father at bedside. ivf hung per apr . repeat bp as documented. per [facility] pediatric np ok to continue with administration of IM phenobarb as documented. pt on heart monitor with continuous o2 and bp monitoring.
[2023-11-01 21:07] LABS: Hematocrit 30.9 % (42.0-52.0); Hemoglobin 10.4 g/dl (14.0-18.0); Mean Corpuscular HGB Conc 33.7 g/dl (31.0-36.0); Mean Corpuscular Hemoglobin 32.3 pg (27.0-33.0); Mean Platelet Volume 9.7 fL (9.4-12.4); Platelet Count 131 X10*3/uL (160-400); Red Blood Count 3.22 X10*6/uL (4.60-5.80); Red Cell Distribution Width 15.6 % (11.0-16.0); White Blood Count 6.3 X10*3/uL (4.8-10.8)
--- NOTE | 2023-11-01 21:16 | PC.NURSE ---
ADMITTING PROVIDER TO BEDSIDE. PT ANSWERING QUESTIONS APPROPRIATELY. axox3 unsure of year states it is 2022. pt medicated per apr with phenobarb. 2nd iv established to Cindy rios. awaiting admission orders. call christian within reach and bed alarm on.
--- NOTE | 2023-11-01 21:23 | PM.IMHP ---
History of Present Illness Date of Service: 11/01/23 Attending physician on admission: Stella Joshi Chief Complaint: Altered mental status To Hagen is a 53 years old man with past medical history significant for alcohol abuse, paroxysmal atrial fibrillation on chronic anticoagulation Eliquis and nonischemic cardiomyopathy (EF 15-20%) was brought to the emergency department via EMS due to altered mental status. HPI was mostly provided by ED provider and chart review as the patient is a very poor historian. According to triage note patient has been having altered mental status for the last 2 days. He has been experiencing slurred speech and fall twice yesterday with apparent head trauma and loss of consciousness. Patient received treatment with phenobarbital in the emergency department as he was considered to have withdrawal symptoms. Patient was very sleepy but able to answer some simple questions. He said that the last time he drank alcohol was Saturday, however, according to nursing patient told to other staff members that the last alcoholic drink was yesterday. He denied any headache, acute visual disturbances, chest pain, shortness of breath, abdominal pain, nausea, vomiting or diarrhea. He was able to provide his full name and knows he is in the hospital. Patient denied use of other drugs. It is unclear to me if the patient has been taking his naltrexone. In the ED, he was found to have normal vital signs. Blood workup was remarkable for creatinine of 3.30 (prior 8.25), BUN is 23 and CO2 is 17. There are no significant electrolyte imbalances. Beta hydroxybutyric acid is 9.39. INR is 1.2. Urinalysis showed no UTI, trace proteinuria and trace ketones. Urine drug screen is positive for phenobarbital. Head and C-spine CT scan showed no acute pathology. ECG showed normal sinus rhythm with a heart rate of 91 beats per minutes. ED tx: Haldol 5 mg IV, NS 2 L bolus, phenobarbital 230 mg twice + 65 mg IM, thiamine 200 mg IV Review of Systems Review of Systems: Yes Unobtainable due to mental status [facility] Medical History Colon cancer screening Numbness in feet Difficulty walking Alcohol withdrawal COVID-19 virus infection Numbness of left foot Alcohol abuse Paroxysmal atrial fibrillation Screening for prostate cancer Atrial fibrillation Left inguinal hernia Eczema Peripheral neuropathy Inguinal hernia, left Anemia Type 2 diabetes mellitus with hyperglycemia Nonischemic cardiomyopathy Chronic heart failure with reduced ejection fraction and diastolic dysfunction Family History Father No problems noted. Mother No problems noted. Other No family history of cancer Substance abuse Surgical History Hx of cardiac catheterization Social History Household Members: None Housing: Apartment Are you a primary child care associate teacher to a significant other at home: No Do you presently have visiting nurse or other home services: No Alcohol intake: current Alcohol intake frequency: 3 or more drinks per day Alcohol type: hard liquor Comment: 1:1 sitter Patient Tobacco Use Status: Never used Tobacco Tobacco use type: Cigarette Smoked in Last 30 Days: No e-Cigarette/Vaping Use: Never Used Second Hand Smoke Exposure: Yes Use of substances other than those prescribed or required for medical reasons: Unable to respond Advance Directives: Yes Advance Directives on File: Yes Advance Directives Date on File: 09/10/21 Do you have a plan to hurt others: No Plan service: No Current occupational status: employed Cognitive needs: No Hearing needs: No Vision needs: Yes (Glasses and contacts) Meds Allergies Allergy/AdvReac Type Severity Reaction Status Date / Time No Known Allergies Allergy Verified 11/01/23 13:30 [No Known Allergies*] Active Medications: Current Medications Acetaminophen (Acetaminophen 325 Mg Tablet) 650 mg PO Q6H PRN PRN Reason: Pain, Mild (Pain Scale 1-3), fever or headache Apixaban (Apixaban 2.5 Mg Tablet) 2.5 mg PO BID MICHELLE Carvedilol (Carvedilol 6.25 Mg Tablet) 6.25 mg PO BID MICHELLE; Protocol Dextrose/Sodium Chloride (D5ns) 1,000 mls @ 100 mls/hr IVCONT .Q10H MICHELLE Thiamine HCl 200 mg/ Sodium (Chloride) 102 mls @ 204 mls/hr IV TID MICHELLE Stop: 11/08/23 23:59 Magnesium Hydroxide (Milk Of Magnesia 30 Ml Oral.Susp) 30 ml PO DAILY PRN PRN Reason: Constipation Ondansetron HCl (Ondansetron Hcl 4 Mg/2 Ml Vial) 4 mg IVPUSH Q8H PRN PRN Reason: Nausea and Vomiting Pharmacy Consult (Consult Rx Etoh Phenob Im/Po) 1 each MISCELLANE ONCE PRN; Protocol PRN Reason: Consult order Phenobarbital (Phenobarbital 15 Mg Tablet) 45 mg PO BID [facility]; Protocol Stop: 11/03/23 21:01 Phenobarbital (Phenobarbital 15 Mg Tablet) 15 mg PO BID [facility]; Protocol Stop: 11/05/23 21:01 Phenobarbital (Phenobarbital 15 Mg Tablet) 15 mg PO DAILY [facility]; Protocol Stop: 11/07/23 09:01 Sacubitril/Valsartan (Sacubitril/Valsartan 1 Tab Tablet) 1 tab PO BID [facility]; Protocol Sodium Chloride (0.9 % Sodium Chloride Flush 3 Ml Syringe) [facility] Medications ?Medication ?Instructions ?Recorded ?Confirmed ?Last Taken ?Type multivitamin 1 tab PO DAILY 10/15/23 11/01/23 10/31/23 History apixaban 5 mg tablet (Eliquis) 5 mg PO BID 11/01/23 11/01/23 10/31/23 History naltrexone 50 mg tablet 50 mg PO BID 11/01/23 11/01/23 10/31/23 History sacubitril 24 mg-valsartan 26 mg 1 tab PO BID 11/01/23 11/01/23 10/31/23 History tablet (Entresto) Physical Exam Vital Signs and Narrative: Vital Signs: Last Vital Signs Temp 97.8 F 11/01/23 18:54 Pulse 91 11/01/23 20:52 Resp 20 11/01/23 20:52 BP 113/81 11/01/23 20:52 Pulse Ox 96 11/01/23 20:04 O2 Del Method Room Air 11/01/23 20:04 BMI result Body Mass Index 21.1 Constitutional - Somnolence. Easy to arouse. No acute distress. HEENT - PERRL, EOMI. No nystagmus. Heart - RRR, No edema Lungs - Normal lung expansion, Normal respiratory effort, No respiratory distress, CTA bilaterally Abdomen - NT / ND; +BS; No rebound or guarding. No ascites. Extremities - no calf tenderness bilaterally, no swelling Musculoskeletal - Normal inspection, normal ROM. Bilateral bruising to niece. Skin - Warm/Dry. No pallor. No jaundice. Neurological - Alert & oriented x2 (said it was 2022), CN III-XII in tact, 5/5 strength BUE and BLE Psychological - Depressed affect Results Labs 11/01/23 21:01 11/01/23 21:01 Labs: Laboratory Results - last 24 hr 11/01/23 11/01/23 11/01/23 13:20 13:37 16:01 MCV 94.0 MCH 32.3 MCHC 34.3 RDW 15.2 Plt Count 144 L D MPV 10.3 Immature Gran % (Auto) 0.3 Neut % (Auto) 59.7 Lymph % (Auto) 25.5 Mccracken % (Auto) 11.2 H Eos % (Auto) 2.5 Baso % (Auto) 0.8 Lymph # (Auto) 2.0 Mccracken # (Auto) 0.9 Eos # (Auto) 0.2 Baso # (Auto) 0.1 Abs Immat Gran (auto) 0.02 Absolute Neuts (auto) 4.8 Absolute Nucleated RBC 0.000 Nucleated RBC % (auto) 0.0 PT 15.0 H D INR 1.2 H VBG pH VBG pCO2 VBG pO2 VBG HCO3 VBG O2 Saturation VBG Base Excess Anion Gap 26 H Estim Creat Clear Calc 24.0 Estimated GFR 20 POC Glucose 75 Random Glucose 66 Osmolality 290 Lactic Acid 1.2 Calcium 9.2 D Magnesium 1.7 Total Bilirubin 0.6 AST 23 ALT 18 Alkaline Phosphatase 67 Total Creatine Kinase 109 Troponin I High Sens < 2.7 D B-Natriuretic Peptide 80 Total Protein 6.5 Albumin 3.7 Lipase 6 L Beta-Hydroxybutyrate 9.39 H Urine Color Urine Appearance Urine pH Ur Specific [place] Urine Protein Urine Glucose (UA) Urine Ketones Urine Blood Urine Nitrite Ur Leukocyte Esterase Urine Opiates Screen Ur Buprenorphine Scrn Ur Oxycodone Screen Urine Methadone Screen Urine Fentanyl Screen Ur Barbiturates Screen Ur Phencyclidine Scrn Ur Amphetamines Screen U Benzodiazepines Scrn Urine Cocaine Screen U Marijuana (THC) Screen Ethyl Alcohol < 10 Influenza Type A (PCR) NEGATIVE Influenza Type B (PCR) NEGATIVE RSV RNA Qual (PCR) NEGATIVE SARS-CoV-2 RNA (RT-PCR) NEGATIVE 11/01/23 11/01/23 11/01/23 16:09 17:25 21:01 MCV 96.0 MCH 32.3 MCHC 33.7 RDW 15.6 Plt Count 131 L MPV 9.7 Immature Gran % (Auto) Neut % (Auto) Lymph % (Auto) Mccracken % (Auto) Eos % (Auto) Baso % (Auto) Lymph # (Auto) M[place]racken # (Auto) Eos # (Auto) Baso # (Auto) Abs Immat Gran (auto) Absolute Neuts (auto) Absolute Nucleated RBC 0.000 Nucleated RBC % (auto) 0.0 PT INR VBG pH 7.30 L VBG pCO2 28 VBG pO2 37 VBG HCO3 14 L VBG O2 Saturation 60.0 VBG Base Excess -10.5 Anion Gap Estim Creat Clear Calc Estimated GFR POC Glucose Random Glucose Osmolality Lactic Acid Calcium Magnesium Total Bilirubin AST ALT Alkaline Phosphatase Total Creatine Kinase Troponin I High Sens B-Natriuretic Peptide Total Protein Albumin Lipase Beta-Hydroxybutyrate Urine Color Yellow Urine Appearance Clear Urine pH 5.5 Ur Specific [place] 1.010 Urine Protein Trace Urine Glucose (UA) Negative Urine Ketones 40 Urine Blood Negative Urine Nitrite Negative Ur Leukocyte Esterase Negative Urine Opiates Screen Not Detected Ur Buprenorphine Scrn Not Detected Ur Oxycodone Screen Not Detected Urine Methadone Screen Not Detected Urine Fentanyl Screen Not Detected Ur Barbiturates Screen POSITIVE H Ur Phencyclidine Scrn Not Detected Ur Amphetamines Screen Not Detected U Benzodiazepines Scrn Not Detected Urine Cocaine Screen Not Detected U Marijuana (THC) Screen Not Detected Ethyl Alcohol Influenza Type A (PCR) Influenza Type B (PCR) RSV RNA Qual (PCR) SARS-CoV-2 RNA (RT-PCR) Imaging Radiologist's Impressions: Impressions Head CT 11/01/23 13:11 IMPRESSION: 1. Small scalp hematoma in the left occipital region. 2. No acute intracranial pathology. 3. No acute cervical spinal fractures or malalignment. 4. Stable mild superior endplate deformity of the T3 vertebral body compared to CT chest from 09/08/2021. Electronically signed by: Tamar Oates MD 11/01/2023 03:44 PM EDT Cervical Spine CT 11/01/23 13:41 IMPRESSION: 1. Small scalp hematoma in the left occipital region. 2. No acute intracranial pathology. 3. No acute cervical spinal fractures or malalignment. 4. Stable mild superior endplate deformity of the T3 vertebral body compared to CT chest from 09/08/2021. Electronically signed by: Tamar Oates MD 11/01/2023 03:44 PM EDT Assessment and Plan (1) Acute encephalopathy: Status: Acute (2) Metabolic acidosis: Status: Acute (3) WILFREDO (acute kidney injury): Status: Acute (4) Chronic anticoagulation: Status: Acute (5) Paroxysmal atrial fibrillation: Status: Acute Plan To Hagen is a 53 y/o man admitted with: Acute encephalopathy, likely associated to alcohol abuse. Wernicke's? Admit to hospitalist service. Continue therapy with thiamine 200 mg t.i.d. for 7 days. Aspiration and fall precautions. Alcohol abstinence advised. Hold sertraline and gabapentin. Paroxysmal atrial fibrillation, currently rate and rhythm controlled. Continue carvedilol, Entresto and Eliquis (dose decreased due to elevated creatinine). Chronic kidney disease, stage 3B. Continue to monitor renal function. Avoid nephrotoxic agents. Metabolic acidosis, likely multifactorial: Underlying CKD, alcohol abuse, ketosis. Continue gentle IV fluids. Continue to monitor CO2 level. Ischemic cardiomyopathy, EF 15%. No evidence of decompensation. Gentle IV fluid if needed. Alcohol abuse. CIWA protocol. Phenobarbital protocol stated in ED. Continue naltrexone, thiamine, folic acid and multivitamins. Social work/case management consult. Code status: Full DVT prophylaxis: Gayatri Patient will need hospitalization for at least 2 midnights for acute encephalopathy treatment with IV fluids and IV thiamine. He also will need close monitoring of mental status. Quality Stroke Does the patient have a stroke diagnosis?: No VTE Prior VTE?: No VTE Risk Level:: Medical - moderate - high VTE Device Contraindication: Treatment Not Indicated VTE Drug Contraindication: N/A - Med Ordered
[2023-11-01 21:28] LABS: Anion Gap 19 (12-20); Blood Urea Nitrogen 23 mg/dL (9-16); Calcium 8.4 mg/dL (8.4-10.2); Carbon Dioxide 17 mmol/L (22-29); Chloride 107 mmol/L (96-108); Creatinine Clr Calc Pharmacy 34.1; Estimated Glomerular Filt Rate 30; Glucose Random 63 mg/dL (60-115); Potassium 3.8 mmol/L (3.3-5.1); Sodium 139 mmol/L (135-145)
[2023-11-01 21:31] LABS: Alanine Aminotransferase 16 U/L (0-40); Albumin Level 3.3 g/dL (3.5-5.0); Alkaline Phosphatase 60 U/L (39-117); Anion Gap 19 (12-20); Aspartate Amino Transferase 26 U/L (5-37); Bilirubin Total 0.5 mg/dL (0.0-1.0); Blood Urea Nitrogen 23 mg/dL (9-16); Calcium 8.3 mg/dL (8.4-10.2); Carbon Dioxide 17 mmol/L (22-29); Chloride 107 mmol/L (96-108); Creatinine Clr Calc Pharmacy 33.5; Estimated Glomerular Filt Rate 29; Glucose Random 63 mg/dL (60-115); Magnesium 1.7 mg/dL (1.6-2.6); Potassium 3.8 mmol/L (3.3-5.1); Sodium 139 mmol/L (135-145)
--- NOTE | 2023-11-01 21:31 | PHA.MEDREC ---
Pharmacy Consult ? Medication Reconciliation Pharmacy has completed the medication reconciliation. Spoke to patient's mother via phone to confirm medication list. She said the last medication dose was taken on 10/31/23, he did not take his meds on 11/01/23.
--- NOTE | 2023-11-01 22:30 | HE.PHANOTE ---
Addendum entered by Mirian Kim RPh 11/02/23 07:47: This dose was changed back to [address] Davis on 11/02/23. Original Note: RE: ELIQUIS DOSING Communicated with Dr. Han Joshi that patient's eliquis dose should NOT be reduced to 2.5 mg bid. Her reasoning is because of his elevated creatinine. Even then, he doesn't fit the criteria to have the dose reduction. He is not greater or equal to 80 yrs old and his weight is not less than or equal to 60 kg. Rx order was pended for further evaluation and note was written for morning pharmacist to follow up.
[2023-11-01] MEDS: Dextrose 5 % and 0.9 % NaCl 1,000 ML 50 ML IVCONT (22:32)
[2023-11-02] VITALS (11 sets, daily range): BP systolic 98–124; BP diastolic 65–86; PULSE 71–94; RESP 12–20; TEMP 36.1–37.2; O2SAT 97–100; BMI 21.3
[2023-11-02] MEDS: Thiamine HCL 200 MG in 0.9 % Sodium Chloride 100 ML 204 MG IV ×3 (00:23→15:27)
--- NOTE | 2023-11-02 05:08 | HO.SKINPHOTO ---
Location: Bilateral feet Category: Stage: Length: Width: Depth: cm Location: Category: Stage: Length: Width: Depth: cm Location: Category: Stage: Length: Width: Depth: cm Location: Category: Stage: Length: Width: Depth: cm Location: Category: Stage: Length: Width: Depth: cm Location: Category: Stage: Length: Width: Depth: cm
[2023-11-02 06:30] LABS: MANUAL DIFF FLAG NO
[2023-11-02 06:34] LABS: Eosinophils Absolute Auto 0.2 X10*3/uL (0.0-0.4); Eosinophils Percent Auto 5.3 % (0-4); Hematocrit 28.9 % (42.0-52.0); Hemoglobin 9.7 g/dl (14.0-18.0); Imm Gran Abs Auto 0.02 X10*3/uL (0.00-0.03); Imm Gran Pct Auto 0.5 % (0.0-0.4); Lymphocytes Absolute Auto 1.1 X10*3/uL (1.2-4.9); Mean Corpuscular HGB Conc 33.6 g/dl (31.0-36.0); Mean Corpuscular Hemoglobin 32.1 pg (27.0-33.0); Mean Corpuscular Volume 95.7 fL (80.0-98.0); Mean Platelet Volume 10.3 fL (9.4-12.4); Monocytes Absolute Auto 0.4 X10*3/uL (0.1-1.2); Monocytes Percent Auto 10.3 % (2-11); Neutrophils Absolute Auto 2.2 x10*3/uL (2.0-8.3); Neutrophils Percent Auto 54.9 % (45-73); Platelet Count 117 X10*3/uL (160-400); Red Blood Count 3.02 X10*6/uL (4.60-5.80); Red Cell Distribution Width 15.4 % (11.0-16.0)
[2023-11-02 06:56] LABS: Alanine Aminotransferase 14 U/L (0-40); Albumin Level 2.8 g/dL (3.5-5.0); Alkaline Phosphatase 53 U/L (39-117); Anion Gap 17 (12-20); Aspartate Amino Transferase 22 U/L (5-37); Bilirubin Total 0.4 mg/dL (0.0-1.0); Blood Urea Nitrogen 22 mg/dL (9-16); Calcium 7.9 mg/dL (8.4-10.2); Carbon Dioxide 16 mmol/L (22-29); Chloride 109 mmol/L (96-108); Creatinine Clr Calc Pharmacy 45.6; Estimated Glomerular Filt Rate 41; Glucose Random 69 mg/dL (60-115); Magnesium 1.7 mg/dL (1.6-2.6); Potassium 3.6 mmol/L (3.3-5.1); Sodium 138 mmol/L (135-145); Total Protein 5.2 g/dL (6.5-8.0)
[2023-11-02] MEDS: Sacubitril/Valsartan 24/26 1 TAB TABLET PO ×2 (09:25→21:10)
[2023-11-02] MEDS: Apixaban 5 MG TABLET PO ×2 (09:25→21:08)
[2023-11-02] MEDS: Folic Acid 1 MG TABLET PO (09:25)
[2023-11-02] MEDS: Magnesium Oxide 400 MG TABLET PO ×2 (09:25→21:08)
[2023-11-02] MEDS: Cyanocobalamin (Vitamin B-12) 500 MCG TABLET PO (09:25)
[2023-11-02] MEDS: Multivitamin TABLET 1 TAB PO (09:25)
[2023-11-02] MEDS: carvediloL 6.25 MG TABLET PO ×2 (09:26→21:08)
[2023-11-02] MEDS: Naltrexone HCl 50 MG TABLET PO ×2 (09:26→21:10)
[2023-11-02] MEDS: 0.9 % Sodium Chloride Flush 3 ML SYRINGE IVFLUSH ×2 (09:26→21:07)
[2023-11-02] MEDS: PHENobarbitaL 15 MG TABLET 45 MG PO ×2 (09:26→21:08)
--- NOTE | 2023-11-02 09:47 | MHC.CM.PN ---
Pt reports that he lives by himself in an apt. Chart review shows he has the same address as his parents, and his nurse reports that he is at times confused. He does not have home health services or DME. PCP confirmed: Dr. Maria, HCP: Ashlee, his mother, confirmed. Pt. said he can arrange transport at DC. DCP: home, self care. CM to follow and assist with DC needs.
--- NOTE | 2023-11-02 11:47 | HO.PM.IMPN ---
Subjective Subjective Date of Service: 11/02/23 Interval History: f/u on encephalopathy related to alcohol withdrawal he is alert and oriented x 3, drinks alot of vodka Physical Exam Vital Signs: Vital Signs: Last Vital Signs Temp 97 F 11/02/23 11:43 Pulse 72 11/02/23 11:43 Resp 18 11/02/23 11:43 BP 98/71 11/02/23 11:43 Pulse Ox 97 11/02/23 11:43 O2 Del Method Room Air 11/02/23 11:43 BMI result Body Mass Index 21.3 Const: Other: General: AO X 3, no acute distress Resp: CTA bilateral CVS: S1,S2,RRR GI: +BS, NT, no distention Skin: No rash Neuro: motor grossly intact Psych: appropriate affect Objective Data Active Medications Acetaminophen (Acetaminophen 325 Mg Tablet) 650 mg PO Q6H PRN PRN Reason: Pain, Mild (Pain Scale 1-3), fever or headache Apixaban (Apixaban 5 Mg Tablet) 5 mg PO BID [facility] Last Admin: 11/02/23 09:25 Dose: 5 mg Documented By: JOAQUIN Carvedilol (Carvedilol 6.25 Mg Tablet) 6.25 mg PO BID [facility]; Protocol Last Admin: 11/02/23 09:26 Dose: 6.25 mg Documented By: JOAQUIN Cyanocobalamin (Cyanocobalamin (Vitamin B-12) 500 Mcg Tablet) 500 mcg PO DAILY [facility] Last Admin: 11/02/23 09:25 Dose: 500 mcg Documented By: JOAQUIN Folic Acid (Folic Acid 1 Mg Tablet) 1 mg PO DAILY [facility] Last Admin: 11/02/23 09:25 Dose: 1 mg Documented By: JOAQUIN Dextrose/Sodium Chloride (D5ns) 1,000 mls @ 50 mls/hr IVCONT .Q20H [facility] Last Admin: 11/01/23 22:32 Dose: 50 mls/hr Documented By: COLBY Thiamine HCl 200 mg/ Sodium (Chloride) 102 mls @ 204 mls/hr IV TID [facility] Stop: 11/08/23 23:59 Last Infusion: 11/02/23 10:01 Dose: Infused Documented By: JOAQUIN Magnesium Hydroxide (Milk Of Magnesia 30 Ml Oral.Susp) 30 ml PO DAILY PRN PRN Reason: Constipation Magnesium Oxide (Magnesium Oxide 400 Mg Tablet) 400 mg PO BID [facility] Last Admin: 11/02/23 09:25 Dose: 400 mg Documented By: JOAQUIN Multivitamins/Vitamin C (Multivitamin Tablet) 1 tab PO DAILY [facility] Last Admin: 11/02/23 09:25 Dose: 1 tab Documented By: JOAQUIN Naltrexone HCl (Naltrexone Hcl 50 Mg Tablet) 50 mg PO BID [facility] Last Admin: 11/02/23 09:26 Dose: 50 mg Documented By: JOAQUIN Ondansetron HCl (Ondansetron Hcl 4 Mg/2 Ml Vial) 4 mg IVPUSH Q8H PRN PRN Reason: Nausea and Vomiting Pharmacy Consult (Consult Rx Etoh Phenob Im/Po) 1 each MISCELLANE ONCE PRN; Protocol PRN Reason: Consult order Phenobarbital (Phenobarbital 15 Mg Tablet) 45 mg PO BID [facility]; Protocol Stop: 11/03/23 21:01 Last Admin: 11/02/23 09:26 Dose: 45 mg Documented By: JOAQUIN Phenobarbital (Phenobarbital 15 Mg Tablet) 15 mg PO BID [facility]; Protocol Stop: 11/05/23 21:01 Phenobarbital (Phenobarbital 15 Mg Tablet) 15 mg PO DAILY [facility]; Protocol Stop: 11/07/23 09:01 Sacubitril/Valsartan (Sacubitril/Valsartan 1 Tab Tablet) 1 tab PO BID [facility]; Protocol Last Admin: 11/02/23 09:25 Dose: 1 tab Documented By: JOAQUIN Sodium Chloride (0.9 % Sodium Chloride Flush 3 Ml Syringe) 3 ml IVFLUSH QSHIFT [facility] Last Admin: 11/02/23 09:26 Dose: 3 ml Documented By: JOAQUIN Labs 11/02/23 06:03 11/02/23 06:03 Labs: Laboratory Results - last 24 hr 11/01/23 11/01/23 11/01/23 13:20 13:37 16:01 MCV 94.0 MCH 32.3 MCHC 34.3 RDW 15.2 Plt Count 144 L D MPV 10.3 Immature Gran % (Auto) 0.3 Neut % (Auto) 59.7 Lymph % (Auto) 25.5 [place] % (Auto) 11.2 H Eos % (Auto) 2.5 Baso % (Auto) 0.8 Lymph # (Auto) 2.0 [place] # (Auto) 0.9 Eos # (Auto) 0.2 Baso # (Auto) 0.1 Abs Immat Gran (auto) 0.02 Absolute Neuts (auto) 4.8 Absolute Nucleated RBC 0.000 Nucleated RBC % (auto) 0.0 PT 15.0 H D INR 1.2 H VBG pH VBG pCO2 VBG pO2 VBG HCO3 VBG O2 Saturation VBG Base Excess Anion Gap 26 H Estim Creat Clear Calc 24.0 Estimated GFR 20 POC Glucose 75 Random Glucose 66 Osmolality 290 Lactic Acid 1.2 Calcium 9.2 D Magnesium 1.7 Total Bilirubin 0.6 AST 23 ALT 18 Alkaline Phosphatase 67 Total Creatine Kinase 109 Troponin I High Sens < 2.7 D B-Natriuretic Peptide 80 Total Protein 6.5 Albumin 3.7 Lipase 6 L Beta-Hydroxybutyrate 9.39 H Urine Color Urine Appearance Urine pH Ur Specific [place] Urine Protein Urine Glucose (UA) Urine Ketones Urine Blood Urine Nitrite Ur Leukocyte Esterase Urine Opiates Screen Ur Buprenorphine Scrn Ur Oxycodone Screen Urine Methadone Screen Urine Fentanyl Screen Ur Barbiturates Screen Ur Phencyclidine Scrn Ur Amphetamines Screen U Benzodiazepines Scrn Urine Cocaine Screen U Marijuana (THC) Screen Ethyl Alcohol < 10 Influenza Type A (PCR) NEGATIVE Influenza Type B (PCR) NEGATIVE RSV RNA Qual (PCR) NEGATIVE SARS-CoV-2 RNA (RT-PCR) NEGATIVE 11/01/23 11/01/23 11/01/23 16:09 17:25 21:00 MCV MCH MCHC RDW Plt Count MPV Immature Gran % (Auto) Neut % (Auto) Lymph % (Auto) [place] % (Auto) Eos % (Auto) Baso % (Auto) Lymph # (Auto) [place] # (Auto) Eos # (Auto) Baso # (Auto) Abs Immat Gran (auto) Absolute Neuts (auto) Absolute Nucleated RBC Nucleated RBC % (auto) PT INR VBG pH 7.30 L VBG pCO2 28 VBG pO2 37 VBG HCO3 14 L VBG O2 Saturation 60.0 VBG Base Excess -10.5 Anion Gap 19 Estim Creat Clear Calc 33.5 Estimated GFR 29 POC Glucose Random Glucose 63 Osmolality Lactic Acid Calcium 8.3 L D Magnesium 1.7 Total Bilirubin 0.5 AST 26 ALT 16 Alkaline Phosphatase 60 Total Creatine Kinase Troponin I High Sens B-Natriuretic Peptide Total Protein 6.0 L Albumin 3.3 L Lipase Beta-Hydroxybutyrate Urine Color Yellow Urine Appearance Clear Urine pH 5.5 Ur Specific [place] 1.010 Urine Protein Trace Urine Glucose (UA) Negative Urine Ketones 40 Urine Blood Negative Urine Nitrite Negative Ur Leukocyte Esterase Negative Urine Opiates Screen Not Detected Ur Buprenorphine Scrn Not Detected Ur Oxycodone Screen Not Detected Urine Methadone Screen Not Detected Urine Fentanyl Screen Not Detected Ur Barbiturates Screen POSITIVE H Ur Phencyclidine Scrn Not Detected Ur Amphetamines Screen Not Detected U Benzodiazepines Scrn Not Detected Urine Cocaine Screen Not Detected U Marijuana (THC) Screen Not Detected Ethyl Alcohol Influenza Type A (PCR) Influenza Type B (PCR) RSV RNA Qual (PCR) SARS-CoV-2 RNA (RT-PCR) 11/01/23 11/02/23 21:01 06:03 MCV 96.0 95.7 MCH 32.3 32.1 MCHC 33.7 33.6 RDW 15.6 15.4 Plt Count 131 L 117 L MPV 9.7 10.3 Immature Gran % (Auto) 0.5 H Neut % (Auto) 54.9 Lymph % (Auto) 28.0 [place] % (Auto) 10.3 Eos % (Auto) 5.3 H Baso % (Auto) 1.0 Lymph # (Auto) 1.1 L [place] # (Auto) 0.4 Eos # (Auto) 0.2 Baso # (Auto) 0.0 Abs Immat Gran (auto) 0.02 Absolute Neuts (auto) 2.2 Absolute Nucleated RBC 0.000 0.000 Nucleated RBC % (auto) 0.0 0.0 PT INR VBG pH VBG pCO2 VBG pO2 VBG HCO3 VBG O2 Saturation VBG Base Excess Anion Gap 19 17 Estim Creat Clear Calc 34.1 45.6 Estimated GFR 30 41 POC Glucose Random Glucose 63 69 Osmolality Lactic Acid Calcium 8.4 7.9 L Magnesium 1.7 Total Bilirubin 0.4 AST 22 ALT 14 Alkaline Phosphatase 53 Total Creatine Kinase Troponin I High Sens B-Natriuretic Peptide Total Protein 5.2 L Albumin 2.8 L Lipase Beta-Hydroxybutyrate Urine Color Urine Appearance Urine pH Ur Specific [place] Urine Protein Urine Glucose (UA) Urine Ketones Urine Blood Urine Nitrite Ur Leukocyte Esterase Urine Opiates Screen Ur Buprenorphine Scrn Ur Oxycodone Screen Urine Methadone Screen Urine Fentanyl Screen Ur Barbiturates Screen Ur Phencyclidine Scrn Ur Amphetamines Screen U Benzodiazepines Scrn Urine Cocaine Screen U Marijuana (THC) Screen Ethyl Alcohol Influenza Type A (PCR) Influenza Type B (PCR) RSV RNA Qual (PCR) SARS-CoV-2 RNA (RT-PCR) Assessment and Plan (1) Acute encephalopathy: Status: Acute (2) Alcohol withdrawal delirium: Status: Acute (3) Metabolic acidosis: Status: Acute Plan 53/m with alcohol dependence, PAF, CKD 3b, non ischemic cardiomyopathy low EF here with AMS and found to have Acute encephalopathy, related to alcohol withdrawal, ? Wernicke's Alcohol withdrawal -treat with phenobarb -foate and thiamine replacement -hyration Paroxysmal atrial fibrillation, currently rate and rhythm controlled. Continue carvedilol, Entresto and Eliquis Chronic kidney disease, stage 3B with mild WILFREDO, improved hyperchloremic Metabolic acidosis, normal GAP, likely multifactorial including alcoholic ketoacidosis -continue IVF with dextrose, recheck Betahydroxybutyrate, -Oral bicab replacement Ischemic cardiomyopathy, EF 15%. No evidence of decompensation. Gentle IV fluid if needed. -continue entresto, coreg Code status: Full DVT prophylaxis: Eliquis need for inpt; alcohol withdrawal, alcoholic ketoacidosis Quality Stroke Does the patient have a stroke diagnosis?: No VTE Prior VTE?: No VTE Risk Level:: Medical - moderate - high VTE Device Contraindication: Treatment Not Indicated VTE Drug Contraindication: N/A - Med Ordered
[2023-11-02 12:24] LABS: Beta-Hydroxybutyrate 4.49 mmol/L (0.02-0.27)
[2023-11-02] MEDS: Sodium Bicarbonate 650 MG TABLET PO ×2 (13:08→21:11)
[2023-11-02] MEDS: Dextrose 5 % and 0.9 % NaCl 1,000 ML 50 ML IVCONT (15:26)
[2023-11-02] MEDS: Thiamine HCL 200 MG in 0.9 % Sodium Chloride 100 ML 102 MG IV (21:12)
[2023-11-02 22:15] LABS: Anion Gap 10 (12-20); Blood Urea Nitrogen 14 mg/dL (9-16); Calcium 7.8 mg/dL (8.4-10.2); Carbon Dioxide 17 mmol/L (22-29); Chloride 112 mmol/L (96-108); Creatinine Clr Calc Pharmacy 65.9; Estimated Glomerular Filt Rate > 60; Glucose Random 145 mg/dL (60-115); Potassium 3.9 mmol/L (3.3-5.1); Sodium 135 mmol/L (135-145)
[2023-11-03] VITALS (9 sets, daily range): BP systolic 108–143; BP diastolic 72–99; PULSE 74–88; RESP 16–20; TEMP 36.1–37; O2SAT 94–98
[2023-11-03 07:26] LABS: Glucose, Whole Blood 126 mg/dL (60-115)
[2023-11-03 09:08] LABS: Estimated Average Glucose 123 mg/dL; Hemoglobin A1C 148.7499 umol/L; Hemoglobin A1c % 5.9 % (<6.0)
[2023-11-03 09:11] LABS: Anion Gap 13 (12-20); Blood Urea Nitrogen 12 mg/dL (9-16); Calcium 8.3 mg/dL (8.4-10.2); Carbon Dioxide 19 mmol/L (22-29); Chloride 112 mmol/L (96-108); Estimated Glomerular Filt Rate > 60; Glucose Random 126 mg/dL (60-115); Magnesium 1.5 mg/dL (1.6-2.6); Potassium 3.5 mmol/L (3.3-5.1); Sodium 140 mmol/L (135-145)
[2023-11-03] MEDS: Apixaban 5 MG TABLET PO ×2 (09:39→20:02)
[2023-11-03] MEDS: Thiamine HCL 200 MG in 0.9 % Sodium Chloride 100 ML 204 MG IV ×3 (09:39→20:02)
[2023-11-03] MEDS: carvediloL 6.25 MG TABLET PO ×2 (09:39→20:02)
[2023-11-03] MEDS: 0.9 % Sodium Chloride Flush 3 ML SYRINGE IVFLUSH ×2 (09:39→20:09)
[2023-11-03] MEDS: Magnesium Oxide 400 MG TABLET PO ×2 (09:40→20:02)
[2023-11-03] MEDS: Multivitamin TABLET 1 TAB PO (09:40)
[2023-11-03] MEDS: Naltrexone HCl 50 MG TABLET PO ×2 (09:40→20:02)
[2023-11-03] MEDS: PHENobarbitaL 15 MG TABLET 45 MG PO ×2 (09:40→20:02)
[2023-11-03] MEDS: Sacubitril/Valsartan 24/26 1 TAB TABLET PO ×2 (09:40→20:02)
[2023-11-03] MEDS: Sodium Bicarbonate 650 MG TABLET PO ×2 (09:41→20:02)
[2023-11-03] MEDS: Folic Acid 1 MG TABLET PO (09:41)
[2023-11-03] MEDS: Cyanocobalamin (Vitamin B-12) 500 MCG TABLET PO (09:41)
[2023-11-03] MEDS: Dextrose 5 % and 0.9 % NaCl 1,000 ML 50 ML IVCONT (10:12)
--- NOTE | 2023-11-03 10:42 | HO.PM.IMPN ---
Subjective Subjective Date of Service: 11/03/23 Interval History: f/u on encephalopathy related to alcohol withdrawal he is alert and oriented x 3, drinks alot of vodka Physical Exam Vital Signs: Vital Signs: Last Vital Signs Temp 97.6 F 11/03/23 08:00 Pulse 74 11/03/23 09:39 Resp 20 11/03/23 08:00 BP 134/83 11/03/23 09:40 Pulse Ox 98 11/03/23 08:00 O2 Del Method Room Air 11/03/23 08:00 BMI result Body Mass Index 21.3 Const: Other: General: AO X 3, no acute distress Resp: CTA bilateral CVS: S1,S2,RRR GI: +BS, NT, no distention Skin: No rash Neuro: motor grossly intact Psych: appropriate affect Objective Data Active Medications Acetaminophen (Acetaminophen 325 Mg Tablet) 650 mg PO Q6H PRN PRN Reason: Pain, Mild (Pain Scale 1-3), fever or headache Apixaban (Apixaban 5 Mg Tablet) 5 mg PO BID [facility] Last Admin: 11/03/23 09:39 Dose: 5 mg Documented By: JOAQUIN Carvedilol (Carvedilol 6.25 Mg Tablet) 6.25 mg PO BID [facility]; Protocol Last Admin: 11/03/23 09:39 Dose: 6.25 mg Documented By: JOAQUIN Cyanocobalamin (Cyanocobalamin (Vitamin B-12) 500 Mcg Tablet) 500 mcg PO DAILY [facility] Last Admin: 11/03/23 09:41 Dose: 500 mcg Documented By: JOAQUIN Folic Acid (Folic Acid 1 Mg Tablet) 1 mg PO DAILY [facility] Last Admin: 11/03/23 09:41 Dose: 1 mg Documented By: JOAQUIN Thiamine HCl 200 mg/ Sodium (Chloride) 102 mls @ 204 mls/hr IV TID [facility] Stop: 11/08/23 23:59 Last Infusion: 11/03/23 10:11 Dose: Infused Documented By: JOAQUIN Lactated Ringer's (Lr) 1,000 mls @ 125 mls/hr IVCONT .Q8H [facility] Magnesium Hydroxide (Milk Of Magnesia 30 Ml Oral.Susp) 30 ml PO DAILY PRN PRN Reason: Constipation Magnesium Oxide (Magnesium Oxide 400 Mg Tablet) 400 mg PO BID [facility] Last Admin: 11/03/23 09:40 Dose: 400 mg Documented By: JOAQUIN Multivitamins/Vitamin C (Multivitamin Tablet) 1 tab PO DAILY [facility] Last Admin: 11/03/23 09:40 Dose: 1 tab Documented By: JOAQUIN Naltrexone HCl (Naltrexone Hcl 50 Mg Tablet) 50 mg PO BID [facility] Last Admin: 11/03/23 09:40 Dose: 50 mg Documented By: JOAQUIN Ondansetron HCl (Ondansetron Hcl 4 Mg/2 Ml Vial) 4 mg IVPUSH Q8H PRN PRN Reason: Nausea and Vomiting Pharmacy Consult (Consult Rx Etoh Phenob Im/Po) 1 each MISCELLANE ONCE PRN; Protocol PRN Reason: Consult order Phenobarbital (Phenobarbital 15 Mg Tablet) 45 mg PO BID [facility]; Protocol Stop: 11/03/23 21:01 Last Admin: 11/03/23 09:40 Dose: 45 mg Documented By: JOAQUIN Phenobarbital (Phenobarbital 15 Mg Tablet) 15 mg PO BID [facility]; Protocol Stop: 11/05/23 21:01 Phenobarbital (Phenobarbital 15 Mg Tablet) 15 mg PO DAILY [facility]; Protocol Stop: 11/07/23 09:01 Sacubitril/Valsartan (Sacubitril/Valsartan 1 Tab Tablet) 1 tab PO BID [facility]; Protocol Last Admin: 11/03/23 09:40 Dose: 1 tab Documented By: JOAQUIN Sodium Bicarbonate (Sodium Bicarbonate 650 Mg Tablet) 650 mg PO BID [facility] Last Admin: 11/03/23 09:41 Dose: 650 mg Documented By: JOAQUIN Sodium Chloride (0.9 % Sodium Chloride Flush 3 Ml Syringe) [facility] Last Admin: 11/03/23 09:39 Dose: 3 ml Documented By: JOAQUIN Labs 11/02/23 06:03 11/03/23 08:22 Labs: Laboratory Results - last 24 hr 11/02/23 11/02/23 11/03/23 06:03 21:56 07:17 Anion Gap 10 L Estim Creat Clear Calc 65.9 Estimated GFR > 60 POC Glucose 126 H Random Glucose 145 H Estimat Average Glucose Hemoglobin A1c % Calcium 7.8 L Magnesium Beta-Hydroxybutyrate 4.49 H 11/03/23 08:22 Anion Gap 13 Estim Creat Clear Calc 76.0 Estimated GFR > 60 POC Glucose Random Glucose 126 H Estimat Average Glucose 123 Hemoglobin A1c % 5.9 Calcium 8.3 L D Magnesium 1.5 L Beta-Hydroxybutyrate Assessment and Plan (1) Acute encephalopathy: Status: Acute (2) Alcohol withdrawal delirium: Status: Acute (3) Metabolic acidosis: Status: Acute Plan 53/m with alcohol dependence, PAF, CKD 3b, non ischemic cardiomyopathy low EF here with AMS and found to have Acute encephalopathy, related to alcohol withdrawal, ? Wernicke's, presently lucid -treat with phenobarb for alcohol withdrawal -foate and thiamine replacement -hyration Paroxysmal atrial fibrillation, currently rate and rhythm controlled. Continue carvedilol, Entresto and Eliquis Chronic kidney disease, stage 3B, WILFREDO resolved hyperchloremic Metabolic acidosis, normal GAP, likely multifactorial including alcoholic ketoacidosis -change fluid to lactated ringer, follow bicab. stop bicab replacement Hypomagnesemia--replace with iv and po Ischemic cardiomyopathy, EF 15%. No evidence of decompensation. Gentle IV fluid if needed. -continue entresto, coreg Code status: Full DVT prophylaxis: Gayatri need for inpt; alcohol withdrawal, alcoholic ketoacidosis Quality Stroke Does the patient have a stroke diagnosis?: No VTE Prior VTE?: No VTE Risk Level:: Medical - moderate - high VTE Device Contraindication: Treatment Not Indicated VTE Drug Contraindication: N/A - Med Ordered
[2023-11-03] MEDS: Magnesium Sulfate/H2O 2 GM/50 ML PIGGYBACK IV (11:07)
[2023-11-03 12:00] LABS: Glucose, Whole Blood 150 mg/dL (60-115)
[2023-11-03 15:43] LABS: Glucose, Whole Blood 107 mg/dL (60-115)
[2023-11-03 22:07] LABS: Anion Gap 11 (12-20); Carbon Dioxide 23 mmol/L (22-29); Chloride 108 mmol/L (96-108); Potassium 3.8 mmol/L (3.3-5.1); Sodium 138 mmol/L (135-145)
[2023-11-03] MEDS: Lactated Ringers 1,000 ML 80 ML IVCONT (22:34)
[2023-11-04 03:57] VITALS: BP 141/70; PULSE 55; RESP 16; TEMP 36.4; O2SAT 96
[2023-11-04 07:03] LABS: Anion Gap 11 (12-20); Blood Urea Nitrogen 10 mg/dL (9-16); Carbon Dioxide 24 mmol/L (22-29); Chloride 108 mmol/L (96-108); Creatinine Clr Calc Pharmacy 91.7; Estimated Glomerular Filt Rate > 60; Glucose Random 100 mg/dL (60-115); Potassium 3.7 mmol/L (3.3-5.1); Sodium 139 mmol/L (135-145)
[2023-11-04 07:18] VITALS: BP 155/90; PULSE 85; RESP 17; TEMP 36.9; O2SAT 97
[2023-11-04 07:19] LABS: Magnesium 1.3 mg/dL (1.6-2.6)
[2023-11-04] MEDS: Thiamine HCL 200 MG in 0.9 % Sodium Chloride 100 ML 204 MG IV (07:43)
[2023-11-04 07:44] VITALS: BP 155/90; PULSE 85
[2023-11-04] MEDS: PHENobarbitaL 15 MG TABLET PO (07:44)
[2023-11-04] MEDS: Multivitamin TABLET 1 TAB PO (07:44)
[2023-11-04] MEDS: Naltrexone HCl 50 MG TABLET PO (07:44)
[2023-11-04] MEDS: carvediloL 6.25 MG TABLET PO (07:44)
[2023-11-04] MEDS: Magnesium Oxide 400 MG TABLET PO (07:44)
[2023-11-04] MEDS: Sacubitril/Valsartan 24/26 1 TAB TABLET PO (07:44)
[2023-11-04] MEDS: Sodium Bicarbonate 650 MG TABLET PO (07:44)
[2023-11-04] MEDS: 0.9 % Sodium Chloride Flush 3 ML SYRINGE IVFLUSH (07:45)
[2023-11-04] MEDS: Folic Acid 1 MG TABLET PO (07:45)
[2023-11-04] MEDS: Apixaban 5 MG TABLET PO (07:45)
[2023-11-04] MEDS: Magnesium Sulfate/H2O 2 GM/50 ML PIGGYBACK IV ×2 (07:45→09:36)
[2023-11-04] MEDS: Cyanocobalamin (Vitamin B-12) 500 MCG TABLET PO (07:45)
[2023-11-04] MEDS: Lactated Ringers 1,000 ML 80 ML IVCONT (07:54)
--- NOTE | 2023-11-04 10:38 | MHC.CM.PN ---
Per ROUNDS discussion, once Patient's Magnesium is corrected, he then can be dc'd to home. CM will follow.
--- NOTE | 2023-11-04 11:54 | HO.WOUND ---
Wound Consult: Initial 53yr old?male admitted to [facility] on 11/01/23 - See progress notes and H&P for detailed history.? Wound consult placed for bilateral foot / toe wounds.? Patient agreeable to assessment and photo documentation.? Patient reports the wounds are from being intoxicated and crawling around on the floor. Several stable scabs note to bilateral toes. Mild erythema noted on the wound edge - no swelling no s/s of infection at this time. The wound beds are dry stable scabs with debris stuck to the wound bed. Recommend vaseline to allow for autolytic moist wound healing and to keep covered. Patient is agreeable to topical care. Recommendations: 1. Bilateral Toes - Cleanse with routine cleansing or NS moist gauze, pat dry. Apply thin layer of vaseline, cover with bandaid. Change daily. Re-consult wound care Nurse for wound deterioration or wound changes.
[2023-11-04 12:00] VITALS: BP 124/95; PULSE 105; RESP 16; TEMP 36.7; O2SAT 94
[2023-11-04] MEDS: Acetaminophen 325 MG TABLET 650 MG PO (12:23)
--- NOTE | 2023-11-04 13:11 | MHC.RECOVRN ---
AUDIT-C Brief Intervention Pt had positive screen for unhealthy alcohol use on admission, subsequently met with t/w to discuss alcohol use and recovery supports/options. Pt voices concern regarding alcohol use and is aware that drinking at unhealthy levels is known to increase risk of alcohol related health problems. Pt reports 10-15 shots of vodka daily along with a couple beers, maybe hard lemonaid . Pt expresses how alcohol use has impacted health, including negative impact on his employment, he states due to his AUD he lost his job. Discussed risk reduction strategies including drinking below the recommended limit. Provided pt with written resources including information on inpatient and outpatient treatment, ROSELINE, harm reduction, and recovery coaching. Pt plans to follow up with our services at [facility] on 11/06 at 1030 am . Pt provided with t/w contact information if questions or concerns arise. Denies other questions or concerns at this time.? Discussed with Kirsten Pan APRN.
--- NOTE | 2023-11-04 13:18 | PM.DS ---
DS: Providers Provider Date of Service: 11/04/23 Date of admission: 11/01/23 20:58 Primary care physician: Wendie Maria MD Consults: 11/02/23 02:13 Consult to Wound Care Routine Reason for consultation: abrasions to bilateral feet 11/02/23 13:43 Consult to Nephrology Routine Consulting Provider: [facility] Reason for consultation: WILFREDO, metabolic acidosis DS: Diagnosis Discharge Diagnosis (1) Acute encephalopathy: Status: Acute (2) Alcohol withdrawal delirium: Status: Acute (3) Metabolic acidosis: Status: Acute DS: Summary Hospital Course Hospital Course: admission hpi Altered mental status To Hagen is a 53 years old man with past medical history significant for alcohol abuse, paroxysmal atrial fibrillation on chronic anticoagulation Eliquis and nonischemic cardiomyopathy (EF 15-20%) was brought to the emergency department via EMS due to altered mental status. HPI was mostly provided by ED provider and chart review as the patient is a very poor historian. According to triage note patient has been having altered mental status for the last 2 days. He has been experiencing slurred speech and fall twice yesterday with apparent head trauma and loss of consciousness. Patient received treatment with phenobarbital in the emergency department as he was considered to have withdrawal symptoms. Patient was very sleepy but able to answer some simple questions. He said that the last time he drank alcohol was Saturday, however, according to nursing patient told to other staff members that the last alcoholic drink was yesterday. He denied any headache, acute visual disturbances, chest pain, shortness of breath, abdominal pain, nausea, vomiting or diarrhea. He was able to provide his full name and knows he is in the hospital. Patient denied use of other drugs. It is unclear to me if the patient has been taking his naltrexone. In the ED, he was found to have normal vital signs. Blood workup was remarkable for creatinine of 3.30 (prior 8.25), BUN is 23 and CO2 is 17. There are no significant electrolyte imbalances. Beta hydroxybutyric acid is 9.39. INR is 1.2. Urinalysis showed no UTI, trace proteinuria and trace ketones. Urine drug screen is positive for phenobarbital. Head and C-spine CT scan showed no acute pathology. ECG showed normal sinus rhythm with a heart rate of 91 beats per minutes. ED tx: Haldol 5 mg IV, NS 2 L bolus, phenobarbital 230 mg twice + 65 mg IM, thiamine 200 mg IV hospital course: Alcohol withdrawal and metabolic encephalopathy This patient, who drinks vodka heavily, presented with confusion and was diagnosed with acute metabolic encephalopathy due to alcohol use, alcohol withdrawal, and metabolic derangements, including acidosis, kidney failure, and electrolyte abnormalities. Alcohol withdrawal was managed with Phenobarbital per protocol, along with folic acid, thiamine replacement, and magnesium correction. He has made a rapid recovery and is now completely lucid. Sobriety has been discussed at length, and he has been evaluated by the recovery team, provided with resources, and given a follow-up appointment within the week. Paroxysmal atrial fibrillation, currently rate and rhythm controlled. Continue carvedilol, Entresto and Eliquis Chronic kidney disease, stage 3B, WILFREDO resolved with IVF hyperchloremic Metabolic acidosis, normal GAP, likely multifactorial including alcoholic ketoacidosis and kidney failure. Treated with IVF, bicab and this has resolved Hypomagnesemia--replaced with PO and IV magnesium and will increase oral supplement Ischemic cardiomyopathy, EF 15%. No evidence of decompensation. Gentle IV fluid if needed. -continue entresto, coreg Time Attestation Discharge Coordination Time (in mins): 40 Quality: Safe Use of Opioids Does Pt have an Active Cancer Diagnosis on the Problem List?: No Quality: Stroke Does the patient have a stroke diagnosis?: No Physical Exam Vital Signs: Vital Signs: Last Vital Signs Temp 98.1 F 11/04/23 12:00 Pulse 105 H 11/04/23 12:00 Resp 16 11/04/23 12:00 BP 124/95 H 11/04/23 12:00 Pulse Ox 94 11/04/23 12:00 O2 Del Method Room Air 11/04/23 12:00 BMI result Body Mass Index 21.3 DS: Data Data Completed and Pending Completed studies during hospitalization [Text1]: Procedures Detoxification Services for Substance Abuse Treatment (04/25/23) Labs on day of discharge: Laboratory Results - last 24 hr 11/03/23 11/03/23 11/04/23 15:34 21:47 05:45 Hold Purple Top SEE NOTE Sodium 138 139 Potassium 3.8 3.7 Chloride 108 108 Carbon Dioxide 23 24 Anion Gap 11 L 11 L BUN 10 Creatinine 0.87 Estim Creat Clear Calc 91.7 Estimated GFR > 60 POC Glucose 107 Random Glucose 100 Calcium 8.0 L Magnesium 1.3 L* Discharge Plan Discharge Anticipated Discharge Date/Time: 11/04/23 13:19 Patient Disposition: Home, Self-Care Discharge Diagnosis: alcohol withdrawal, metabolic encephalopathy Referrals: Intake with Kirsten Pan 11/07/2023 @ 10:30AM [Other] - 1 Week Po,Wendie Jose MD [Primary Care Provider] - 1 Week Discharge Medications: New magnesium oxide 400 mg magnesium tablet 800 mg PO DAILY Qty: 120 0RF Continued gabapentin 100 mg capsule 100 mg PO BEDTIME Qty: 90 3RF thiamine HCl (vitamin B1) 100 mg tablet 100 mg PO DAILY Qty: 90 0RF sertraline 50 mg tablet 50 mg PO DAILY 30 Days Qty: 90 2RF cyanocobalamin (vitamin B-12) 500 mcg Tablet 500 mcg PO DAILY 30 Days Qty: 30 0RF folic acid 1 mg tablet 1 mg PO DAILY Qty: 30 0RF Eliquis 5 mg tablet 5 mg PO BID Entresto 24-26 mg tablet 1 tab PO BID naltrexone 50 mg tablet 50 mg PO BID multivitamin Tablet 1 tab PO DAILY carvedilol 6.25 mg tablet 6.25 mg PO BID Qty: 60 5RF Rx Instructions: Dose increased must administer with a meal/food Discontinued magnesium oxide 400 mg magnesium tablet 400 mg PO BID Qty: 180 0RF Discharge Orders: Discharge Order (Routine); Ordered 11/04/23 Ordered By: Rajesh Davis Diet: Advance to usual diet Activity on Discharge: As tolerated Stand Alone Forms: Patient Portal Discharge page Print Language: [place]ian Care Plan Goals: to maintain snf sobriety from alcohol Health Concerns: alcohol use disorder encephalopathy now resolved low magnesium kidney failure alcoholic ketoacidosis Plan of Treatment: follow through the resources given to you by recovery team, you have an appointment with them on Assessment: see above
--- NOTE | 2023-11-04 13:20 | MHC.CM.PN ---
Addendum entered by Anais Wilson 11/04/23 13:23: Patient has been medically cleared for dc to home today, self care. Original Note: Per RECOVERY TEAM/Lorna, Patient has an Intake appointment with Kirsten Pan on , 11/07/2023 at 10:30AM.
[2023-11-04 13:44] LABS: Magnesium 2.1 mg/dL (1.6-2.6)
[2023-11-15 16:38] LABS: Vitamin B1 >1200 nmol/L (8-30)
== END 2023-11-04 15:32 | disposition home or self-care (01) | DRG 896 ==
LOC: HO.ED 16:40 → HO.EDOVER 21:10 → HO.IMC 23:36
PROVIDERS: Nurse Practitioner Family; Admitting Provider Internal Medicine; Emergency Provider Emergency Medicine; PCP Internal Medicine; Visit Provider Internal Medicine
DX: F10.139 Alcohol abuse with withdrawal, unspecified (principal); G93.41 Metabolic encephalopathy; E87.29 Other acidosis; N17.9 Acute kidney failure, unspecified; N18.32 Chronic kidney disease, stage 3b; E83.42 Hypomagnesemia; I25.5 Ischemic cardiomyopathy; R29.6 Repeated falls; I48.0 Paroxysmal atrial fibrillation; E87.8 Other disorders of electrolyte and fluid balance, not elsewhere classified; Z20.822 Contact with and (suspected) exposure to COVID-19; Z91.81 History of falling; Z79.01 Long term (current) use of anticoagulants; Z79.899 Other long term (current) drug therapy
CPT/HCPCS: 0241U; 36415; 70450; 72125; 80048; 80051; 80053; 80307; 81003; 82010; 82550; 82803; 82947; 83036; 83605; 83690; 83735; 83880; 83930; 84425; 84484; 85025; 85027; 85610; 93005; 99285; J1630; J2560; J3411; J3475; J7120

== ENCOUNTER → 2023-11-01 20:58 | Outpatient (BNV) | payer OTHER, MEDICAID, SELFPAY | PROVIDERS: Admitting Provider Internal Medicine; Emergency Provider Emergency Medicine; PCP Internal Medicine; Visit Provider Internal Medicine | DX: F10.931 Alcohol use, unspecified with withdrawal delirium (principal); E87.21 Acute metabolic acidosis; G93.40 Encephalopathy, unspecified | CPT/HCPCS: 99223; 99232; 99239 ==

== ENCOUNTER 2023-11-07 10:09 | Outpatient (AMB) | payer OTHER, MEDICAID, SELFPAY ==
--- NOTE | 2023-11-07 10:47 | MHC.AM.SUB ---
Intake Visit Reasons: Intake Allergies seafood Allergy (Verified 11/02/23 02:01) Hives HPI HPI Intake: Details: Patient presents to re-establish care following recent medical admission for alcohol withdrawal Seen at [facility] about 2 years ago for very brief period of time Notes and labs from recent medical admission reviewed. RN also collected more recent drinking history which was also reviewed Patient seen with his father in office Pleasant and engaged in interview. PCP: next week 20 years daily drinking fired due to drinking and call outs He is somewhat mixed in motivation for change as treatment or support options presented to him are quickly declined or he states that he has to get a job [facility] Medical History Colon cancer screening Numbness in feet Difficulty walking Alcohol withdrawal COVID-19 virus infection Numbness of left foot Alcohol abuse Paroxysmal atrial fibrillation Screening for prostate cancer Atrial fibrillation Left inguinal hernia Eczema Peripheral neuropathy Inguinal hernia, left Anemia Type 2 diabetes mellitus with hyperglycemia Nonischemic cardiomyopathy Chronic heart failure with reduced ejection fraction and diastolic dysfunction Surgical History Hx of cardiac catheterization Family History Father No problems noted. Mother No problems noted. Other No family history of cancer Substance abuse Social History Household Members: Family Housing: House Are you a primary patient care nursing assistant to a significant other at home: No Do you presently have visiting nurse or other home services: No Alcohol intake: current Alcohol intake frequency: 3 or more drinks per day Alcohol type: hard liquor Comment: 1:1 sitter Patient Tobacco Use Status: Never used Tobacco Tobacco use type: Cigarette e-Cigarette/Vaping Use: Never Used Second Hand Smoke Exposure: Yes Advance Directives Date on File: 09/10/21 service: No Current occupational status: employed Cognitive needs: No Hearing needs: No Vision needs: Yes (Glasses and contacts) Review of Systems Const Reports as per HPI and Reports no additional complaints Physical Exam Const General: cooperative, ill appearing (not acutely ill, but not overall health--skin color ) and well groomed Nutritional Appearance: average body habitus Orientation/consciousness: patient oriented x3 Limitations: no limitations Neuro General: patient oriented x3 Psych Insight: Limited insight present (Psych) Judgement: Limited judgement present (Psych) Results Reviewed Results Reviewed: Laboratory Last Values POC Urine Buprenorphine Negative 11/07/23 16:30 POC Urine Morphine Negative 11/07/23 16:30 POC Urine Oxycodone Positive 11/07/23 16:30 POC Urine Methadone Negative 11/07/23 16:30 POC Urine Propoxyphene Negative 11/07/23 16:30 POC Urine Barbiturates Positive 11/07/23 16:30 POC U Tricyclic Antidpr Positive 11/07/23 16:30 POC Urine PCP Negative 11/07/23 16:30 POC Ur Amphetamines Negative 11/07/23 16:30 POC Ur Methamphetamine Negative 11/07/23 16:30 POC Urine MDMA Negative 11/07/23 16:30 POC Ur Benzodiazepine Negative 11/07/23 16:30 POC Urine Cocaine Negative 11/07/23 16:30 POC Ur Marijuana (THC) Negative 11/07/23 16:30 Assessment & Plan Assessment & Plan (1) Alcohol use disorder: Code(s): F10.90 - Alcohol use, unspecified, uncomplicated Category: Medical Plan: already on naltrexone and vitamins risk reduction discussion will follow up with RNin one week Orders: Orders AMB 14 Panel Urine Drug Screen 11/07/23 Z51.81 - Encounter for therapeutic drug level monitoring AMB 14 Panel Urine Drug Screen Today Z51.81 - Encounter for therapeutic drug level monitoring
== END 2023-11-07 11:22 | disposition home or self-care (01) ==
PROVIDERS: PCP Internal Medicine; Visit Provider Nurse Practitioner Psychiatric/Mental Health
DX: Z51.81 Encounter for therapeutic drug level monitoring (principal); F10.90 Alcohol use, unspecified, uncomplicated
CPT/HCPCS: 99214

== ENCOUNTER → 2023-11-07 10:09 | Outpatient (BNVA) | payer OTHER, MEDICAID, SELFPAY | PROVIDERS: PCP Internal Medicine; Visit Provider Nurse Practitioner Psychiatric/Mental Health | DX: F10.90 Alcohol use, unspecified, uncomplicated (principal); Z79.899 Other long term (current) drug therapy | CPT/HCPCS: 80307 ==

== ENCOUNTER 2023-11-12 07:56 | Outpatient (AMB) | payer OTHER, MEDICAID, SELFPAY ==
--- NOTE | 2023-11-12 07:58 | MHC.PC.OV ---
Vital Signs 11/12/23 08:04 Height 5 ft 9 in Weight 149 lb BMI 22.0 BP 112/80 Blood Pressure Location Lt brachial Position Sitting Pulse 103 H Pulse Source Pulse Oximeter Pulse Oximetry (%) 98 Oxygen Delivery Method Room Air Intake Visit Reasons: TCM 11/04 [facility] Dis[place] Litigation Manager Required: No Accompanied by: Self / Same As Patient Allergies seafood Allergy (Verified 11/12/23 08:06) Hives Tobacco use date assessed: 10/15/23 Dental Screening Dental Screen Date: 10/15/23 HPI TCM TCM Information Date of Discharge 11/04/23 Discharged From [facility] Interactive Contact Date (Reference documentation from this date) 11/07/23 HPI Comments History of Present Illness Details 53 y/o male patient with past medical history significant for alcohol abuse, paroxysmal atrial fibrillation on chronic anticoagulation Eliquis and nonischemic cardiomyopathy (EF 15-20%) presents to the clinic today for TCM. He was admitted at [facility] on 11/01/23 due altered mental status. He was discharged home 11/05/23. DX: Acute Encephalopathy and metabolic Acidosis. He is currently taking Naltrexone PO but reports to me that it does not work, asking to be switched to another medication. He is also currently taking Magnesium 400 mg, which was increased to 800 mg BID. [facility] Medical History Colon cancer screening Numbness in feet Difficulty walking Alcohol withdrawal COVID-19 virus infection Numbness of left foot Alcohol abuse Paroxysmal atrial fibrillation Screening for prostate cancer Atrial fibrillation Left inguinal hernia Eczema Peripheral neuropathy Inguinal hernia, left Anemia Type 2 diabetes mellitus with hyperglycemia Nonischemic cardiomyopathy Chronic heart failure with reduced ejection fraction and diastolic dysfunction Surgical History Hx of cardiac catheterization Family History Father No problems noted. Mother No problems noted. Other No family history of cancer Substance abuse Social History Household Members: Family Housing: House Are you a primary lawn caretaker to a significant other at home: No Do you presently have visiting nurse or other home services: No Alcohol intake: current Alcohol intake frequency: 3 or more drinks per day Alcohol type: hard liquor Comment: 1:1 sitter Patient Tobacco Use Status: Never used Tobacco e-Cigarette/Vaping Use: Never Used Second Hand Smoke Exposure: Yes Advance Directives Date on File: 09/10/21 service: No Current occupational status: employed Current occupational exposures/hazards: No Cognitive needs: No Hearing needs: No Vision needs: Yes (Glasses and contacts) Questionnaire Thrive Questionnaire Date Thrive assessed: 11/02/23 Are you currently unemployed and looking for a job?: Yes MARYANA-7 AMB Questionnaire MARYANA-7 Date MARYANA - 7 assessed: 10/15/23 Source: Developed by Drs. Louis Khan, Qi Waggoner, Luis Enrique Leiva and colleagues, with an educational danelle from [employer]. Review of Systems Const All systems reviewed & are unremarkable except as noted in HPI and below Physical exam (Primary Care) Vital Signs: Last Vital Signs Pulse 103 H 11/12/23 08:04 BP 112/80 11/12/23 08:04 Pulse Ox 98 11/12/23 08:04 Oxygen Delivery Method Room Air 11/12/23 08:04 BMI result Body Mass Index 22.0 Tobacco/Smoking Status: Tobacco use Status Tobacco use date assessed 10/15/23 11/12/23 08:00 Patient Tobacco Use Status Never used Tobacco 11/12/23 08:00 Tobacco use type 11/12/23 08:09 e-Cigarette/Vaping Use Never Used 11/12/23 08:00 Thrive Assessment: Date of Thrive Assessment Date Thrive assessed 11/02/23 11/12/23 08:00 Const Orientation/consciousness: patient oriented x3 HENMT Head: Yes normocephalic Ears: external ears normal Resp Effort & Inspection: normal respiratory effort Auscultation: clear to auscultation bilaterally Cardio Heart sounds: S1 normal heart sound present and S2 normal heart sound present Skin Other: Skin Pale, dry and warm. General skin exam: no rashes or lesions noted Neuro General: patient oriented x3, gait normal and moves all extremities Psych Speech and movement: Normal speech and movement present Assessment and Plan Assessment & Plan (1) Hypomagnesemia: Code(s): E83.42 - Hypomagnesemia Plan: He currently has Magnesium 400 mg at home, advised to double (2 Tbs = 800mg) F/u with PCP as scheduled. (2) Alcohol use disorder: Code(s): F10.90 - Alcohol use, unspecified, uncomplicated Plan: Currently sees Kirsten Pan for Detox Naltrexone not working per Patient, asking for different medication. Will message PCP. Coding Level of Care Code TCM Mod MDM <= 7 Days Diagnoses Hypomagnesemia E83.42 Alcohol use disorder F10.90
[2023-11-12 08:04] VITALS: BP 112/80; PULSE 103; O2SAT 98; BMI 22.0
== END 2023-11-12 08:27 | disposition home or self-care (01) ==
PROVIDERS: PCP Internal Medicine; Visit Provider Nurse Practitioner Family
DX: E83.42 Hypomagnesemia (principal); F10.90 Alcohol use, unspecified, uncomplicated

== ENCOUNTER → 2023-11-12 07:56 | Outpatient (BNVA) | payer OTHER, MEDICAID, SELFPAY | PROVIDERS: PCP Internal Medicine; Visit Provider Nurse Practitioner Family | DX: E83.42 Hypomagnesemia (principal); F10.90 Alcohol use, unspecified, uncomplicated ==

== ENCOUNTER → 2023-11-14 09:30 | Outpatient (BNVA) | payer OTHER, MEDICAID, SELFPAY | PROVIDERS: PCP Internal Medicine ==

== ENCOUNTER 2023-11-27 14:31 | Outpatient (AMB) | payer MEDICAID, SELFPAY ==
--- NOTE | 2023-11-27 14:43 | A.OFFVISCC_ITS ---
Intake Visit Reasons: MAT Office Allergies seafood Allergy (Verified 11/12/23 08:06) Hives [facility] HPI MAT Office: Details: Patient presents for follow up reporting he is drinking mikes lemonade or a twisted tea--no more than one per day thinking about going back to [employer] to work or applying to [employer] [facility] Medical History Colon cancer screening Numbness in feet Difficulty walking Alcohol withdrawal COVID-19 virus infection Numbness of left foot Alcohol abuse Paroxysmal atrial fibrillation Screening for prostate cancer Atrial fibrillation Left inguinal hernia Eczema Peripheral neuropathy Inguinal hernia, left Anemia Type 2 diabetes mellitus with hyperglycemia Nonischemic cardiomyopathy Chronic heart failure with reduced ejection fraction and diastolic dysfunction Surgical History Hx of cardiac catheterization Family History Father No problems noted. Mother No problems noted. Other No family history of cancer Substance abuse Social History Household Members: Family Housing: House Are you a primary child care coordinator to a significant other at home: No Do you presently have visiting nurse or other home services: No Alcohol intake: current Alcohol intake frequency: 3 or more drinks per day Alcohol type: hard liquor Comment: 1:1 sitter Patient Tobacco Use Status: Never used Tobacco e-Cigarette/Vaping Use: Never Used Second Hand Smoke Exposure: Yes Advance Directives Date on File: 09/10/21 service: No Current occupational status: employed Current occupational exposures/hazards: No Cognitive needs: No Hearing needs: No Vision needs: Yes (Glasses and contacts) Review of Systems Const Reports as per HPI and Reports no additional complaints Physical Exam Const General: cooperative, ill appearing (not acutely ill, but not overall health--skin color ) and well groomed Nutritional Appearance: average body habitus Orientation/consciousness: patient oriented x3 Limitations: no limitations Neuro General: patient oriented x3 Psych Insight: Limited insight present (Psych) Judgement: Limited judgement present (Psych) Assessment & Plan Assessment & Plan (1) Alcohol use disorder: Code(s): F10.90 - Alcohol use, unspecified, uncomplicated Category: Medical Plan: * risk reduction discussion * follow up 2 weeks
== END 2023-11-27 15:49 | disposition home or self-care (01) ==
PROVIDERS: PCP Internal Medicine; Visit Provider Nurse Practitioner Psychiatric/Mental Health
DX: F10.90 Alcohol use, unspecified, uncomplicated (principal)
CPT/HCPCS: 99213

== ENCOUNTER → 2023-11-27 14:31 | Outpatient (BNVA) | payer MEDICAID, SELFPAY | PROVIDERS: PCP Internal Medicine; Visit Provider Nurse Practitioner Psychiatric/Mental Health | DX: F10.90 Alcohol use, unspecified, uncomplicated (principal) | CPT/HCPCS: 99212 ==

== ENCOUNTER → 2023-12-11 14:26 | Outpatient (BNVA) | payer MEDICAID, SELFPAY | PROVIDERS: PCP Internal Medicine ==

== ENCOUNTER 2023-12-25 14:27 | Outpatient (AMB) | payer MEDICAID, SELFPAY ==
--- NOTE | 2023-12-25 14:39 | MHC.AM.SUB ---
Intake Visit Reasons: MAT Office Allergies seafood Allergy (Verified 11/12/23 08:06) Hives HPI HPI MAT Office: Details: Patient presents for AUD treatment follow up Still drinking twisted tea --4 in the last week Reports feeling great enjoys not being sick in the morning watching sports or playing video games walking daily PCP appt next month for follow up physical in March with Dr. Elizabeth Review of Systems Const Reports as per HPI and Reports no additional complaints Physical Exam Const General: cooperative and well groomed Nutritional Appearance: average body habitus Orientation/consciousness: patient oriented x3 Limitations: no limitations Neuro General: patient oriented x3 Psych Insight: Limited insight present (Psych) Judgement: Limited judgement present (Psych) Assessment & Plan Assessment & Plan (1) Alcohol use disorder: Code(s): F10.90 - Alcohol use, unspecified, uncomplicated Category: Medical Plan: relapse prevention discussion follow up 2 weeks with JERRY CHAVIRA Medical History Colon cancer screening Numbness in feet Difficulty walking Alcohol withdrawal COVID-19 virus infection Numbness of left foot Alcohol abuse Paroxysmal atrial fibrillation Screening for prostate cancer Atrial fibrillation Left inguinal hernia Eczema Peripheral neuropathy Inguinal hernia, left Anemia Type 2 diabetes mellitus with hyperglycemia Nonischemic cardiomyopathy Chronic heart failure with reduced ejection fraction and diastolic dysfunction Surgical History Hx of cardiac catheterization Family History Father No problems noted. Mother No problems noted. Other No family history of cancer Substance abuse Social History Household Members: Family Housing: House Are you a primary career representative to a significant other at home: No Do you presently have visiting nurse or other home services: No Alcohol intake: current Alcohol intake frequency: 3 or more drinks per day Alcohol type: hard liquor Comment: 1:1 sitter Patient Tobacco Use Status: Never used Tobacco e-Cigarette/Vaping Use: Never Used Second Hand Smoke Exposure: Yes Advance Directives Date on File: 09/10/21 service: No Current occupational status: employed Current occupational exposures/hazards: No Cognitive needs: No Hearing needs: No Vision needs: Yes (Glasses and contacts)
== END 2023-12-25 15:18 | disposition home or self-care (01) ==
LOC: HO.HCC 14:28
PROVIDERS: PCP Internal Medicine; Visit Provider Nurse Practitioner Psychiatric/Mental Health
DX: F10.90 Alcohol use, unspecified, uncomplicated (principal)
CPT/HCPCS: 99213

== ENCOUNTER → 2023-12-25 14:27 | Outpatient (BNVA) | payer MEDICAID, SELFPAY | PROVIDERS: PCP Internal Medicine; Visit Provider Nurse Practitioner Psychiatric/Mental Health | DX: F10.90 Alcohol use, unspecified, uncomplicated (principal) | CPT/HCPCS: 99212 ==

== ENCOUNTER 2024-01-02 14:48 | Outpatient (AMB) | payer MEDICAID, SELFPAY ==
[2024-01-02 15:23] VITALS: BP 130/94; PULSE 91; BMI 23.2
--- NOTE | 2024-01-02 15:23 | A.OFFVIS_ITS ---
Vital Signs 01/02/24 15:23 Height 5 ft 9 in Weight 156 lb 15.506 oz BMI 23.2 BP 130/94 H Blood Pressure Location Rt brachial Position Sitting Pulse 91 Pulse Source Pulse Oximeter Intake Visit Reasons: 3m follow up Pattern Finisher Required: No Allergies seafood Allergy (Verified 01/02/24 15:25) Hives Medication List - Last Reconciled 01/02/24 by Alejandra Valdivia NP-C apixaban (Eliquis) 5 mg PO BID carvedilol 6.25 mg PO BID 90 days cyanocobalamin (vitamin B-12) 500 mcg PO DAILY 30 days folic acid 1 mg PO DAILY gabapentin 100 mg PO BEDTIME magnesium oxide 800 mg (2 x 400 mg magnesium) PO DAILY multivitamin 1 tab PO DAILY naltrexone 50 mg PO BID sacubitril-valsartan 24-26 mg (Entresto) 1 tab PO BID sertraline 50 mg PO DAILY 30 days thiamine HCl (vitamin B1) 100 mg PO DAILY HPI HPI 3m follow up: Details: To is a 53-year-old male with past medical history of alcohol abuse, diabetes, paroxysmal atrial fibrillation, heart failure with reduced EF, nonischemic cardiomyopathy, who was recently admitted to [facility] following alcohol relapse with falls, metabolic encephalopathy, WILFREDO. He did not have recurrent atrial fibrillation or decompensated heart failure. He now presents for post hospital follow-up. Today he reports he has been doing well since his hospital discharge. He says he has had only rare alcohol since his hospital discharge 2 months ago. He is following with the addiction medicine program at [facility]. He has been eating and sleeping better. He says he feels very well with no concerning symptoms. No chest discomfort at rest or with activity. No shortness of breath, PND, orthopnea or edema. No lightheadedness, presyncope, syncope, falls. He says he has been taking all his medications. His meds are laid out in the pillbox by his mother. He has been trying to walk more around the neighborhood. He is hoping to get a job in the near future. [facility] Medical History Chronic anticoagulation Colon cancer screening Numbness in feet Difficulty walking Alcohol withdrawal COVID-19 virus infection Numbness of left foot Alcohol abuse Paroxysmal atrial fibrillation Screening for prostate cancer Atrial fibrillation Left inguinal hernia Eczema Peripheral neuropathy Inguinal hernia, left Anemia Type 2 diabetes mellitus with hyperglycemia Nonischemic cardiomyopathy Chronic heart failure with reduced ejection fraction and diastolic dysfunction Surgical History Hx of cardiac catheterization Family History Father No problems noted. Mother No problems noted. Other No family history of cancer Substance abuse Social History Household Members: Family Housing: House Are you a primary special needs child caregiver to a significant other at home: No Do you presently have visiting nurse or other home services: No Alcohol intake: current Alcohol intake frequency: 3 or more drinks per day Alcohol type: hard liquor Comment: 1:1 sitter Patient Tobacco Use Status: Never used Tobacco e-Cigarette/Vaping Use: Never Used Second Hand Smoke Exposure: Yes Advance Directives Date on File: 09/10/21 service: No Current occupational status: employed Current occupational exposures/hazards: No Cognitive needs: No Hearing needs: No Vision needs: Yes (Glasses and contacts) Review of Systems Const All systems reviewed & are unremarkable except as noted in HPI and below ENT Denies dizziness Card Denies chest pain, Denies chest pain at rest, Denies chest pain with activity, Denies rapid heart rate, Denies pedal edema, Denies edema, Denies leg edema, Denies lightheadedness, Denies palpitations, Denies dyspnea, Denies dyspnea on exertion and Denies orthopnea Resp Denies cough, Denies dyspnea and Denies dyspnea on exertion GI Denies hematochezia and Denies change in stool character Musc Denies abnormal gait, Denies limited range of motion, Denies muscle cramps, Denies muscle weakness, Denies numbness, Denies radiating pain into limb, Denies stiffness and Denies tingling Neuro Denies abnormal gait, Denies dizziness, Denies numbness and Denies tingling Endo Denies palpitations Physical Exam Vital Signs: Last Vital Signs Pulse 91 01/02/24 15:23 BP 130/94 H 01/02/24 15:23 BMI result Body Mass Index 23.2 Const General: cooperative, comfortable, no acute distress and anxious Orientation/consciousness: patient oriented x3 Neck Neck: Yes normal visual inspection and Yes no JVD Resp Effort & Inspection: normal respiratory effort Auscultation: clear to auscultation bilaterally, no rales, no rhonchi and no wheezes Cardio Jugular venous distension: no JVD Rate: tachycardic Rhythm: regular rhythm Heart sounds: S1 normal heart sound present, S2 normal heart sound present, no murmurs and no rubs Neuro General: patient oriented x3 Extrem General: Yes normal to inspection and No no pedal edema Psych Appearance: grossly normal Mental Status: mental status grossly normal Speech and movement: Normal speech and movement present Assessment & Plan Assessment & Plan (1) Paroxysmal atrial fibrillation: Code(s): I48.0 - Paroxysmal atrial fibrillation Category: Medical Plan: History of paroxysmal atrial fibrillation. Currently suppressed. Pulse is regular on exam, clinically sinus rhythm. He is on carvedilol for rate control. He is on Eliquis for anticoagulation. He denies bleeding issues. Currently with rare alcohol use. He had WILFREDO during last hospitalization. Most recent labs done 11/04/2023 show creatinine 0.87. Labs done 11/02/2023 showed hematocrit 28.9 which is similar to prior. (2) Nonischemic cardiomyopathy: Comment: echocardiogram in July 2019 showing LVEF of 15-20% August 2020he left ventricular systolic function is normal. The calculated ejection fraction is 58% by biplane method. - No obvious valvular pathology seen on this study. Code(s): I42.8 - Other cardiomyopathies Category: Medical Plan: History of non ischemic cardiomyopathy, likely related to alcohol abuse. His EF has been as low as 15-20% in 2019. His last echocardiogram was done 11/29/2022 showing EF 63%, no valve abnormalities. He is on Entresto and carvedilol for neurohormonal modulation. He does not appear fluid overloaded on exam today. Signs and symptoms of heart failure reviewed with him. (3) Alcohol dependence, uncomplicated: Code(s): F10.20 - Alcohol dependence, uncomplicated Category: Medical Plan: As above. Now following with the addiction medicine program at [facility] (4) WILFREDO (acute kidney injury): Code(s): N17.9 - Acute kidney failure, unspecified Category: Medical Plan: As above (5) Hypomagnesemia: Code(s): E83.42 - Hypomagnesemia Category: Medical Plan: History of hypomagnesemia. His med list does include magnesium supplement. Last magnesium level 2.1 on 11/04/2023. (6) Hospital discharge follow-up: Code(s): Z09 - Encounter for follow-up examination after completed treatment for conditions other than malignant neoplasm Category: Medical Plan: As above Plan Time spent on chart review, documentation, interview and assessment Coding Level of Care Code Est Pt Level 4 (09126) Complex EM visit Add On G2211 Diagnoses Paroxysmal atrial fibrillation I48.0 Nonischemic cardiomyopathy I42.8 Alcohol dependence, uncomplicated F10.20 WILFREDO (acute kidney injury) N17.9 Hypomagnesemia E83.42 Hospital discharge follow-up Z09 Time Spent (min) 28
== END 2024-01-02 16:04 | disposition home or self-care (01) ==
PROVIDERS: PCP Internal Medicine; Visit Provider Nurse Practitioner Family
DX: I48.0 Paroxysmal atrial fibrillation (principal); I42.8 Other cardiomyopathies; F10.20 Alcohol dependence, uncomplicated; N17.9 Acute kidney failure, unspecified; E83.42 Hypomagnesemia; Z09 Encounter for follow-up examination after completed treatment for conditions other than malignant neoplasm
CPT/HCPCS: 99214

== ENCOUNTER → 2024-01-02 14:48 | Outpatient (BNVA) | payer MEDICAID, SELFPAY | PROVIDERS: PCP Internal Medicine; Visit Provider Nurse Practitioner Family | DX: Z09 Encounter for follow-up examination after completed treatment for conditions other than malignant neoplasm (principal); I48.0 Paroxysmal atrial fibrillation; I42.8 Other cardiomyopathies; I11.0 Hypertensive heart disease with heart failure; I50.32 Chronic diastolic (congestive) heart failure; F10.20 Alcohol dependence, uncomplicated; N17.9 Acute kidney failure, unspecified; E83.42 Hypomagnesemia | CPT/HCPCS: 99212 ==

== ENCOUNTER → 2024-01-08 14:22 | Outpatient (BNVA) | payer MEDICAID, SELFPAY | PROVIDERS: PCP Internal Medicine ==

== ENCOUNTER 2024-01-14 10:51 | Outpatient (AMB) | payer OTHER, MEDICAID, SELFPAY ==
[2024-01-14 11:02] VITALS: BP 130/68; PULSE 102; O2SAT 98; BMI 22.9
--- NOTE | 2024-01-14 11:02 | MHC.PC.OV ---
Vital Signs 01/14/24 11:02 01/14/24 11:21 Height 5 ft 9 in Weight 155 lb BMI 22.9 BP 130/68 Blood Pressure Location Lt brachial Position Sitting Pulse 102 H 97 Pulse Source Pulse Oximeter Pulse Oximeter Pulse Oximetry (%) 98 Oxygen Delivery Method Room Air Intake Visit Reasons: 3 Month F/U Allergies seafood Allergy (Verified 01/14/24 11:02) Hives Medication List - Last Reconciled 01/14/24 by Afshan Askew PA-C apixaban (Eliquis) 5 mg PO BID carvedilol 6.25 mg PO BID 90 days cyanocobalamin (vitamin B-12) 500 mcg PO DAILY 30 days folic acid 1 mg PO DAILY gabapentin 100 mg PO BEDTIME magnesium oxide 400 mg PO BID multivitamin 1 tab PO DAILY naltrexone 50 mg PO BID sacubitril-valsartan 24-26 mg (Entresto) 1 tab PO BID sertraline 50 mg PO DAILY 30 days thiamine HCl (vitamin B1) 100 mg PO DAILY triamcinolone acetonide 0.5% 1 appl topical DAILY Tobacco use date assessed: 10/15/23 Dental Screening Dental Screen Date: 10/15/23 HPI 3 Month F/U HPI Details 53-year-old male with past medical history of diabetes mellitus, atrial fibrillation, nonischemic cardiomyopathy with alcohol use disorder, major depression last seen by Dr. Maria September 2023 coming in for follow up. In review of the notes, in review of the notes patient was seen by Cardiology 01/03/2024 stable on current medications advised to avoid alcohol use and follow up in 6 months. Patient [facility] with [facility] last seen 12/29/2023 for alcohol abuse. Patient states he follows with a comprehensive care clinic every 3 weeks to speak with the nurse. He feels his cravings are well managed at this time on Naltrexone. When he drinks too much he will get headaches and nausea while on the Naltrexone. He has no acute concerns today. [facility] Medical History Chronic anticoagulation Colon cancer screening Numbness in feet Difficulty walking Alcohol withdrawal COVID-19 virus infection Numbness of left foot Alcohol abuse Paroxysmal atrial fibrillation Screening for prostate cancer Atrial fibrillation Left inguinal hernia Eczema Peripheral neuropathy Inguinal hernia, left Anemia Type 2 diabetes mellitus with hyperglycemia Nonischemic cardiomyopathy Chronic heart failure with reduced ejection fraction and diastolic dysfunction Surgical History Hx of cardiac catheterization Family History Father No problems noted. Mother No problems noted. Other No family history of cancer Substance abuse Social History Household Members: Family Housing: House Are you a primary patient care nursing assistant to a significant other at home: No Do you presently have visiting nurse or other home services: No Alcohol intake: current Alcohol intake frequency: 3 or more drinks per day Alcohol type: hard liquor Comment: 1:1 sitter Patient Tobacco Use Status: Never used Tobacco Tobacco use type: Cigarette e-Cigarette/Vaping Use: Never Used Second Hand Smoke Exposure: Yes Advance Directives Date on File: 09/10/21 service: No Current occupational status: employed Current occupational exposures/hazards: No Cognitive needs: No Hearing needs: No Vision needs: Yes (Glasses and contacts) Questionnaire PHQ-9 Over the last 2 weeks, how often have you been bothered by any of the following problems? 1. Little interest or pleasure in doing things: not at all 2. Feeling down, depressed, or hopeless: not at all 3. Trouble falling or staying asleep, or sleeping too much: not at all 4. Feeling tired or having little energy: not at all 5. Poor appetite or overeating: not at all 6. Feeling bad about yourself - or that you are a failure or have let yourself or your family down: not at all 7. Trouble concentrating on things, such as reading the newspaper or watching television: not at all 8. Moving or speaking so slowly that other people could have noticed. Or the opposite - being so fidgety or restless that you have been moving around a lot more than usual: not at all 9. Thoughts that you would be better off or of hurting yourself in some way: not at all Total score: 0 Depression Screening Interpretation: Negative Depression Screening Done: Yes 00659 - PHQ-9 Billing: Yes Source: Developed by Drs. Louis Khan, Qi WaggonerLuis Enrique and colleagues, with an educational danelle from [employer]. Thrive Questionnaire Date Thrive assessed: 11/02/23 Are you currently unemployed and looking for a job?: Yes AUDIT C Alcohol Use Questionnaire (AUDIT-C) 1. How often do you have a drink containing alcohol?: 4 or more times a week 2. How many drinks containing alcohol do you have on a typical day when you are drinking?: 1 or 2 3. How often do you have six or more drinks on one occasion?: Never Total Score: 4 Score Reviewed/Action Taken: Yes MARYANA-7 AMB Questionnaire MARYANA-7 Date MARYANA - 7 assessed: 10/15/23 Source: Developed by Drs. Louis Khan, Qi Waggoner, Luis Enrique Leiva and colleagues, with an educational danelle from [employer]. Review of Systems Const Denies body aches, Denies chills, Denies fever(s), Denies headache(s) and Denies poor appetite Eyes Reports no additional complaints ENT Denies dysphagia, Denies dizziness, Denies headache(s) and Denies odynophagia Card Denies chest pain, Denies syncope, Denies edema, Denies irregular heart rhythm, Denies lightheadedness and Denies dyspnea Resp Denies cough and Denies dyspnea GI Denies abdominal pain, Denies constipation, Denies dysphagia, Denies diarrhea, Denies nausea, Denies odynophagia and Denies vomiting Reports no additional complaints Musc Reports no additional complaints and Denies abnormal gait Skin/Breast Reports system reviewed and no additional complaints, except as documented Neuro Denies abnormal gait, Denies dizziness, Denies syncope and Denies headache(s) Psych Reports no additional complaints Physical exam (Primary Care) Vital Signs: Last Vital Signs Pulse 102 H 01/14/24 11:02 BP 130/68 01/14/24 11:02 Pulse Ox 98 01/14/24 11:02 Oxygen Delivery Method Room Air 01/14/24 11:02 BMI result Body Mass Index 22.9 Tobacco/Smoking Status: Tobacco use Status Tobacco use date assessed 10/15/23 01/14/24 11:05 Patient Tobacco Use Status Never used Tobacco 01/14/24 11:05 Tobacco use type Cigarette 01/14/24 11:05 e-Cigarette/Vaping Use Never Used 01/14/24 11:05 PHQ-9: PHQ-9 Score PHQ-9: Total score 0 01/14/24 11:05 Depression Screening Interpretation: Negative Thrive Assessment: Date of Thrive Assessment Date Thrive assessed 11/02/23 01/14/24 11:05 Const General: cooperative, healthy appearing, comfortable and no acute distress Orientation/consciousness: patient oriented x3 HENMT Head: Yes normocephalic Ears: hearing grossly normal bilaterally General nose exam: Normal external nose present Eyes General: appearance normal, both eyes and all related structures Conjunctivae: conjunctivae normal Neck Neck: Yes full ROM and Yes no lymphadenopathy Resp Effort & Inspection: normal respiratory effort Auscultation: clear to auscultation bilaterally, no crackles, no rales, no rhonchi and no wheezes Cardio Rate: regular rate Rhythm: regular rhythm Skin General skin exam: no rashes or lesions noted Neuro General: patient oriented x3 Gait exam (Neuro): Normal gait present Extrem General: Yes normal to inspection, Yes full ROM and No edema Psych Affect: normal affect Attitude: cooperative Insight: Good insight present (Psych) Judgement: Good judgement present (Psych) Coding Level of Care Code Est Pt Level 3 (08495) Diagnoses Hypomagnesemia E83.42 Alcohol use disorder F10.90 Major depression F32.9 Nonischemic cardiomyopathy I42.8 Type 2 diabetes mellitus with hyperglycemia, without long-term current use of insulin E11.65 Diabetes mellitus penitentiary insulin use: without buttermilk drier operator use Additional Codes PHQ-9 - 51570 - PHQ-9 Billing: Yes ([id number]) Assessment & Plan Assessment & Plan (1) Hypomagnesemia: Code(s): E83.42 - Hypomagnesemia Category: Medical Plan: Magnesium was low several months ago and patient was placed on supplementation. Advised to have repeat magnesium levels before restarting magnesium supplementation. Patient agrees to have magnesium levels drawn today and hold magnesium supplementation until after labs are drawn. (2) Alcohol use disorder: Code(s): F10.90 - Alcohol use, unspecified, uncomplicated Category: Medical Plan: Continue to follow with [facility] care clinic and continue on Naltrexone (3) Major depression: Comment: decline referral to counselling Code(s): F32.9 - Major depressive disorder, single episode, unspecified Category: Medical Plan: Declines referral feels meeting with the comprehensive care clinic has been helpful for his depression (4) Nonischemic cardiomyopathy: Comment: echocardiogram in July 2019 showing LVEF of 15-20% August 2020he left ventricular systolic function is normal. The calculated ejection fraction is 58% by biplane method. - No obvious valvular pathology seen on this study. Code(s): I42.8 - Other cardiomyopathies Category: Medical Plan: [facility] cardiology stable on current medications. (5) Type 2 diabetes mellitus with hyperglycemia: Code(s): E11.65 - Type 2 diabetes mellitus with hyperglycemia Category: Medical Qualifiers: Diabetes mellitus penitentiary insulin use: without penitentiary use Qualified Code(s): E11.65 - Type 2 diabetes mellitus with hyperglycemia Plan: Decrease the amount of carbohydrates such as pasta, bread, rice, and potatoes and limit the amount of sweets. Although fruits are generally healthy they should be eaten in moderation as they are still high in sugar. Hemoglobin A1c goal of less than 7%. Reminded about blood work patient will have A1c done today at the lab. Plan This note was constructed using voice recognition software. While every effort has been made to ensure accuracy and airplane pilot photogrammetry, still areas may have been included sometimes these areas may affect the content or meeting of the given symptoms. Total time spent caring for the patient today was 20 minutes. This includes time spent before the visit reviewing the chart, time spent during the visit, and time spent after the visit and documentation. Orders: Orders Magnesium Today E83.42 - Hypomagnesemia AMB Hemoglobin A1c Today E11.65 - Type 2 diabetes mellitus with hyperglycemia Medications: New triamcinolone acetonide 0.5% 1 appl topical DAILY 15 grams 0RF Changed From magnesium oxide 800 mg (2 x 400 mg magnesium) PO DAILY 120 tabs 0RF To magnesium oxide 400 mg PO BID 120 tabs 0RF
[2024-01-14 11:21] VITALS: PULSE 97
== END 2024-01-14 11:29 | disposition home or self-care (01) ==
PROVIDERS: PCP Internal Medicine
DX: E83.42 Hypomagnesemia (principal); F10.90 Alcohol use, unspecified, uncomplicated; F32.9 Major depressive disorder, single episode, unspecified; I42.8 Other cardiomyopathies; E11.65 Type 2 diabetes mellitus with hyperglycemia

== ENCOUNTER → 2024-01-14 10:51 | Outpatient (BNVA) | payer MEDICAID, SELFPAY | PROVIDERS: PCP Internal Medicine | DX: E83.42 Hypomagnesemia (principal); F10.90 Alcohol use, unspecified, uncomplicated; F32.9 Major depressive disorder, single episode, unspecified; I42.8 Other cardiomyopathies; E11.65 Type 2 diabetes mellitus with hyperglycemia | CPT/HCPCS: 96127 ==

== ENCOUNTER → 2024-01-29 14:27 | Outpatient (BNVA) | payer MEDICAID, SELFPAY | PROVIDERS: PCP Internal Medicine | DX: Z71.89 Other specified counseling (principal) ==

== ENCOUNTER 2024-02-17 14:25 | Outpatient (AMB) | payer MEDICAID, SELFPAY ==
--- NOTE | 2024-02-17 14:38 | MHC.AM.SUB ---
Intake Visit Reasons: MAT Allergies seafood Allergy (Verified 01/14/24 11:02) Hives HPI HPI MAT: Details: Patient presents for AUD treatment follow up Overall doing well, drinking one twisted tea one to two times per week. Spending time with family and started working on his pod[employer]stream again. 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 Review of Systems Const Reports as per HPI and Reports no additional complaints Physical Exam Const General: cooperative and well groomed Nutritional Appearance: average body habitus Orientation/consciousness: patient oriented x3 Limitations: no limitations Neuro General: patient oriented x3 Psych Appearance: well kempt Speech and movement: Normal speech and movement present Affect: normal affect Attitude: cooperative Thought process: Normal thought process present Thought content: Normal thought content present Insight: Fair insight present (Psych) Judgement: Fair judgement present (Psych) Assessment & Plan Assessment & Plan (1) Alcohol use disorder: Code(s): F10.90 - Alcohol use, unspecified, uncomplicated Category: Medical Plan: relapse prevention discussion follow up 3 weeks [facility] Medical History Chronic anticoagulation Colon cancer screening Numbness in feet Difficulty walking Alcohol withdrawal COVID-19 virus infection Numbness of left foot Alcohol abuse Paroxysmal atrial fibrillation Screening for prostate cancer Atrial fibrillation Left inguinal hernia Eczema Peripheral neuropathy Inguinal hernia, left Anemia Type 2 diabetes mellitus with hyperglycemia Nonischemic cardiomyopathy Chronic heart failure with reduced ejection fraction and diastolic dysfunction Surgical History Hx of cardiac catheterization Family History Father No problems noted. Mother No problems noted. Other No family history of cancer Substance abuse Social History Household Members: Family Housing: House Are you a primary property caretaker to a significant other at home: No Do you presently have visiting nurse or other home services: No Alcohol intake: current Alcohol intake frequency: 3 or more drinks per day Alcohol type: hard liquor Comment: 1:1 sitter Patient Tobacco Use Status: Never used Tobacco e-Cigarette/Vaping Use: Never Used Second Hand Smoke Exposure: Yes Advance Directives Date on File: 09/10/21 service: No Current occupational status: employed Current occupational exposures/hazards: No Cognitive needs: No Hearing needs: No Vision needs: Yes (Glasses and contacts)
== END 2024-02-17 15:01 | disposition home or self-care (01) ==
PROVIDERS: PCP Internal Medicine; Visit Provider Nurse Practitioner Psychiatric/Mental Health
DX: F10.90 Alcohol use, unspecified, uncomplicated (principal)
CPT/HCPCS: 99213

== ENCOUNTER → 2024-02-17 14:25 | Outpatient (BNVA) | payer MEDICAID, SELFPAY | PROVIDERS: PCP Internal Medicine; Visit Provider Nurse Practitioner Psychiatric/Mental Health | DX: F10.90 Alcohol use, unspecified, uncomplicated (principal); Z79.899 Other long term (current) drug therapy | CPT/HCPCS: 99212 ==

== ENCOUNTER 2024-03-09 14:28 | Outpatient (AMB) | payer MEDICAID, SELFPAY ==
--- NOTE | 2024-03-09 14:32 | A.OFFVISCC_ITS ---
Intake Visit Reasons: MAT Allergies seafood Allergy (Verified 01/14/24 11:02) Hives HPI HPI MAT: Details: Patient presents for AUD treatment follow up Reviewed medication list--reports no changes Naltrexone 50mg BID Doing well with recovery --stopped drinking twisted teas--finding it less enjoyable last drink on Saturday (reports he drank one tea over 3 days) Feels great Review of Systems Const Reports as per HPI Physical Exam Const General: cooperative and well groomed Nutritional Appearance: average body habitus Orientation/consciousness: patient oriented x3 Limitations: no limitations Neuro General: patient oriented x3 Psych Appearance: well kempt Speech and movement: Normal speech and movement present Affect: normal affect Attitude: cooperative Thought process: Normal thought process present Thought content: Normal thought content present Insight: Good insight present (Psych) Judgement: Good judgement present (Psych) [facility] Medical History Chronic anticoagulation Colon cancer screening Numbness in feet Difficulty walking Alcohol withdrawal COVID-19 virus infection Numbness of left foot Alcohol abuse Paroxysmal atrial fibrillation Screening for prostate cancer Atrial fibrillation Left inguinal hernia Eczema Peripheral neuropathy Inguinal hernia, left Anemia Type 2 diabetes mellitus with hyperglycemia Nonischemic cardiomyopathy Chronic heart failure with reduced ejection fraction and diastolic dysfunction Surgical History Hx of cardiac catheterization Family History Father No problems noted. Mother No problems noted. Other No family history of cancer Substance abuse Social History Household Members: Family Housing: House Are you a primary career coach to a significant other at home: No Do you presently have visiting nurse or other home services: No Alcohol intake: current Alcohol intake frequency: 3 or more drinks per day Alcohol type: hard liquor Comment: 1:1 sitter Patient Tobacco Use Status: Never used Tobacco e-Cigarette/Vaping Use: Never Used Second Hand Smoke Exposure: Yes Advance Directives Date on File: 09/10/21 service: No Current occupational status: employed Current occupational exposures/hazards: No Cognitive needs: No Hearing needs: No Vision needs: Yes (Glasses and contacts) Assessment & Plan Assessment & Plan (1) Alcohol use disorder: Code(s): F10.90 - Alcohol use, unspecified, uncomplicated Category: Medical Plan: * risk reduction discussion * follow up 3 weeks
== END 2024-03-09 15:18 | disposition home or self-care (01) ==
PROVIDERS: PCP Internal Medicine; Visit Provider Nurse Practitioner Psychiatric/Mental Health
DX: F10.90 Alcohol use, unspecified, uncomplicated (principal)
CPT/HCPCS: 99213

== ENCOUNTER → 2024-03-09 14:28 | Outpatient (BNVA) | payer MEDICAID, SELFPAY | PROVIDERS: PCP Internal Medicine; Visit Provider Nurse Practitioner Psychiatric/Mental Health | DX: F10.90 Alcohol use, unspecified, uncomplicated (principal); Z51.81 Encounter for therapeutic drug level monitoring; Z79.899 Other long term (current) drug therapy | CPT/HCPCS: 99212 ==

== ENCOUNTER 2024-04-13 14:52 | Outpatient (AMB) | payer MEDICAID, SELFPAY ==
--- NOTE | 2024-04-13 15:14 | MHC.AM.SUB ---
Intake Visit Reasons: MAT Allergies seafood Allergy (Verified 01/14/24 11:02) Hives HPI HPI MAT: Details: Patient presents for AUD treatment follow up Currently prescribed Naltrexone 50mg daily Tolerating current dose Keeping busy with family and friends Reports he has been drinking 3 twisted teas per week When he goes out to eat, he will have a mocktail feeling positive about recovery process Review of Systems Const Reports as per HPI and Reports no additional complaints Physical Exam Const General: cooperative and well groomed Nutritional Appearance: average body habitus Orientation/consciousness: patient oriented x3 Limitations: no limitations Neuro General: patient oriented x3 Psych Appearance: well kempt Speech and movement: Normal speech and movement present Affect: normal affect Attitude: cooperative Thought process: Normal thought process present Thought content: Normal thought content present Insight: Good insight present (Psych) Judgement: Good judgement present (Psych) [facility] Medical History Chronic anticoagulation Colon cancer screening Numbness in feet Difficulty walking Alcohol withdrawal COVID-19 virus infection Numbness of left foot Alcohol abuse Paroxysmal atrial fibrillation Screening for prostate cancer Atrial fibrillation Left inguinal hernia Eczema Peripheral neuropathy Inguinal hernia, left Anemia Type 2 diabetes mellitus with hyperglycemia Nonischemic cardiomyopathy Chronic heart failure with reduced ejection fraction and diastolic dysfunction Surgical History Hx of cardiac catheterization Family History Father No problems noted. Mother No problems noted. Other No family history of cancer Substance abuse Social History Household Members: Family Housing: House Are you a primary acute care physical therapist to a significant other at home: No Do you presently have visiting nurse or other home services: No Alcohol intake: current Alcohol intake frequency: 3 or more drinks per day Alcohol type: hard liquor Comment: 1:1 sitter Patient Tobacco Use Status: Never used Tobacco e-Cigarette/Vaping Use: Never Used Second Hand Smoke Exposure: Yes Advance Directives Date on File: 09/10/21 service: No Current occupational status: employed Current occupational exposures/hazards: No Cognitive needs: No Hearing needs: No Vision needs: Yes (Glasses and contacts) Assessment & Plan Assessment & Plan (1) Alcohol use disorder: Code(s): F10.90 - Alcohol use, unspecified, uncomplicated Category: Medical Plan: risk reduction discussion follow up 3 weeks
== END 2024-04-13 15:34 | disposition home or self-care (01) ==
PROVIDERS: PCP Internal Medicine; Visit Provider Nurse Practitioner Psychiatric/Mental Health
DX: F10.90 Alcohol use, unspecified, uncomplicated (principal)
CPT/HCPCS: 99213

== ENCOUNTER → 2024-04-13 14:52 | Outpatient (BNVA) | payer MEDICAID, SELFPAY | PROVIDERS: PCP Internal Medicine; Visit Provider Nurse Practitioner Psychiatric/Mental Health | DX: F10.20 Alcohol dependence, uncomplicated (principal); Z79.899 Other long term (current) drug therapy | CPT/HCPCS: 99212 ==

== ENCOUNTER 2024-04-21 13:59 | Outpatient (AMB) | payer OTHER, SELFPAY ==
--- NOTE | 2024-04-21 14:03 | A.OFFPC_ITS ---
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: No Accompanied by: Self / Same As Patient Allergies seafood Allergy (Verified 04/21/24 14:13) Hives Medication List - Last Reconciled 04/21/24 by Afshan Askew PA-C apixaban (Eliquis) 5 mg PO BID carvedilol 6.25 mg PO BID 90 days cyanocobalamin (vitamin B-12) 500 mcg PO DAILY 30 days folic acid 1 mg PO DAILY gabapentin 100 mg PO BEDTIME magnesium oxide 400 mg PO BID multivitamin 1 tab PO DAILY naltrexone 50 mg PO BID sacubitril-valsartan 24-26 mg (Entresto) 1 tab PO BID sertraline 50 mg PO DAILY 30 days thiamine HCl (vitamin B1) 100 mg PO DAILY triamcinolone acetonide 0.5% 1 appl topical DAILY Tobacco use date assessed: 04/21/24 Dental Screening Dental Screen Date: 04/21/24 Did you have a dental visit in the last 12 months?: Yes Did you have a dental problem in the last 6 months where you did not have access to dental care?: No Was dental information given to patient?: Patient has dentist HPI Annual Exam HPI Details 53-year-old male with past medical histo ry of diabetes mellitus, atrial fibrillation, nonischemic cardiomyopathy with alcohol use disorder, major depression last seen 12/2023 coming in for annual exam. In review of the notes, patient follows with comprehensive care clinic last seen 03/2024 following every 3 weeks. Follow-up with Dr. Curtis from a comprehensive care clinic for depression and anxiety management with sertraline, which has been effective. Reports alcohol use disorder in remission, has been abstinent from hard alcohol for nearly six months with minor exceptions. Eczema affecting multiple areas of the body, causing social distress, managed with a small-sized tube of topical cream. Patient reports issues with size and volume available of medication impacting condition management. Colonoscopy: not yet completed - referral placed. Vaccines: UTD PSA: PAD [facility] Medical History Chronic anticoagulation Colon cancer screening Numbness in feet Difficulty walking Alcohol withdrawal COVID-19 virus infection Numbness of left foot Alcohol abuse Paroxysmal atrial fibrillation Screening for prostate cancer Atrial fibrillation Left inguinal hernia Eczema Peripheral neuropathy Inguinal hernia, left Anemia Type 2 diabetes mellitus with hyperglycemia Nonischemic cardiomyopathy Chronic heart failure with reduced ejection fraction and diastolic dysfunction Surgical History Hx of cardiac catheterization Family History Father No problems noted. Mother No problems noted. Other No family history of cancer Substance abuse Social History Household Members: Family Housing: House Are you a primary anesthesiologist and critical care to a significant other at home: No Do you presently have visiting nurse or other home services: No Alcohol intake: current Alcohol intake frequency: 3 or more drinks per day Alcohol type: hard liquor Comment: 1:1 sitter Patient Tobacco Use Status: Never used Tobacco e-Cigarette/Vaping Use: Never Used Second Hand Smoke Exposure: Yes Advance Directives Date on File: 09/10/21 service: No Current occupational status: employed Current occupational exposures/hazards: No Cognitive needs: No Hearing needs: No Vision needs: Yes (Glasses and contacts) Questionnaire PHQ-9 Over the last 2 weeks, how often have you been bothered by any of the following problems? 1. Little interest or pleasure in doing things: not at all 2. Feeling down, depressed, or hopeless: not at all 3. Trouble falling or staying asleep, or sleeping too much: not at all 4. Feeling tired or having little energy: not at all 5. Poor appetite or overeating: not at all 6. Feeling bad about yourself - or that you are a failure or have let yourself or your family down: not at all 7. Trouble concentrating on things, such as reading the newspaper or watching television: not at all 8. Moving or speaking so slowly that other people could have noticed. Or the opposite - being so fidgety or restless that you have been moving around a lot more than usual: not at all 9. Thoughts that you would be better off or of hurting yourself in some way: not at all Total score: 0 Depression Screening Interpretation: Negative Depression Screening Done: Yes Source: Developed by Drs. Louis Khan, Qi Waggoner, Luis Enrique Leiva and colleagues, with an educational danelle from Figure 1. Thrive Questionnaire Date Thrive assessed: 04/21/24 I am a: Patient What is your living situation today?: I have a steady place to live Within the past 12 months, did the food you bought not last and you didn't have the money to get more?: Often true Within the past 12 months, did you worry whether your food would run out before you got money to buy more?: Never true Do you have trouble paying for medicines?: No Do you have trouble getting transportation to medical appointments?: No Do you have trouble paying your heating and electricity bill?: No Do you have trouble taking care of your child, family member or friend?: I choose not to answer this question Do you have trouble with day-to-day activities such as bathing, preparing meals, shopping, managing finances, etc.?: No Are you currently unemployed and looking for a job?: Yes Are you interested in more education?: No Please select the resources that you would like help with: None Currently or been in a relationship where the following occur: No concerns reported THRIVE Score: 1 AUDIT C Alcohol Use Questionnaire (AUDIT-C) 1. How often do you have a drink containing alcohol?: Monthly or less 2. How many drinks containing alcohol do you have on a typical day when you are drinking?: 1 or 2 3. How often do you have six or more drinks on one occasion?: Never Total Score: 1 MARYANA-7 AMB Questionnaire MARYANA-7 Date MARYANA - 7 assessed: 04/21/24 Feeling nervous, anxious, or on edge: 0 = Not at all Not being able to stop or control worryin = Not at all Worrying too much about different things: 0 = Not at all Trouble relaxin = Not at all Being so restless that it is hard to sit still: 0 = Not at all Becoming easily annoyed or irritable: 0 = Not at all Feeling afraid as if something awful might happen: 0 = Not at all Total MARYANA-7 score (0-4 normal; 5-9 mild; 10-14 moderate; 15-21 severe): 0 Source: Developed by Drs. Louis Khan, Qi Waggoner, Luis Enrique Leiva and colleagues, with an educational danelle from Figure 1. Review of Systems Const Denies body aches, Denies fatigue, Denies fever(s), Denies frequent falls, Denies headache(s) and Denies weakness Eyes Reports no additional complaints and Denies change in vision ENT Denies dysphagia, Denies dizziness, Denies facial pain, Denies headache(s), Denies nasal congestion and Denies odynophagia Card Denies chest pain, Denies syncope, Denies irregular heart rhythm, Denies leg edema, Denies lightheadedness and Denies dyspnea Resp Denies cough and Denies dyspnea GI Denies abdominal pain, Denies constipation, Denies dysphagia, Denies dyspepsia, Denies diarrhea, Denies nausea, Denies odynophagia and Denies vomiting Denies dysuria, Denies urinary frequency, Denies urinary hesitancy and Denies urinary urgency Musc Denies back pain and Denies myalgias Skin/Breast Reports system reviewed and no additional complaints, except as documented Neuro Denies dizziness, Denies syncope, Denies frequent falls, Denies headache(s) and Denies weakness Psych Reports no additional complaints Endo Denies fatigue Physical exam (Primary Care) Vital Signs: Last Vital Signs Pulse 93 04/21/24 14:04 BP 138/86 04/21/24 14:04 Pulse Ox 97 04/21/24 14:04 Oxygen Delivery Method Room Air 04/21/24 14:04 BMI result Body Mass Index 25.5 Tobacco/Smoking Status: Tobacco use Status Tobacco use date assessed 04/21/24 04/21/24 14:10 Patient Tobacco Use Status Never used Tobacco 04/21/24 14:05 Tobacco use type 01/15/24 10:28 e-Cigarette/Vaping Use Never Used 04/21/24 14:05 PHQ-9: PHQ-9 Score PHQ-9: Total score 0 04/21/24 14:05 Depression Screening Interpretation: Negative Thrive Assessment: Date of Thrive Assessment Date Thrive assessed 04/21/24 04/21/24 14:05 Currently or been in a relationship where the following occur: No concerns reported Const General: cooperative, healthy appearing, comfortable and no acute distress Orientation/consciousness: patient oriented x3 HENMT Head: Yes normocephalic Ears: hearing grossly normal bilaterally, external ears normal, TM normal on the right and Abnormal EAC present excessive cerumen on the left General nose exam: Normal external nose present Face and sinus: Yes normal facial exam and Yes sinuses nontender Mouth: Normal oral and palatal mucosa present and tongue normal Throat: Yes posterior oropharynx normal Eyes General: appearance normal, both eyes and all related structures Conjunctivae: conjunctivae normal Pupils: Equal, round and reactive pupils present EOM: EOMs intact bilaterally and No Nystagmus present Neck Neck: Yes normal visual inspection, Yes full ROM and Yes no lymphadenopathy Chest Chest palpation & inspection: normal inspection of the chest Resp Effort & Inspection: normal respiratory effort Auscultation: clear to auscultation bilaterally, no crackles, no rales, no rhonchi, no wheezes and breath sounds present Cardio Rate: regular rate Rhythm: regular rhythm Peripheral pulses: radial pulses present and dorsalis pedis present GI Inspection: Yes normal to inspection and No Abdominal wall edema Palpation (GI): Soft to palpation, not firm and nontender Auscultation: normal bowel sounds Rectal Exam - Male: Yes deferred General: Yes no CVA tenderness Back/Spine/Pelvis Back: no CVA tenderness Skin General skin exam: no rashes or lesions noted Neuro General: patient oriented x3 Cranial nerves: Yes Equal, round and reactive pupils present, Yes Midline tongue present, Yes Ability to bilaterally elevate shoulders present and No Nystagmus present Gait exam (Neuro): Normal gait present Extrem General: Yes normal to inspection, Yes full ROM, No no pedal edema and No edema Psych Speech and movement: Normal speech and movement present Affect: normal affect Insight: Good insight present (Psych) Judgement: Good judgement present (Psych) Coding Level of Care Code Est Pt Prev Care 40-64y([id number]) Diagnoses Hypomagnesemia E83.42 Anemia D64.9 Alcohol use disorder F10.90 Peripheral neuropathy G62.9 Major depression F32.9 Nonischemic cardiomyopathy I42.8 Low vitamin D level R79.89 Hepatic steatosis K76.0 Type 2 diabetes mellitus with hyperglycemia, without long-term current use of insulin E11.65 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 (2) Anemia: Code(s): D64.9 - Anemia, unspecified Category: Medical Plan: Ordered for repeat blood work. Continue to monitor with CBC (3) Alcohol use disorder: Code(s): F10.90 - Alcohol use, unspecified, uncomplicated Category: Medical Plan: Patient currently following with [facility] every 3 weeks on naltrexone 50 mg twice daily (4) Peripheral neuropathy: Code(s): G62.9 - Polyneuropathy, unspecified Category: Medical Plan: Patient currently on gabapentin 100 mg at night for polyneuropathy. Advised good control of blood sugars to prevent further progression of neuropathy (5) Major depression: Comment: decline referral to counselling Code(s): F32.9 - Major depressive disorder, single episode, unspecified Category: Medical Plan: Continues to decline referral to counseling. Patient is currently on sertraline 50 mg and feels good on this medication (6) Nonischemic cardiomyopathy: Comment: echocardiogram in July 2019 showing LVEF of 15-20% August 2020he left ventricular systolic function is normal. The calculated ejection fraction is 58% by biplane method. - No obvious valvular pathology seen on this study. Code(s): I42.8 - Other cardiomyopathies Category: Medical Plan: Patient has follow up with Cardiology june 2024. Currently on carvedilol and sacubitril-valsartan (7) Low vitamin D level: Code(s): R79.89 - Other specified abnormal findings of blood chemistry Category: Medical Plan: Patient not currently on medical management. Continue to monitor vitamin-D levels (8) Hepatic steatosis: Code(s): K76.0 - Fatty (change of) liver, not elsewhere classified Category: Medical Plan: Healthy diet and regular exercise is encouraged. (9) Type 2 diabetes mellitus with hyperglycemia: Code(s): E11.65 - Type 2 diabetes mellitus with hyperglycemia Category: Medical Qualifiers: Diabetes mellitus assisted insulin use: without assisted use Qualified Code(s): E11.65 - Type 2 diabetes mellitus with hyperglycemia Plan: Decrease the amount of carbohydrates such as pasta, bread, rice, and potatoes and limit the amount of sweets. Although fruits are generally healthy they should be eaten in moderation as they are still high in sugar. Hemoglobin A1c goal of less than 7%. Last A1c 5.9% not currently on medical management. (10) Hx of cardiac catheterization: Comment: 03/2019- RCA with minimal disease, mildly elevated resting right heart pressures mild pulmonary hypertension, severely depressed LV systolic function, 3 plus MR. Code(s): Z98.890 - Other specified postprocedural states Category: Surgical Plan: Continue to follow with Cardiology next appointment 06/2024 (11) Annual physical exam: Code(s): Z00.00 - Encounter for general adult medical examination without abnormal findings Category: Medical Plan: Patient is not up-to-date on all recommended routine screenings for his age. Colonoscopy was not completed and referral was placed to GI today. Patient is up-to-date on all vaccines. Blood work is up-to-date reminded patient about outstanding blood work. Plan to follow up in 6 months or sooner if new problems arise (12) Eczema: Code(s): L30.9 - Dermatitis, unspecified Category: Medical Plan: To address eczema, I prescribed an 80-gram steroid cream and recommended a dermatology referral for a detailed evaluation Plan This note was constructed using voice recognition software. While every effort has been made to ensure accuracy and american indian studies professor, still areas may have been included sometimes these areas may affect the content or meeting of the given symptoms. Total time spent caring for the patient today was 30 minutes. This includes time spent before the visit reviewing the chart, time spent during the visit, and time spent after the visit and documentation. Patient was informed and verbally consented to the use of an ambient scribe for clinic note documentation during this visit. Orders: Orders Complete Blood Count Auto Diff Today D64.9 - Anemia, unspecified, Z00.00 - Encounter for general adult medical examination without abnormal findings Hemoglobin A1c Today E11.65 - Type 2 diabetes mellitus with hyperglycemia Referrals Gastroenterology Referral Z12.11 - Encounter for screening for malignant ne oplasm of colon Dermatology Referral L30.9 - Dermatitis, unspecified Medications: New triamcinolone acetonide 0.1% 1 appl topical DAILY 80 grams 0RF Discontinued triamcinolone acetonide 0.5% Discontinued Reason: Patient no longer taking 1 appl topical DAILY 15 grams 0RF
[2024-04-21 14:04] VITALS: BP 138/86; PULSE 93; O2SAT 97; BMI 25.5
== END 2024-04-21 14:53 | disposition home or self-care (01) ==
PROVIDERS: PCP Internal Medicine
DX: Z00.00 Encounter for general adult medical examination without abnormal findings (principal); I42.8 Other cardiomyopathies; E11.65 Type 2 diabetes mellitus with hyperglycemia; E83.42 Hypomagnesemia; D64.9 Anemia, unspecified; F10.90 Alcohol use, unspecified, uncomplicated; G62.9 Polyneuropathy, unspecified; F32.9 Major depressive disorder, single episode, unspecified; R79.89 Other specified abnormal findings of blood chemistry; K76.0 Fatty (change of) liver, not elsewhere classified; Z98.890 Other specified postprocedural states; L30.9 Dermatitis, unspecified

== ENCOUNTER → 2024-04-21 13:59 | Outpatient (BNVA) | payer OTHER, SELFPAY | PROVIDERS: PCP Internal Medicine | DX: Z00.00 Encounter for general adult medical examination without abnormal findings (principal); E83.42 Hypomagnesemia; D64.9 Anemia, unspecified; F10.90 Alcohol use, unspecified, uncomplicated; G62.9 Polyneuropathy, unspecified; F32.9 Major depressive disorder, single episode, unspecified; I42.8 Other cardiomyopathies; R79.89 Other specified abnormal findings of blood chemistry; L30.9 Dermatitis, unspecified; K76.0 Fatty (change of) liver, not elsewhere classified; E11.65 Type 2 diabetes mellitus with hyperglycemia; Z98.890 Other specified postprocedural states | CPT/HCPCS: 99396 ==

== ENCOUNTER 2024-05-04 14:25 | Outpatient (AMB) | payer MEDICAID, SELFPAY ==
--- NOTE | 2024-05-04 14:41 | A.OFFVISCC_ITS ---
Intake Visit Reasons: MAT Allergies seafood Allergy (Verified 04/21/24 14:13) Hives HPI HPI MAT: Details: Patient presents for AUD treatment follow up Currently prescribed Naltrexone 50mg daily Tolerating medication Discussed upcoming parade and relapse prevention Bought mocktails and alcohol free beer Down to one drink if that once a week Last twisted tea, was last Saturday, and he did not finish it No issues with sleep or appetite Review of Systems Const Reports as per HPI and Reports no additional complaints Physical Exam Const General: cooperative and well groomed Nutritional Appearance: average body habitus Orientation/consciousness: patient oriented x3 Limitations: no limitations Neuro General: patient oriented x3 Psych Appearance: well kempt Speech and movement: Normal speech and movement present Affect: normal affect Attitude: cooperative Thought process: Normal thought process present Thought content: Normal thought content present Insight: Good insight present (Psych) Judgement: Good judgement present (Psych) [facility] Medical History (Updated 04/21/24 @ 14:42 by Afshan Askew PA-C) Eczema Chronic anticoagulation Colon cancer screening Numbness in feet Difficulty walking Alcohol withdrawal COVID-19 virus infection Numbness of left foot Alcohol abuse Paroxysmal atrial fibrillation Screening for prostate cancer Atrial fibrillation Left inguinal hernia Peripheral neuropathy Inguinal hernia, left Anemia Type 2 diabetes mellitus with hyperglycemia Nonischemic cardiomyopathy Chronic heart failure with reduced ejection fraction and diastolic dysfunction Surgical History Hx of cardiac catheterization Family History Father No problems noted. Mother No problems noted. Other No family history of cancer Substance abuse Social History Household Members: Family Housing: House Are you a primary career development facilitator to a significant other at home: No Do you presently have visiting nurse or other home services: No Alcohol intake: current Alcohol intake frequency: 3 or more drinks per day Alcohol type: hard liquor Comment: 1:1 sitter Patient Tobacco Use Status: Never used Tobacco e-Cigarette/Vaping Use: Never Used Second Hand Smoke Exposure: Yes Advance Directives Date on File: 09/10/21 service: No Current occupational status: employed Current occupational exposures/hazards: No Cognitive needs: No Hearing needs: No Vision needs: Yes (Glasses and contacts) Assessment & Plan Assessment & Plan (1) Alcohol use disorder: Code(s): F10.90 - Alcohol use, unspecified, uncomplicated Category: Medical Plan: * risk reduction discussion * follow up 3 weeks
== END 2024-05-04 15:14 | disposition home or self-care (01) ==
LOC: HO.HCC 14:26
PROVIDERS: PCP Internal Medicine; Visit Provider Nurse Practitioner Psychiatric/Mental Health
DX: F10.90 Alcohol use, unspecified, uncomplicated (principal)
CPT/HCPCS: 99213

== ENCOUNTER 2024-05-04 14:25 | Outpatient (REF) | payer OTHER, SELFPAY ==
[2024-05-04 15:15] LABS: MANUAL DIFF FLAG NO
[2024-05-04 15:25] LABS: Basophils Absolute Auto 0.1 X10*3/uL (0.0-0.2); Basophils Percent Auto 1.6 % (0-2); Eosinophils Absolute Auto 0.8 X10*3/uL (0.0-0.4); Eosinophils Percent Auto 12.3 % (0-4); Hemoglobin 12.3 g/dl (14.0-18.0); Imm Gran Abs Auto 0.03 X10*3/uL (0.00-0.03); Imm Gran Pct Auto 0.5 % (0.0-0.4); Lymphocytes Percent Auto 31.5 % (20-40); Mean Corpuscular HGB Conc 34.2 g/dl (31.0-36.0); Mean Corpuscular Hemoglobin 33.5 pg (27.0-33.0); Mean Corpuscular Volume 98.1 fL (80.0-98.0); Mean Platelet Volume 9.7 fL (9.4-12.4); Monocytes Absolute Auto 0.6 X10*3/uL (0.1-1.2); Monocytes Percent Auto 9.9 % (2-11); Neutrophils Absolute Auto 2.8 x10*3/uL (2.0-8.3); Neutrophils Percent Auto 44.2 % (45-73); Platelet Count 284 X10*3/uL (160-400); Red Blood Count 3.67 X10*6/uL (4.60-5.80); White Blood Count 6.3 X10*3/uL (4.8-10.8)
[2024-05-04 15:30] LABS: Estimated Average Glucose 154 mg/dL; Total Hemoglobin (HGBA1C) 3227.0306 umol/L
== END 2024-05-04 14:26 | disposition home or self-care (01) ==
LOC: HO.LAB 14:25
PROVIDERS: PCP Internal Medicine
DX: Z00.00 Encounter for general adult medical examination without abnormal findings (principal); D64.9 Anemia, unspecified; E11.65 Type 2 diabetes mellitus with hyperglycemia; F10.90 Alcohol use, unspecified, uncomplicated; Z79.899 Other long term (current) drug therapy
CPT/HCPCS: 36415; 83036; 85025; 99212

== ENCOUNTER 2024-07-09 14:51 | Outpatient (AMB) | payer OTHER, SELFPAY ==
--- NOTE | 2024-07-09 14:53 | MHC.OFFVIS ---
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 Allergies seafood Allergy (Verified 07/09/24 14:55) Hives Medication List - Last Reconciled 07/09/24 by Alejandra Valdivia NP-C apixaban (Eliquis) 5 mg PO BID carvedilol 6.25 mg PO BID 90 days cyanocobalamin (vitamin B-12) 500 mcg PO DAILY 30 days folic acid 1 mg PO DAILY gabapentin 100 mg PO BEDTIME magnesium oxide 400 mg PO BID multivitamin 1 tab PO DAILY naltrexone 50 mg PO BID sacubitril-valsartan 24-26 mg (Entresto) 1 tab PO BID sertraline 50 mg PO DAILY 30 days thiamine HCl (vitamin B1) 100 mg PO DAILY triamcinolone acetonide 0.1% 1 appl topical DAILY HPI HPI 6M Follow up: Details: To is a 54-year-old male with past medical history of alcohol abuse, diabetes, paroxysmal atrial fibrillation, heart failure with reduced EF, nonischemic cardiomyopathy who presents for follow up. Today he reports he has been doing very well since his last visit in December. He tells me he has stopped all alcohol use and is following with the recovery program. He has gained 37 lb since I last saw him. 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 He is very excited about a friend's upcoming wedding. His family and friends are very supportive of his alcohol abstinence. He has not had any cardiac complaints. He denies chest discomfort, shortness of breath, heart palpitations. No bleeding issues reported. He says his recent hemoglobin A1c was 7 and he is now following a low carb diet. Taking all meds as directed. [facility] Medical History Eczema Chronic anticoagulation Colon cancer screening Numbness in feet Difficulty walking Alcohol withdrawal COVID-19 virus infection Numbness of left foot Alcohol abuse Paroxysmal atrial fibrillation Screening for prostate cancer Atrial fibrillation Left inguinal hernia Peripheral neuropathy Inguinal hernia, left Anemia Type 2 diabetes mellitus with hyperglycemia Nonischemic cardiomyopathy Chronic heart failure with reduced ejection fraction and diastolic dysfunction Surgical History Hx of cardiac catheterization Family History Father No problems noted. Mother No problems noted. Other No family history of cancer Substance abuse Social History Household Members: Family Housing: House Are you a primary certified social workers in health care to a significant other at home: No Do you presently have visiting nurse or other home services: No Alcohol intake: current Alcohol intake frequency: 3 or more drinks per day Alcohol type: hard liquor Comment: 1:1 sitter Patient Tobacco Use Status: Never used Tobacco e-Cigarette/Vaping Use: Never Used Second Hand Smoke Exposure: Yes Advance Directives Date on File: 09/10/21 service: No Current occupational status: employed Current occupational exposures/hazards: No Cognitive needs: No Hearing needs: No Vision needs: Yes (Glasses and contacts) Review of Systems Const All systems reviewed & are unremarkable except as noted in HPI and below ENT Denies dizziness Card Denies chest pain, Denies chest pain at rest, Denies chest pain with activity, Denies rapid heart rate, Denies pedal edema, Denies edema, Denies leg edema, Denies lightheadedness, Denies palpitations, Denies dyspnea, Denies dyspnea on exertion and Denies orthopnea Resp Denies cough, Denies dyspnea and Denies dyspnea on exertion GI Denies hematochezia and Denies change in stool character Musc Denies abnormal gait, Denies limited range of motion, Denies muscle cramps, Denies muscle weakness, Denies numbness, Denies radiating pain into limb, Denies stiffness and Denies tingling Neuro Denies abnormal gait, Denies dizziness, Denies numbness and Denies tingling Endo Denies palpitations Physical Exam Vital Signs: Last Vital Signs Pulse 110 H 07/09/24 14:54 BP 120/90 H 07/09/24 14:54 BMI result Body Mass Index 26.4 Const General: cooperative, comfortable and no acute distress Orientation/consciousness: patient oriented x3 Neck Neck: Yes normal visual inspection and Yes no JVD Resp Effort & Inspection: normal respiratory effort Auscultation: clear to auscultation bilaterally, no rales, no rhonchi and no wheezes Cardio Jugular venous distension: no JVD Rate: tachycardic Rhythm: regular rhythm Heart sounds: S1 normal heart sound present, S2 normal heart sound present, no murmurs and no rubs Neuro General: patient oriented x3 Extrem General: Yes normal to inspection and No no pedal edema Psych Appearance: grossly normal Mental Status: mental status grossly normal Speech and movement: Normal speech and movement present Office Procedures EKG Details: Today, read by me, Sinus tachcyardia, rate 110, Qtc 460ms [id number], Complete Assessment & Plan Assessment & Plan (1) Paroxysmal atrial fibrillation: Code(s): I48.0 - Paroxysmal atrial fibrillation Category: Medical Plan: History of paroxysmal atrial fibrillation with a history of alcohol abuse, currently suppressed. EKG done today showing sinus tachycardia, rate 110, in the setting of mild anxiety. He is on carvedilol for heart rate control and Eliquis for anticoagulation. No medication changes made. He has stopped all alcohol intake and was applauded on this. He is due for updated BMP. Labs 05/04/2024 showed hematocrit 36. Cardiology follow-up 6 months, sooner if needed (2) Nonischemic cardiomyopathy: Comment: echocardiogram in July 2019 showing LVEF of 15-20% August 2020he left ventricular systolic function is normal. The calculated ejection fraction is 58% by biplane method. - No obvious valvular pathology seen on this study. Code(s): I42.8 - Other cardiomyopathies Category: Medical Plan: History of non ischemic cardiomyopathy, likely related to alcohol abuse. His EF has been as low as 15-20% in 2019. His last echocardiogram was done 11/29/2022 showing EF 63%, no valve abnormalities. He is on Entresto and carvedilol for neurohormonal modulation. He does not appear fluid overloaded on exam today. Signs and symptoms of heart failure reviewed with him. (3) Alcohol dependence, uncomplicated: Code(s): F10.20 - Alcohol dependence, uncomplicated Category: Medical Plan: As above. [place] [facility] [place] has sustained from all alcohol intake for greater than 6 months. Plan Time spent on chart review, documentation, interview and assessment I reviewed the significance of continuing the current cardiac medication regimen to manage Atrial Fibrillation effectively while monitoring the risk of future events. We discussed symptoms that may suggest exacerbation of atrial fibrillation. For diabetes, I highlighted the importance of dietary management to prevent complications. We addressed medication refills, ensuring the patient has sufficient supply for daily management. The patient was encouraged to remain engaged with primary and cardiology follow-ups and report any sudden cardiovascular symptoms promptly. Orders: Orders Comprehensive Met. Panel Today I42.8 - Other cardiomyopathies, K76.0 - Fatty (change of) liver, not elsewhere classified Medications: Refilled sacubitril-valsartan 24-26 mg (Entresto) 1 tab PO BID 180 tabs 3RF apixaban (Eliquis) 5 mg PO BID 180 tabs 3RF Patient Instructions: - Continue current medications: carvedilol, Eliquis, and Entresto. - Adhere to a low-carb, low-sugar diet. - Monitor for palpitations, shortness of breath, or fatigue. - Contact the office or seek emergency care if symptoms worsen. - Follow up with primary care for diabetes management evaluation. - Ensure medication refills as needed. Patient was informed and verbally consented to the use of an ambient scribe for clinic note documentation during this visit. Coding Level of Care Code Est Pt Level 4 (19155) Complex EM visit Add On G2211 Diagnoses Paroxysmal atrial fibrillation I48.0 Nonischemic cardiomyopathy I42.8 Alcohol dependence, uncomplicated F10.20 CPT Codes EKG - CPT: 17914-[id number], Complete ([id number]) Time Spent (min) 36
[2024-07-09 14:54] VITALS: BP 120/90; PULSE 110; BMI 26.4
== END 2024-07-09 15:50 | disposition home or self-care (01) ==
PROVIDERS: PCP Internal Medicine; Visit Provider Nurse Practitioner Family
DX: I48.0 Paroxysmal atrial fibrillation (principal); I42.8 Other cardiomyopathies; F10.20 Alcohol dependence, uncomplicated
CPT/HCPCS: 93010; 99214; G2211

== ENCOUNTER → 2024-07-09 14:51 | Outpatient (BNVA) | payer OTHER, SELFPAY | PROVIDERS: PCP Internal Medicine; Visit Provider Nurse Practitioner Family | DX: I48.0 Paroxysmal atrial fibrillation (principal); I42.8 Other cardiomyopathies; F10.20 Alcohol dependence, uncomplicated; R00.0 Tachycardia, unspecified; R94.31 Abnormal electrocardiogram [ECG] [EKG] | CPT/HCPCS: 93005; 99212 ==

== ENCOUNTER 2024-08-03 13:55 | Outpatient (AMB) | payer MEDICAID, SELFPAY ==
--- NOTE | 2024-08-03 14:30 | A.OFFVISCC_ITS ---
Intake Visit Reasons: MAT Allergies seafood Allergy (Verified 07/09/24 14:55) Hives HPI Comments Details: He is taking Naltrexone 100 mg bid and that is helping him to quit drinking He feels better and is not using alcohol. PCP is now prescribing Naltrexone. Review of Systems Const All systems reviewed & are unremarkable except as noted in HPI and below Physical Exam Const General: cooperative [facility] Medical History Eczema Chronic anticoagulation Colon cancer screening Numbness in feet Difficulty walking Alcohol withdrawal COVID-19 virus infection Numbness of left foot Alcohol abuse Paroxysmal atrial fibrillation Screening for prostate cancer Atrial fibrillation Left inguinal hernia Peripheral neuropathy Inguinal hernia, left Anemia Type 2 diabetes mellitus with hyperglycemia Nonischemic cardiomyopathy Chronic heart failure with reduced ejection fraction and diastolic dysfunction Surgical History Hx of cardiac catheterization Family History Father No problems noted. Mother No problems noted. Other No family history of cancer Substance abuse Social History Household Members: Family Housing: House Are you a primary foster care worker to a significant other at home: No Do you presently have visiting nurse or other home services: No Alcohol intake: current Alcohol intake frequency: 3 or more drinks per day Alcohol type: hard liquor Comment: 1:1 sitter Patient Tobacco Use Status: Never used Tobacco e-Cigarette/Vaping Use: Never Used Second Hand Smoke Exposure: Yes Advance Directives Date on File: 09/10/21 service: No Current occupational status: employed Current occupational exposures/hazards: No Cognitive needs: No Hearing needs: No Vision needs: Yes (Glasses and contacts) Assessment & Plan Assessment & Plan (1) Alcohol use disorder: Comment: He is doing well with Naltrexone. Continue and do counseling. Code(s): F10.90 - Alcohol use, unspecified, uncomplicated Category: Medical Plan: n/a (2) Peripheral neuropathy: Code(s): G62.9 - Polyneuropathy, unspecified Category: Medical Plan: na
== END 2024-08-03 14:54 | disposition home or self-care (01) ==
LOC: HO.HCC 13:56
PROVIDERS: PCP Internal Medicine; Visit Provider Internal Medicine
DX: F10.90 Alcohol use, unspecified, uncomplicated (principal); G62.9 Polyneuropathy, unspecified
CPT/HCPCS: 99213

== ENCOUNTER → 2024-08-03 13:55 | Outpatient (BNVA) | payer OTHER, SELFPAY | PROVIDERS: PCP Internal Medicine; Visit Provider Internal Medicine | DX: F10.21 Alcohol dependence, in remission (principal); G62.9 Polyneuropathy, unspecified | CPT/HCPCS: 99212 ==

== ENCOUNTER 2024-10-14 11:25 | Outpatient (AMB) | payer OTHER, SELFPAY ==
--- NOTE | 2024-10-14 11:27 | MHC.PC.OV ---
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 Accompanied by: Self / Same As Patient Allergies seafood Allergy (Verified 10/14/24 11:58) Hives Medication List - Last Reconciled 10/14/24 by Afshan Askew PA-C apixaban (Eliquis) 5 mg PO BID carvedilol 6.25 mg PO BID 90 days cyanocobalamin (vitamin B-12) 500 mcg PO DAILY 30 days folic acid 1 mg PO DAILY gabapentin 100 mg PO BEDTIME magnesium oxide 400 mg PO BID multivitamin 1 tab PO DAILY naltrexone 50 mg PO BID sacubitril-valsartan 24-26 mg (Entresto) 1 tab PO BID sertraline 50 mg PO DAILY 30 days thiamine HCl (vitamin B1) 100 mg PO DAILY triamcinolone acetonide 0.1% 1 appl topical DAILY Tobacco use date assessed: 10/14/24 Dental Screening Dental Screen Date: 10/14/24 Did you have a dental visit in the last 12 months?: No Did you have a dental problem in the last 6 months where you did not have access to dental care?: No Was dental information given to patient?: No HPI 3 month follow up HPI Details 53-year-old male with past medical history of diabetes mellitus, atrial fibrillation, nonischemic cardiomyopathy with alcohol use disorder, major depression last seen 04/2024 coming in for follow up. In review of the notes, patient was seen by cardiology 06/2024 plan for six-month follow up overall doing well. He continues to [facility] with [facility] his abstained from alcohol intake for greater than 6 months. Presenting for a follow-up visit. The patient has abstained from hard alcohol since October of the previous year, with occasional consumption of non-alcoholic beverages that cause nausea due to naltrexone use. The patient uses a prescribed ointment for a skin condition, which has been effective in managing symptoms. [facility] Medical History Eczema Chronic anticoagulation Colon cancer screening Numbness in feet Difficulty walking Alcohol withdrawal COVID-19 virus infection Numbness of left foot Alcohol abuse Paroxysmal atrial fibrillation Screening for prostate cancer Atrial fibrillation Left inguinal hernia Peripheral neuropathy Inguinal hernia, left Anemia Type 2 diabetes mellitus with hyperglycemia Nonischemic cardiomyopathy Chronic heart failure with reduced ejection fraction and diastolic dysfunction Surgical History Hx of cardiac catheterization Family History Father No problems noted. Mother No problems noted. Other No family history of cancer Substance abuse Social History Household Members: Family Housing: House Are you a primary reproductive healthcare assistant to a significant other at home: No Do you presently have visiting nurse or other home services: No Alcohol intake: current Alcohol intake frequency: 3 or more drinks per day Alcohol type: hard liquor Comment: 1:1 sitter Patient Tobacco Use Status: Never used Tobacco e-Cigarette/Vaping Use: Never Used Second Hand Smoke Exposure: Yes Advance Directives Date on File: 09/10/21 service: No Current occupational status: employed Current occupational exposures/hazards: No Cognitive needs: No Hearing needs: No Vision needs: Yes (Glasses and contacts) Questionnaire PHQ-9 Over the last 2 weeks, how often have you been bothered by any of the following problems? 1. Little interest or pleasure in doing things: not at all 2. Feeling down, depressed, or hopeless: not at all 3. Trouble falling or staying asleep, or sleeping too much: not at all 4. Feeling tired or having little energy: not at all 5. Poor appetite or overeating: not at all 6. Feeling bad about yourself - or that you are a failure or have let yourself or your family down: not at all 7. Trouble concentrating on things, such as reading the newspaper or watching television: not at all 8. Moving or speaking so slowly that other people could have noticed. Or the opposite - being so fidgety or restless that you have been moving around a lot more than usual: not at all 9. Thoughts that you would be better off or of hurting yourself in some way: not at all Total score: 0 Depression Screening Interpretation: Negative Depression Screening Done: Yes Source: Developed by Drs. Louis Khan, Qi Waggoner, Luis Enrique Leiva and colleagues, with an educational danelle from [employer] Thrive Questionnaire Date Thrive assessed: 04/21/24 I am a: Patient What is your living situation today?: I have a steady place to live Within the past 12 months, did the food you bought not last and you didn't have the money to get more?: Often true Within the past 12 months, did you worry whether your food would run out before you got money to buy more?: Never true Do you have trouble paying for medicines?: No Do you have trouble getting transportation to medical appointments?: No Do you have trouble paying your heating and electricity bill?: No Do you have trouble taking care of your child, family member or friend?: I choose not to answer this question Do you have trouble with day-to-day activities such as bathing, preparing meals, shopping, managing finances, etc.?: No Are you currently unemployed and looking for a job?: Yes Are you interested in more education?: No Please select the resources that you would like help with: None Currently or been in a relationship where the following occur: No concerns reported THRIVE Score: 1 AUDIT C Alcohol Use Questionnaire (AUDIT-C) 1. How often do you have a drink containing alcohol?: Monthly or less 2. How many drinks containing alcohol do you have on a typical day when you are drinking?: 1 or 2 3. How often do you have six or more drinks on one occasion?: Never Total Score: 1 MARYANA-7 AMB Questionnaire MARYANA-7 Date MARYANA - 7 assessed: 04/21/24 Feeling nervous, anxious, or on edge: 0 = Not at all Not being able to stop or control worryin = Not at all Worrying too much about different things: 0 = Not at all Trouble relaxin = Not at all Being so restless that it is hard to sit still: 0 = Not at all Becoming easily annoyed or irritable: 0 = Not at all Feeling afraid as if something awful might happen: 0 = Not at all Total MARYANA-7 score (0-4 normal; 5-9 mild; 10-14 moderate; 15-21 severe): 0 Source: Developed by Qi Patel B.W. Edilson, Luis Enrique Leiva and colleagues, with an educational danelle from [employer] Review of Systems Const Denies body aches, Denies chills, Denies fever(s), Denies headache(s) and Denies poor appetite Eyes Reports no additional complaints ENT Denies dizziness and Denies headache(s) Card Denies chest pain, Denies edema, Denies lightheadedness and Denies dyspnea Resp Denies dyspnea GI Denies abdominal pain, Denies nausea and Denies vomiting Reports no additional complaints Musc Reports no additional complaints and Denies abnormal gait Skin/Breast Reports system reviewed and no additional complaints, except as documented Neuro Denies abnormal gait, Denies dizziness and Denies headache(s) Psych Reports no additional complaints Physical exam (Primary Care) Vital Signs: Last Vital Signs Pulse 82 10/14/24 11:30 BP 102/68 10/14/24 11:30 Pulse Ox 96 10/14/24 11:30 Oxygen Delivery Method Room Air 10/14/24 11:30 BMI result Body Mass Index 24.8 Tobacco/Smoking Status: Tobacco use Status Tobacco use date assessed 10/14/24 10/14/24 11:35 Patient Tobacco Use Status Never used Tobacco 10/14/24 11:35 Tobacco use type 01/15/24 10:28 e-Cigarette/Vaping Use Never Used 10/14/24 11:35 PHQ-9: PHQ-9 Score PHQ-9: Total score 0 10/14/24 12:53 Depression Screening Interpretation: Negative Thrive Assessment: Date of Thrive Assessment Date Thrive assessed 04/21/24 10/14/24 11:35 Currently or been in a relationship where the following occur: No concerns reported Const General: cooperative, healthy appearing, comfortable and no acute distress Orientation/consciousness: patient oriented x3 HENMT Head: Yes normocephalic Ears: hearing grossly normal bilaterally General nose exam: Normal external nose present Eyes General: appearance normal, both eyes and all related structures Conjunctivae: conjunctivae normal Neck Neck: Yes full ROM and Yes no lymphadenopathy Resp Effort & Inspection: normal respiratory effort Auscultation: clear to auscultation bilaterally, no crackles, no rales, no rhonchi and no wheezes Cardio Rate: regular rate Rhythm: regular rhythm Skin General skin exam: no rashes or lesions noted Neuro General: patient oriented x3 Gait exam (Neuro): Normal gait present Extrem General: Yes normal to inspection, Yes full ROM and No edema Psych Affect: normal affect Attitude: cooperative Insight: Good insight present (Psych) Judgement: Good judgement present (Psych) Coding Level of Care Code Est Pt Level 3 (67661) Diagnoses Alcohol use disorder F10.90 Peripheral neuropathy G62.9 Major depression F32.9 Nonischemic cardiomyopathy I42.8 Hepatic steatosis K76.0 Type 2 diabetes mellitus with hyperglycemia, without long-term current use of insulin E11.65 Diabetes mellitus custodial insulin use: without intermediate school teacher use Assessment & Plan Assessment & Plan (1) Alcohol use disorder: Comment: He is doing well with Naltrexone. Continue and do counseling. Code(s): F10.90 - Alcohol use, unspecified, uncomplicated Category: Medical Plan: No longer following with [facility] by he will continue on naltrexone. Abstaining from alcohol for the last 6 months and denies cravings. (2) Peripheral neuropathy: Code(s): G62.9 - Polyneuropathy, unspecified Category: Medical Plan: Patient currently on gabapentin 100 mg at night for polyneuropathy. Advised good control of blood sugars to prevent further progression of neuropathy (3) Major depression: Comment: decline referral to counselling Code(s): F32.9 - Major depressive disorder, single episode, unspecified Category: Medical Plan: Continues to decline referral to counseling. Patient is currently on sertraline 50 mg and feels good on this medication (4) Nonischemic cardiomyopathy: Comment: echocardiogram in July 2019 showing LVEF of 15-20% August 2020he left ventricular systolic function is normal. The calculated ejection fraction is 58% by biplane method. - No obvious valvular pathology seen on this study. Code(s): I42.8 - Other cardiomyopathies Category: Medical Plan: Continue to follow up with cardiology. Currently on carvedilol and sacubitril-valsartan (5) Hepatic steatosis: Code(s): K76.0 - Fatty (change of) liver, not elsewhere classified Category: Medical Plan: Healthy diet and regular exercise is encouraged. (6) Type 2 diabetes mellitus with hyperglycemia: Code(s): E11.65 - Type 2 diabetes mellitus with hyperglycemia Category: Medical Qualifiers: Diabetes mellitus custodial insulin use: without intermediate school teacher use Qualified Code(s): E11.65 - Type 2 diabetes mellitus with hyperglycemia Plan: Decrease the amount of carbohydrates such as pasta, bread, rice, and potatoes and limit the amount of sweets. Although fruits are generally healthy they should be eaten in moderation as they are still high in sugar. Hemoglobin A1c goal of less than 7%. Ordered for updated blood work including A1c as patient would like to complete this with blood work. Plan This note was constructed using voice recognition software. While every effort has been made to ensure accuracy and commercial credit lead, still areas may have been included sometimes these areas may affect the content or meeting of the given symptoms. Total time spent caring for the patient today was 30 minutes. This includes time spent before the visit reviewing the chart, time spent during the visit, and time spent after the visit and documentation. Patient was informed and verbally consented to the use of an ambient scribe for clinic note documentation during this visit. Orders: Orders Microalbumin, Random (w Creat) Today E11.9 - Type 2 diabetes mellitus without complications TSH reflex Free T4 Today Z13.29 - Encounter for screening for other suspected endocrine disorder Vitamin D 25-OH Total Today Z13.21 - Encounter for screening for nutritional disorder Lipid Panel Today E78.00 - Pure hypercholesterolemia, unspecified Hemoglobin A1c Today E11.65 - Type 2 diabetes mellitus with hyperglycemia Vitamin B12 and Folate Today Z13.21 - Encounter for screening for nutritional disorder Complete Blood Count Auto Diff Today G62.9 - Polyneuropathy, unspecified, Z00.00 - Encounter for general adult medical examination without abnormal findings Comprehensive Met. Panel Today G62.9 - Polyneuropathy, unspecified, Z00.00 - Encounter for general adult medical examination without abnormal findings Medications: Refilled triamcinolone acetonide 0.1% 1 appl topical DAILY 80 grams 0RF
[2024-10-14 11:30] VITALS: BP 102/68; PULSE 82; O2SAT 96; BMI 24.8
--- OUTSIDE RECORDS SUMMARY | 2024-10-14 12:22 | XMS_ITS | Clinical Summary ---
Author Organization [facility] Address [address] [place] [address] Phone Care Team Providers Care Tractor Trailer Moving Van Driver Name Role Phone Pcp, Unknown Primary Care Provider Unavailabl e Allergies No known active allergies Medications carvedilol (COREG) 12.5 MG tablet Take 12.5 mg by mouth 2 (two) times a day with meals. Active valsartan (DIOVAN) 40 MG tablet Take 40 mg by mouth 2 (two) times a day. Active furosemide (LASIX) 20 MG tablet Take 20 mg by mouth daily. Active Active Problems Problem Noted Date Diagnosed Date Dilated cardiomyopathy 12/21/2019 Assessment & Plan (12/21/2019 12:51 PM EST): Given his nonischemic cardiomyopathy with EF 15 to 20%, class II heart failure despite optimal medical therapy, I discussed him that he is a candidate for a single-chamber ICD for sudden cardiac prevention. Noted a 1 to 4% risk of bleeding, infection, cardiac perforation, pneumothorax, stroke, heart attack, . He is agreed to this procedure but would prefer to happens at [facility] after February as he is getting a new insurance. I noted that after placement of ICDs I asked patients not to shower for 5 days, not to drive for 2 weeks, and not to lift the left arm above the level or do any heavy lifting with the left arm for 6 weeks. He understands these restrictions and thinks that planning the procedure in February be easiest. I will also get the most recent paperwork including most recent visit echocardiogram from [facility] so that I have an up-to-date medical records in our EMR Social History Tobacco Use Types Packs/Day Years Used Date Smoking Tobacco: Never Smokeless Tobacco: Never Education Answer Date Recorded Are you interested in more education? Not on radha e 06/15/2022 Are you concerned about learning? Not on file 06/15/2022 No 06/15/2022 No 06/15/2022 Digital Access Answer Date Recorded No 07/14/2022 No 07/14/2022 No 07/14/2022 Reliable internet access at home? Not on file 07/14/2022 Device with a working camera? Not on file Sex and Gender Information Value Date Recorded Sex Assigned at Not on file Legal Sex Male 2:01 PM EDT Gender Identity Not on file Sexual Orientation Not on file Last Filed Vital Signs Vital Sign Reading Time Taken Comments Blood Pressure 122/64 12/21/2019 11:45 AM EST Pulse 104 12/21/2019 11:45 AM EST Temperature - - Respiratory Rate - - Oxygen Saturation 97% 12/21/2019 11:45 AM EST Inhaled Oxygen Concentration - - Weight 73.2 kg (161 lb 6.4 oz) 12/21/2019 11:45 AM EST Height 175.3 cm (5' 9 ) 12/21/2019 11:45 AM EST Body Mass Index 23.83 12/21/2019 11:45 AM EST Plan of Treatment Health Maintenance Due Date Last Done Comments Adult Td,Tdap Booster 1971 CREATININE LEVEL 1971 LIPID PANEL 1971 POTASSIUM LEVEL 1971 DEPRESSION SCREENING 1983 HEPATITIS C SCREENING 06/02/1989 HIV ONE-TIME SCREENING (18-6 5 YEARS) 06/02/1989 COLOGUARD 06/02/2016 COLONOSCOPY 06/02/2016 COLORECTAL CANCER SCREENING 06/02/2016 FIT TEST 06/02/2016 FOBT 06/02/2016 SIGMOIDOSCOPY 06/02/2016 VIRTUAL COLONOSCOPY 06/02/2016 PNEUMOCOCCAL VACCINES (50+ years) (1 of 1 - PCV) 06/02/2021 ZOSTER VACCINES (1 of 2) 06/02/2021 COVID-19 VACCINE (3 - 2023-2 5 season) 2023 2020, 05/04/2020 SMOKING STATUS SCREENING (On ce After 26 Yrs) Completed 12/21/2019 HEPATITIS A VACCINES Aged Out No long er eligible based on patient's age to complete this topic HIB VACCINES Aged Out No longer eligi ble based on patient's age to complete this topic MENINGOCOCCAL VACCINES (ACWY) Aged Out No longer eligible based on patient's age to complete this topic MENINGOCOCCAL VACCINES (B) Aged Out N o longer eligible based on patient's age to complete this topic Medical Devices Not on file [facility] [address] [place], [place] [address]O POS [facility] [place] [address] [facility] [place] [facility] [place] [address] CIG HMO POS [facility] Care Teams Tractor Trailer Moving Van Driver Relationship Specialty Start Date End Date Pcp, Unknown PCP - General 11/20/19 Additional Source Comments The information contained in this document represents components of the legal health record. It is not the complete legal health record.[facility]
== END 2024-10-14 12:14 | disposition home or self-care (01) ==
LOC: HO.HMCH 11:26
PROVIDERS: PCP Internal Medicine
DX: E11.65 Type 2 diabetes mellitus with hyperglycemia (principal); I42.8 Other cardiomyopathies; F10.90 Alcohol use, unspecified, uncomplicated; G62.9 Polyneuropathy, unspecified; F32.9 Major depressive disorder, single episode, unspecified; K76.0 Fatty (change of) liver, not elsewhere classified

== ENCOUNTER → 2024-10-14 11:25 | Outpatient (BNVA) | payer OTHER, SELFPAY | PROVIDERS: PCP Internal Medicine | DX: E11.42 Type 2 diabetes mellitus with diabetic polyneuropathy (principal); E11.65 Type 2 diabetes mellitus with hyperglycemia; I48.91 Unspecified atrial fibrillation; I42.8 Other cardiomyopathies; F10.90 Alcohol use, unspecified, uncomplicated; F32.9 Major depressive disorder, single episode, unspecified; K76.0 Fatty (change of) liver, not elsewhere classified; E78.00 Pure hypercholesterolemia, unspecified | CPT/HCPCS: 99212 ==

== ENCOUNTER 2024-10-20 14:27 | Outpatient (REF) | payer OTHER, SELFPAY ==
[2024-10-20 15:11] LABS: MANUAL DIFF FLAG NO
--- OUTSIDE RECORDS SUMMARY | 2024-10-20 15:39 | XMS_ITS | Clinical Summary ---
Author Organization [facility] Address [address] [place] [address] Phone Care Team Providers Care Raftsman Name Role Phone Pcp, Unknown Primary Care [...] procedure but would prefer to happens at [facility] after February as he is getting a [...] paperwork including most recent visit echocardiogram from [facility] so that I have an up-to-date medical [...] on file Insurance [facility] [address] [place], [place] [address]O POS [facility] [place] [address] [facility] [place] [facility] [place] [address] CIG HMO POS [facility] Care Teams Raftsman Relationship Specialty Start Date End Date Pcp, Unknown PCP - General 11/20/19 Additional Source Comments The information contained in this document represents components of the legal health record. It is not the complete legal health record.[facility]
[2024-10-20 15:40] LABS: Hematocrit 32.9 % (42.0-52.0); Hemoglobin 11.5 g/dl (14.0-18.0); Imm Gran Abs Auto 0.01 X10*3/uL (0.00-0.03); Imm Gran Pct Auto 0.2 % (0.0-0.4); Lymphocytes Absolute Auto 1.8 X10*3/uL (1.2-4.9); Mean Corpuscular HGB Conc 35.0 g/dl (31.0-36.0); Mean Corpuscular Hemoglobin 33.6 pg (27.0-33.0); Mean Corpuscular Volume 96.2 fL (80.0-98.0); NRBC Abs Auto 0.000 X10*3/uL (0.0-0.012); NRBC Pct Auto 0.0 /100WBC (0.0-0.2); Platelet Count 322 X10*3/uL (160-400); Red Blood Count 3.42 X10*6/uL (4.60-5.80); White Blood Count 5.2 X10*3/uL (4.8-10.8)
[2024-10-20 15:51] LABS: Hemoglobin A1C 207.0899 umol/L; Total Hemoglobin (HGBA1C) 3066.3072 umol/L
[2024-10-20 16:15] LABS: Alanine Aminotransferase 17 U/L (0-40); Albumin Level 3.6 g/dL (3.5-5.0); Alkaline Phosphatase 104 U/L (39-117); Anion Gap 18 (12-20); Aspartate Amino Transferase 30 U/L (5-37); Blood Urea Nitrogen 17 mg/dL (9-16); Calcium 8.6 mg/dL (8.4-10.2); Carbon Dioxide 22 mmol/L (22-29); Chloride 104 mmol/L (96-108); Cholesterol 307 mg/dL (<200); Estimated Glomerular Filt Rate > 60; HDL Cholesterol 53 mg/dL (>40); Potassium 4.2 mmol/L (3.3-5.1); Sodium 140 mmol/L (135-145); Total Protein 6.6 g/dL (6.5-8.0); Triglycerides 476 mg/dL (<150)
[2024-10-20 16:21] LABS: Anion Gap 17 (12-20); Blood Urea Nitrogen 17 mg/dL (9-16); Calcium 8.7 mg/dL (8.4-10.2); Carbon Dioxide 23 mmol/L (22-29); Chloride 104 mmol/L (96-108); Estimated Glomerular Filt Rate > 60; Potassium 4.2 mmol/L (3.3-5.1); Sodium 140 mmol/L (135-145)
[2024-10-20 16:46] LABS: Microalbum/Creatinine Ratio Ur 13.0 ug/mg cr (<30)
[2024-10-20 16:55] LABS: Folate > 20.0 ng/mL (> or = 4.0); Vitamin B12 1030 pg/mL (200-900)
== END 2024-10-20 14:28 | disposition home or self-care (01) ==
LOC: HO.LAB 14:27
PROVIDERS: Absent Provider Nurse Practitioner Family; PCP Internal Medicine
DX: Z00.00 Encounter for general adult medical examination without abnormal findings (principal); E11.65 Type 2 diabetes mellitus with hyperglycemia; N17.9 Acute kidney failure, unspecified; I42.8 Other cardiomyopathies; K76.0 Fatty (change of) liver, not elsewhere classified; Z13.21 Encounter for screening for nutritional disorder; G62.9 Polyneuropathy, unspecified; Z13.29 Encounter for screening for other suspected endocrine disorder; E78.00 Pure hypercholesterolemia, unspecified
CPT/HCPCS: 36415; 80048; 80053; 80061; 82043; 82306; 82570; 82607; 82746; 83036; 84443; 85025

== ENCOUNTER 2024-12-15 11:19 | Outpatient (AMB) | payer OTHER, SELFPAY ==
[2024-12-15 11:35] VITALS: BP 122/86; PULSE 111; TEMP 36.2; O2SAT 98; BMI 24.4
--- NOTE | 2024-12-15 11:35 | MHC.PC.OV ---
Vital Signs 12/15/24 11:35 Height 5 ft 9 in Weight 165 lb 8 oz BMI 24.4 BP 122/86 Blood Pressure Location Lt brachial Position Sitting Pulse 111 H Pulse Source Pulse Oximeter Temp 97.1 F Temp Source Temporal Artery Scan Pulse Oximetry (%) 98 Oxygen Delivery Method Room Air Intake Visit Reasons: Labs follow up Allergies seafood Allergy (Verified 12/15/24 11:37) Hives Medication List - Last Reconciled 12/15/24 by Wendie Maria MD apixaban (Eliquis) 5 mg PO BID carvedilol 6.25 mg PO BID 90 days cyanocobalamin (vitamin B-12) 500 mcg PO DAILY 30 days folic acid 1 mg PO DAILY gabapentin 100 mg PO BEDTIME magnesium oxide 400 mg PO BID multivitamin 1 tab PO DAILY naltrexone 50 mg PO BID sacubitril-valsartan 24-26 mg (Entresto) 1 tab PO BID sertraline 50 mg PO DAILY 30 days thiamine HCl (vitamin B1) 100 mg PO DAILY triamcinolone acetonide 0.1% 1 appl topical DAILY Tobacco use date assessed: 12/15/24 Dental Screening Dental Screen Date: 12/15/24 Did you have a dental visit in the last 12 months?: No Did you have a dental problem in the last 6 months where you did not have access to dental care?: No Was dental information given to patient?: No PFSH Medical History Eczema Chronic anticoagulation Colon cancer screening Numbness in feet Difficulty walking Alcohol withdrawal COVID-19 virus infection Numbness of left foot Alcohol abuse Paroxysmal atrial fibrillation Screening for prostate cancer Atrial fibrillation Left inguinal hernia Peripheral neuropathy Inguinal hernia, left Anemia Type 2 diabetes mellitus with hyperglycemia Nonischemic cardiomyopathy Chronic heart failure with reduced ejection fraction and diastolic dysfunction Surgical History Hx of cardiac catheterization Family History Father No problems noted. Mother No problems noted. Other No family history of cancer Substance abuse Social History Household Members: Family Housing: House Are you a primary primary care physician to a significant other at home: No Do you presently have visiting nurse or other home services: No Alcohol intake: current Alcohol intake frequency: 3 or more drinks per day Alcohol type: hard liquor Comment: 1:1 sitter Patient Tobacco Use Status: Never used Tobacco e-Cigarette/Vaping Use: Never Used Second Hand Smoke Exposure: Yes Advance Directives Date on File: 09/10/21 service: No Current occupational status: employed Current occupational exposures/hazards: No Cognitive needs: No Hearing needs: No Vision needs: Yes (Glasses and contacts) Questionnaire PHQ-9 Over the last 2 weeks, how often have you been bothered by any of the following problems? 1. Little interest or pleasure in doing things: not at all 2. Feeling down, depressed, or hopeless: not at all 3. Trouble falling or staying asleep, or sleeping too much: not at all 4. Feeling tired or having little energy: not at all 5. Poor appetite or overeating: not at all 6. Feeling bad about yourself - or that you are a failure or have let yourself or your family down: not at all 7. Trouble concentrating on things, such as reading the newspaper or watching television: not at all 8. Moving or speaking so slowly that other people could have noticed. Or the opposite - being so fidgety or restless that you have been moving around a lot more than usual: not at all 9. Thoughts that you would be better off or of hurting yourself in some way: not at all Total score: 0 Depression Screening Interpretation: Negative Depression Screening Done: Yes Source: Developed by Drs. Louis Khan, Qi Waggoner, Luis Enrique Leiva and colleagues, with an educational danelle from [employer]. Thrive Questionnaire Date Thrive assessed: 04/21/24 I am a: Patient What is your living situation today?: I have a steady place to live Within the past 12 months, did the food you bought not last and you didn't have the money to get more?: Often true Within the past 12 months, did you worry whether your food would run out before you got money to buy more?: Never true Do you have trouble paying for medicines?: No Do you have trouble getting transportation to medical appointments?: No Do you have trouble paying your heating and electricity bill?: No Do you have trouble taking care of your child, family member or friend?: I choose not to answer this question Do you have trouble with day-to-day activities such as bathing, preparing meals, shopping, managing finances, etc.?: No Are you currently unemployed and looking for a job?: Yes Are you interested in more education?: No Please select the resources that you would like help with: None Currently or been in a relationship where the following occur: No concerns reported THRIVE Score: 1 AUDIT C Alcohol Use Questionnaire (AUDIT-C) 1. How often do you have a drink containing alcohol?: Monthly or less 2. How many drinks containing alcohol do you have on a typical day when you are drinking?: 1 or 2 3. How often do you have six or more drinks on one occasion?: Never Total Score: 1 MARYANA-7 AMB Questionnaire MARYANA-7 Date MARYANA - 7 assessed: 04/21/24 Feeling nervous, anxious, or on edge: 0 = Not at all Not being able to stop or control worryin = Not at all Worrying too much about different things: 0 = Not at all Trouble relaxin = Not at all Being so restless that it is hard to sit still: 0 = Not at all Becoming easily annoyed or irritable: 0 = Not at all Feeling afraid as if something awful might happen: 0 = Not at all Total MARYANA-7 score (0-4 normal; 5-9 mild; 10-14 moderate; 15-21 severe): 0 Source: Developed by Drs. Louis Khan, Qi Waggoner, Luis Enrique Leiva and colleagues, with an educational danelle from [employer]. Physical exam (Primary Care) Vital Signs: Last Vital Signs Temp 97.1 F 12/15/24 11:35 Pulse 111 H 12/15/24 11:35 BP 122/86 12/15/24 11:35 Pulse Ox 98 12/15/24 11:35 Oxygen Delivery Method Room Air 12/15/24 11:35 BMI result Body Mass Index 24.4 Tobacco/Smoking Status: Tobacco use Status Tobacco use date assessed 12/15/24 12/15/24 11:38 Patient Tobacco Use Status Never used Tobacco 12/15/24 11:38 Tobacco use type 01/15/24 10:28 e-Cigarette/Vaping Use Never Used 12/15/24 11:38 PHQ-9: PHQ-9 Score PHQ-9: Total score 0 12/15/24 12:13 Depression Screening Interpretation: Negative Thrive Assessment: Date of Thrive Assessment Date Thrive assessed 04/21/24 12/15/24 11:38 Currently or been in a relationship where the following occur: No concerns reported Const General: alert; No acute distress Eyes Conjunctivae: conjunctivae normal Resp Auscultation: clear to auscultation bilaterally Cardio Rate: regular rate Rhythm: regular rhythm GI Inspection: Yes normal to inspection Extrem General: Yes normal to inspection and No edema Office Procedures Flu Questionnaire Does the patient have a severe egg allergy?: No Does the patient have severe life threatening allergies?: No Does the patient have a fever or illness today?: No Has the patient ever had Guillain-[place] Syndrome?: No Has the patient ever had any past reaction to a flu shot?: No Immunizations Fluarix [id number] (PF) 45 mcg (15 mcg x 3)/0.5 mL IM syringe Performing Provider: Wendie Maria MD [facility] Administered by: Vani Sullivan CMA on 12/15/24 11:43 Dose Route Admin Location Dispensed Lot Number Expiration Date NDC Ham Marker 0.5 mL IM Right Deltoid 0.5 mL [id number] 08/17/25 [id number] [employer] VIS Given Date VIS Provided VIS Publication Date 12/15/24 Single Vaccine 24 Eligibility Eligibility Date Funding Source Not [facility] Eligible 12/15/24 Private Coding Level of Care Code Est Pt Level 4 (90781) Complex EM visit Add On G2211 Diagnoses Type 2 diabetes mellitus with hyperglycemia, without long-term current use of insulin E11.65 Diabetes mellitus skilled nursing insulin use: without terminal worker use Nonischemic cardiomyopathy I42.8 Hypercholesterolemia E78.00 Hepatic steatosis K76.0 Anemia D64.9 Assessment & Plan Assessment & Plan (1) Type 2 diabetes mellitus with hyperglycemia: Code(s): E11.65 - Type 2 diabetes mellitus with hyperglycemia Category: Medical Qualifiers: Diabetes mellitus terminal worker insulin use: without terminal worker use Qualified Code(s): E11.65 - Type 2 diabetes mellitus with hyperglycemia Plan: Decrease the amount of carbohydrate intake, pasta, bread, rice and potatoes are all sugar and that is aside from all the sweet stuff, remember that fruits are good but they are Sweet also. Hemoglobin A1c goal of less than 6.5. Patient is not on any diabetes medication (2) Nonischemic cardiomyopathy: Comment: echocardiogram in July 2019 showing LVEF of 15-20% August 2020he left ventricular systolic function is normal. The calculated ejection fraction is 58% by biplane method. - No obvious valvular pathology seen on this study. Code(s): I42.8 - Other cardiomyopathies Category: Medical Plan: Control the cholesterol, weight, blood pressure, diabetes continue with Entresto carvedilol (3) Hypercholesterolemia: Code(s): E78.00 - Pure hypercholesterolemia, unspecified Category: Medical Plan: Avoid fried foods, chicken skin, eggs, butter margarine, pastries and meat. Be it pork or beef they have a lot of cholesterol LDL goal of less than 100 and triglyceride of less than 150 presently not on any cholesterol medication (4) Hepatic steatosis: Code(s): K76.0 - Fatty (change of) liver, not elsewhere classified Category: Medical Plan: Low-fat diet and exercise (5) Anemia: Code(s): D64.9 - Anemia, unspecified Category: Medical Plan: Continue to monitor Plan History of Present Illness The patient is a 54-year-old male presenting for a follow-up visit to manage chronic conditions and review recent lab results. His past medical history is significant for diabetes mellitus, hepatic steatosis, nonischemic cardiomyopathy, depression, alcohol use disorder, and a long QT interval. He was last seen in September 2024 and has a scheduled follow-up with cardiology in December. Regarding his diabetes, the patient is not currently on any medication. His hemoglobin A1c has been steadily increasing, from 5.4 in 2020, to 5.9 in 2021 and 2023, to 7.0 in April, and is now 8.3. His most recent blood sugar was markedly elevated at 311. For hypercholesterolemia, he is currently not on any medications. Recent labs show a total cholesterol of 307 and triglycerides of 476. Other history includes a chronic, stable anemia with a hemoglobin of 11.5 and hematocrit of 32.9. Renal function is stable with a creatinine of 1.0, and his electrolytes, vitamin B12, vitamin D, and thyroid levels are within normal limits. His current medications include Eliquis, carvedilol 6.25 mg twice daily, vitamin B12, folic acid, gabapentin 100 mg at bedtime, magnesium, multivitamins, naltrexone 50 mg twice daily, Entresto 24/26 mg twice daily, sertraline 50 mg, and thiamine. Health Maintenance The patient confirmed he received his flu shot today. Given his history of chickenpox as a child, he was advised to get the shingles vaccine, which is available at pharmacies. Social History - Alcohol Use: The patient has a history of alcohol use disorder. - Diet: The patient reports eating a lot of fruits and eggs, including the yolk. - He drinks soda a couple of times per week and also eats a lot of salads. - He reports barely ever eating fast food. Review of Systems - General: The patient denies any other issues when asked. Physical Exam Results - Labs (October 20, 2024): - Hemoglobin: 11.5 g/dL (anemia). - Hematocrit: 32.9%. - White blood cell count and platelet count: Within normal limits. - Electrolytes: Normal. - Creatinine: 1.0 mg/dL. - Glucose: 311 mg/dL. - Hemoglobin A1c: 8.3%. - Liver function tests: Normal. - Total cholesterol: 307 mg/dL. - Triglycerides: 476 mg/dL. - Vitamin B12, vitamin D, and thyroid levels: Within normal limits. Plan Patient was informed and verbally consented to the use of an ambient scribe for clinic note documentation during this visit. 1. Diabetes Mellitus The patient's diabetes is uncontrolled, with a recent blood sugar of 311 and a hemoglobin A1c of 8.3, which has worsened over time. The goal is to lower the A1c to less than 6.5. The plan is to initiate metformin to be taken twice a day. The patient was counseled on the importance of dietary modifications, including reducing intake of sweets, carbohydrates (such as pasta, bread, rice, potatoes), and excessive fruits. We will recheck labs in three months to monitor progress. 2. Hypertriglyceridemia The patient has severely elevated triglycerides at 476 mg/dL, with a goal of less than 150 mg/dL. He is not currently on any cholesterol medication. The elevated level poses a risk for pancreatitis. The plan is to start fenofibrate to specifically target the high triglycerides. The patient was counseled on a low-fat diet, including avoiding fried foods, fast foods, chicken skin, and limiting egg yolks to twice a week. His cholesterol will be re-evaluated with repeat labs in three months. 3. Nonischemic Cardiomyopathy The patient will continue his current regimen for cardiomyopathy, including Entresto. He has a scheduled follow-up with cardiology in December. Discussion Notes I reviewed the patient's recent lab work from October, highlighting two main concerns: his uncontrolled diabetes and his severely elevated cholesterol, particularly the triglycerides. I explained that his hemoglobin A1c of 8.3 indicates his average blood sugar over the last three months has been very high, and I showed him the trend of this number increasing over the past few years. We discussed how diet, including carbohydrates (bread, pasta, rice) and sweets, impacts blood sugar. I also explained the risks associated with his high triglyceride level of 476, noting it can clog blood vessels and increases the risk for pancreatitis. We reviewed dietary sources of cholesterol, such as fried foods, fast foods, and egg yolks. I informed the patient that I am prescribing two new medications: metformin for diabetes and fenofibrate for the high triglycerides. I stressed that these medications are most effective when combined with significant dietary changes and exercise. I provided a lab request for repeat blood work to be done in three months to assess his response to treatment, at which point we will adjust medications if needed. We also discussed immunizations, and I recommended he get the shingles vaccine since he had chickenpox as a child. Patient Instructions - Start taking Metformin twice a day for your diabetes. - Start taking Fenofibrate for your high triglycerides. - It is very important to change your diet. - Reduce your intake of sugar, sweets, and carbohydrates like bread, pasta, rice, and potatoes. - Cut back on sugary drinks like soda and store-bought lemonade. - Limit fruit intake, as it contains natural sugars. - Avoid fried foods, fast foods, and fatty meats. - Eat egg yolks only twice a week; egg whites are okay. - Eat more vegetables and skinless chicken that is not fried. - Get new blood work done in three months, before your next appointment. - Make a follow-up appointment to see me in three months. - You should consider getting the shingles vaccine, which you can get at a pharmacy. Orders: Orders Influenza [id number] Immunization Today Z23 - Encounter for immunization Comprehensive Met. Panel 3 Months E78.00 - Pure hypercholesterolemia, unspecified Hemoglobin A1c 3 Months E78.00 - Pure hypercholesterolemia, unspecified Complete Blood Count Auto Diff 3 Months E78.00 - Pure hypercholesterolemia, unspecified Reticulocyte Count 3 Months E78.00 - Pure hypercholesterolemia, unspecified IRON PROFILE 3 Months E78.00 - Pure hypercholesterolemia, unspecified Thyroid Stimulating Hormone 3 Months E78.00 - Pure hypercholesterolemia, unspecified Lipid Panel 3 Months E78.00 - Pure hypercholesterolemia, unspecified Ferritin 3 Months E78.00 - Pure hypercholesterolemia, unspecified Medications: New fenofibrate 160 mg PO DAILY 30 tabs 3RF E78.00 - Pure hypercholesterolemia, unspecified metformin 500 mg PO BIDWMEAL 60 tabs 2RF E11.65 - Type 2 diabetes mellitus with hyperglycemia
--- OUTSIDE RECORDS SUMMARY | 2024-12-15 14:32 | XMS_ITS | Clinical Summary ---
Author Organization [facility] Address [address] [place] [address] Phone Care Team Providers Care Day Care Home Mother Name Role Phone Pcp, Unknown Primary Care [...] procedure but would prefer to happens at [facility] after February as he is getting a [...] paperwork including most recent visit echocardiogram from [facility] so that I have an up-to-date medical [...] 06/02/2021 ZOSTER VACCINES (1 of 2) 06/02/2021 INFLUENZA VACCINE (#1) 2024 01/27/2020 COVID-19 VACCINE (3 - 2024-2 6 season) 2024 2020, 05/04/2020 RSV VACCINE (1 - 1-dose 75+ series) 06/02/2046 SMOKING STATUS SCREENING (On ce After 26 [...] topic Medical Devices Not on file Insurance [facility] [place] [id number] [facility] [place] [facility] NONE [place] [facility] Care Teams Day Care Home Mother Relationship Specialty Start Date End Date Pcp, Unknown PCP - General 11/20/19 Additional Source Comments The information contained in this document represents components of the legal health record. It is not the complete legal health record.[facility]
== END 2024-12-15 12:32 | disposition home or self-care (01) ==
LOC: HO.HMCH 11:19
PROVIDERS: PCP Internal Medicine; Visit Provider Internal Medicine
DX: E11.65 Type 2 diabetes mellitus with hyperglycemia (principal); I42.8 Other cardiomyopathies; E78.00 Pure hypercholesterolemia, unspecified; K76.0 Fatty (change of) liver, not elsewhere classified; D64.9 Anemia, unspecified; Z23 Encounter for immunization

== ENCOUNTER → 2024-12-15 11:19 | Outpatient (BNVA) | payer OTHER, SELFPAY | PROVIDERS: PCP Internal Medicine; Visit Provider Internal Medicine | DX: E11.65 Type 2 diabetes mellitus with hyperglycemia (principal); I42.8 Other cardiomyopathies; E78.00 Pure hypercholesterolemia, unspecified; K76.0 Fatty (change of) liver, not elsewhere classified; D64.9 Anemia, unspecified; E78.1 Pure hyperglyceridemia; Z23 Encounter for immunization | CPT/HCPCS: 90471; 90656; 99212 ==

== ENCOUNTER 2025-01-07 14:05 | Outpatient (AMB) | payer OTHER, SELFPAY ==
[2025-01-07 14:21] VITALS: BP 124/70; PULSE 108; BMI 24.1
--- NOTE | 2025-01-07 14:21 | MHC.OFFVIS ---
Vital Signs 01/07/25 14:21 Height 5 ft 9 in Weight 163 lb 2.273 oz BMI 24.1 BP 124/70 Blood Pressure Location Lt brachial Position Sitting Pulse 108 H Pulse Source Monitor Intake Visit Reasons: 6m follow up Surtass Analyst Required: No Accompanied by: Self / Same As Patient Allergies seafood Allergy (Verified 01/07/25 14:24) Hives Medication List - Last Reconciled 01/07/25 by Alejandra Valdivia, MINI-C apixaban (Eliquis) 5 mg PO BID carvedilol 6.25 mg PO BID 90 days cyanocobalamin (vitamin B-12) 500 mcg PO DAILY 30 days fenofibrate 160 mg PO DAILY folic acid 1 mg PO DAILY gabapentin 100 mg PO BEDTIME magnesium oxide 400 mg PO BID metformin 500 mg PO BIDWMEAL multivitamin 1 tab PO DAILY naltrexone 50 mg PO BID sacubitril-valsartan 24-26 mg 1 tab PO BID sertraline 50 mg PO DAILY 30 days thiamine HCl (vitamin B1) 100 mg PO DAILY triamcinolone acetonide 0.1% 1 appl topical DAILY HPI HPI 6m follow up: Details: To is a 54-year-old male with past medical history of alcohol abuse, diabetes, paroxysmal atrial fibrillation, heart failure with reduced EF, nonischemic cardiomyopathy who presents for follow up. Today he reports he has been doing very well since his last visit in June. He continues to maintain sobriety. He is staying physically active and taking good care of himself. His family and friends are very supportive of his alcohol abstinence. He has not had any cardiac complaints. He denies chest discomfort, shortness of breath, heart palpitations. No bleeding issues reported. He says his recent hemoglobin A1c was 8.3 and he is trying to following a low carb diet. Taking all meds as directed. [facility] Medical History Eczema Chronic anticoagulation Colon cancer screening Numbness in feet Difficulty walking Alcohol withdrawal COVID-19 virus infection Numbness of left foot Alcohol abuse Paroxysmal atrial fibrillation Screening for prostate cancer Atrial fibrillation Left inguinal hernia Peripheral neuropathy Inguinal hernia, left Anemia Type 2 diabetes mellitus with hyperglycemia Nonischemic cardiomyopathy Chronic heart failure with reduced ejection fraction and diastolic dysfunction Surgical History Hx of cardiac catheterization Family History Father No problems noted. Mother No problems noted. Other No family history of cancer Substance abuse Social History Household Members: Family Housing: House Are you a primary plant health care technician to a significant other at home: No Do you presently have visiting nurse or other home services: No Alcohol intake: current Alcohol intake frequency: 3 or more drinks per day Alcohol type: hard liquor Comment: 1:1 sitter Patient Tobacco Use Status: Never used Tobacco e-Cigarette/Vaping Use: Never Used Second Hand Smoke Exposure: Yes Advance Directives Date on File: 09/10/21 service: No Current occupational status: employed Current occupational exposures/hazards: No Cognitive needs: No Hearing needs: No Vision needs: Yes (Glasses and contacts) Review of Systems Const All systems reviewed & are unremarkable except as noted in HPI and below Denies daytime sleepiness, Denies difficulty sleeping, Denies snoring, Denies stops breathing during sleep and Denies weakness Card Denies chest pain, Denies rapid heart rate, Denies irregular heart rhythm, Denies claudication, Denies leg edema, Denies lightheadedness, Denies palpitations, Denies dyspnea, Denies dyspnea on exertion, Denies orthopnea, Denies paroxysmal nocturnal dyspnea and Denies slow heart rate Resp Denies cough, Denies dyspnea, Denies dyspnea on exertion and Denies snoring GI Reports no additional complaints, Denies hematochezia, Denies change in stool character and Denies dyspepsia Musc Denies abnormal gait, Denies muscle weakness and Denies numbness Neuro Denies abnormal gait, Denies numbness and Denies weakness Endo Denies palpitations Physical Exam Vital Signs: Last Vital Signs Pulse 108 H 01/07/25 14:21 BP 124/70 01/07/25 14:21 BMI result Body Mass Index 24.1 Const General: cooperative, healthy appearing, comfortable and no acute distress Orientation/consciousness: patient oriented x3 Neck Neck: Yes normal visual inspection and Yes no JVD Resp Effort & Inspection: normal respiratory effort Auscultation: clear to auscultation bilaterally, no rales, no rhonchi and no wheezes Cardio Jugular venous distension: no JVD Rate: tachycardic Rhythm: regular rhythm Heart sounds: S1 normal heart sound present, S2 normal heart sound present, no murmurs and no rubs Neuro General: patient oriented x3 Extrem General: Yes normal to inspection and No no pedal edema Psych Appearance: grossly normal Mental Status: mental status grossly normal Speech and movement: Normal speech and movement present Office Procedures EKG Details: Today, read by me, sinus tachycardia, rate 108, QTC 474 milliseconds [id number], Complete Assessment & Plan Assessment & Plan (1) Paroxysmal atrial fibrillation: Code(s): I48.0 - Paroxysmal atrial fibrillation Category: Medical Plan: History of paroxysmal atrial fibrillation, treated with rhythm control which is currently suppressed. He had been drinking alcohol excessively but now sober for close to a year. EKG done today showing sinus tachycardia, rate 108, in the setting of mild anxiety. Labs 10/20/2024 showed creatinine 1, hemoglobin 11.5. He is on carvedilol for heart rate control and Eliquis for anticoagulation. No medication changes made. Instructed to monitor pulse at home and call if it is consistently over 100. Cardiology follow-up 6 months, sooner if needed (2) Nonischemic cardiomyopathy: Comment: echocardiogram in July 2019 showing LVEF of 15-20% August 2020he left ventricular systolic function is normal. The calculated ejection fraction is 58% by biplane method. - No obvious valvular pathology seen on this study. Code(s): I42.8 - Other cardiomyopathies Category: Medical Plan: History of non ischemic cardiomyopathy, likely related to alcohol abuse. His EF has been as low as 15-20% in 2019. His last echocardiogram was done 11/29/2022 showing EF 63%, no valve abnormalities. He is on Entresto and carvedilol for neurohormonal modulation. He does not appear fluid overloaded on exam today. Signs and symptoms of heart failure reviewed with him. (3) Alcohol dependence, uncomplicated: Code(s): F10.20 - Alcohol dependence, uncomplicated Category: Medical Plan: As above. Now following with the addiction medicine program at [facility] - has sustained from all alcohol intake for 1 year. Plan I discussed the patient's in-office tachycardia, noting the heart rate was over 100 bpm but the rhythm was normal. I explained that this is likely due to anxiety during the visit, but to confirm this, I instructed the patient to monitor the heart rate at home using the digital blood pressure cuff. I advised the patient that a resting heart rate should be under 100 bpm and to contact our office if it is consistently higher. I explained that we would not adjust the carvedilol at this time because blood pressure is well-controlled and the tachycardia may resolve outside the office. I confirmed that the generic form of Entresto is the same medication. We acknowledged the significant health improvements the patient has made over the past year. I arranged for the patient to follow up with Dr. Krishnamurthy in 6 months. Continue alcohol cessation Patient Instructions: - Check your heart rate at home using your blood pressure machine. - Your resting heart rate should be less than 100 beats per minute. - If your heart rate is often over 100 when you are relaxed, please call the office and leave a message for me. - Continue taking all of your medications as prescribed. - The new generic version of Entresto is the same as the brand-name medicine you were taking before. - Continue your walking routine for exercise. -Continue alcohol cessation - Follow up in our office in [address] Krishnamurthy Patient was informed and verbally consented to the use of an ambient scribe for clinic note documentation during this visit. Visit time spent on chart review, interview, assessment, orders, documentation. Coding Level of Care Code Complex visit Add On G2211 Diagnoses Paroxysmal atrial fibrillation I48.0 Nonischemic cardiomyopathy I42.8 Alcohol dependence, uncomplicated F10.20 CPT Codes EKG - CPT: 25408-[id number], Complete ([id number]) Time Spent (min) 30
--- OUTSIDE RECORDS SUMMARY | 2025-01-07 19:30 | XMS_ITS | Clinical Summary ---
Author Organization [facility] Address [address] [place] [address] Phone Care Team Providers Care Gate Clerk Name Role Phone Pcp, Unknown Primary Care [...] procedure but would prefer to happens at [facility] after February as he is [...] paperwork including most recent visit echocardiogram from [facility] so that I have an [...] topic Medical Devices Not on file [facility] [address] [facility] [place] [facility] [place] [facility] Care Teams Gate Clerk Relationship Specialty Start Date End Date Pcp, Unknown PCP - General 11/20/19 Additional Source Comments The information contained in this document represents components of the legal health record. It is not the complete legal health record.[facility]
--- OUTSIDE RECORDS SUMMARY | 2025-01-07 19:30 | XMS_ITS ---
Author Organization [facility] Care Team Providers Care Food Service Manager Name Role Phone James Vargas Unavailable Unavailable Cesilia Abbott Unavailable Unavailable Nancy Acosta Unavailable Unavailable Allergies and adverse reactions No Known Allergies Care Team Name Role Address Phone Organization Dates Nancy Acosta PCP [address], [place], [address], [facility] (Office): : [facility] 11/18/2022 - 11/18/2022 James Vargas [address] [place] [address], [phone], [facility] (Office): [facility] 11/18/2022 - 11/18/2022 Cesilia Abbott [address], [address], [facility] (Office): : [facility] 11/18/2022 - 11/18/2022 Insurance Providers Reason for Referral No Reasons for Referral Entered Social History Social History Observation Description Start Date End Date Code Code System Current Smoking Status Tobacco smoking consumption unknown [id number] SNOMED CT Sex Assigned At Male 1970 [address]-0 [facility] Gender Identity Sexual Orientation
== END 2025-01-07 14:56 | disposition home or self-care (01) ==
LOC: HO.HCS 14:06
PROVIDERS: PCP Internal Medicine; Visit Provider Nurse Practitioner Family
DX: I48.0 Paroxysmal atrial fibrillation (principal); I42.8 Other cardiomyopathies; F10.20 Alcohol dependence, uncomplicated
CPT/HCPCS: 93010

== ENCOUNTER → 2025-01-07 14:05 | Outpatient (BNVA) | payer OTHER, SELFPAY | PROVIDERS: PCP Internal Medicine; Visit Provider Nurse Practitioner Family | DX: I48.0 Paroxysmal atrial fibrillation (principal); F10.20 Alcohol dependence, uncomplicated; I42.8 Other cardiomyopathies | CPT/HCPCS: 93005; 99212 ==